=== PATIENT | female | born 1940 | race Caucasian/White ===

== ENCOUNTER → 2016-03-09 | Outpatient (CLI) | payer MEDICARE, OTHER ==
[~2016-03-09] MED LIST: /GLIM4TA OR; ACTOS OR; ASPI81TA45 OR; CIPR25SS OR; CIPRO; GLUC1000 OR; GLYBPOW OR; JANUVIA OR; LIPITOR PO; TYL RE; TYLENOL; VITAMIN B 12 PO; ZOLO100T OR
--- NOTE | 2016-03-09 17:17 | REP ---
AP AND LATERAL THORACIC SPINE: 03/09/2016. Clinical history: Mid-back pain. Comparison: Lateral chest 07/03/2010. Findings: AP, lateral and a coned lateral view of cervicothoracic junction were provided. Posterior rib articulations and medial clavicles are intact. The spinous processes, pedicles, transverse processes and paraspinal lines were all unremarkable. There are calcifications aortic arch and some tortuosity and ectasia of the aorta without aneurysm. No destructive lesion or compression deformity noted on the frontal view. Lateral view shows disc space narrowing particularly at T7-8, T8-9 and T9-10. However, there is no visible compression deformity or destructive lesion. Impression: 1. Degenerative disc disease, greatest at T8-9 with narrowing at other levels as described. No acute compression deformity or destructive bone lesion. ADDENDUM at the time of signature: This study has just been placed in my signature queue on the date of this signature. Why this has been unavailable for my signature to date is not known to me. I apologize for any inconvenience from this delay. Signed by Henrik Bruno MD 03/24/2016 05:01 P
== END ==
LOC: M ADAMS 16:24
PROVIDERS: ATTEND Family Medicine
DX: M51.34 Other intervertebral disc degeneration, thoracic region (principal); Z23 Encounter for immunization
CPT/HCPCS: 72070; 90471; 90715; G0463

== ENCOUNTER → 2016-05-23 | Outpatient (REF) | payer MEDICARE, OTHER ==
[2016-05-23 14:03] LABS: ALBUMIN 3.7 GM/DL (3.2-5.2); ALKALINE PHOSPHATASE 43 U/L (45-117); ALT/SGPT 28 U/L (12-78); ANION GAP 5 MEQ/L (8-16); AST/SGOT 27 U/L (15-37); BILIRUBIN,TOTAL 0.4 MG/DL (0.2-1.0); BLOOD UREA NITROGEN 18 MG/DL (7-18); CALCIUM LEVEL 9.6 MG/DL (8.8-10.2); CARBON DIOXIDE LEVEL 35 MEQ/L (21-32); CHLORIDE LEVEL 98 MEQ/L (98-107); CHOLESTEROL LEVEL 167 MG/DL (<200); CREATININE FOR GFR 0.79 MG/DL (0.55-1.02); GLOMERULAR FILTRATION RATE > 60.0 (>39); GLUCOSE, FASTING 169 MG/DL (83-110); POTASSIUM SERUM 3.6 MEQ/L (3.5-5.1); SODIUM LEVEL 138 MEQ/L (136-145); TOTAL PROTEIN 7.4 GM/DL (6.4-8.2); TRIGLYCERIDES LEVEL 271 MG/DL (<150)
== END ==
LOC: M SFHCADAM 08:18
PROVIDERS: ATTEND Family Medicine
DX: E11.9 Type 2 diabetes mellitus without complications (principal); E78.2 Mixed hyperlipidemia

== ENCOUNTER → 2016-10-25 | Outpatient (REF) | payer MEDICARE, OTHER ==
[2016-10-25 17:30] LABS: ALBUMIN 3.9 GM/DL (3.2-5.2); ALBUMIN/GLOBULIN RATIO 1.11 (1.00-1.93); ALKALINE PHOSPHATASE 38 U/L (45-117); ALT/SGPT 27 U/L (12-78); ANION GAP 10 MEQ/L (8-16); AST/SGOT 21 U/L (15-37); BILIRUBIN,TOTAL 0.4 MG/DL (0.2-1.0); BLOOD UREA NITROGEN 16 MG/DL (7-18); CALCIUM LEVEL 9.8 MG/DL (8.8-10.2); CARBON DIOXIDE LEVEL 33 MEQ/L (21-32); CHLORIDE LEVEL 99 MEQ/L (98-107); CREATININE FOR GFR 0.78 MG/DL (0.55-1.02); GLOMERULAR FILTRATION RATE > 60.0 (>39); GLUCOSE, FASTING 164 MG/DL (83-110); POTASSIUM SERUM 3.6 MEQ/L (3.5-5.1); SODIUM LEVEL 142 MEQ/L (136-145); TOTAL PROTEIN 7.4 GM/DL (6.4-8.2)
== END ==
LOC: M SFHCADAM 09:07
PROVIDERS: ATTEND Family Medicine
DX: E11.9 Type 2 diabetes mellitus without complications (principal)

== ENCOUNTER → 2016-10-31 | Outpatient (CLI) | payer MEDICARE, BC ==
--- NOTE | 2016-10-31 14:11 | REPMRS ---
Patient History The patient states she has not had a clinical breast exam in over a year. Family history of breast cancer in maternal aunt and ovarian cancer in daughter under age 50. Benign radio exam breast specimen of the right breast, September 03, 2013. Benign stereotatic loc for ea lesion of the right breast, September 03, 2013. Benign stereotatic breast biopsy of the left breast, November 06, 2007. Digital Woman Screen Mammo: October 31, 2016 - Exam #: [id number] Bilateral CC and MLO view(s) were taken. Technologist: Sheron Padgett, Technologist Prior study comparison: October 27, 2015, bilateral digital mammo screening bilat, performed at [facility]. February 24, 2015, right breast digital mammo diagnostic unilateral, performed at [facility]. FINDINGS: There are scattered fibroglandular densities. There has been no change in the appearance of the mammogram from the prior studies. There is a mild amount of residual fibroglandular tissue which is fairly symmetric. There is no interval development of dominant mass, architectural distortion, or clustered microcalcification suggestive of malignancy. ASSESSMENT: BI-RADS/ACR category 1 mammogram. Negative. Recommendation Routine screening mammogram in 1 year (for women over age 40). This mammogram was interpreted with the aid of an FDA-approved computer-aided dectection system. Electronically Signed By: Jian Franks MD 10/31/16 [id number]
== END ==
LOC: M WHC 12:51
PROVIDERS: ATTEND Family Medicine
DX: Z12.31 Encounter for screening mammogram for malignant neoplasm of breast (principal); Z92.89 Personal history of other medical treatment; Z80.41 Family history of malignant neoplasm of ovary
CPT/HCPCS: G0202; G0463

== ENCOUNTER → 2017-04-11 | Outpatient (REF) | payer MEDICARE, OTHER ==
[2017-04-11 12:49] LABS: HEMOGLOBIN 12.6 g/dl (12.0-16.0); MEAN CORPUSCULAR HEMOGLOBIN 28.8 pg (27.0-33.0); MEAN CORPUSCULAR HGB CONC 32.3 g/dl (32.0-36.5); PLATELET COUNT, AUTOMATED 282 10^3/uL (150-450); RED BLOOD COUNT 4.38 10^6/uL (4.00-5.40); RED CELL DISTRIBUTION WIDTH 13.2 % (11.5-14.5); RETICULOCYTE # 69.2 10^9/L (17-77); RETICULOCYTE % 1.6 % (0.5-1.5); WHITE BLOOD COUNT 7.9 10^3/uL (4.0-10.0)
[2017-04-11 14:45] LABS: ALBUMIN/GLOBULIN RATIO 1.05 (1.00-1.93); ALKALINE PHOSPHATASE 45 U/L (45-117); ALT/SGPT 27 U/L (12-78); ANION GAP 7 MEQ/L (8-16); AST/SGOT 22 U/L (7-37); BILIRUBIN,TOTAL 0.3 MG/DL (0.2-1.0); BLOOD UREA NITROGEN 23 MG/DL (7-18); CALCIUM LEVEL 9.8 MG/DL (8.8-10.2); CARBON DIOXIDE LEVEL 32 MEQ/L (21-32); CHLORIDE LEVEL 102 MEQ/L (98-107); CHOLESTEROL LEVEL 151 MG/DL (<200); CHOLESTEROL RISK RATIO 3.682 (<5); CREATININE FOR GFR 1.07 MG/DL (0.55-1.30); FERRITIN 44 NG/ML (8-252); FREE T4 0.96 NG/DL (0.76-1.46); GLOMERULAR FILTRATION RATE 52.9 (>39); GLUCOSE, FASTING 145 MG/DL (70-100); HDL CHOLESTEROL 41 MG/DL (>40); IRON (FE) 51 UG/DL (50-170); LDL CHOLESTEROL 63.2 MG/DL (<100); NON-HDL-C 110 MG/DL; PERCENT SATURATION 13.3 % (13.2-45.0); POTASSIUM SERUM 4.4 MEQ/L (3.5-5.1); SODIUM LEVEL 141 MEQ/L (136-145); TOTAL IRON BINDING CAPACITY 384 UG/DL (250-450); TOTAL PROTEIN 7.8 GM/DL (6.4-8.2); TRIGLYCERIDES LEVEL 234 MG/DL (<150)
[2017-04-11 15:48] LABS: ESTIMATED AVERAGE GLUCOSE 180 MG/DL (60-110); HEMOGLOBIN A1c 7.9 %
== END ==
LOC: M SFHCADAM 08:40
DX: F32.9 Major depressive disorder, single episode, unspecified (principal); Z86.2 Personal history of diseases of the blood and blood-forming organs and certain disorders involving the immune mechanism; E11.9 Type 2 diabetes mellitus without complications; E78.2 Mixed hyperlipidemia
CPT/HCPCS: 83550

== ENCOUNTER → 2017-04-12 | Outpatient (REF) | payer MEDICARE, OTHER ==
[2017-04-12 21:30] LABS: CREATININE, URINE 74.9 MG/DL; MALB URINE SIEMENS 5.1 MG/L; MAU/CREAT RATIO 6.8 MCG/MG (0.0-30.0)
== END ==
LOC: M SFHCADAM 09:48
DX: E11.9 Type 2 diabetes mellitus without complications (principal)
CPT/HCPCS: 82043

== ENCOUNTER 2017-08-03 06:07 | Day surgery (SDC) | payer MEDICARE, BC, OTHER ==
[2017-08-03] MEDS: ACETAMINOPHEN 650 MG SUPP PR (06:00)
[2017-08-03] MEDS ORDERED: LIDOCAINE 1% MDV 20ML VIAL SQ (06:15)
[2017-08-03 06:32] LABS: HEMATOCRIT 37.9 % (36.0-47.0); HEMOGLOBIN 12.7 g/dl (12.0-15.5); MEAN CORPUSCULAR HEMOGLOBIN 28.6 pg (27.0-33.0); MEAN CORPUSCULAR HGB CONC 33.5 g/dl (32.0-36.5); MEAN CORPUSCULAR VOLUME 85.4 fl (80.0-96.0); PLATELET COUNT, AUTOMATED 292 10^3/uL (150-450); RED BLOOD COUNT 4.44 10^6/uL (4.00-5.40); RED CELL DISTRIBUTION WIDTH 13.4 % (11.5-14.5)
[2017-08-03 06:46] LABS: ANION GAP 9 MEQ/L (8-16); BLOOD UREA NITROGEN 12 MG/DL (7-18); CALCIUM LEVEL 9.4 MG/DL (8.8-10.2); CARBON DIOXIDE LEVEL 31 MEQ/L (21-32); CHLORIDE LEVEL 101 MEQ/L (98-107); CREATININE FOR GFR 0.89 MG/DL (0.55-1.30); GLOMERULAR FILTRATION RATE > 60.0 (>39); GLUCOSE, FASTING 168 MG/DL (70-100); POTASSIUM SERUM 3.1 MEQ/L (3.5-5.1); SODIUM LEVEL 141 MEQ/L (136-145)
[2017-08-03] MEDS: LR 1,000 ML IV ×4 (06:55→20:45)
[2017-08-03 07:03] LABS: BEDSIDE GLUCOSE 170 MG/DL (83-110)
[2017-08-03] MEDS ORDERED: LIDOCAINE 2% INJ 100 MG/5 ML SDV (FOR ANES.) As Ordered (07:12)
[2017-08-03] MEDS ORDERED: ROCURONIUM BROMIDE 50 MG/5 ML VIAL As Ordered (07:12)
[2017-08-03] MEDS ORDERED: fentaNYL 100 MCG/2 ML INJECTION (J3010) As Ordered ×2 (07:12→08:30)
[2017-08-03] MEDS ORDERED: dexameTHASONE 4 MG/ML 1ML VIAL (J1100) As Ordered (07:12)
[2017-08-03] MEDS ORDERED: GLYCOPYRROLATE INJ 0.2 MG/ML 2 ML VIAL As Ordered (07:12)
[2017-08-03] MEDS ORDERED: ONDANSETRON 4MG/2ML VIAL (J2405) As Ordered (07:12)
[2017-08-03] MEDS ORDERED: MIDAZOLAM INJ 2 MG/2 ML VIAL (J2250) As Ordered (07:12)
[2017-08-03] MEDS ORDERED: KETOROLAC 60 MG/2 ML VIAL (J1885) As Ordered (07:12)
[2017-08-03] MEDS ORDERED: PROPOFOL 200 MG/20 ML VIAL As Ordered (07:12)
[2017-08-03] MEDS ORDERED: NEOSTIGMINE 10 MG/10 ML VIAL (J2710) As Ordered (07:12)
[2017-08-03] MEDS: LIDOCAINE W/EPINEPHRINE 1% 20ML VIAL As Ordered (07:16)
[2017-08-03] MEDS: ceFAZolin SOD 1 GM in D5W MINI-BAG PLUS 50 ML IV (07:32)
[2017-08-03] MEDS: ACETAMINOPHEN 650 MG SUPP As Ordered (07:50)
[2017-08-03] MEDS ORDERED: PHENYLephrine HCL 500 MCG/5 ML (100MCG/ML) SYRINGE (J2370) As Ordered (09:05)
[2017-08-03] MEDS: FLUORESCEIN 10% (100MG/ML) 5 ML VIAL As Ordered (09:25)
[2017-08-03] MEDS: VASOPRESSIN INJ 20 UNITS/ML VIAL As Ordered (09:30)
[2017-08-03] MEDS ORDERED: PERCOCET 5MG/325MG TAB PO (10:45)
[2017-08-03] MEDS ORDERED: IBUPROFEN 800 MG TAB PO (12:00)
[2017-08-03] MEDS ORDERED: NORCO, ANEXSIA 5/325MG TABLET (HYDROcodone/ACETAMINOPHEN) PO (12:15)
[2017-08-03] MEDS ORDERED: fentaNYL 100 MCG/2 ML INJECTION (J3010) IV (12:15)
[2017-08-03] MEDS ORDERED: ONDANSETRON 4MG/2ML VIAL (J2405) IV (12:15)
[2017-08-03] MEDS: SIMETHICONE 80 MG CHEW TAB PO ×3 (14:00→23:24)
[2017-08-03] MEDS: IBUPROFEN 800 MG TAB PO ×2 (15:08→21:28)
[2017-08-04] MEDS: IBUPROFEN 800 MG TAB PO ×2 (04:12→10:19)
[2017-08-04] MEDS: SIMETHICONE 80 MG CHEW TAB PO (05:37)
== END 2017-08-04 12:15 | disposition home or self-care (01) ==
LOC: M SDC 06:07 → M MS5PR 11:40
DX: N99.3 Prolapse of vaginal vault after hysterectomy (principal); E11.9 Type 2 diabetes mellitus without complications; I10 Essential (primary) hypertension; M12.9 Arthropathy, unspecified; F32.9 Major depressive disorder, single episode, unspecified; Z88.0 Allergy status to penicillin; Z86.73 Personal history of transient ischemic attack (TIA), and cerebral infarction without residual deficits; Z79.899 Other long term (current) drug therapy; Z90.710 Acquired absence of both cervix and uterus; Z79.84 Long term (current) use of oral hypoglycemic drugs; Z78.0 Asymptomatic menopausal state; Z96.1 Presence of intraocular lens
CPT/HCPCS: 57282

== ENCOUNTER → 2017-10-11 | Outpatient (REF) | payer MEDICARE, OTHER ==
[2017-10-11 13:00] LABS: HEMATOCRIT 37.2 % (36.0-47.0); MEAN CORPUSCULAR HEMOGLOBIN 27.8 pg (27.0-33.0); MEAN CORPUSCULAR HGB CONC 32.3 g/dl (32.0-36.5); MEAN CORPUSCULAR VOLUME 86.1 fl (80.0-96.0); PLATELET COUNT, AUTOMATED 295 10^3/uL (150-450); RED BLOOD COUNT 4.32 10^6/uL (4.00-5.40); RED CELL DISTRIBUTION WIDTH 13.4 % (11.5-14.5); WHITE BLOOD COUNT 6.6 10^3/uL (4.0-10.0)
[2017-10-11 13:35] LABS: ALBUMIN 3.7 GM/DL (3.2-5.2); ALBUMIN/GLOBULIN RATIO 0.93 (1.00-1.93); ALKALINE PHOSPHATASE 45 U/L (45-117); ALT/SGPT 23 U/L (12-78); ANION GAP 10 MEQ/L (8-16); AST/SGOT 21 U/L (7-37); BILIRUBIN,TOTAL 0.5 MG/DL (0.2-1.0); BLOOD UREA NITROGEN 21 MG/DL (7-18); CALCIUM LEVEL 9.6 MG/DL (8.8-10.2); CARBON DIOXIDE LEVEL 33 MEQ/L (21-32); CHLORIDE LEVEL 99 MEQ/L (98-107); CREATININE FOR GFR 0.95 MG/DL (0.55-1.30); GLOMERULAR FILTRATION RATE > 60.0 (>39); GLUCOSE, FASTING 160 MG/DL (70-100); POTASSIUM SERUM 3.8 MEQ/L (3.5-5.1); SODIUM LEVEL 142 MEQ/L (136-145); TOTAL PROTEIN 7.7 GM/DL (6.4-8.2)
[2017-10-11 13:43] LABS: VITAMIN B12 LEVEL 408 PG/ML (247-911)
[2017-10-11 13:44] LABS: FOLATE 7.2 NG/ML (>5.4)
[2017-10-11 15:31] LABS: ESTIMATED AVERAGE GLUCOSE 163 MG/DL (60-110); HEMOGLOBIN A1c 7.3 %
== END ==
LOC: M SFHCADAM 11:10
DX: Z86.2 Personal history of diseases of the blood and blood-forming organs and certain disorders involving the immune mechanism (principal); R26.81 Unsteadiness on feet; E11.9 Type 2 diabetes mellitus without complications
CPT/HCPCS: 82746

== ENCOUNTER → 2017-11-22 | Outpatient (CLI) | payer MEDICARE, BC | LOC: M WHC 13:07 | DX: Z12.31 Encounter for screening mammogram for malignant neoplasm of breast (principal); Z80.3 Family history of malignant neoplasm of breast | CPT/HCPCS: 77067 ==

== ENCOUNTER 2017-12-30 23:27 | Emergency (ER) | payer MEDICARE, BC, OTHER ==
[2017-12-30] MEDS ORDERED: NS 500 ML IV (23:45)
[2017-12-31] MEDS: MORPHINE 2 MG/ML 1ML SYRINGE (J2270) IV (00:04)
[2017-12-31] MEDS: NS 1,000 ML IV (00:04)
[2017-12-31 00:07] LABS: BASO % 0.3 % (0.0-1.0); EOS # 0.1 10^3/uL (0.0-0.50); EOS % 0.9 % (0.0-3.0); HEMATOCRIT 38.1 % (36.0-47.0); HEMOGLOBIN 12.5 g/dl (12.0-15.5); IMMATURE GRANULOCYTE % 0.6 % (0-3.0); LYMPH # 2.4 10^3/uL (1.5-4.5); LYMPH % 20.6 % (24.0-44.0); MEAN CORPUSCULAR HGB CONC 32.8 g/dl (32.0-36.5); MEAN CORPUSCULAR VOLUME 85.4 fl (80.0-96.0); MONO # 0.8 10^3/uL (0.0-0.8); MONO % 6.7 % (0.0-5.0); NEUTROPHILS # 8.4 10^3/uL (1.8-7.7); NEUTROPHILS % 70.9 % (36.0-66.0); PLATELET COUNT, AUTOMATED 281 10^3/uL (150-450); RED BLOOD COUNT 4.46 10^6/uL (4.00-5.40); RED CELL DISTRIBUTION WIDTH 13.7 % (11.5-14.5); WHITE BLOOD COUNT 11.9 10^3/uL (4.0-10.0)
[2017-12-31 00:16] LABS: INR 0.96; PROTHROMBIN TIME 12.9 SECONDS (12.1-14.4)
[2017-12-31 00:21] LABS: PARTIAL THROMBOPLASTIN TIME 24.7 SECONDS (25.4-37.6)
[2017-12-31 00:32] LABS: ALBUMIN 3.8 GM/DL (3.2-5.2); ALKALINE PHOSPHATASE 48 U/L (45-117); ALT/SGPT 30 U/L (12-78); ANION GAP 12 MEQ/L (8-16); AST/SGOT 28 U/L (7-37); BILIRUBIN,DIRECT 0.2 MG/DL (0.0-0.2); BILIRUBIN,TOTAL 0.4 MG/DL (0.2-1.0); BLOOD UREA NITROGEN 27 MG/DL (7-18); CALCIUM LEVEL 9.1 MG/DL (8.8-10.2); CARBON DIOXIDE LEVEL 26 MEQ/L (21-32); CHLORIDE LEVEL 99 MEQ/L (98-107); CREATININE FOR GFR 1.18 MG/DL (0.55-1.30); GLOMERULAR FILTRATION RATE 47.2 (>39); GLUCOSE, FASTING 124 MG/DL (70-100); POTASSIUM SERUM 3.5 MEQ/L (3.5-5.1); SODIUM LEVEL 137 MEQ/L (136-145); TOTAL PROTEIN 7.6 GM/DL (6.4-8.2)
[2017-12-31] MEDS ORDERED: ISOVUE-370 76% 100ML VIAL (Q9967) As Ordered (00:43)
[2017-12-31] MEDS: traMADol 50 MG TAB (BULK 4 TAB ED) PO (03:40)
== END 2017-12-31 03:42 | disposition home or self-care (01) ==
LOC: M ED 23:27
DX: S20.20XA Contusion of thorax, unspecified, initial encounter (principal); Z53.29 Procedure and treatment not carried out because of patient's decision for other reasons; W22.8XXA Striking against or struck by other objects, initial encounter
CPT/HCPCS: Q9967

== ENCOUNTER → 2018-04-10 | Outpatient (REF) | payer MEDICARE, OTHER ==
[~2018-04-10] MED LIST changes: +CALC-136 PO; +CALC1TAB30 PO; +CHLO125TA PO; +GLIM4TAB PO; +MAGN200T PO; +METF10004 PO; +OMEP20CA3 PO; +PERC5TAB12 PO; +PRAV40TA2 PO; +SERT-138 PO; +TRAM-533 PO; +VITA100067 PO; +VITA250T50 PO; -ZOLO100T OR; +ZOLO100T PO
[2018-04-10 13:43] LABS: ALBUMIN 3.7 GM/DL (3.2-5.2); BILIRUBIN,TOTAL 0.4 MG/DL (0.2-1.0); CALCIUM LEVEL 9.3 MG/DL (8.8-10.2); CHOLESTEROL RISK RATIO 4.09 (<5); CREATININE FOR GFR 1.19 MG/DL (0.55-1.30); GLOMERULAR FILTRATION RATE 46.7 (>39); POTASSIUM SERUM 3.6 MEQ/L (3.5-5.1); TOTAL PROTEIN 7.1 GM/DL (6.4-8.2)
[2018-04-10 14:34] LABS: HEMOGLOBIN A1c 7.3 %
[2018-04-10 20:46] LABS: MALB URINE SIEMENS 19.7 MG/L; MAU/CREAT RATIO 16.4 MCG/MG (0.0-30.0)
== END ==
LOC: M SFHCADAM 08:45
PROVIDERS: ATTEND Family Medicine
DX: E11.9 Type 2 diabetes mellitus without complications (principal)

== ENCOUNTER 2018-05-22 10:30 | Emergency (ER) | payer MEDICARE, BC, OTHER ==
[~2018-05-22 10:30] MED LIST changes: -/GLIM4TA OR; +AMAR1TAB6 OR
--- NOTE | 2018-05-22 11:39 | REP ---
CT Head without contrast HISTORY: Trauma COMPARISON: 07/03/2010 Areas of decreased attenuation are present in of the the white matter. This represents small-vessel ischemic disease. There is no intraparenchymal hemorrhage, acute infarct, mass or midline shift. The ventricular system and cortical sulci are dilated consistent with mild volume loss. A 7 mm acute subdural hematoma is present overlying the right frontal and temporal lobes. There is minimal mass effect on the underlying cortical sulci without midline shift. A small 1.5 mm acute subdural hematoma is present medial to the left frontal lobe. There is no fracture. The visualized sinuses are clear. IMPRESSION: 1. Small vessel ischemic disease. 2. Mild volume loss. 3. 7 mm acute subdural hematoma over the right frontal and temporal lobes. There is no midline shift. 4. Small 1.5 mm acute subdural hematoma medial to the left frontal lobe. Results were discussed with Dr. Brian at 11:30 a.m. 05/22/2018 Electronically Signed by Dhaval Mc MD 05/22/2018 11:30 A
[2018-05-22] MEDS ORDERED: NS 1,000 ML IV SCH (11:40)
--- NOTE | 2018-05-22 11:43 | REP ---
CT cervical spine without contrast HISTORY: Trauma COMPARISON: None There is no acute fracture or subluxation. A disc bulge is present at the C3-4 level. Disc bulges with associated osteophyte formation are present at the C4-5 through C6-7 levels. There is minimal to mild narrowing of the spinal canal. Uncinate process and/or facet hypertrophy are present at the C2-3 through C7-T1 levels. These findings produce minimal to moderate narrowing of the neural foramina. The C4-5 through C7-T1 intervertebral discs are decreased in height consistent with disc degeneration. IMPRESSION: 1. There is no acute fracture or subluxation. 2. There is cervical spondylosis at the C2-3 through C7-T1 levels. Electronically Signed by Dhaval Mc MD 05/22/2018 11:34 A
[2018-05-22] MEDS ORDERED: ADACEL/BOOSTRIX VACCINE (DIPHTH/PERTUSS/ACELL/TETANUS)0.5ML SYR (90715) IM ONE (11:45)
--- NOTE | 2018-05-22 11:59 | REP ---
Chest one-view HISTORY: Trauma Comparison: 08/28/2015 The lungs are clear. The heart is normal in size. The pulmonary vasculature is normal in appearance. Impression: No acute disease. Electronically Signed by Dhaval Mc MD 05/22/2018 11:51 A
[2018-05-22 12:59] LABS: BASO % 0.3 % (0.0-1.0); EOS # 0.1 10^3/uL (0.0-0.50); EOS % 0.8 % (0.0-3.0); HEMATOCRIT 36.5 % (36.0-47.0); HEMOGLOBIN 11.6 g/dl (12.0-15.5); LYMPH # 1.9 10^3/uL (1.5-4.5); LYMPH % 18.9 % (24.0-44.0); MEAN CORPUSCULAR HEMOGLOBIN 27.6 pg (27.0-33.0); MEAN CORPUSCULAR HGB CONC 31.8 g/dl (32.0-36.5); MEAN CORPUSCULAR VOLUME 86.9 fl (80.0-96.0); MONO # 0.6 10^3/uL (0.0-0.8); MONO % 5.9 % (0.0-5.0); NEUTROPHILS # 7.4 10^3/uL (1.8-7.7); NEUTROPHILS % 73.4 % (36.0-66.0); PLATELET COUNT, AUTOMATED 281 10^3/uL (150-450); WHITE BLOOD COUNT 10.1 10^3/uL (4.0-10.0)
[2018-05-22 13:11] LABS: INR 1.03; PROTHROMBIN TIME 13.6 SECONDS (12.1-14.4)
[2018-05-22 13:12] LABS: PARTIAL THROMBOPLASTIN TIME 26.9 SECONDS (25.4-37.6)
[2018-05-22 13:35] LABS: ALBUMIN 3.6 GM/DL (3.2-5.2); ALT/SGPT 34 U/L (12-78); BILIRUBIN,DIRECT < 0.1 MG/DL (0.0-0.2); BILIRUBIN,TOTAL 0.4 MG/DL (0.2-1.0); BLOOD UREA NITROGEN 19 MG/DL (7-18); CALCIUM LEVEL 8.8 MG/DL (8.8-10.2); CARBON DIOXIDE LEVEL 30 MEQ/L (21-32); CHLORIDE LEVEL 100 MEQ/L (98-107); CPK CREATINE PHOSPHOKINASE 58 U/L (26-192); CREATININE FOR GFR 1.05 MG/DL (0.55-1.30); FREE T4 0.98 NG/DL (0.76-1.46); GLUCOSE, FASTING 177 MG/DL (70-100); MB/CK RELATIVE INDEX 2.59 (< OR =4); POTASSIUM SERUM 3.5 MEQ/L (3.5-5.1); SODIUM LEVEL 138 MEQ/L (136-145); TOTAL PROTEIN 7.2 GM/DL (6.4-8.2); TROPONIN I < 0.02 NG/ML (< 0.10)
[2018-05-22 13:48] VITALS: BP 167/79
--- NOTE | 2018-05-23 21:30 | ECGEPIP ---
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
== END 2018-05-22 13:51 | disposition short-term general hospital (02) ==
LOC: EDBD 10:30 → M ED 10:30 → EDSEX 10:30 → M ED 13:51
DX: S01.01XA Laceration without foreign body of scalp, initial encounter (principal); S06.5X0A Traumatic subdural hemorrhage without loss of consciousness, initial encounter; W01.10XA Fall on same level from slipping, tripping and stumbling with subsequent striking against unspecified object, initial encounter; Y92.099 Unspecified place in other non-institutional residence as the place of occurrence of the external cause; Y93.9 Activity, unspecified; Y99.9 Unspecified external cause status; E11.9 Type 2 diabetes mellitus without complications; I10 Essential (primary) hypertension; M85.80 Other specified disorders of bone density and structure, unspecified site; M51.9 Unspecified thoracic, thoracolumbar and lumbosacral intervertebral disc disorder; F32.9 Major depressive disorder, single episode, unspecified; J84.10 Pulmonary fibrosis, unspecified; L40.9 Psoriasis, unspecified; M47.812 Spondylosis without myelopathy or radiculopathy, cervical region; M47.813 Spondylosis without myelopathy or radiculopathy, cervicothoracic region; Z79.4 Long term (current) use of insulin; Z79.899 Other long term (current) drug therapy; Z88.8 Allergy status to other drugs, medicaments and biological substances

== ENCOUNTER 2018-05-28 13:05 | Inpatient (IN) | payer MEDICARE, BC, OTHER ==
[~2018-05-28] VITALS: Ht 160 cm; Wt 66.7 kg
[2018-05-28] MEDS: CHLORTHALIDONE 12.5MG PER 1/2 TABLET PO SCH (09:00)
[2018-05-28] MEDS: SERTRALINE 100 MG TAB PO SCH (09:00)
[2018-05-28 13:15] VITALS: BP 156/75
[2018-05-28] MEDS ORDERED: MAGN400T PO (14:08)
[2018-05-28] MEDS ORDERED: D-10TAB2 PO (14:08)
[2018-05-28] MEDS ORDERED: CHLO25TA PO (14:08)
[2018-05-28] MEDS ORDERED: COLA100C5 PO (14:08)
[2018-05-28] MEDS ORDERED: ZOFR4TAB16 PO (14:08)
[2018-05-28] MEDS ORDERED: BACI500O21 TOP (14:08)
[2018-05-28] MEDS ORDERED: ACET1TAB55 PO (14:08)
[2018-05-28] MEDS ORDERED: MAALOX 30 ML SUSP *UDC PO PRN (14:15)
[2018-05-28] MEDS ORDERED: GLUCAGON FOR INJ 1 MG VIAL (J1610) SC PRN (14:15)
[2018-05-28] MEDS ORDERED: DOCUSATE SODIUM 100 MG CAP PO PRN (14:15)
[2018-05-28] MEDS ORDERED: ONDANSETRON 4 MG TAB (S0181) PO PRN (14:15)
[2018-05-28] MEDS ORDERED: DEXTROSE 50% 50 ML SYRINGE IV PRN (14:15)
[2018-05-28] MEDS ORDERED: BISACODYL 10 MG SUPP PR PRN (14:15)
[2018-05-28] MEDS ORDERED: GLUCOSE 4 GM CHEW TABLET PO PRN (14:15)
--- NOTE | 2018-05-28 14:59 | HPEPDOC ---
Patient Access Director Note DATE OF ADMISSION: May 28, 2018 at 13:05 SOURCE OF ADMISSION INFORMATION:[facility] records and patient CHIEF COMPLAINT: subdural hematoma HISTORY OF PRESENT ILLNESS: 77F pmh TIA, HTN, HLD, GERD, depression initially presented to [facility] ED on 05/22/18 after falling in her driveway and hitting her head. CTH at the time showed, "7 mm acute subdural hematoma over the right frontal and temporal lobes...There is no midline shift....Small 1.5 mm acute subdural hematoma medial to the left frontal lobe" and she was found to have a laceration to the back of her head. She was transported to [facility] where initially she complained of headache and nausea which resolved. Repeat CTH at [facility] on 05/22 and 05/24/18 did not show significant changes in her subdural hematomas. Neurosurgery was consulted and did not recommend surgical intervention. She had hyponatremia and hypokalemia with leukocytosis. She was found to have some cognitive deficits and found to have impairments in her gait and ADLs compared to her baseline level of function. She was treated for constipation and provided with a referral for outpatient Sleep study for suspected DEONTE. She was deemed medically appropriate for discharge to ARU on 05/28/18. REVIEW OF SYSTEMS: The following is a completed review of systems and has been reviewed. Review of systems otherwise unremarkable. PAIN: Patient self reports no pain. EYES: Negative for recent vision changes EARS, NOSE, & THROAT: negative for dysphagia, +frontal sinus pain CARDIOVASCULAR: denies chest pain or palpitations PULMONARY: Negative. Denies shortness of breath GASTROINTESTINAL: Negative for constipation/diarrhea GENITOURINARY: Negative for dysuria NEUROLOGICAL: +bilateral subdural hematomas SKIN: intact PSYCHIATRIC: Unremarkable All other review of systems found to be negative. PAST MEDICAL HISTORY: as per HPI PAST SURGICAL HISTORY: abdominal surgery ALLERGIES: Please see below. MEDICATIONS: Please see below. SOCIAL HISTORY: , denies ETOH, smoking, or illicit drugs, lives with son in [place] DIET: consistent carb PHYSICAL EXAMINATION: VITAL SIGNS: Please see below. GENERAL: Pleasant and cooperative. No acute distress. HEENT: PERRL. Extraocular movements intact. Clear conjunctiva CARDIOVASCULAR: Regular rate and rhythm. No murmurs, rubs, or gallops LUNGS: Clear to auscultation bilaterally. No wheezes. No rhonchi ABDOMEN: Soft, nontender, nondistended. Positive bowel sounds. Normal active bowel sounds NEUROLOGICAL: Alert and oriented times three. Able to spell "world" backwards, unable to perform Luria Cranial nerves II through XII grossly intact. Sensation grossly intact in all 4 limbs, however +extinction to touch in the RUE EXTREMITIES: 5-\\5 strength bilateral upper extremities with mild pronator drift on right. 5\\5 strength right lower extremity.5/5 strength in left lower extremity. SKIN: posterior scalp laceration healed IMAGING: Imaging documentation personally reviewed by record FUNCTIONAL STATUS: Premorbid: Independent with all activities of daily life as well as mobility On Admission: requiring assistance with ambulation, functional transfers, dressing with significant loss of balance GOALS: Modified Independent with gait, stairs, bathing, dressing, dynamic balance, toileting, medical optimization, fall recovery, assess for DME needs, family training ASSESSMENT:77-year-old F with past medical history of TIA, HTN, HLD who presents status post fall with bilateral SDH PLAN: 1. 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 Neuro: pmh TIA, s/p traumatic SDH, c/u statin, maintain sBP <130, hold antiplatelets -has f/u with neurosurgery and repeat CTH in 4 weeks -f/u with outpatient sleep study 3. Cardiac: pmh HTN c/u Chlorthalidone, medicine consulted 4. Endo: DM, c/u Glimeperide and ISS, will monitor off metformin for now 5. : f/u admission UA and Ucx, monitor PVRs 6. GI ppx: Omeprazole 7. DVT ppx: TEDs 8. Hyponatremia: likely SIADH in setting of head trauma, will monitor while here and consider salt tabs vs fluid restriction 8. Dispo: TBD POST ADMISSION PHYSICIAN EVALUATION: Medical and functional status: Description of medical status, medical ass essment: As above. Rehabilitation diagnosis and current and prior cold morbid medical conditions as above. Risk of complications and plans to mitigate them as above. Description of functional status current status is as above. Prior status as above. Status compared to preadmission: There are no clinically significant differences between the patient's current status and the information described on the preadmission screening document. Treatment plan anticipated: Treatment plan is as described above. Required disciplines including physical therapy, occupational therapy, others as noted above. Intensity of services: 3 hours a day, 6 days a week. Special considerations: There are no specific special or safety considerations that would likely preclude immediate implementation of an intensive rehabilitation program or subsequently influence the plan of care. ATTESTATION: Considering all the information above, it is my best judgment that this patient requires intensive rehabilitation therapy as described above and an inpatient hospital environment due to the complexity of nursing, medical, and rehabilitation needs required by the patient. Furthermore, this patient can reasonably be expected to participate in an benefit from an inpatient rehabilitation stay with an interdisciplinary team approach to the delivery of rehabilitation care under the direction and supervision of rehabilitation physician. PROGNOSIS: Excellent ESTIMATED LENGTH OF STAY:8-10 days. PROJECTED DISCHARGE DESTINATION: Home with family support and any durable medical equipment required to increase functional safety and mobility TIME SPENT COUNSELING AND COORDINATING INITIAL CARE: Greater than 70 minutes. Vital Signs Vital Sign - Last 24 Hours 05/28/18 13:15 Temp 97.9 Pulse 72 Resp 18 B/P (MAP) 156/75 (102) Pulse Ox 96 Home Medications Scheduled Chlorthalidone (Chlorthalidone) 25 Mg Tablet, 12.5 MG PO DAILY, (Reported) Cholecalciferol (Vitamin D3) (Vitamin D3) 1,000 Unit Tablet, 1,000 UNIT PO DAILY, (Reported) Cyanocobalamin (Vitamin B-12) (Vitamin B-12) 250 Mcg Tab, 500 MCG PO DAILY, (Reported) Docusate Sodium (Colace) 100 Mg Capsule, 100 MG PO BID, (Reported) Glimepiride (Glimepiride) 4 Mg Tab, 4 MG PO DAILY, (Reported) Magnesium Oxide (Magnesium Oxide) 400 Mg Tablet, 400 MG PO DAILY, (Reported) Metformin HCl (Metformin HCl) 1,000 Mg Tab, 1,000 MG PO QPM, (Reported) Metformin HCl (Metformin HCl) 1,000 Mg Tab, 1,500 MG PO QAM, (Reported) Omeprazole (Omeprazole) 20 Mg Cap, 20 MG PO DAILY, (Reported) Pravastatin Sodium (Pravastatin Sodium) 40 Mg Tab, 40 MG PO DAILY, (Reported) Sertraline HCl (Sertraline HCl) 100 Mg Tab, 100 MG PO DAILY, (Reported) Scheduled PRN Acetaminophen (Acetaminophen) 325 Mg Tablet, 650 MG PO Q6H PRN for PAIN, (Re ported) Bacitracin (Bacitracin) 28 Gm Oint...g., 1 DOSE TOP TID PRN for SKIN IRRITATION, (Reported) APPLY TO HEAD LACERATION Ondansetron HCl (Zofran) 4 Mg Tablet, 4 MG PO Q8H PRN for NAUSEA OR VOMITING, (Reported) Allergies Coded Allergies: ramipril (Verified Adverse Reaction, Intermediate, cough, 05/10/18) CLOVER MUÑIZ MD May 28, 2018 14:58
[2018-05-28] MEDS: ACETAMINOPHEN TAB 650MG DOSE (2X325MG) PO PRN (16:33)
[2018-05-28] MEDS: HumaLOG INSULIN (NovoLOG) PER UNIT SC SCH ×2 (17:22→20:53)
[2018-05-28 19:28] LABS: APPEARANCE, URINE HAZY (CLEAR); BACTERIA, URINE AUTO 1+ (NEGATIVE); BILIRUBIN, URINE AUTO NEGATIVE (NEGATIVE); BLOOD, URINE BLOOD NEGATIVE (NEGATIVE); COLOR, URINE YELLOW (YELLOW); GLUCOSE, URINE (UA) AUTO 3+ mg/dL (NEGATIVE); KETONE, URINE AUTO NEGATIVE (NEGATIVE); LEUKOCYTE ESTERASE, URINE AUTO NEGATIVE (NEGATIVE); NITRITE, URINE AUTO NEGATIVE (NEGATIVE); PROTEIN, URINE AUTO NEGATIVE (NEGATIVE); RBC, URINE AUTO 0 /HPF (0-3); SPECIFIC GRAVITY URINE AUTO 1.014 (1.002-1.035); SQUAMOUS EPITHELIAL CELL UR AU 0 /HPF (0-6); UROBILINOGEN, URINE AUTO 0.2 mg/dL (0.0-2.0); WBC, URINE AUTO 1 /HPF (0-3)
[2018-05-28 20:00] VITALS: BP 150/80
--- NOTE | 2018-05-28 20:49 | CR ---
DATE OF CONSULTATION: 05/28/2018 PRIMARY CARE PROVIDER: Marvel Coronel MD REFERRING PHYSICIAN: Brook Winters MD REASON FOR CONSULTATION: Medical management. HISTORY OF PRESENT ILLNESS: This patient is a 77-year-old female with past medical history significant for transient ischemic attack (TIA), type 2 diabetes, depression, psoriasis, hypertension, dyslipidemia, subdural hematoma, was transferred from [facility] to [facility] Acute Rehabilitation Unit (ARU) for rehabilitation. Previously, patient had a mechanical fall. Patient landed in her driveway. Patient remembers the event but could not remember the cause of the fall. Patient was brought to [facility] Emergency Room. At the time, patient was found to have a hematoma and was transferred to [facility] for further evaluation and management. During her hospitalization at [facility], patient was evaluated by neurosurgery. Recommended observation and medical management. No intervention was performed at the time. Later, patient was discharged to [facility] for rehabilitation. Since the fall patient is complaining about lower extremity weakness but she could not specify which lower extremity, but she is complaining about poor lower extremity coordination and muscle strength. Patient denies any numbness or tingling or any other neurological deficit. Denies any acute complaints. PAST MEDICAL HISTORY: 1. Osteopenia. 2. Dyslipidemia. 3. Hypertension. 4. Psoriasis. 5. Chronic depression. 6. Type 2 diabetes. 7. TIA. 8. Subdural hematoma. PAST SURGICAL HISTORY: 1. Hysterectomy. 2. Left breast biopsy. 3. Bilateral cataract surgery in 2012. SOCIAL HISTORY: Denies smoking, denies alcohol use, denies recreational drug use. ALLERGIES: RAMIPRIL, patient complained of gastrointestinal (GI) upset. DISCHARGE MEDICATIONS FROM [facility]: - Tylenol 650 mg by mouth every 6 hours as needed - bacitracin ointment applied to the head laceration as needed - chlorthalidone 12.5 mg by mouth daily - docusate sodium 100 mg by mouth twice a day - glimepiride 4 mg by mouth daily - magnesium oxide 400 mg by mouth daily - metformin 1500 mg by mouth every morning, 1000 mg by mouth every evening - omeprazole 20 mg by mouth daily - ondansetron 4 mg by mouth every 8 hours as needed - pravastatin 40 mg by mouth daily - sertraline 100 mg by mouth REVIEW OF SYSTEMS: GENERAL: Denies any fever or chills. HEENT: Denies any vision change or auditory change. CARDIOVASCULAR: Denies any chest pains or palpitations. RESPIRATORY: Denies any cough, sputum production, or shortness of breath. GI: Denies any nausea, vomiting, diarrhea. MUSCULOSKELETAL: Denies any muscle pain or joint pain. NEUROLOGICAL: Patient feels that patient has subjective bilateral lower extremity weakness and incoordination. Denies any numbness or tingling. OBJECTIVE: VITAL SIGNS: Temperature 97.9, pulse 72, respiratory rate 18, blood pressure 156/75, pulse oximetry 96% in room air. GENERAL: No sign of acute distress, patient alert and awake, comfortable, laying in bed. HEENT: Normocephalic, atraumatic. Extraocular motors grossly intact. CARDIOVASCULAR: Positive S1, S2, regular rate. LUNGS: Clear to auscultation bilaterally. ABDOMEN: Soft, nontender, nondistended. Bowel sounds present. EXTREMITIES: No edema. NEUROLOGICAL: Sensation to fine touch grossly intact. Muscle strength 5/5. Cranial nerves II-XII grossly intact. ASSESSMENT AND PLAN: 1. Bifrontal subdural hematoma. Patient is currently admitted to the acute rehabilitation unit (ARU). Defer physical therapy (PT), occupational therapy (OT), diet, and anticoagulation per ARU recommendations. 2. Type 2 diabetes. Patient is on consistent carbohydrate diet. Patient is on glimepiride. Insulin sliding scale. 3. History of transient ischemic attack (TIA). Patient has a history of bilateral subdural hematoma. Patient is on pravastatin. Patient is not on aspirin. 4. Gastroesophageal reflux disease. On omeprazole. 5. Depression. On Zoloft. 6. Hypertension. Patient is taking chlorthalidone. 7. Dyslipidemia. On pravastatin. 8. Deep venous thrombosis (DVT) prophylaxis. Encourage ambulation. 9. Transitional care. The patient will be under [facility] tomorrow.
[2018-05-28] MEDS: SENNA 8.6 MG TAB (SENOKOT) PO SCH (20:53)
[2018-05-29] MEDS: ACETAMINOPHEN TAB 650MG DOSE (2X325MG) PO PRN ×3 (02:22→21:49)
[2018-05-29 06:00] VITALS: BP 138/73
[2018-05-29 07:00] LABS: BASO # 0.1 10^3/uL (0.0-0.2); BASO % 0.5 % (0.0-1.0); EOS # 0.2 10^3/uL (0.0-0.50); EOS % 1.7 % (0.0-3.0); HEMATOCRIT 37.5 % (36.0-47.0); HEMOGLOBIN 12.1 g/dl (12.0-15.5); LYMPH # 3.1 10^3/uL (1.5-4.5); LYMPH % 33.1 % (24.0-44.0); MEAN CORPUSCULAR HEMOGLOBIN 27.6 pg (27.0-33.0); MEAN CORPUSCULAR HGB CONC 32.3 g/dl (32.0-36.5); MEAN CORPUSCULAR VOLUME 85.4 fl (80.0-96.0); MONO # 0.6 10^3/uL (0.0-0.8); MONO % 6.6 % (0.0-5.0); NEUTROPHILS # 5.5 10^3/uL (1.8-7.7); NEUTROPHILS % 57.7 % (36.0-66.0); PLATELET COUNT, AUTOMATED 361 10^3/uL (150-450); RED BLOOD COUNT 4.39 10^6/uL (4.00-5.40); WHITE BLOOD COUNT 9.5 10^3/uL (4.0-10.0)
[2018-05-29 07:29] LABS: ALBUMIN 3.3 GM/DL (3.2-5.2); ALT/SGPT 28 U/L (12-78); BILIRUBIN,TOTAL 0.8 MG/DL (0.2-1.0); BLOOD UREA NITROGEN 21 MG/DL (7-18); CARBON DIOXIDE LEVEL 29 MEQ/L (21-32); CHLORIDE LEVEL 95 MEQ/L (98-107); CREATININE FOR GFR 0.95 MG/DL (0.55-1.30); GLOMERULAR FILTRATION RATE > 60.0 (>39); GLUCOSE, FASTING 279 MG/DL (70-100); SODIUM LEVEL 133 MEQ/L (136-145); TOTAL PROTEIN 7.9 GM/DL (6.4-8.2)
[2018-05-29] MEDS: CYANOCOBALAMIN 250 MCG TABLET PO SCH (08:41)
[2018-05-29] MEDS: VITAMIN D 1,000 INTERNATIONAL UNITS TABLET PO SCH (08:41)
[2018-05-29] MEDS: PRAVASTATIN 20 MG TAB PO SCH (08:41)
[2018-05-29] MEDS: SERTRALINE 100 MG TAB PO SCH (08:42)
[2018-05-29] MEDS: GLIMEPIRIDE 2 MG TAB PO SCH (08:42)
[2018-05-29] MEDS: MAGNESIUM OXIDE 400 MG TAB (MAG-OX) PO SCH (08:42)
[2018-05-29] MEDS: CHLORTHALIDONE 12.5MG PER 1/2 TABLET PO SCH (08:42)
[2018-05-29] MEDS: HumaLOG INSULIN (NovoLOG) PER UNIT SC SCH ×4 (08:43→21:00)
[2018-05-29] MEDS: BACITRACIN OINT 30GM TOP SCH (08:43)
[2018-05-29] MEDS: OMEPRAZOLE 20 MG CAP PO SCH (08:43)
--- NOTE | 2018-05-29 10:43 | IPNPDOC ---
PM&R Progress Note DATE OF SERVICE: May 29, 2018 [employer] Progress Note Subjective: Patient seen walking in therapy and alter in room with her friend, stating she felt well overall and had no complaints. REVIEW OF SYSTEMS: The following is a completed review of systems and has been reviewed. Review of systems otherwise unremarkable. PAIN: Patient self reports no pain. EYES: Negative for recent vision changes EARS, NOSE, & THROAT: negative for dysphagia, +frontal sinus pain CARDIOVASCULAR: denies chest pain or palpitations PULMONARY: Negative. Denies shortness of breath GASTROINTESTINAL: Negative for constipation/diarrhea GENITOURINARY: Negative for dysuria NEUROLOGICAL: +bilateral subdural hematomas SKIN: intact PSYCHIATRIC: Unremarkable All other review of systems found to be negative. PHYSICAL EXAMINATION: VITAL SIGNS: Please see below. GENERAL: Pleasant and cooperative. No acute distress. HEENT: PERRL. Extraocular movements intact. Clear conjunctiva CARDIOVASCULAR: Regular rate and rhythm. No murmurs, rubs, or gallops LUNGS: Clear to auscultation bilaterally. No wheezes. No rhonchi ABDOMEN: Soft, nontender, nondistended. Positive bowel sounds. Normal active bowel sounds NEUROLOGICAL: Alert and oriented times three. Able to spell "world" backwards, unable to perform Luria Cranial nerves II through XII grossly intact. Sensation grossly intact in all 4 limbs, however +extinction to touch in the RUE EXTREMITIES: 5-\\5 strength bilateral upper extremities with mild pronator drift on right. 5\\5 strength right lower extremity.5/5 strength in left lower extremity. SKIN: posterior scalp laceration healed ASSESSMENT:77-year-old F with past medical history of TIA, HTN, HLD who presents status post fall with bilateral SDH PLAN: 1. rehab: PT/OT, DRIVE THRU ORDER TAKER, assess for DMEs, ambulating well with RW 2. Neuro: pmh TIA, s/p traumatic SDH, c/u statin, maintain sBP <130, hold antiplatelets -has f/u with neurosurgery and repeat CTH in 4 weeks -f/u with outpatient sleep study 3. Cardiac: pmh HTN c/u Chlorthalidone, medicine consulted 4. Endo: DM, c/u Glimeperide and ISS, will add back metformin and monitor 5. : f/u admission UA and Ucx, monitor PVRs 6. GI ppx: Omeprazole 7. DVT ppx: TEDs 8. 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 Dispo: TBD Allergies Coded Allergies: ramipril (Verified Adverse Reaction, Intermediate, cough, 05/10/18) Vital Signs Vital Signs Date Time Temp Pulse Resp B/P (MAP) Pulse Ox O2 Delivery O2 Flow Rate FiO2 05/29/18 06:00 97.2 85 17 138/73 (94) 99 2.0 Laboratory Data CBC/BMP Laboratory Tests 05/29/18 06:32 Red Blood Count 4.39, Mean Corpuscular Volume 85.4, Mean Corpuscular Hemoglobin 27.6, Mean Corpuscular Hemoglobin Concent 32.3, Red Cell Distribution Width 13.3, Neutrophils (%) (Auto) 57.7, Lymphocytes (%) (Auto) 33.1, Monocytes (%) (Auto) 6.6 H, Eosinophils (%) (Auto) 1.7, Basophils (%) (Auto) 0.5, Neutrophils # (Auto) 5.5, Lymphocytes # (Auto) 3.1, Monocytes # (Auto) 0.6, Eosinophils # (Auto) 0.2, Basophils # (Auto) 0.1, Calcium Level 9.0, Aspartate Amino Transf (AST/SGOT) 20, Alanine Aminotransferase (ALT/SGPT) 28, Alkaline Phosphatase 72, Total Bilirubin 0.8, Total Protein 7.9, Albumin 3.3 Labs 24H Laboratory Tests 2 05/28/18 16:38: Bedside Glucose (Misc Panel) 289H 05/28/18 18:55: Urine Appearance HAZY, Urine Color YELLOW, Urine pH 6.0, Urine Specific [place] 1.014, Urine Protein NEGATIVE, Urine Glucose (UA) 3+H, Urine Ketones NEGATIVE, Urine Urobilinogen 0.2, Urine Bilirubin NEGATIVE, Urine Leukocyte Esterase NEGATIVE, Urine Blood NEGATIVE, Urine Nitrite NEGATIVE, Urine WBC (Auto) 1, Urine RBC (Auto) 0, Urine Hyaline Casts (Auto) 0, Urine Bacteria (Auto) 1+H, Urine Squamous Epithelial Cells 0, Urine Sperm (Auto) 05/28/18 20:01: Bedside Glucose (Misc Panel) 300H 05/29/18 06:11: Bedside Glucose (Misc Panel) 253H 05/29/18 06:32: Immature Granulocyte % (Auto) 0.4, White Blood Count 9.5, Red Blood Count 4.39, Hemoglobin 12.1, Hematocrit 37.5, Mean Corpuscular Volume 85.4, Mean Corpuscular Hemoglobin 27.6, Mean Corpuscular Hemoglobin Concent 32.3, Red Cell Distribution Width 13.3, Platelet Count 361, Neutrophils (%) (Auto) 57.7, Lymphocytes (%) (Auto) 33.1, Monocytes (%) (Auto) 6.6H, Eosinophils (%) (Auto) 1.7, Basophils (%) (Auto) 0.5, Neutrophils # (Auto) 5.5, Lymphocytes # (Auto) 3.1, Monocytes # (Auto) 0.6, Eosinophils # (Auto) 0.2, Basophils # (Auto) 0.1, Nucleated Red Blood Cells % (auto) 0.0, Anion Gap 9, Glomerular Filtration Rate > 60.0, Blood Urea Nitrogen 21H, Creatinine 0.95, Sodium Level 133L, Potassium Level 4.0, Chloride Level 95L, Carbon Dioxide Level 29, Calcium Level 9.0, Aspartate Amino Transf (AST/SGOT) 20, Alanine Aminotransferase (ALT/SGPT) 28, Alkaline P hosphatase 72, Total Bilirubin 0.8, Total Protein 7.9, Albumin 3.3, Albumin/Globulin Ratio 0.72L Microbiology Microbiology 05/28/18 Urine Culture, Received Pending Current Medications Current Medications Current Medications Acetaminophen (Tylenol Tab) 650 mg Q6HP PRN PO PAIN / FEVER Last administered on 05/29/18at 02:22; Start 05/28/18 at 14:15 Al Hydrox/Mg Hydrox/Simethicone (Mylanta) 30 ml Q4HP PRN PO DYSPEPSIA; Start 05/28/18 at 14:15 Bacitracin (Bacitracin Oint) 1 dose DAILY TOP Last administered on 05/29/18at 08:43; Start 05/29/18 at 09:00 Bisacodyl (Dulcolax Suppository) 10 mg DAILYPRN PRN MA CONSTIPATION; Start 05/28/18 at 14:15 Chlorthalidone (Hygroton, Chlorthalidone) 12.5 mg DAILY PO Last administered on 05/29/18at 08:42; Start 05/28/18 at 09:00 Cyanocobalamin (Vitamin B12) 250 mcg DAILY PO Last administered on 05/29/18 08:41; Start 05/29/18 at 09:00 Dextrose (Dextrose 50%) 25 ml ASDIRECTED PRN IV SEE LABEL COMMENTS; Start 05/28/18 at 14:15 Docusate Sodium (Colace) 100 mg TIDP PRN PO CONSTIPATION; Start 05/28/18 at 14:15 Glimepiride (Amaryl) 4 mg DAILY@0730 PO Last administered on 05/29/18at 08:42; Start 05/29/18 at 07:30 Glucagon (Glucagon) 1 mg ASDIRECTED PRN SC SEE LABEL COMMENTS; Start 05/28/18 at 14:15 Glucose (Glucose) 16 GM ASDIRECTED PRN PO SEE LABEL COMMENTS; Start 05/28/18 at 14:15 Home Med (Med Rec Complete!) ASDIRECTED XX ; Start 05/28/18 at 14:15; Stop 05/28/18 at 14:15; Status DC Insulin Human Lispro (HumaLOG INSULIN) SEE PROTOCOL TABLE AC SC Last administered on 05/29/18 08:43; Start 05/28/18 at 17:30 Insulin Human Lispro (HumaLOG INSULIN) SEE PROTOCOL TABLE QHS SC Last administered on 05/28/18 20:53; Start 05/28/18 at 21:00 Magnesium Oxide (Mag-Ox) 400 mg DAILY PO Last administered on 05/29/18 08:42; Start 05/29/18 at 09:00 Omeprazole (PriLOSEC) 20 mg DAILY PO Last administered on 05/29/18 08:43; Start 05/29/18 at 09:00 Ondansetron HCl (Zofran) 4 mg Q6HP PRN PO NAUSEA; Start 05/28/18 at 14:15 Pravastatin Sodium (Pravachol) 40 mg DAILY PO Last administered on 05/29/18 08:41; Start 05/29/18 at 09:00 Senna (Senokot) 1 tab QHS PO Last administered on 05/28/18 20:53; Start 05/28/18 at 21:00 Sertraline HCl (Zoloft) 100 mg DAILY PO Last administered on 05/29/18 08:42; Start 05/28/18 at 09:00 Vitamin D (Vitamin D) 1,000 units DAILY PO Last administered on 05/29/18at 08:41; Start 05/29/18 at 09:00 A-FIB/CHADSVASC A-FIB History Current/History of A-Fib/PAF?: No Current Oral Anticoagulant The: No CLOVER MUÑIZ MD May 29, 2018 10:43
[2018-05-29] MEDS: metFORMIN (GLUCOPHAGE) 1000 MG TABLET PO SCH ×2 (10:51→17:09)
--- NOTE | 2018-05-29 11:16 | IPNPDOC ---
Subjective Date Seen The patient was seen on 05/29/18. Subjective Chief Complaint/HPI I'm seeing the patient today for assistance with her medical therapy. Overall the patient seems to be doing very well. She has no acute complaints and is happy to be back in [place]. Nurses believe that she'll not be here very long. General: Reports: Normal Appetite Pulmonary: Denies: Dyspnea, Cough Cardiovascular: Denies: Chest Pain, Palpitations Genitourinary: Denies: Dysuria Endocrine: Denies: Polydipsia, Polyphagia, Polyuria Psych: Reports: Mood Normal Objective Physical Examination General Exam: Positive: Alert, Cooperative (working with occupational therapy at the side of the bed when I entered the room), No Acute Distress Eye Exam: Positive: Conjunctiva & lids normal; Negative: Sclera icteric ENT Exam: Positive: Mucous membr. moist/pink Neck Exam: Negative: Lymphadenopathy Chest Exam: Positive: Clear to auscultation, Normal air movement Heart Exam: Positive: Rate Normal, Normal S1, Normal S2; Negative: Murmurs Abdomen Exam: Positive: Normal bowel sounds, Soft; Negative: Tenderness Extremity Exam: Negative: Edema Psych Exam: Positive: Mood NL, Oriented x 3 A-FIB/CHADSVASC A-FIB History Current/History of A-Fib/PAF?: No Current Oral Anticoagulant The: No Age/Risk Factor Scoring CHADSVASC: CHADSVASC Response (Comments) Value Age Risk Factor Age >/= 75 years old 2 Gender Risk Factor Female 1 Hx of CHF No 0 Hx of HTN Yes 1 Hx of Stroke/TIA/or VTE Yes 2 Hx of Diabetes Yes 1 Hx of Vascular Disease No 0 Total 7 Treatment Treatment ordered: NONE Reason Anticoagulant not given: Other (subacute subdural hematoma) Assessment /Plan Problems (1) Subdural hematoma Status: Acute Response to Treatment: Improving Problem Specific Plan: Monitor Clinically Problem Text: She continues to recover well and is improving from her debility related to treatment and monitoring for this condition. This of course will be deferred to PM&R. (2) Diabetes mellitus Status: Chronic Response to Treatment: Stable Discussed With: Patient Problem Specific Plan: Monitor Clinically Problem Text: Her diabetes is relatively well controlled. Continue current regimen, monitor. (3) HTN (hypertension) Status: Chronic Response to Treatment: Stable Problem Specific Plan: Monitor Clinically Problem Text: Her blood pressures well controlled. Continue current regimen, monitor. (4) History of transient ischemic attack Status: Resolved Problem Specific Plan: Monitor Clinically Problem Text: She has a known history of TIA, but is having no symptoms at this time. I'll show 7 elevated Dc Vasc Score, risk of intracranial hemorrhage outweighs the risk of not being anticoagulated. Continue to monitor for now. (5) Hyperlipidemia Status: Chronic Problem Text: Continue current home regimen of pravastatin. (6) GERD (gastroesophageal reflux disease) Status: Chronic Problem Text: Continue home regimen. (7) Depression Status: Chronic Response to Treatment: Stable Discussed With: Nurse Problem Text: Continue home regimen. Plan/VTE VTE Prophylaxis Ordered?: No (she will be moving/exercising quite regularly) VTE Exclusion Pharmacological: Bleeding Risk Plan We will continue to follow her chart on a daily basis and will return in person as needed. (wood veneer taper) VS, I&O, 24H, Fishbone Vital Signs/I&O Vital Signs Date Time Temp Pulse Resp B/P (MAP) Pulse Ox O2 Delivery O2 Flow Rate FiO2 05/29/18 06:00 97.2 85 17 138/73 (94) 99 2.0 I&O- Last 24 Hours up to 6 AM 05/29/18 06:00 Intake Total 600 ml Output Total 700 ml Balance -100 ml Laboratory Data 24H LABS Laboratory Tests 2 05/28/18 16:38: Bedside Glucose (Misc Panel) 289H 05/28/18 18:55: Urine Appearance HAZY, Urine Color YELLOW, Urine pH 6.0, Urine Specific [place] 1.014, Urine Protein NEGATIVE, Urine Glucose (UA) 3+H, Urine Ketones NEGATIVE, U rine Urobilinogen 0.2, Urine Bilirubin NEGATIVE, Urine Leukocyte Esterase NEGATIVE, Urine Blood NEGATIVE, Urine Nitrite NEGATIVE, Urine WBC (Auto) 1, Urine RBC (Auto) 0, Urine Hyaline Casts (Auto) 0, Urine Bacteria (Auto) 1+H, Urine Squamous Epithelial Cells 0, Urine Sperm (Auto) 05/28/18 20:01: Bedside Glucose (Misc Panel) 300H 05/29/18 06:11: Bedside Glucose (Misc Panel) 253H 05/29/18 06:32: Immature Granulocyte % (Auto) 0.4, White Blood Count 9.5, Red Blood Count 4.39, Hemoglobin 12.1, Hematocrit 37.5, Mean Corpuscular Volume 85.4, Mean Corpuscular Hemoglobin 27.6, Mean Corpuscular Hemoglobin Concent 32.3, Red Cell Distribution Width 13.3, Platelet Count 361, Neutrophils (%) (Auto) 57.7, Lymphocytes (%) (Auto) 33.1, Monocytes (%) (Auto) 6.6H, Eosinophils (%) (Auto) 1.7, Basophils (%) (Auto) 0.5, Neutrophils # (Auto) 5.5, Lymphocytes # (Auto) 3.1, Monocytes # (Auto) 0.6, Eosinophils # (Auto) 0.2, Basophils # (Auto) 0.1, Nucleated Red Blood Cells % (auto) 0.0, Anion Gap 9, Glomerular Filtration Rate > 60.0, Blood Urea Nitrogen 21H, Creatinine 0.95, Sodium Level 133L, Potassium Level 4.0, Chloride Level 95L, Carbon Dioxide Level 29, Calcium Level 9.0, Aspartate Amino Transf (AST/SGOT) 20, Alanine Aminotransferase (ALT/SGPT) 28, Alkaline Phosphatase 72, Total Bilirubin 0.8, Total Protein 7.9, Albumin 3.3, Albumin/Globulin Ratio 0.72L CBC/BMP Laboratory Tests 05/29/18 06:32 Red Blood Count 4.39, Mean Corpuscular Volume 85.4, Mean Corpuscular Hemoglobin 27.6, Mean Corpuscular Hemoglobin Concent 32.3, Red Cell Distribution Width 13.3, Neutrophils (%) (Auto) 57.7, Lymphocytes (%) (Auto) 33.1, Monocytes (%) (Auto) 6.6 H, Eosinophils (%) (Auto) 1.7, Basophils (%) (Auto) 0.5, Neutrophils # (Auto) 5.5, Lymphocytes # (Auto) 3.1, Monocytes # (Auto) 0.6, Eosinophils # (Auto) 0.2, Basophils # (Auto) 0.1, Calcium Level 9.0, Aspartate Amino Transf (AST/SGOT) 20, Alanine Aminotransferase (ALT/SGPT) 28, Alkaline Phosphatase 72, Total Bilirubin 0.8, Total Protein 7.9, Albumin 3.3 Microbiology Microbiology 05/28/18 Urine Culture, Received Pending Vinicio Funes MD May 29, 2018 11:16
--- NOTE | 2018-05-29 12:18 | NUR ---
Although pt scored wnl on MMSE, informal assessments reveal mild cognitive deficit; pt demonstrates difficulties w/ visual-spatial awareness and planning, divergent reasoning, and sustained attention. Recommend cognitive tx for functional problem-solving for maximum safe participation in activities of daily living. Addendum: 05/29/[address] [facility] Amended: Links added.
--- NOTE | 2018-05-29 12:47 | NUR ---
Recommend continue regular diet, thin liquids. No dysphagia tx. Addendum: 05/29/18 at 1248 by SYLVIA [facility] Amended: Links added.
[2018-05-29 14:00] VITALS: BP 152/80
[2018-05-29 20:49] VITALS: BP 122/61
[2018-05-29] MEDS: SENNA 8.6 MG TAB (SENOKOT) PO SCH (21:00)
[2018-05-30 06:00] VITALS: BP 143/79
[2018-05-30] MEDS: GLIMEPIRIDE 2 MG TAB PO SCH (08:18)
[2018-05-30] MEDS: metFORMIN (GLUCOPHAGE) 1000 MG TABLET PO SCH ×2 (08:19→17:31)
[2018-05-30] MEDS: CYANOCOBALAMIN 250 MCG TABLET PO SCH (08:19)
[2018-05-30] MEDS: HumaLOG INSULIN (NovoLOG) PER UNIT SC SCH ×4 (08:19→20:55)
[2018-05-30] MEDS: VITAMIN D 1,000 INTERNATIONAL UNITS TABLET PO SCH (08:20)
[2018-05-30] MEDS: BACITRACIN OINT 30GM TOP SCH (08:20)
[2018-05-30] MEDS: OMEPRAZOLE 20 MG CAP PO SCH (08:20)
[2018-05-30] MEDS: SERTRALINE 100 MG TAB PO SCH (08:20)
[2018-05-30] MEDS: CHLORTHALIDONE 12.5MG PER 1/2 TABLET PO SCH (08:20)
[2018-05-30] MEDS: MAGNESIUM OXIDE 400 MG TAB (MAG-OX) PO SCH (08:20)
[2018-05-30] MEDS: PRAVASTATIN 20 MG TAB PO SCH (08:20)
--- NOTE | 2018-05-30 10:30 | IPNPDOC ---
PM&R Progress Note DATE OF SERVICE: May 30, 2018 Director Of [employer] Progress Note Subjective: Patient seen in her room states she does not having burning with urination or increased frequency. REVIEW OF SYSTEMS: The following is a completed review of systems and has been reviewed. Review of systems otherwise unremarkable. PAIN: Patient self reports no pain. EYES: Negative for recent vision changes EARS, NOSE, & THROAT: negative for dysphagia, +frontal sinus pain CARDIOVASCULAR: denies chest pain or palpitations PULMONARY: Negative. Denies shortness of breath GASTROINTESTINAL: Negative for constipation/diarrhea GENITOURINARY: Negative for dysuria NEUROLOGICAL: +bilateral subdural hematomas SKIN: intact PSYCHIATRIC: Unremarkable All other review of systems found to be negative. PHYSICAL EXAMINATION: VITAL SIGNS: Please see below. GENERAL: Pleasant and cooperative. No acute distress. HEENT: PERRL. Extraocular movements intact. Clear conjunctiva CARDIOVASCULAR: Regular rate and rhythm. No murmurs, rubs, or gallops LUNGS: Clear to auscultation bilaterally. No wheezes. No rhonchi ABDOMEN: Soft, nontender, nondistended. Positive bowel sounds. Normal active bowel sounds, no suprapubic tenderness NEUROLOGICAL: Alert and oriented times three. Able to spell "world" backwards, unable to perform Luria Cranial nerves II through XII grossly intact. Sensation grossly intact in all 4 limbs, however +extinction to touch in the RUE EXTREMITIES: 5-\\5 strength bilateral upper extremities with mild pronator drift on right. 5\\5 strength right lower extremity.5/5 strength in left lower extremity. SKIN: posterior scalp laceration healed ASSESSMENT:77-year-old F with past medical history of TIA, HTN, HLD who presents status post fall with bilateral SDH PLAN: 1. rehab: PT/OT, CR[employer], assess for DMEs, ambulating further with RW 2. Neuro: pmh TIA, s/p traumatic SDH, c/u statin, maintain sBP <130, hold antiplatelets -has f/u with neurosurgery and repeat CTH in 4 weeks -f/u with outpatient sleep study 3. Cardiac: pmh HTN c/u Chlorthalidone, medicine consulted 4. Endo: DM, c/u Glimeperide and ISS, added back metformin c/u to monitor 5. :admission UA and Ucx positive for E faecalis, however patient denies dysuria will hold off on treatment 6. GI ppx: Omeprazole 7. DVT ppx: TEDs 8. 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 Dispo: TBD Allergies Coded Allergies: ramipril (Verified Adverse Reaction, Intermediate, cough, 05/10/18) Vital Signs Vital Signs Date Time Temp Pulse Resp B/P (MAP) Pulse Ox O2 Delivery O2 Flow Rate FiO2 05/30/18 06:00 97.4 80 20 143/79 (100) 92 05/29/18 06:00 2.0 Laboratory Data Labs 24H Laboratory Tests 2 05/29/18 11:19: Bedside Glucose (Misc Panel) 225H 05/29/18 16:19: Bedside Glucose (Misc Panel) 246H 05/29/18 20:26: Bedside Glucose (Misc Panel) 224H 05/30/18 05:30: Bedside Glucose (Misc Panel) 223H Microbiology Microbiology 05/28/18 Urine Culture - Final, Complete Enterococcus Faecalis Current Medications Current Medications Current Medications Acetaminophen (Tylenol Tab) 650 mg Q6HP PRN PO PAIN / FEVER Last administered on 05/29/18at 21:49; Start 05/28/18 at 14:15 Al Hydrox/Mg Hydrox/Simethicone (Mylanta) 30 ml Q4HP PRN PO DYSPEPSIA; Start 05/28/18 at 14:15 Bacitracin (Bacitracin Oint) 1 dose DAILY TOP Last administered on 05/30/18at 08:20; Start 05/29/18 at 09:00 Bisacodyl (Dulcolax Suppository) [address] CONSTIPATION; Start 05/28/18 at 14:15 Chlorthalidone (Hygroton, Chlorthalidone) 12.5 mg DAILY PO Last administered on 05/30/18at 08:20; Start 05/28/18 at 09:00 Cyanocobalamin (Vitamin B12) 250 mcg DAILY PO Last administered on 05/30/18at 08:19; Start 05/29/18 at 09:00 Dextrose (Dextrose 50%) 25 ml ASDIRECTED PRN IV SEE LABEL COMMENTS; Start 05/28/18 at 14:15 Docusate Sodium (Colace) 100 mg TIDP PRN PO CONSTIPATION; Start 05/28/18 at 14:15 Glimepiride (Amaryl) 4 mg DAILY@0730 PO Last administered on 05/30/18at 08:18; Start 05/29/18 at 07:30 Glucagon (Glucagon) 1 mg ASDIRECTED PRN SC SEE LABEL COMMENTS; Start 05/28/18 at 14:15 Glucose (Glucose) 16 GM ASDIRECTED PRN PO SEE LABEL COMMENTS; Start 05/28/18 at 14:15 Home Med (Med Rec Complete!) ASDIRECTED XX ; Start 05/28/18 at 14:15; Stop 05/28/18 at 14:15; Status DC Insulin Human Lispro (HumaLOG INSULIN) SEE PROTOCOL TABLE AC SC Last administered on 05/30/18at 08:19; Start 05/28/18 at 17:30 Insulin Human Lispro (HumaLOG INSULIN) SEE PROTOCOL TABLE QHS SC Last administered on 05/28/18at 20:53; Start 05/28/18 at 21:00 Magnesium Oxide (Mag-Ox) 400 mg DAILY PO Last administered on 05/30/18at 08:20; Start 05/29/18 at 09:00 Metformin HCl (Glucophage) 1,000 mg DAILY@1800 PO Last administered on 05/29/18 17:09; Start 05/29/18 at 18:00 Metformin HCl (Glucophage) 1,500 mg DAILY@0800 PO Last administered on 05/30/18 08:19; Start 05/29/18 at 08:00 Omeprazole (PriLOSEC) 20 mg DAILY PO Last administered on 05/30/18at 08:20; S tart 05/29/18 at 09:00 Ondansetron HCl (Zofran) 4 mg Q6HP PRN PO NAUSEA; Start 05/28/18 at 14:15 Pravastatin Sodium (Pravachol) 40 mg DAILY PO Last administered on 05/30/18at 08:20; Start 05/29/18 at 09:00 Senna (Senokot) 1 tab QHS PO Last administered on 05/28/18at 20:53; Start 05/28/18 at 21:00 Sertraline HCl (Zoloft) 100 mg DAILY PO Last administered on 05/30/18at 08:20; Start 4/23/19 at 09:00 Vitamin D (Vitamin D) 1,000 units DAILY PO Last administered on 05/30/18at 08:20; Start 05/29/18 at 09:00 A-FIB/CHADSVASC A-FIB History Current/History of A-Fib/PAF?: No CLOVER MUÑIZ MD May 30, 2018 10:30
[2018-05-30 10:44] LABS: BASO # 0.1 10^3/uL (0.0-0.2); BASO % 0.5 % (0.0-1.0); EOS # 0.2 10^3/uL (0.0-0.50); EOS % 1.3 % (0.0-3.0); HEMATOCRIT 40.1 % (36.0-47.0); HEMOGLOBIN 12.9 g/dl (12.0-15.5); LYMPH # 4.1 10^3/uL (1.5-4.5); LYMPH % 30.4 % (24.0-44.0); MEAN CORPUSCULAR HEMOGLOBIN 27.9 pg (27.0-33.0); MEAN CORPUSCULAR HGB CONC 32.2 g/dl (32.0-36.5); MEAN CORPUSCULAR VOLUME 86.8 fl (80.0-96.0); MONO # 0.7 10^3/uL (0.0-0.8); MONO % 5.5 % (0.0-5.0); NEUTROPHILS # 8.3 10^3/uL (1.8-7.7); NEUTROPHILS % 61.6 % (36.0-66.0); PLATELET COUNT, AUTOMATED 462 10^3/uL (150-450); RED BLOOD COUNT 4.62 10^6/uL (4.00-5.40); WHITE BLOOD COUNT 13.4 10^3/uL (4.0-10.0)
[2018-05-30 11:11] LABS: CALCIUM LEVEL 9.9 MG/DL (8.8-10.2); CREATININE FOR GFR 1.14 MG/DL (0.55-1.30); GLOMERULAR FILTRATION RATE 49.1 (>39); POTASSIUM SERUM 3.4 MEQ/L (3.5-5.1)
[2018-05-30 14:00] VITALS: BP 136/75
[2018-05-30 20:00] VITALS: BP 138/69
[2018-05-30] MEDS: SENNA 8.6 MG TAB (SENOKOT) PO SCH (20:55)
[2018-05-30] MEDS: ACETAMINOPHEN TAB 650MG DOSE (2X325MG) PO PRN (21:51)
[2018-05-31 05:43] VITALS: BP 143/75
[2018-05-31 07:09] LABS: BASO % 0.4 % (0.0-1.0); EOS # 0.1 10^3/uL (0.0-0.50); EOS % 1.1 % (0.0-3.0); HEMATOCRIT 36.1 % (36.0-47.0); HEMOGLOBIN 11.7 g/dl (12.0-15.5); LYMPH # 2.6 10^3/uL (1.5-4.5); LYMPH % 23.1 % (24.0-44.0); MEAN CORPUSCULAR HEMOGLOBIN 27.8 pg (27.0-33.0); MEAN CORPUSCULAR HGB CONC 32.4 g/dl (32.0-36.5); MEAN CORPUSCULAR VOLUME 85.7 fl (80.0-96.0); MONO # 0.8 10^3/uL (0.0-0.8); NEUTROPHILS # 7.5 10^3/uL (1.8-7.7); NEUTROPHILS % 67.9 % (36.0-66.0); PLATELET COUNT, AUTOMATED 412 10^3/uL (150-450); RED BLOOD COUNT 4.21 10^6/uL (4.00-5.40); WHITE BLOOD COUNT 11.1 10^3/uL (4.0-10.0)
[2018-05-31 07:39] LABS: BLOOD UREA NITROGEN 24 MG/DL (7-18); CALCIUM LEVEL 9.1 MG/DL (8.8-10.2); CARBON DIOXIDE LEVEL 31 MEQ/L (21-32); CHLORIDE LEVEL 95 MEQ/L (98-107); CREATININE FOR GFR 0.95 MG/DL (0.55-1.30); GLOMERULAR FILTRATION RATE > 60.0 (>39); GLUCOSE, FASTING 152 MG/DL (70-100); POTASSIUM SERUM 3.5 MEQ/L (3.5-5.1); SODIUM LEVEL 134 MEQ/L (136-145)
[2018-05-31] MEDS: PRAVASTATIN 20 MG TAB PO SCH (08:40)
[2018-05-31] MEDS: metFORMIN (GLUCOPHAGE) 1000 MG TABLET PO SCH ×2 (08:40→17:33)
[2018-05-31] MEDS: CYANOCOBALAMIN 250 MCG TABLET PO SCH (08:40)
[2018-05-31] MEDS: SERTRALINE 100 MG TAB PO SCH (08:40)
[2018-05-31] MEDS: OMEPRAZOLE 20 MG CAP PO SCH (08:40)
[2018-05-31] MEDS: GLIMEPIRIDE 2 MG TAB PO SCH (08:40)
[2018-05-31] MEDS: VITAMIN D 1,000 INTERNATIONAL UNITS TABLET PO SCH (08:40)
[2018-05-31] MEDS: MAGNESIUM OXIDE 400 MG TAB (MAG-OX) PO SCH (08:40)
[2018-05-31] MEDS: CHLORTHALIDONE 12.5MG PER 1/2 TABLET PO SCH (08:40)
[2018-05-31] MEDS: HumaLOG INSULIN (NovoLOG) PER UNIT SC SCH ×4 (08:41→21:00)
[2018-05-31] MEDS: BACITRACIN OINT 30GM TOP SCH (08:41)
[2018-05-31] MEDS: ACETAMINOPHEN TAB 650MG DOSE (2X325MG) PO PRN ×3 (08:45→22:32)
--- NOTE | 2018-05-31 12:12 | IPNPDOC ---
PM&R Progress Note DATE OF SERVICE: Jun 04, 2018 Language Tutor Progress Note Subjective: Patient seen in her room states she feels well overall, but has some left lower rib cage pain. REVIEW OF SYSTEMS: The following is a completed review of systems and has been reviewed. Review of systems otherwise unremarkable. PAIN: Patient self reports no pain. EYES: Negative for recent vision changes EARS, NOSE, & THROAT: negative for dysphagia, +frontal sinus pain CARDIOVASCULAR: denies chest pain or palpitations PULMONARY: Negative. Denies shortness of breath GASTROINTESTINAL: Negative for constipation/diarrhea GENITOURINARY: Negative for dysuria NEUROLOGICAL: +bilateral subdural hematomas SKIN: intact PSYCHIATRIC: Unremarkable All other review of systems found to be negative. PHYSICAL EXAMINATION: VITAL SIGNS: Please see below. GENERAL: Pleasant and cooperative. No acute distress. HEENT: PERRL. Extraocular movements intact. Clear conjunctiva CARDIOVASCULAR: Regular rate and rhythm. No murmurs, rubs, or gallops LUNGS: Clear to auscultation bilaterally. No wheezes. No rhonchi ABDOMEN: Soft, nontender, nondistended. Positive bowel sounds. Normal active bowel sounds, no suprapubic tenderness +TTP left lower rib cage NEUROLOGICAL: Alert and oriented times three. Able to spell "world" backwards, unable to perform Luria Cranial nerves II through XII grossly intact. Sensation grossly intact in all 4 limbs, however +extinction to touch in the RUE EXTREMITIES: 5-\\5 strength bilateral upper extremities with mild pronator drift on right. 5\\5 strength right lower extremity.5/5 strength in left lower extremity. SKIN: posterior scalp laceration healed ASSESSMENT:77-year-old F with past medical history of TIA, HTN, HLD who presents status post fall with bilateral SDH PLAN: 1. rehab: PT/OT, [employer], assess for DMEs, ambulating further with RW 2. Neuro: pmh TIA, s/p traumatic SDH, c/u statin, maintain sBP <130, hold antiplatelets -has f/u with neurosurgery and repeat CTH in 4 weeks -f/u with outpatient sleep study 3. Cardiac: pmh HTN c/u Chlorthalidone, medicine consulted 4. Endo: DM, c/u Glimeperide and ISS, added back metformin c/u to monitor 5. :admission UA and Ucx positive for E faecalis, patient denies dysuria, but has white count, c/u Macrobid 6. GI ppx: Omeprazole 7. DVT ppx: TEDs 8. 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 Dispo: 06/11/18 to home, progressing towards goals Allergies Coded Allergies: ramipril (Verified Adverse Reaction, Intermediate, cough, 05/10/18) Vital Signs Vital Signs Date Time Temp Pulse Resp B/P (MAP) Pulse Ox O2 Delivery O2 Flow Rate FiO2 05/31/18 05:43 97.8 92 18 143/75 (97) 95 05/29/18 06:00 2.0 Laboratory Data CBC/BMP Laboratory Tests 05/31/18 06:49 Red Blood Count 4.21, Mean Corpuscular Volume 85.7, Mean Corpuscular Hemoglobin 27.8, Mean Corpuscular Hemoglobin Concent 32.4, Red Cell Distribution Width 13.4, Neutrophils (%) (Auto) 67.9 H, Lymphocytes (%) (Auto) 23.1 L, Monocytes (%) (Auto) 7.0 H, Eosinophils (%) (Auto) 1.1, Basophils (%) (Auto) 0.4, Neutrophils # (Auto) 7.5, Lymphocytes # (Auto) 2.6, Monocytes # (Auto) 0.8, Eosinophils # (Auto) 0.1, Basophils # (Auto) 0.0, Calcium Level 9.1 Labs 24H Laboratory Tests 2 05/30/18 16:21: Bedside Glucose (Misc Panel) 155H 05/30/18 20:19: Bedside Glucose (Misc Panel) 149H 05/31/18 06:49: Immature Granulocyte % (Auto) 0.5, White Blood Count 11.1H, Red Blood Count 4.21, Hemoglobin 11.7L, Hematocrit 36.1, Mean Corpuscular Volume 85.7, Mean Corpuscular Hemoglobin 27.8, Mean Corpuscular Hemoglobin Concent 32.4, Red Cell Distribution Width 13.4, Platelet Count 412, Neutrophils (%) (Auto) 67.9H, Lymphocytes (%) (Auto) 23.1L, Monocytes (%) (Auto) 7.0H, Eosinophils (%) (Auto) 1.1, Basophils (%) (Auto) 0.4, Neutrophils # (Auto) 7.5, Lymphocytes # (Auto) 2.6, Monocytes # (Auto) 0.8, Eosinophils # (Auto) 0.1, Basophils # (Auto) 0.0, Nucleated Red Blood Cells % (auto) 0.0, Anion Gap 8, Glomerular Filtration Rate > 60.0, Blood Urea Nitrogen 24H, Creatinine 0.95, Sodium Level 134L, Potassium Level 3.5, Chloride Level 95L, Carbon Dioxide Level 31, Calcium Level 9.1 05/31/18 11:34: Bedside Glucose (Misc Panel) 187H Microbiology Microbiology 05/28/18 Urine Culture - Final, Complete Enterococcus Faecalis Current Medications Current Medications Current Medications Acetaminophen (Tylenol Tab) 650 mg Q6HP PRN PO PAIN / FEVER Last administered on 05/31/18at 08:45; Start 05/28/18 at 14:15 Al Hydrox/Mg Hydrox/Simethicone (Mylanta) 30 ml Q4HP PRN PO DYSPEPSIA; Start 05/28/18 at 14:15 Bacitracin (Bacitracin Oint) 1 dose DAILY TOP Last administered on 05/31/18at 08:41; Start 05/29/18 at 09:00 Bisacodyl (Dulcolax Suppository) 10 mg DAILYPRN PRN [place] CONSTIPATION; Start 05/28/18 at 14:15 Chlorthalidone (Hygroton, Chlorthalidone) 12.5 mg DAILY PO Last administered on 05/31/18at 08:40; Start 05/28/18 at 09:00 Cyanocobalamin (Vitamin B12) 250 mcg DAILY PO Last administered on 05/31/18at 08:40; Start 05/29/18 at 09:00 Dextrose (Dextrose 50%) 25 ml ASDIRECTED PRN IV SEE LABEL COMMENTS; Start 05/28/18 at 14:15 Docusate Sodium (Colace) 100 mg TIDP PRN PO CONSTIPATION; Start 05/28/18 at 14:15 Glimepiride (Amaryl) 4 mg DAILY@0730 PO Last administered on 05/31/18at 08:40; Start 05/29/18 at 07:30 Glucagon (Glucagon) 1 mg ASDIRECTED PRN SC SEE LABEL COMMENTS; Start 05/28/18 at 14:15 Glucose (Glucose) 16 GM ASDIRECTED PRN PO SEE LABEL COMMENTS; Start 05/28/18 at 14:15 Home Med (Med Rec Complete!) ASDIRECTED XX ; Start 05/28/18 at 14:15; Stop at 14:15; Status DC Insulin Human Lispro (HumaLOG INSULIN) SEE PROTOCOL TABLE AC SC Last ad ministered on 05/31/18at 11:52; Start 05/28/18 at 17:30 Insulin Human Lispro (HumaLOG INSULIN) SEE PROTOCOL TABLE QHS SC Last administered on 05/28/18at 20:53; Start 05/28/18 at 21:00 Magnesium Oxide (Mag-Ox) 400 mg DAILY PO Last administered on 05/31/18at 08:40; Start 05/29/18 at 09:00 Metformin HCl (Glucophage) 1,000 mg DAILY@1800 PO Last administered on 05/30/18at 17:31; Start 05/29/18 at 18:00 Metformin HCl (Glucophage) 1,500 mg DAILY@0800 PO Last administered on 05/31/18at 08:40; Start 05/29/18 at 08:00 Omeprazole (PriLOSEC) 20 mg DAILY PO Last administered on 05/31/18at 08:40; Start 05/29/18 at 09:00 Ondansetron HCl (Zofran) 4 mg Q6HP PRN PO NAUSEA; Start 05/28/18 at 14:15 Pravastatin Sodium (Pravachol) 40 mg DAILY PO Last administered on 05/31/18at 08:40; Start 05/29/18 at 09:00 Senna (Senokot) 1 tab QHS PO Last administered on 05/28/18at 20:53; Start 05/28/18 at 21:00 Sertraline HCl (Zoloft) 100 mg DAILY PO Last administered on 05/31/18at 08:40; Start 05/28/18 at 09:00 Vitamin D (Vitamin D) 1,000 units DAILY PO Last administered on 05/31/18at 08:40; Start 05/29/18 at 09:00 A-FIB/CHADSVASC A-FIB History Current/History of A-Fib/PAF?: No Age/Risk Factor Scoring CHADSVASC: CHADSVASC Response (Comments) Value Age Risk Factor Age >/= 75 years old 2 Gender Risk Factor Female 1 Hx of CHF No 0 Hx of HTN Yes 1 Hx of Stroke/TIA/or VTE Yes 2 Hx of Diabetes Yes 1 Hx of Vascular Disease No 0 Total 7 CLOVER MUÑIZ MD May 31, 2018 12:12
[2018-05-31] MEDS: NITROFURANTOIN (MACROBID) 100 MG CAP PO SCH ×2 (13:41→21:52)
[2018-05-31 14:00] VITALS: BP 142/79
[2018-05-31 20:00] VITALS: BP 158/78
[2018-05-31] MEDS: SENNA 8.6 MG TAB (SENOKOT) PO SCH (21:00)
[2018-06-01 06:00] VITALS: BP 146/76
[2018-06-01] MEDS: metFORMIN (GLUCOPHAGE) 1000 MG TABLET PO SCH ×2 (07:52→17:35)
[2018-06-01] MEDS: HumaLOG INSULIN (NovoLOG) PER UNIT SC SCH ×4 (07:52→21:00)
[2018-06-01] MEDS: GLIMEPIRIDE 2 MG TAB PO SCH (07:53)
[2018-06-01] MEDS: CHLORTHALIDONE 12.5MG PER 1/2 TABLET PO SCH (10:12)
[2018-06-01] MEDS: NITROFURANTOIN (MACROBID) 100 MG CAP PO SCH ×2 (10:13→20:33)
[2018-06-01] MEDS: OMEPRAZOLE 20 MG CAP PO SCH (10:13)
[2018-06-01] MEDS: MAGNESIUM OXIDE 400 MG TAB (MAG-OX) PO SCH (10:13)
[2018-06-01] MEDS: PRAVASTATIN 20 MG TAB PO SCH (10:13)
[2018-06-01] MEDS: CYANOCOBALAMIN 250 MCG TABLET PO SCH (10:13)
[2018-06-01] MEDS: VITAMIN D 1,000 INTERNATIONAL UNITS TABLET PO SCH (10:13)
[2018-06-01] MEDS: BACITRACIN OINT 30GM TOP SCH (10:14)
[2018-06-01] MEDS: SERTRALINE 100 MG TAB PO SCH (10:14)
[2018-06-01 14:00] VITALS: BP 143/72
[2018-06-01] MEDS: ACETAMINOPHEN TAB 650MG DOSE (2X325MG) PO PRN ×2 (14:10→20:33)
[2018-06-01 20:00] VITALS: BP 145/74
[2018-06-01] MEDS: SENNA 8.6 MG TAB (SENOKOT) PO SCH (20:33)
[2018-06-02 06:00] VITALS: BP 119/64
[2018-06-02] MEDS: ACETAMINOPHEN TAB 650MG DOSE (2X325MG) PO PRN ×3 (06:20→20:56)
[2018-06-02 07:18] LABS: BASO # 0.1 10^3/uL (0.0-0.2); BASO % 0.6 % (0.0-1.0); EOS # 0.2 10^3/uL (0.0-0.50); EOS % 1.4 % (0.0-3.0); HEMATOCRIT 36.6 % (36.0-47.0); HEMOGLOBIN 11.9 g/dl (12.0-15.5); LYMPH # 2.9 10^3/uL (1.5-4.5); LYMPH % 25.6 % (24.0-44.0); MEAN CORPUSCULAR HEMOGLOBIN 27.6 pg (27.0-33.0); MEAN CORPUSCULAR HGB CONC 32.5 g/dl (32.0-36.5); MEAN CORPUSCULAR VOLUME 84.9 fl (80.0-96.0); MONO # 0.8 10^3/uL (0.0-0.8); MONO % 7.2 % (0.0-5.0); NEUTROPHILS # 7.3 10^3/uL (1.8-7.7); NEUTROPHILS % 64.7 % (36.0-66.0); PLATELET COUNT, AUTOMATED 432 10^3/uL (150-450); RED BLOOD COUNT 4.31 10^6/uL (4.00-5.40); WHITE BLOOD COUNT 11.2 10^3/uL (4.0-10.0)
[2018-06-02 07:55] LABS: BLOOD UREA NITROGEN 22 MG/DL (7-18); CALCIUM LEVEL 8.8 MG/DL (8.8-10.2); CARBON DIOXIDE LEVEL 28 MEQ/L (21-32); CHLORIDE LEVEL 97 MEQ/L (98-107); GLOMERULAR FILTRATION RATE > 60.0 (>39); GLUCOSE, FASTING 199 MG/DL (70-100); POTASSIUM SERUM 2.8 MEQ/L (3.5-5.1); SODIUM LEVEL 134 MEQ/L (136-145)
[2018-06-02] MEDS: VITAMIN D 1,000 INTERNATIONAL UNITS TABLET PO SCH (08:31)
[2018-06-02] MEDS: PRAVASTATIN 20 MG TAB PO SCH (08:31)
[2018-06-02] MEDS: HumaLOG INSULIN (NovoLOG) PER UNIT SC SCH ×4 (08:31→20:52)
[2018-06-02] MEDS: NITROFURANTOIN (MACROBID) 100 MG CAP PO SCH ×2 (08:31→20:55)
[2018-06-02] MEDS: metFORMIN (GLUCOPHAGE) 1000 MG TABLET PO SCH ×2 (08:31→17:46)
[2018-06-02] MEDS: OMEPRAZOLE 20 MG CAP PO SCH (08:31)
[2018-06-02] MEDS: CHLORTHALIDONE 12.5MG PER 1/2 TABLET PO SCH (08:32)
[2018-06-02] MEDS: SERTRALINE 100 MG TAB PO SCH (08:32)
[2018-06-02] MEDS: GLIMEPIRIDE 2 MG TAB PO SCH (08:32)
[2018-06-02] MEDS: CYANOCOBALAMIN 250 MCG TABLET PO SCH (08:32)
[2018-06-02] MEDS: MAGNESIUM OXIDE 400 MG TAB (MAG-OX) PO SCH (08:32)
[2018-06-02] MEDS: BACITRACIN OINT 30GM TOP SCH (08:33)
[2018-06-02] MEDS ORDERED: POTASSIUM CHLORIDE 10 MEQ SR TABLET PO ONE ×2 (09:00→19:00)
[2018-06-02 15:34] VITALS: BP 150/74
[2018-06-02 20:00] VITALS: BP 155/77
[2018-06-02] MEDS: SENNA 8.6 MG TAB (SENOKOT) PO SCH (20:51)
[2018-06-02] MEDS ORDERED: POTASSIUM CHLORIDE 10 MEQ SR TABLET PO SCH (21:00)
[2018-06-03 05:38] VITALS: BP 143/78
[2018-06-03 07:06] LABS: BLOOD UREA NITROGEN 19 MG/DL (7-18); CARBON DIOXIDE LEVEL 28 MEQ/L (21-32); CHLORIDE LEVEL 101 MEQ/L (98-107); CREATININE FOR GFR 0.77 MG/DL (0.55-1.30); GLOMERULAR FILTRATION RATE > 60.0 (>39); GLUCOSE, FASTING 116 MG/DL (70-100); MAGNESIUM LEVEL 1.5 MG/DL (1.8-2.4); POTASSIUM SERUM 3.3 MEQ/L (3.5-5.1); SODIUM LEVEL 135 MEQ/L (136-145)
[2018-06-03] MEDS: MAGNESIUM OXIDE 400 MG TAB (MAG-OX) PO SCH (09:05)
[2018-06-03] MEDS: OMEPRAZOLE 20 MG CAP PO SCH (09:05)
[2018-06-03] MEDS: PRAVASTATIN 20 MG TAB PO SCH (09:06)
[2018-06-03] MEDS: GLIMEPIRIDE 2 MG TAB PO SCH (09:06)
[2018-06-03] MEDS: SERTRALINE 100 MG TAB PO SCH (09:06)
[2018-06-03] MEDS: VITAMIN D 1,000 INTERNATIONAL UNITS TABLET PO SCH (09:06)
[2018-06-03] MEDS: metFORMIN (GLUCOPHAGE) 1000 MG TABLET PO SCH ×2 (09:06→17:07)
[2018-06-03] MEDS: ACETAMINOPHEN TAB 650MG DOSE (2X325MG) PO PRN ×2 (09:07→17:08)
[2018-06-03] MEDS: HumaLOG INSULIN (NovoLOG) PER UNIT SC SCH ×4 (09:08→21:00)
[2018-06-03] MEDS: CHLORTHALIDONE 12.5MG PER 1/2 TABLET PO SCH (09:10)
[2018-06-03] MEDS: BACITRACIN OINT 30GM TOP SCH (09:10)
[2018-06-03] MEDS: CYANOCOBALAMIN 250 MCG TABLET PO SCH (09:20)
[2018-06-03] MEDS: NITROFURANTOIN (MACROBID) 100 MG CAP PO SCH ×2 (09:20→21:11)
[2018-06-03 20:30] VITALS: BP 154/74
[2018-06-03] MEDS: SENNA 8.6 MG TAB (SENOKOT) PO SCH (21:00)
[2018-06-03] MEDS: POTASSIUM CHLORIDE 10 MEQ SR TABLET PO SCH (21:12)
[2018-06-04 06:00] VITALS: BP 143/73
[2018-06-04] MEDS: HumaLOG INSULIN (NovoLOG) PER UNIT SC SCH ×4 (07:37→21:00)
[2018-06-04] MEDS: metFORMIN (GLUCOPHAGE) 1000 MG TABLET PO SCH ×2 (07:37→18:34)
[2018-06-04] MEDS: GLIMEPIRIDE 2 MG TAB PO SCH (07:44)
[2018-06-04] MEDS: VITAMIN D 1,000 INTERNATIONAL UNITS TABLET PO SCH (08:45)
[2018-06-04] MEDS: MAGNESIUM OXIDE 400 MG TAB (MAG-OX) PO SCH (08:45)
[2018-06-04] MEDS: OMEPRAZOLE 20 MG CAP PO SCH (08:46)
[2018-06-04] MEDS: CHLORTHALIDONE 12.5MG PER 1/2 TABLET PO SCH (08:46)
[2018-06-04] MEDS: SERTRALINE 100 MG TAB PO SCH (08:46)
[2018-06-04] MEDS: PRAVASTATIN 20 MG TAB PO SCH (08:46)
[2018-06-04] MEDS: POTASSIUM CHLORIDE 10 MEQ SR TABLET PO SCH ×2 (08:46→20:58)
[2018-06-04] MEDS: BACITRACIN OINT 30GM TOP SCH (08:46)
[2018-06-04] MEDS: CYANOCOBALAMIN 250 MCG TABLET PO SCH (08:46)
[2018-06-04] MEDS: NITROFURANTOIN (MACROBID) 100 MG CAP PO SCH ×2 (08:46→20:57)
[2018-06-04 14:00] VITALS: BP 158/82
--- NOTE | 2018-06-04 17:41 | IPNPDOC ---
PM&R Progress Note DATE OF SERVICE: Jun 04, 2018 Cloth Napping Supervisor Progress Note Subjective: Patient seen in therapy walking, her son was in to visit, CXR ordered for possible rib fracture. REVIEW OF SYSTEMS: The following is a completed review of systems and has been reviewed. Review of systems otherwise unremarkable. PAIN: Patient self reports no pain. EYES: Negative for recent vision changes EARS, NOSE, & THROAT: negative for dysphagia, +frontal sinus pain CARDIOVASCULAR: denies chest pain or palpitations PULMONARY: Negative. Denies shortness of breath GASTROINTESTINAL: Negative for constipation/diarrhea GENITOURINARY: Negative for dysuria NEUROLOGICAL: +bilateral subdural hematomas SKIN: intact PSYCHIATRIC: Unremarkable All other review of systems found to be negative. PHYSICAL EXAMINATION: VITAL SIGNS: Please see below. GENERAL: Pleasant and cooperative. No acute distress. HEENT: PERRL. Extraocular movements intact. Clear conjunctiva CARDIOVASCULAR: Regular rate and rhythm. No murmurs, rubs, or gallops LUNGS: Clear to auscultation bilaterally. No wheezes. No rhonchi ABDOMEN: Soft, nontender, nondistended. Positive bowel sounds. Normal active bowel sounds, no suprapubic tenderness +TTP left lower rib cage NEUROLOGICAL: Alert and oriented times three. Able to spell "world" backwards, unable to perform Luria Cranial nerves II through XII grossly intact. Sensation grossly intact in all 4 limbs, however +extinction to touch in the RUE EXTREMITIES: 5-\\5 strength bilateral upper extremities with mild pronator drift on right. 5\\5 strength right lower extremity.5/5 strength in left lower extremity. SKIN: posterior scalp laceration healed ASSESSMENT:77-year-old F with past medical history of TIA, HTN, HLD who presents status post fall with bilateral SDH PLAN: 1. rehab: PT/OT, [employer], assess for DMEs, ambulating further with RW 2. Neuro: pmh TIA, s/p traumatic SDH, c/u statin, maintain sBP <130, hold antiplatelets -has f/u with neurosurgery and repeat CTH in 4 weeks -f/u with outpatient sleep study 3. Cardiac: pmh HTN c/u Chlorthalidone, medicine consulted 4. Endo: DM, c/u Glimeperide and ISS, added back metformin c/u to monitor 5. :admission UA and Ucx positive for E faecalis, patient denies dysuria, but has white count, c/u Macrobid 6. GI ppx: Omeprazole 7. DVT ppx: TEDs 8. 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 Pain: will order CXR for rib cage pain and trial lidoderm patch 8. Dispo: 06/11/18 to home, progressing towards goals Allergies Coded Allergies: ramipril (Verified Adverse Reaction, Intermediate, cough, 05/10/18) Vital Signs Vital Signs Date Time Temp Pulse Resp B/P (MAP) Pulse Ox O2 Delivery O2 Flow Rate FiO2 06/04/18 14:00 97.6 96 18 158/82 (107) 93 05/29/18 06:00 2.0 Laboratory Data Labs 24H Laboratory Tests 2 06/03/18 20:22: Bedside Glucose (Misc Panel) 185H 06/04/18 05:50: Bedside Glucose (Misc Panel) 125H 06/04/18 11:30: Bedside Glucose (Misc Panel) 196H 06/04/18 16:36: Bedside Glucose (Misc Panel) 116H Microbiology Microbiology 05/28/18 Urine Culture - Final, Complete Enterococcus Faecalis Current Medications Current Medications Current Medications Acetaminophen (Tylenol Tab) 650 mg Q6HP PRN PO PAIN / FEVER Last administered on 06/03/18at 17:08; Start 05/28/18 at 14:15 Al Hydrox/Mg Hydrox/Simethicone (Mylanta) 30 ml Q4HP PRN PO DYSPEPSIA; Start 05/28/18 at 14:15 Bacitracin (Bacitracin Oint) 1 dose DAILY TOP Last administered on 06/04/18at 08:46; Start 05/29/18 at 09:00 Bisacodyl (Dulcolax Suppository) 10 mg DAILYPRN PRN [place] CONSTIPATION; Start 05/28/18 at 14:15 Chlorthalidone (Hygroton, Chlorthalidone) 12.5 mg DAILY PO Last administered on 06/04/18at 08:46; Start 05/28/18 at 09:00 Cyanocobalamin (Vitamin B12) 250 mcg DAILY PO Last administered on 06/04/18at 08:46; Start 05/29/18 at 09:00 Dextrose (Dextrose 50%) 25 ml ASDIRECTED PRN IV SEE LABEL COMMENTS; Start 05/28/18 at 14:15 Docusate Sodium (Colace) 100 mg TIDP PRN PO CONSTIPATION; Start 05/28/18 at 14:15 Glimepiride (Amaryl) 4 mg DAILY@0730 PO Last administered on 06/04/18at 07:44; Start 05/29/18 at 07:30 Glucagon (Glucagon) 1 mg ASDIRECTED PRN SC SEE LABEL COMMENTS; Start 05/28/18 at 14:15 Glucose (Glucose) 16 GM ASDIRECTED PRN PO SEE LABEL COMMENTS; Start 05/28/18 at 14:15 Home Med (Med Rec Complete!) ASDIRECTED XX ; Start 05/28/18 at 14:15; Stop 05/28/18 at 14:15; Status DC Insulin Human Lispro (HumaLOG INSULIN) SEE PROTOCOL TABLE AC SC Last administered on 06/04/18at 11:56; Start 05/28/18 at 17:30 Insulin Human Lispro (HumaLOG INSULIN) SEE PROTOCOL TABLE QHS SC Last administered on 05/28/18at 20:53; Start 05/28/18 at 21:00 Magnesium Oxide (Mag-Ox) 400 mg DAILY PO Last administered on 06/04/18at 08:45; Start 05/29/18 at 09:00 Metformin HCl (Glucophage) 1,000 mg DAILY@1800 PO Last administered on 06/03/18at 17:07; Start 05/29/18 at 18:00 Metformin HCl (Glucophage) 1,500 mg DAILY@0800 PO Last administered on 06/04/18at 07:37; Start 05/29/18 at 08:00 Nitrofurantoin Monoh/Nitrofur Macro (Macrobid) 100 mg BID PO Last administered on 06/04/18at 08:46; Start 05/31/18 at 09:00; Stop 06/04/18 at 21:01 Omeprazole (PriLOSEC) 20 mg DAILY PO Last administered on 06/04/18at 08:46; Start 05/29/18 at 09:00 Ondansetron HCl (Zofran) 4 mg Q6HP PRN PO NAUSEA; Start 05/28/18 at 14:15 Potassium Chloride (Micro-K Extencaps) 20 meq BID PO Last administered on 06/03/18 09:05; Start 06/02/18 at 21:00; Stop 06/03/18 at 11:07; Status DC Potassium Chloride (Micro-K Extencaps) 40 meq BID PO Last administered on 06/04/18 08:46; Start 06/03/18 at 21:00 Pravastatin Sodium (Pravachol) 40 mg DAILY PO Last administered on 06/04/18 08:46; Start 05/29/18 at 09:00 Senna (Senokot) 1 tab QHS PO Last administered on 06/01/18 20:33; Start 05/28/18 at 21:00 Sertraline HCl (Zoloft) 100 mg DAILY PO Last administered on 06/04/18 08:46; Start 05/28/18 at 09:00 Vitamin D (Vitamin D) 1,000 units DAILY PO Last administered on 06/04/18 08 :45; Start 05/29/18 at 09:00 A-FIB/CHADSVASC A-FIB History Current/History of A-Fib/PAF?: No Age/Risk Factor Scoring CHADSVASC: CHADSVASC Response (Comments) Value Age Risk Factor Age >/= 75 years old 2 Gender Risk Factor Female 1 Hx of CHF No 0 Hx of HTN Yes 1 Hx of Stroke/TIA/or VTE Yes 2 Hx of Diabetes Yes 1 Hx of Vascular Disease No 0 Total 7 CLOVER MUÑIZ MD Jun 04, 2018 17:41
--- NOTE | 2018-06-04 19:10 | REP ---
CHEST, TWO VIEWS: COMPARISON: 05/22/2018 There is no evidence of acute infiltrate. No pleural effusion is seen. The heart is normal in size. The mediastinal silhouette is unremarkable. The visualized osseous structures are intact. There is mild calcification and tortuosity of the thoracic aorta. IMPRESSION: No acute pulmonary disease. Electronically Signed by Jian Franks MD 06/05/2018 04:52 P
[2018-06-04 20:00] VITALS: BP 142/68
[2018-06-04] MEDS: ACETAMINOPHEN TAB 650MG DOSE (2X325MG) PO PRN (20:57)
[2018-06-04] MEDS: SENNA 8.6 MG TAB (SENOKOT) PO SCH (20:58)
[2018-06-05 06:00] VITALS: BP 134/68
[2018-06-05] MEDS: HumaLOG INSULIN (NovoLOG) PER UNIT SC SCH ×4 (07:30→21:00)
[2018-06-05] MEDS: SERTRALINE 100 MG TAB PO SCH (09:00)
[2018-06-05] MEDS: LIDOCAINE 5% (LIDODERM) PATCH TD SCH (09:23)
[2018-06-05] MEDS: ACETAMINOPHEN TAB 650MG DOSE (2X325MG) PO PRN ×2 (09:23→15:51)
[2018-06-05] MEDS: MAGNESIUM OXIDE 400 MG TAB (MAG-OX) PO SCH (09:24)
[2018-06-05] MEDS: PRAVASTATIN 20 MG TAB PO SCH (09:24)
[2018-06-05] MEDS: metFORMIN (GLUCOPHAGE) 1000 MG TABLET PO SCH ×2 (09:24→17:43)
[2018-06-05] MEDS: OMEPRAZOLE 20 MG CAP PO SCH (09:24)
[2018-06-05] MEDS: CHLORTHALIDONE 12.5MG PER 1/2 TABLET PO SCH (09:24)
[2018-06-05] MEDS: VITAMIN D 1,000 INTERNATIONAL UNITS TABLET PO SCH (09:24)
[2018-06-05] MEDS: GLIMEPIRIDE 2 MG TAB PO SCH (09:24)
[2018-06-05] MEDS: POTASSIUM CHLORIDE 10 MEQ SR TABLET PO SCH ×2 (09:24→21:17)
[2018-06-05] MEDS: BACITRACIN OINT 30GM TOP SCH (09:25)
[2018-06-05] MEDS: CYANOCOBALAMIN 250 MCG TABLET PO SCH (09:25)
[2018-06-05 10:29] LABS: CALCIUM LEVEL 9.6 MG/DL (8.8-10.2); CREATININE FOR GFR 1.07 MG/DL (0.55-1.30); GLOMERULAR FILTRATION RATE 52.8 (>39); POTASSIUM SERUM 3.9 MEQ/L (3.5-5.1)
--- NOTE | 2018-06-05 11:10 | IPNPDOC ---
PM&R Progress Note DATE OF SERVICE: June 05, 2018 Registered Massage Therapist Progress Note Subjective: Patient reports the lidoderm patch is helping her ribs cage pain. REVIEW OF SYSTEMS: The following is a completed review of systems and has been reviewed. Review of systems otherwise unremarkable. PAIN: Patient self reports no pain. EYES: Negative for recent vision changes EARS, NOSE, & THROAT: negative for dysphagia, +frontal sinus pain CARDIOVASCULAR: denies chest pain or palpitations PULMONARY: Negative. Denies shortness of breath GASTROINTESTINAL: Negative for constipation/diarrhea GENITOURINARY: Negative for dysuria NEUROLOGICAL: +bilateral subdural hematomas SKIN: intact PSYCHIATRIC: Unremarkable All other review of systems found to be negative. PHYSICAL EXAMINATION: VITAL SIGNS: Please see below. GENERAL: Pleasant and cooperative. No acute distress. HEENT: PERRL. Extraocular movements intact. Clear conjunctiva CARDIOVASCULAR: Regular rate and rhythm. No murmurs, rubs, or gallops LUNGS: Clear to auscultation bilaterally. No wheezes. No rhonchi ABDOMEN: Soft, nontender, nondistended. Positive bowel sounds. Normal active bowel sounds, no suprapubic tenderness +TTP left lower rib cage NEUROLOGICAL: Alert and oriented times three. Able to spell "world" backwards, unable to perform Luria Cranial nerves II through XII grossly intact. Sensation grossly intact in all 4 limbs, however +extinction to touch in the RUE EXTREMITIES: 5-\\5 strength bilateral upper extremities with mild pronator drift on right. 5\\5 strength right lower extremity.5/5 strength in left lower extremity. SKIN: posterior scalp laceration healed ASSESSMENT:77-year-old F with past medical history of TIA, HTN, HLD who presents status post fall with bilateral SDH PLAN: 1. rehab: PT/OT, [employer], assess for DMEs, ambulating further with RW 2. Neuro: pmh TIA, s/p traumatic SDH, c/u statin, maintain sBP <130, hold antiplatelets -has f/u with neurosurgery and repeat CTH in 4 weeks -f/u with outpatient sleep study 3. Cardiac: pmh HTN c/u Chlorthalidone, medicine consulted 4. Endo: DM, c/u Glimeperide and ISS, added back metformin c/u to monitor 5. :admission UA and Ucx positive for E faecalis, patient denies dysuria, but has white count, c/u Macrobid 6. GI ppx: Omeprazole 7. DVT ppx: TEDs 8. 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 Pain:CXR negative for ribs fractures, lidoderm patch helping with ribcage pain 8. Dispo: 06/11/18 to home, progressing towards goals Allergies Coded Allergies: ramipril (Verified Adverse Reaction, Intermediate, cough, 05/10/18) Vital Signs Vital Signs Date Time Temp Pulse Resp B/P (MAP) Pulse Ox O2 Delivery O2 Flow Rate FiO2 06/05/18 06:00 97.6 88 17 134/68 (90) 93 Laboratory Data CBC/BMP Laboratory Tests 06/05/18 09:40 Calcium Level 9.6 Labs 24H Laboratory Tests 2 06/04/18 11:30: Bedside Glucose (Misc Panel) 196H 06/04/18 16:36: Bedside Glucose (Misc Panel) 116H 06/04/18 19:41: Bedside Glucose (Misc Panel) 139H 06/05/18 06:31: Bedside Glucose (Misc Panel) 98 06/05/18 09:40: Anion Gap 8, Glomerular Filtration Rate 52.8, Blood Urea Nitrogen 20H, Creatinine 1.07, Sodium Level 133L, Potassium Level 3.9, Chloride Level 99, Carbon Dioxide Level 26, Calcium Level 9.6 Microbiology Microbiology 05/28/18 Urine Culture - Final, Complete Enterococcus Faecalis Current Medications Current Medications Current Medications Acetaminophen (Tylenol Tab) 650 mg Q6HP PRN PO PAIN / FEVER Last administered on 06/05/18at 09:23; Start 05/28/18 at 14:15 Al Hydrox/Mg Hydrox/Simethicone (Mylanta) 30 ml Q4HP PRN PO DYSPEPSIA; Start 05/28/18 at 14:15 Bacitracin (Bacitracin Oint) 1 dose DAILY TOP Last administered on 06/05/18at 09:25; Start 05/29/18 at 09:00 Bisacodyl (Dulcolax Suppository) 10 mg DAILYPRN PRN [place] CONSTIPATION; Start 05/28/18 at 14:15 Chlorthalidone (Hygroton, Chlorthalidone) 12.5 mg DAILY PO Last administered on 06/05/18 09:24; Start 05/28/18 at 09:00 Cyanocobalamin (Vitamin B12) 250 mcg DAILY PO Last administered on 06/05/18at 09:25; Start 05/29/18 at 09:00 Dextrose (Dextrose 50%) 25 ml ASDIRECTED PRN IV SEE LABEL COMMENTS; Start 05/28/18 at 14:15 Docusate Sodium (Colace) 100 mg TIDP PRN PO CONSTIPATION; Start 05/28/18 at 14:15 Glimepiride (Amaryl) 4 mg DAILY@0730 PO Last administered on 06/05/18 09:24; Start 05/29/18 at 07:30 Glucagon (Glucagon) 1 mg ASDIRECTED PRN SC SEE LABEL COMMENTS; Start 05/28/18 at 14:15 Glucose (Glucose) 16 GM ASDIRECTED PRN PO SEE LABEL COMMENTS; Start 05/28/18 at 14:15 Home Med (Med Rec Complete!) ASDIRECTED XX ; Start 05/28/18 at 14:15; Stop 05/28/18 at 14:15; Status DC Insulin Detemir (Levemir Insulin) 5 units QHS SC ; Start 06/05/18 at 21:00 Insulin Human Lispro (HumaLOG INSULIN) SEE PROTOCOL TABLE AC SC Last administered on 06/04/18at 18:35; Start 05/28/18 at 17:30 Insulin Human Lispro (HumaLOG INSULIN) SEE PROTOCOL TABLE QHS SC Last administered on 05/28/18at 20:53; Start 05/28/18 at 21:00 Lidocaine (Lidoderm Patch) 1 patch DAILY TD Last administered on 06/05/18at 09: 23; Start 06/05/18 at 09:00 Magnesium Oxide (Mag-Ox) 400 mg DAILY PO Last administered on 06/05/18at 09:24; Start 05/29/18 at 09:00 Metformin HCl (Glucophage) 1,000 mg DAILY@1800 PO Last administered on 06/04/18 18:34; Start 05/29/18 at 18:00 Metformin HCl (Glucophage) 1,500 mg DAILY@0800 PO Last administered on 06/05/18at 09:24; Start 05/29/18 at 08:00 Nitrofurantoin Monoh/Nitrofur Macro (Macrobid) 100 mg BID PO Last administered on 06/04/18 20:57; Start 05/31/18 at 09:00; Stop 06/04/18 at 21:01; Status DC Non-Formulary Medication ( See Comment Field Below ) REMOVE LIDODERM PATCH DAILY@21 XX ; Start 06/05/18 at 21:00 Omeprazole (PriLOSEC) 20 mg DAILY PO Last administered on 06/05/18 09:24; Start 05/29/18 at 09:00 Ondansetron HCl (Zofran) 4 mg Q6HP PRN PO NAUSEA; Start 05/28/18 at 14:15 Potassium Chloride (Micro-K Extencaps) 20 meq BID PO Last administered on 06/03/18 09:05; Start 06/02/18 at 21:00; Stop 06/03/18 at 11:07; Status DC Potassium Chloride (Micro-K Extencaps) 40 meq BID PO Last administered on 06/05/18 09:24; Start 06/03/18 at 21:00 Pravastatin Sodium (Pravachol) 40 mg DAILY PO Last administered on 06/05/18 09:24; Start 05/29/18 at 09:00 Senna (Senokot) 1 tab QHS PO Last administered on 06/04/18 20:58; Start 05/28/18 at 21:00 Sertraline HCl (Zoloft) 100 mg DAILY PO Last administered on 06/05/18 09:00; Start 05/28/18 at 09:00 Vitamin D (Vitamin D) 1,000 units DAILY PO Last administered on 06/05/18 09:24; Start 05/29/18 at 09:00 A-FIB/CHADSVASC A-FIB History Current/History of A-Fib/PAF?: No Age/Risk Factor Scoring CHADSVASC: CHADSVASC Response (Comments) Value Age Risk Factor Age >/= 75 years old 2 Gender Risk Factor Female 1 Hx of CHF No 0 Hx of HTN Yes 1 Hx of Stroke/TIA/or VTE Yes 2 Hx of Diabetes Yes 1 Hx of Vascular Disease No 0 Total 7 CLOVER MUÑIZ MD June 05, 2018 11:10
[2018-06-05 14:00] VITALS: BP 143/71
[2018-06-05 16:23] LABS: BASO # 0.1 10^3/uL (0.0-0.2); BASO % 0.5 % (0.0-1.0); EOS # 0.2 10^3/uL (0.0-0.50); EOS % 1.6 % (0.0-3.0); HEMATOCRIT 34.9 % (36.0-47.0); HEMOGLOBIN 11.3 g/dl (12.0-15.5); LYMPH # 3.3 10^3/uL (1.5-4.5); LYMPH % 33.7 % (24.0-44.0); MEAN CORPUSCULAR HEMOGLOBIN 28.3 pg (27.0-33.0); MEAN CORPUSCULAR HGB CONC 32.4 g/dl (32.0-36.5); MEAN CORPUSCULAR VOLUME 87.5 fl (80.0-96.0); MONO # 0.6 10^3/uL (0.0-0.8); MONO % 6.5 % (0.0-5.0); NEUTROPHILS # 5.7 10^3/uL (1.8-7.7); NEUTROPHILS % 57.2 % (36.0-66.0); PLATELET COUNT, AUTOMATED 449 10^3/uL (150-450); RED BLOOD COUNT 3.99 10^6/uL (4.00-5.40); WHITE BLOOD COUNT 9.9 10^3/uL (4.0-10.0)
[2018-06-05 16:26] LABS: BLOOD UREA NITROGEN 20 MG/DL (7-18); CARBON DIOXIDE LEVEL 27 MEQ/L (21-32); CHLORIDE LEVEL 102 MEQ/L (98-107); CREATININE FOR GFR 0.86 MG/DL (0.55-1.30); GLOMERULAR FILTRATION RATE > 60.0 (>39); GLUCOSE, FASTING 103 MG/DL (70-100); SODIUM LEVEL 136 MEQ/L (136-145)
[2018-06-05 20:00] VITALS: BP 142/71
[2018-06-05] MEDS ORDERED: LEVEMIR (INSULIN DETEMIR) 1 UNITS/0.01ML SC SCH (21:00)
[2018-06-05] MEDS ORDERED: **NOTE PATIENT COMMENT** MISC XX SCH (21:00)
[2018-06-05] MEDS: SENNA 8.6 MG TAB (SENOKOT) PO SCH (21:00)
[2018-06-06] MEDS: ACETAMINOPHEN TAB 650MG DOSE (2X325MG) PO PRN ×2 (02:59→11:17)
[2018-06-06 06:00] VITALS: BP 140/65
[2018-06-06] MEDS: PRAVASTATIN 20 MG TAB PO SCH (08:15)
[2018-06-06] MEDS: CYANOCOBALAMIN 250 MCG TABLET PO SCH (08:15)
[2018-06-06] MEDS: GLIMEPIRIDE 2 MG TAB PO SCH (08:15)
[2018-06-06] MEDS: MAGNESIUM OXIDE 400 MG TAB (MAG-OX) PO SCH (08:15)
[2018-06-06] MEDS: VITAMIN D 1,000 INTERNATIONAL UNITS TABLET PO SCH (08:15)
[2018-06-06] MEDS: OMEPRAZOLE 20 MG CAP PO SCH (08:15)
[2018-06-06] MEDS: CHLORTHALIDONE 12.5MG PER 1/2 TABLET PO SCH (08:16)
[2018-06-06] MEDS: metFORMIN (GLUCOPHAGE) 1000 MG TABLET PO SCH (08:16)
[2018-06-06] MEDS: HumaLOG INSULIN (NovoLOG) PER UNIT SC SCH ×2 (08:18→12:29)
[2018-06-06] MEDS: LIDOCAINE 5% (LIDODERM) PATCH TD SCH (08:19)
[2018-06-06] MEDS: SERTRALINE 100 MG TAB PO SCH (08:19)
[2018-06-06] MEDS: POTASSIUM CHLORIDE 10 MEQ SR TABLET PO SCH (08:19)
[2018-06-06] MEDS: BACITRACIN OINT 30GM TOP SCH (08:20)
[2018-06-06] MEDS ORDERED: PRAV1TAB39 PO (09:49)
[2018-06-06] MEDS ORDERED: OMEP-218 PO (09:49)
[2018-06-06] MEDS ORDERED: KLOR10TA76 PO (09:49)
[2018-06-06] MEDS ORDERED: SERT-138 PO (09:49)
[2018-06-06] MEDS ORDERED: CHLO125TA PO (09:49)
[2018-06-06] MEDS ORDERED: METF10004 PO ×2 (09:49)
[2018-06-06] MEDS ORDERED: AMAR1TAB5 PO (09:49)
--- NOTE | 2018-06-12 16:36 | PMRDS ---
DATE OF ADMISSION: 05/28/2018 DATE OF DISCHARGE: 06/06/2018 CHIEF COMPLAINT/DISCHARGE DIAGNOSIS: Subdural hematomas. HISTORY OF PRESENT ILLNESS: This is a 77-year-old female with a past medical history of transient ischemic attack (TIA), hypertension, hyperlipidemia, gastroesophageal reflux disease (GERD), depression who initially presented to [facility] ([facility]) Emergency Department (ED) on 05/22/2018 after falling in her driveway and hitting her head. CT head at the time showed "a 7 mm acute subdural hematoma over the right frontal and temporal lobes, there is no midline shift, small 1.5 mm acute subdural hematoma medial to the left frontal lobe." She was found to have a laceration to the back of her head. She was transported to [facility] where initially she complained of headache and nausea which resolved. Repeat CT head at [facility] on 05/22/2018 and 05/24/2018 did not show significant changes in her subdural hematomas. Neurosurgery was consulted and did not recommend surgical intervention. She had hyponatremia and hypokalemia with leukocytosis. She was found to have some cognitive deficits and found to have impairment in her gait and activities of daily living (ADLs). She was treated for constipation and provided with a referral for outpatient sleep study for suspected obstructive sleep apnea (DEONTE). She was deemed medically appropriate for discharge to acute rehabilitation unit (ARU) on 05/28/2018. PAST MEDICAL HISTORY: As per history of present illness (HPI). HOSPITAL COURSE: The patient was admitted and enrolled in a comprehensive physical therapy (PT), occupational therapy (OT), speech and language pathology program. During her hospital course, her blood pressure was well-maintained and her antiplatelet therapy was continued to be held. Her blood sugar was controlled with metformin and glimepiride and the patient was also found to have a positive Enterococcus (E) faecalis urinary tract infection which she initially reported not having any symptoms, however, did develop some leukocytosis so was started on a course of Macrobid. 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 She complained of left-sided rib cage pain for which a chest x-ray was ordered which was negative for rib fractures and pain responded well to Lidoderm patch. She made significant functional gains in therapy and was deemed functionally and medically stable to return to home with help from her son. DISCHARGE MEDICATIONS: - chlorthalidone 12.5 by mouth daily - glimepiride 4 mg by mouth daily - omeprazole 20 mg by mouth daily - potassium 40 mEq by mouth twice a day - pravastatin 40 by mouth daily - sertraline 100 mg by mouth daily - metformin 1000 every evening and 1500 every morning FUNCTIONAL HISTORY: Upon discharge, the patient was modified independent for all functional transfers, able to ambulate with a rolling walker 200 feet, demonstrating good safety awareness and balance control. She was able to navigate stairs and in occupational therapy, she was modified independent for dressing, toileting and grooming.
== END 2018-06-06 13:20 | disposition home or self-care (01) | DRG 949 ==
LOC: M PM&R 13:05
PROVIDERS: ADMIT Physical Medicine & Rehabilitation; ATTEND Physical Medicine & Rehabilitation
DX: S06.5X0D Traumatic subdural hemorrhage without loss of consciousness, subsequent encounter (principal); N39.0 Urinary tract infection, site not specified; E87.1 Hypo-osmolality and hyponatremia; I10 Essential (primary) hypertension; K21.9 Gastro-esophageal reflux disease without esophagitis; F32.9 Major depressive disorder, single episode, unspecified; Z79.899 Other long term (current) drug therapy; Z88.8 Allergy status to other drugs, medicaments and biological substances; E78.5 Hyperlipidemia, unspecified; E11.9 Type 2 diabetes mellitus without complications; L40.8 Other psoriasis; W18.30XD Fall on same level, unspecified, subsequent encounter; Y92.009 Unspecified place in unspecified non-institutional (private) residence as the place of occurrence of the external cause; D72.829 Elevated white blood cell count, unspecified; Z86.73 Personal history of transient ischemic attack (TIA), and cerebral infarction without residual deficits

== ENCOUNTER → 2018-06-18 | Outpatient (REF) | payer MEDICARE, OTHER ==
[~2018-06-18] MED LIST changes: +ACET1TAB55 PO; +AMAR1TAB5 PO; +BACI500O21 TOP; +CHLO25TA PO; +COLA100C5 PO; +D-10TAB2 PO; +KLOR10TA76 PO; +MAGN400T PO; +OMEP-218 PO; +PRAV1TAB39 PO; +ZOFR4TAB16 PO
[2018-06-18 13:05] LABS: CALCIUM LEVEL 9.8 MG/DL (8.8-10.2); CREATININE FOR GFR 1.1 MG/DL (0.55-1.30); GLOMERULAR FILTRATION RATE 51.1 (>39); POTASSIUM SERUM 3.3 MEQ/L (3.5-5.1)
== END ==
LOC: M SFHCADAM 11:13
PROVIDERS: ATTEND Physician Assistant Medical
DX: E11.9 Type 2 diabetes mellitus without complications (principal)
CPT/HCPCS: 80048; G0463

== ENCOUNTER 2018-07-29 17:04 | Emergency (ER) | payer MEDICARE, OTHER ==
[~2018-07-29] VITALS: Ht 160 cm; Wt 63.6 kg
[~2018-07-29 17:04] MED LIST changes: -OMEP20CA3 PO; +OMEP20CA4 PO
--- NOTE | 2018-07-29 18:15 | REP ---
Clinical: Trauma/fall. Technique: Good view of the chest with four views of the bilateral hemithoraces. Findings: Posterolateral right eighth and ninth rib fractures are suggested along with subtle bibasilar atelectasis. No obvious pneumothorax. Mediastinum and cardiac silhouette are normal. Impression: Posterolateral right eighth and ninth rib fractures with mild bibasilar opacities/atelectasis. No effusion. No pneumothorax. Electronically Signed by New Nunez MD 07/29/2018 06:06 P
[2018-07-29 19:56] VITALS: BP 136/83
[2018-07-29] MEDS ORDERED: ACETAMINOPHEN 325 MG TAB PO ONE (20:00)
== END 2018-07-29 20:03 | disposition home or self-care (01) ==
LOC: M ED 17:04
DX: S22.41XA Multiple fractures of ribs, right side, initial encounter for closed fracture (principal); W01.0XXA Fall on same level from slipping, tripping and stumbling without subsequent striking against object, initial encounter; Y92.098 Other place in other non-institutional residence as the place of occurrence of the external cause; J98.11 Atelectasis; I10 Essential (primary) hypertension; E78.5 Hyperlipidemia, unspecified; E11.9 Type 2 diabetes mellitus without complications; Z87.440 Personal history of urinary (tract) infections; Z87.09 Personal history of other diseases of the respiratory system; Z88.8 Allergy status to other drugs, medicaments and biological substances; Z79.899 Other long term (current) drug therapy; Z79.84 Long term (current) use of oral hypoglycemic drugs

== ENCOUNTER 2018-07-31 02:57 | Emergency (ER) | payer MEDICARE, BC, OTHER ==
[~2018-07-31] VITALS: Ht 160 cm; Wt 67.2 kg
[2018-07-31 03:43] LABS: BASO % 0.3 % (0.0-1.0); EOS # 0.1 10^3/uL (0.0-0.50); EOS % 1.1 % (0.0-3.0); HEMATOCRIT 35.1 % (36.0-47.0); HEMOGLOBIN 11.4 g/dl (12.0-15.5); LYMPH # 3.2 10^3/uL (1.5-4.5); LYMPH % 36.7 % (24.0-44.0); MEAN CORPUSCULAR HEMOGLOBIN 28.4 pg (27.0-33.0); MEAN CORPUSCULAR HGB CONC 32.5 g/dl (32.0-36.5); MEAN CORPUSCULAR VOLUME 87.3 fl (80.0-96.0); MONO # 0.6 10^3/uL (0.0-0.8); MONO % 6.4 % (0.0-5.0); NEUTROPHILS # 4.8 10^3/uL (1.8-7.7); NEUTROPHILS % 55.2 % (36.0-66.0); PLATELET COUNT, AUTOMATED 293 10^3/uL (150-450); RED BLOOD COUNT 4.02 10^6/uL (4.00-5.40); WHITE BLOOD COUNT 8.7 10^3/uL (4.0-10.0)
[2018-07-31] MEDS ORDERED: MECLIZINE 25 MG TABLET PO ONE (04:15)
[2018-07-31 04:23] LABS: ALBUMIN 3.6 GM/DL (3.2-5.2); ALT/SGPT 23 U/L (12-78); BILIRUBIN,TOTAL 0.4 MG/DL (0.2-1.0); BLOOD UREA NITROGEN 15 MG/DL (7-18); CALCIUM LEVEL 8.9 MG/DL (8.8-10.2); CARBON DIOXIDE LEVEL 28 MEQ/L (21-32); CHLORIDE LEVEL 103 MEQ/L (98-107); CK-MB VALUE MASS 1.1 NG/ML (<3.6); CPK CREATINE PHOSPHOKINASE 75 U/L (26-192); CREATININE FOR GFR 1.12 MG/DL (0.55-1.30); GLOMERULAR FILTRATION RATE 50.1 (>39); GLUCOSE, FASTING 139 MG/DL (70-100); MB/CK RELATIVE INDEX 1.47 (< OR =4); POTASSIUM SERUM 3.7 MEQ/L (3.5-5.1); SODIUM LEVEL 140 MEQ/L (136-145); TOTAL PROTEIN 7.9 GM/DL (6.4-8.2); TROPONIN I < 0.02 NG/ML (< 0.10)
--- NOTE | 2018-07-31 05:24 | REPVR ---
EXAM: CT Head Without Contrast EXAM DATE/TIME: 07/31/2018 4:02 AM CLINICAL HISTORY: 77 years old, female; Injury or trauma; Fall; Patient HX: Dizzy; Additional info: Dizziness, head injury TECHNIQUE: Imaging protocol: Axial computed tomography images of the head without contrast. Radiation optimization: All CT scans at this facility use at least one of these dose optimization techniques: automated exposure control; mA and/or kV adjustment per patient size (includes targeted exams where dose is matched to clinical indication); or iterative reconstruction. COMPARISON: CT Head without contrast 05/22/2018 11:05 AM FINDINGS: Brain: There is mild patchy low attenuation of deep white matter. There is slight prominence of the peripheral sulci. Persistent thickening of the anterior left tentorium since prior study. Ventricles: There is slight prominence of the central ventricular system. Bones/joints: Unremarkable. No acute fracture. Sinuses: Visualized sinuses are unremarkable. No fluid levels. Mastoid air cells: Visualized mastoid air cells are well aerated. No mastoid effusion. Soft tissues: Unremarkable. IMPRESSION: 1. Resolution of right frontotemporal subdural hematoma since 05/22/2018. No acute interval intracranial process is identified. 2. Mild chronic ischemic white matter change and minimal atrophy. Electronically signed by: Tono Peoples On 07/31/2018 05:23:46 AM
[2018-07-31] MEDS ORDERED: MECL-68 PO (06:17)
[2018-07-31 06:37] VITALS: BP 151/75
== END 2018-07-31 06:54 | disposition home or self-care (01) ==
LOC: M ED 02:57 → EDBD 02:57 → M ED 06:54
DX: R42 Dizziness and giddiness (principal); E11.9 Type 2 diabetes mellitus without complications; I10 Essential (primary) hypertension; Z79.84 Long term (current) use of oral hypoglycemic drugs; Z79.899 Other long term (current) drug therapy

== ENCOUNTER 2018-08-21 19:20 | Emergency (ER) | payer MEDICARE, BC, OTHER ==
[~2018-08-21] VITALS: Ht 160 cm; Wt 65.0 kg
[~2018-08-21 19:20] MED LIST changes: +MECL-68 PO
[2018-08-21] MEDS ORDERED: MECLIZINE 25 MG TABLET PO ONE (19:45)
[2018-08-21 20:37] LABS: BASO # 0.1 10^3/uL (0.0-0.2); BASO % 0.6 % (0.0-1.0); EOS # 0.1 10^3/uL (0.0-0.50); EOS % 1.6 % (0.0-3.0); HEMATOCRIT 39.5 % (36.0-47.0); HEMOGLOBIN 12.7 g/dl (12.0-15.5); LYMPH # 3.4 10^3/uL (1.5-4.5); MEAN CORPUSCULAR HEMOGLOBIN 28.3 pg (27.0-33.0); MEAN CORPUSCULAR HGB CONC 32.2 g/dl (32.0-36.5); MONO # 0.5 10^3/uL (0.0-0.8); MONO % 5.3 % (0.0-5.0); NEUTROPHILS # 4.9 10^3/uL (1.8-7.7); NEUTROPHILS % 54.3 % (36.0-66.0); PLATELET COUNT, AUTOMATED 320 10^3/uL (150-450); RED BLOOD COUNT 4.49 10^6/uL (4.00-5.40); WHITE BLOOD COUNT 8.9 10^3/uL (4.0-10.0)
[2018-08-21 20:45] LABS: INR 1.02; PROTHROMBIN TIME 13.1 SECONDS (11.8-14.0)
--- NOTE | 2018-08-21 20:57 | REPVR ---
EXAM: CT Head Without Contrast EXAM DATE/TIME: 08/21/2018 7:55 PM CLINICAL HISTORY: 77 years old, female; Pain; Headache; Additional info: Dizzy/weak TECHNIQUE: Imaging protocol: Axial computed tomography images of the head without contrast. Radiation optimization: All CT scans at this facility use at least one of these dose optimization techniques: automated exposure control; mA and/or kV adjustment per patient size (includes targeted exams where dose is matched to clinical indication); or iterative reconstruction. COMPARISON: CT Head without contrast 07/31/2018 4:00 AM FINDINGS: Brain: There is mild age-related parenchymal volume loss. White matter changes are demonstrated in the subcortical, centrum semiovale and periventricular white matter consistent with small vessel white matter angiopathic gliosis. Ventricles: The degree of ventricular dilatation is normal for age. No pathologic enlargement demonstrated. Bones/joints: Unremarkable. No acute fracture. Sinuses: Visualized sinuses are unremarkable. No fluid levels. Mastoid air cells: Visualized mastoid air cells are well aerated. No mastoid effusion. Soft tissues: Unremarkable. IMPRESSION: There is mild age-related parenchymal volume loss. White matter changes are demonstrated in the subcortical, centrum semiovale and periventricular white matter consistent with small vessel white matter angiopathic gliosis. Electronically signed by: Urban Duran On 08/21/2018 20:57:01 PM
[2018-08-21 21:08] LABS: ALBUMIN 3.6 GM/DL (3.2-5.2); ALT/SGPT 21 U/L (12-78); BILIRUBIN,DIRECT 0.1 MG/DL (0.0-0.2); BILIRUBIN,TOTAL 0.3 MG/DL (0.2-1.0); BLOOD UREA NITROGEN 23 MG/DL (7-18); CALCIUM LEVEL 9.8 MG/DL (8.8-10.2); CARBON DIOXIDE LEVEL 35 MEQ/L (21-32); CHLORIDE LEVEL 99 MEQ/L (98-107); CK-MB VALUE MASS 1.1 NG/ML (<3.6); CPK CREATINE PHOSPHOKINASE 34 U/L (26-192); CREATININE FOR GFR 1.12 MG/DL (0.55-1.30); FREE T4 0.89 NG/DL (0.76-1.46); GLOMERULAR FILTRATION RATE 50.1 (>39); GLUCOSE, FASTING 114 MG/DL (70-100); MB/CK RELATIVE INDEX 3.24 (< OR =4); POTASSIUM SERUM 3.6 MEQ/L (3.5-5.1); SODIUM LEVEL 141 MEQ/L (136-145); TOTAL PROTEIN 7.4 GM/DL (6.4-8.2); TROPONIN I < 0.02 NG/ML (< 0.10)
[2018-08-21 22:15] VITALS: BP 145/75
--- NOTE | 2018-08-22 05:39 | ECGEPIP ---
[facility] - ED Test Date: 2018-08-21 Pat Name: PAULINO ROBERTSON Department: Room: - Gender: Female It Analyst: kaitlyn : 1940 Requested By: MARCO Yarbrough Order Number: [id number] Reading MD: David Odell Measurements Intervals [place] Rate: 95 P: 13 MO: 164 QRS: 6 QRSD: 86 T: 53 QT: 308 QTc: 387 Interpretive Statements SINUS RHYTHM NONSPECIFIC ST & T-WAVE ABNORMALITY SIMILAR TO 05/22/18 Electronically Signed on 08-22-2018 5:39:16 EDT by David Odell
--- NOTE | 2018-08-22 07:03 | REP ---
A PA and lateral chest: Comparison is 06/04/2017. The lung alcocer are clear. The cardiac size is normal. The antonia, mediastinum, and skeletal structures are unremarkable. Impression: Negative AP and lateral chest. There is no interval change. The PA and lateral chest: Electronically Signed by Jian Pantoja MD 08/22/2018 06:54 A
== END 2018-08-21 22:58 | disposition home or self-care (01) ==
LOC: M ED 19:20
DX: R42 Dizziness and giddiness (principal); E11.9 Type 2 diabetes mellitus without complications; I10 Essential (primary) hypertension; M85.80 Other specified disorders of bone density and structure, unspecified site; J84.112 Idiopathic pulmonary fibrosis; M51.35 Other intervertebral disc degeneration, thoracolumbar region; K76.0 Fatty (change of) liver, not elsewhere classified; Z79.84 Long term (current) use of oral hypoglycemic drugs; Z79.899 Other long term (current) drug therapy; Z88.8 Allergy status to other drugs, medicaments and biological substances

== ENCOUNTER → 2019-01-16 | Outpatient (REF) | payer MEDICARE, OTHER ==
[~2019-01-16] MED LIST changes: -GLIM4TAB PO; +GLIM4TAB3 PO; -MAGN400T PO; +MAGN400T3 PO; +OMEP-172 PO; -OMEP20CA4 PO
[2019-01-16 19:27] LABS: HEMATOCRIT 38.2 % (36.0-47.0); HEMOGLOBIN 11.5 g/dl (12.0-15.5); MEAN CORPUSCULAR HEMOGLOBIN 27.2 pg (27.0-33.0); MEAN CORPUSCULAR HGB CONC 30.1 g/dl (32.0-36.5); MEAN CORPUSCULAR VOLUME 90.3 fl (80.0-96.0); PLATELET COUNT, AUTOMATED 270 10^3/uL (150-450); RED BLOOD COUNT 4.23 10^6/uL (4.00-5.40); WHITE BLOOD COUNT 7.3 10^3/uL (4.0-10.0)
[2019-01-16 19:28] LABS: ALBUMIN 3.7 GM/DL (3.2-5.2); BILIRUBIN,TOTAL 0.3 MG/DL (0.2-1.0); CALCIUM LEVEL 9.8 MG/DL (8.8-10.2); CHOLESTEROL RISK RATIO 4.095 (<5); CREATININE FOR GFR 1.15 MG/DL (0.55-1.30); GLOMERULAR FILTRATION RATE 48.5 (>39); MAGNESIUM LEVEL 1.5 MG/DL (1.8-2.4); POTASSIUM SERUM 4.4 MEQ/L (3.5-5.1); TOTAL PROTEIN 7.6 GM/DL (6.4-8.2)
[2019-01-16 19:54] LABS: HEMOGLOBIN A1c 8.1 %
== END ==
LOC: M SFHCADAM 17:00
PROVIDERS: ATTEND Family Medicine
DX: E11.9 Type 2 diabetes mellitus without complications (principal); I11.9 Hypertensive heart disease without heart failure; E78.2 Mixed hyperlipidemia; Z86.2 Personal history of diseases of the blood and blood-forming organs and certain disorders involving the immune mechanism; Z23 Encounter for immunization
CPT/HCPCS: 80053; 80061; 83036; 83735; 85027; 90682; G0008; G0463

== ENCOUNTER → 2019-07-04 | Outpatient (CLI) | payer MEDICARE, BC ==
[~2019-07-04] MED LIST changes: -GLIM4TAB3 PO; +GLIM4TAB5 PO; -MECL-68 PO; +MECL1TAB31 PO; -OMEP-172 PO; +OMEP1CAP73 PO
--- NOTE | 2019-07-04 14:17 | REPMRS ---
Patient History The patient states she has not had a clinical breast exam in over a year. Family history of ovarian cancer under age 50 in daughter, breast cancer in maternal aunt. Benign radio exam breast specimen of the right breast, September 03, 2013. Benign stereotatic loc for ea lesion of the right breast, September 03, 2013. Benign stereotatic breast biopsy of the left breast, November 06, 2007. Digital Woman Screen Mammo: July 04, 2019 - Exam #: [id number] Bilateral CC and MLO view(s) were taken. Technologist: Aisha Gan, Technologist Prior study comparison: November 22, 2017, bilateral digital woman screen mammo performed at [facility]. October 31, 2016, digital woman screen mammo performed at [facility]. October 27, 2015, bilateral digital mammo screening bilat, performed at [facility]. FINDINGS: There are scattered fibroglandular densities. The Volpara volumetric breast density category is:B. There has been no change in the appearance of the mammogram from the prior studies. There is a mild amount of scattered fibroglandular density which is fairly symmetric. There is no interval development of dominant mass, architectural distortion, or grouped microcalcification suggestive of malignancy. 3-D tomosynthesis shows no additional findings. Assessment: BI-RADS/ACR category 1 mammogram. Negative Mammogram. Recommendation Routine screening mammogram of both breasts in 1 year (for women over age 40). This patient's Lifetime Breast Cancer Risk is estimated at 2.1 %. This mammogram was interpreted with the aid of an FDA-approved computer-aided dectection system. Electronically Signed By: Foreign Martínez MD 07/04/19 [id number]
== END ==
LOC: M WHC 12:58
PROVIDERS: ATTEND Family Medicine
DX: Z12.31 Encounter for screening mammogram for malignant neoplasm of breast (principal)

== ENCOUNTER → 2019-09-23 | Outpatient (REF) | payer MEDICARE, BC, OTHER ==
[2019-11-11 12:38] LABS: HEMATOCRIT 37.1 % (36.0-47.0); HEMOGLOBIN 11.5 g/dl (12.0-15.5); MEAN CORPUSCULAR HEMOGLOBIN 28.1 pg (27.0-33.0); MEAN CORPUSCULAR VOLUME 90.7 fl (80.0-96.0); PLATELET COUNT, AUTOMATED 270 10^3/uL (150-450); RED BLOOD COUNT 4.09 10^6/uL (4.00-5.40); WHITE BLOOD COUNT 6.8 10^3/uL (4.0-10.0)
[2019-12-14 08:37] LABS: ALBUMIN 3.9 GM/DL (3.2-5.2); BILIRUBIN,TOTAL 0.4 MG/DL (0.2-1.0); CALCIUM LEVEL 9.5 MG/DL (8.8-10.2); CHOLESTEROL RISK RATIO 4.875 (<5); CREATININE FOR GFR 1.53 MG/DL (0.55-1.30); GLOMERULAR FILTRATION RATE 34.8 (>32); POTASSIUM SERUM 3.8 MEQ/L (3.5-5.1); TOTAL PROTEIN 7.6 GM/DL (6.4-8.2)
[2019-12-14 08:38] LABS: FREE T4 0.87 NG/DL (0.76-1.46); THYROID STIMULATING HORMONE 2.81 uIU/ML (0.358-3.740)
== END ==
LOC: M SFHCADAM 10:11
PROVIDERS: ATTEND Family Medicine
DX: E11.9 Type 2 diabetes mellitus without complications (principal); E78.5 Hyperlipidemia, unspecified; I11.9 Hypertensive heart disease without heart failure
CPT/HCPCS: 36415; 80053; 80061; 83036; 84439; 84443; 85027; G0463

== ENCOUNTER → 2019-11-18 | Outpatient (REF) | payer MEDICARE, OTHER ==
[2019-11-18 17:13] LABS: HEMATOCRIT 35.5 % (36.0-47.0); HEMOGLOBIN 11.1 g/dl (12.0-15.5); MEAN CORPUSCULAR HEMOGLOBIN 27.9 pg (27.0-33.0); MEAN CORPUSCULAR HGB CONC 31.3 g/dl (32.0-36.5); MEAN CORPUSCULAR VOLUME 89.2 fl (80.0-96.0); PLATELET COUNT, AUTOMATED 294 10^3/uL (150-450); RED BLOOD COUNT 3.98 10^6/uL (4.00-5.40)
[2019-11-18 17:28] LABS: HEMOGLOBIN A1c 6.8 %
[2019-11-18 17:33] LABS: ALBUMIN 3.6 GM/DL (3.2-5.2); BILIRUBIN,TOTAL 0.4 MG/DL (0.2-1.0); CALCIUM LEVEL 9.4 MG/DL (8.8-10.2); CHOLESTEROL RISK RATIO 3.568 (<5); CREATININE FOR GFR 1.47 MG/DL (0.55-1.30); FOLATE 5.4 NG/ML; FREE T4 0.94 NG/DL (0.76-1.46); GLOMERULAR FILTRATION RATE 36.4 (>32); MAGNESIUM LEVEL 1.7 MG/DL (1.8-2.4); POTASSIUM SERUM 3.7 MEQ/L (3.5-5.1); THYROID STIMULATING HORMONE 3.4 uIU/ML (0.358-3.740); TOTAL PROTEIN 7.2 GM/DL (6.4-8.2)
== END ==
LOC: M SFHCADAM 11:36
PROVIDERS: ATTEND Physician Assistant
DX: R26.81 Unsteadiness on feet (principal); I11.9 Hypertensive heart disease without heart failure; E11.9 Type 2 diabetes mellitus without complications; E78.2 Mixed hyperlipidemia; E83.42 Hypomagnesemia; Z86.2 Personal history of diseases of the blood and blood-forming organs and certain disorders involving the immune mechanism; Z23 Encounter for immunization
CPT/HCPCS: 80053; 80061; 82607; 82746; 83036; 83735; 84439; 84443; 85027; 90682; G0008; G0463

== ENCOUNTER → 2019-12-12 | Outpatient (REF) | payer MEDICARE, OTHER ==
[2019-12-12 14:09] LABS: CREATININE FOR GFR 1.27 MG/DL (0.55-1.30); GLOMERULAR FILTRATION RATE 43.1 (>32); MAGNESIUM LEVEL 1.7 MG/DL (1.8-2.4); POTASSIUM SERUM 4.5 MEQ/L (3.5-5.1)
== END ==
LOC: M SFHCADAM 11:04
PROVIDERS: ATTEND Physician Assistant
DX: I10 Essential (primary) hypertension (principal)

== ENCOUNTER 2020-01-01 19:08 | Inpatient (IN) | payer MEDICARE, OTHER ==
[~2020-01-01] VITALS: Ht 160 cm; Wt 60.4 kg
--- NOTE | 2020-01-01 20:32 | REPVR ---
PROCEDURE INFORMATION: Exam: CT Head Without Contrast Exam date and time: 01/01/2020 7:28 PM Age: 79 years old Clinical indication: Injury or trauma; Fall; Blunt trauma (contusions or hematomas) TECHNIQUE: Imaging protocol: Computed tomography of the head without contrast. Radiation optimization: All CT scans at this facility use at least one of these dose optimization techniques: automated exposure control; mA and/or kV adjustment per patient size (includes targeted exams where dose is matched to clinical indication); or iterative reconstruction. COMPARISON: CT Head without contrast 08/21/2018 7:54 PM FINDINGS: Brain: There is no evidence of intracranial bleed. There is prominent area of low density within the white matter of the right frontal lobe abutting the frontal horn of the right lateral ventricle and consistent with chronic ischemic change also seen on the examination 2019. Bones/joints: There is no evidence of fracture. Paranasal sinuses: Clear paranasal sinuses. Mastoid air cells: Clear mastoid air cells. Soft tissues: Unremarkable. IMPRESSION: 1. No evidence of fracture and no evidence of acute intracranial bleed. 2. Chronic ischemic changes. Electronically signed by: Todd Bird On 01/01/2020 20:32:38 PM
[2020-01-01 20:37] LABS: BASO % 0.5 % (0.0-1.0); EOS % 0.5 % (0.0-3.0); HEMATOCRIT 33.4 % (36.0-47.0); HEMOGLOBIN 10.1 g/dl (12.0-15.5); LYMPH # 1.9 10^3/uL (1.5-5.0); MEAN CORPUSCULAR HEMOGLOBIN 27.1 pg (27.0-33.0); MEAN CORPUSCULAR HGB CONC 30.2 g/dl (32.0-36.5); MEAN CORPUSCULAR VOLUME 89.5 fl (80.0-96.0); MONO # 0.5 10^3/uL (0.0-0.8); NEUTROPHILS # 5.8 10^3/uL (1.5-8.5); NEUTROPHILS % 69.8 % (36.0-66.0); PLATELET COUNT, AUTOMATED 294 10^3/uL (150-450); RED BLOOD COUNT 3.73 10^6/uL (4.00-5.40); WHITE BLOOD COUNT 8.4 10^3/uL (4.0-10.0)
--- NOTE | 2020-01-01 20:40 | REPVR ---
PROCEDURE INFORMATION: Exam: CT Cervical Spine Without Contrast Exam date and time: 01/01/2020 7:28 PM Age: 79 years old Clinical indication: Injury or trauma; Fall; Blunt trauma TECHNIQUE: Imaging protocol: Computed tomography images of the cervical spine without contrast. Radiation optimization: All CT scans at this facility use at least one of these dose optimization techniques: automated exposure control; mA and/or kV adjustment per patient size (includes targeted exams where dose is matched to clinical indication); or iterative reconstruction. COMPARISON: CT Spine,cervical w/o contrast 05/22/2018 11:05 AM FINDINGS: Vertebrae: The cervical vertebra and facet joints appear in alignment. There is no evidence of fracture. The dens appears intact and the lateral masses of C1 appear symmetric There is a large posterior osteophyte formation C5-C6 causing severe impression on the anterior right side of the cervical cord. C4-C5: There is a large posterior osteophyte C4-C5 causing impression on the cervical cord. C6-C7: There is moderate posterior osteophyte formation C6-C7. Soft tissues: There is no evidence of soft tissue swelling. Thyroid: Normal thyroid. Lymph nodes: There are small lymph nodes right left side of the neck. Lungs: The apical portions of the lung appear clear. IMPRESSION: 1. There is no evidence of fracture. 2. Large posterior osteophyte C4-C5 and C5-C6 causing significant impression on the anterior aspect of the cervical cord. If there are cervical symptoms suggest correlation with an MRI scan. Electronically signed by: Todd Bird On 01/01/2020 20:40:15 PM
--- NOTE | 2020-01-01 20:47 | REPVR ---
PROCEDURE INFORMATION: Exam: XR Chest, 1 View Exam date and time: 01/01/2020 8:08 PM Age: 79 years old Clinical indication: Fall, weakness TECHNIQUE: Imaging protocol: XR of the chest Views: 1 view. COMPARISON: CR Ribs Bilat w-PA CHEST 07/29/2018 5:49 PM FINDINGS: Lungs: No focal areas of consolidation. Pleural space: No pleural effusion or pneumothorax. Heart/Mediastinum: Cardiac and mediastinal silhouettes are unremarkable. Bones/joints: No acute osseus lesion or fracture. IMPRESSION: No acute cardiopulmonary findings. Electronically signed by: Marvel Ferrer On 01/01/2020 20:47:40 PM
[2020-01-01 21:03] LABS: BLOOD UREA NITROGEN 22 MG/DL (7-18); CALCIUM LEVEL 9.3 MG/DL (8.8-10.2); CARBON DIOXIDE LEVEL 25 MEQ/L (21-32); CHLORIDE LEVEL 107 MEQ/L (98-107); CK-MB VALUE MASS 2.5 NG/ML (<3.6); CPK CREATINE PHOSPHOKINASE 85 U/L (26-192); CREATININE FOR GFR 1.53 MG/DL (0.55-1.30); GLOMERULAR FILTRATION RATE 34.8 (>32); GLUCOSE, FASTING 170 MG/DL (70-100); MAGNESIUM LEVEL 1.6 MG/DL (1.8-2.4); MB/CK RELATIVE INDEX 2.94 (< OR =4); POTASSIUM SERUM 4.3 MEQ/L (3.5-5.1); SODIUM LEVEL 141 MEQ/L (136-145); TROPONIN I < 0.02 NG/ML (< 0.10)
[2020-01-01 23:32] LABS: CK-MB VALUE MASS 2.3 NG/ML (<3.6); CPK CREATINE PHOSPHOKINASE 114 U/L (26-192); MB/CK RELATIVE INDEX 2.02 (< OR =4); TROPONIN I < 0.02 NG/ML (< 0.10)
[2020-01-02] MEDS ORDERED: ZINC1TAB2 PO (00:15)
[2020-01-02] MEDS ORDERED: OMEP-218 PO (00:15)
[2020-01-02] MEDS ORDERED: D31000TA2 PO (00:15)
[2020-01-02] MEDS ORDERED: CYAN100049 PO (00:15)
[2020-01-02] MEDS ORDERED: METF-877 PO ×2 (00:15)
[2020-01-02] MEDS ORDERED: HM P99TA PO (00:15)
[2020-01-02] MEDS ORDERED: MOM 30ML SUSPENSION UDC PO PRN (01:00)
[2020-01-02] MEDS ORDERED: MAALOX 30 ML SUSP *UDC PO PRN (01:00)
[2020-01-02] MEDS ORDERED: NS 500 ML IV SCH (01:00)
[2020-01-02 02:00] VITALS: BP 157/79
[2020-01-02 02:40] VITALS: BP_SYST 173; BP_SYST 180; BP_SYST 182; BP_DIAS 77; BP_DIAS 81; BP_DIAS 83
--- NOTE | 2020-01-02 03:30 | HPEPDOC ---
[facility] Medical History & Physical Date of Admission Jan 01, 2020 Date of Service: Jan 01, 2020 Primary Care Physician: Marvel Coronel MD Attending Physician: JUSTINO PORTILLO MD History and Physical TIME OF SERVICE: 1159pm CHIEF COMPLAINT: Came to the hospital because her son insisted HISTORY OF PRESENT ILLNESS: This 79-year-old female did not want to come to the hospital, but came because her son insisted that she come in for evaluation, according to the patient because he felt that she was unsteady on her feet and her legs were were "wobbly". The patient did agree that her legs have been wobbly and that she has fallen recently. She is not sure if she lost consciousness and was unsure if she has had any lapses in her memory. She is not sure if she's been feeling dizzy but denied having palpitations, chest pain, shortness of breath, vomiting, diarrhea, poor oral intake, sensation that the room was spinning around her prior to the falls, or ringing in her ears. Per ER triage notes, the patient's son reported that the patient was standing at the kitchen counter placed the gravy on the counter and fell on her back and hit her head on the floor; the patient couldn't' recall the fall but admitted to feeling weak recently and leaning to the left. REVIEW OF SYSTEMS: 12 point review of systems negative except as listed in HPI PAST MEDICAL/ SURGICAL HISTORY: NIDDM Chronic hypertension Dyslipidemia Headaches Depression Chronic right frontal lobe CVA (per patient she has had a TIA) Partial hysterectomy Bladder suspension surgery She denies prior history of MS SOCIAL HISTORY: She doesn't smoke, drink or use recreational drugs FAMILY HISTORY: Cancer unspecified heart problems ALLERGIES: Please see below. HOME MEDICATIONS: Please see below. PHYSICAL EXAMINATION: Vital Signs Date Time Temp Pulse Resp B/P (MAP) Pulse Ox O2 Delivery O2 Flow Rate FiO2 01/01/20 19:08 97.8 107 18 162/76 (104) 97 Room Air GEN: well-nourished / well developed/ NAD INTEGUMENT: not flushed/ not jaundice HEENT: lips acyanotic /mucus membranes slightly dry and pink CVS: RRR/NMRG/ radial pulses intact / no lower extremity edema LUNGS: able to speak full sentences without stopping to take a breath / no coughing / lungs are clear to auscultation bilaterally on room air ABDOMEN: Contour (flat) / soft & not tender with palpation MSK/EXTREMITIES: range of motion intact in all 4 extremities NEURO: CN 2-12 are grossly intact /no horizontal nystagmus / has left sided nasal labial fold flattening / speech is not dysarthric / strength is 5/5 at upper extremities & 4/5 at lower extremities PSYCH: alert and oriented to person place and time/ able to understand and follow all commands LABORATORY DATA: 01/01/20 20:19 01/01/20 20:19: Immature Granulocyte % (Auto) 0.2, Neutrophils (%) (Auto) 69.8H, Lymphocytes (%) (Auto) 23.0L, Monocytes (%) (Auto) 6.0H, Eosinophils (%) (Auto) 0.5, Basophils (%) (Auto) 0.5, Neutrophils # (Auto) 5.8, Lymphocytes # (Auto) 1.9, Monocytes # (Auto) 0.5, Eosinophils # (Auto) 0.0, Basophils # (Auto) 0.0, Nucleated Red Blo od Cells % (auto) 0.0, Anion Gap 9, Glomerular Filtration Rate 34.8, Calcium Level 9.3, Magnesium Level 1.6L, Total Creatine Kinase 85, Creatine Kinase MB 2.5, Creatine Kinase MB Relative Index 2.94, Troponin I < 0.02 01/01/20 22:28: Total Creatine Kinase 114, Creatine Kinase MB 2.3, Creatine Kinase MB Relative Index 2.02, Troponin I < 0.02 IMAGING: Chest x-ray "IMPRESSION: No acute cardiopulmonary findings." CT head "IMPRESSION: 1. No evidence of fracture and no evidence of acute intracranial bleed. 2. Chronic ischemic changes." CT cervical spine "IMPRESSION: 1. There is no evidence of fracture. 2. Large posterior osteophyte C4-C5 and C5-C6 causing significant impression on the anterior aspect of the cervical cord. If there are cervical symptoms suggest correlation with an MRI scan." MICROBIOLOGY: 01/01/20 Respiratory Virus Panel (PCR) (NISHA) - Final, Complete ASSESSMENT: Ms Gong is an 79-year-old with a history of NIDDM, HTN, dyslipidemia, CVA, headaches, depression & dyslipidemia brought to the hospital for evaluation of syncope and management of hypertensive urgency. PLAN: 1.Syncope Cause TBD Her EKG showed NSR w a rate of 93, and trop was wnl CT of the head was negativie [place] Syncope Risk Score to determine 30 day risk of serious adverse events in patients w syncope= -3 points very low risk Plan: admit to medical floor / telemetry / f/u orthostats / fall precautions / she has BLE weakness which is likely chronic, if she develops new or worsening focal symptoms the day time team may consider MRI of the brain 2. Hypertensive Urgency Her BP is 182/81 and she is c/o CAMPOVERDE Plan: start amlodipine 2.5mg PO daily (despite hx of DM will not start ACEI bc of hx of cough while using ramipril) 3. Tachycardia Possibly 2/2 dehydration or anxiety (the patient didn't want to stay in the hospital) BUN was slightly elevated Plan: telemetry / IVF / f/u /u serial trops & TSH 4. Hypomagnesemia Plan: Mag oxide 5. Normocytic Normochromic Anemia Hg dropped from 11.1 on Nov 17 to to 10.1 today Plan: f/u retic #, iron studies, B12, folate and stool occult 6. NIDDM A1C was 6.8% in Nov The target for her age with limited life expectancy and comorbidities is about 7.5% Plan: diabetic diet / d/c glimepiride bc it is one of the meds listed on on the [facility] Criteria / hold metformin while admitted 7. Dyslipidemia Plan: Rosuvastatin 8. CKD 3 Cr, which is 1.53, is close to baseline of 1.27 a few days ago Plan: f/u BMP 9. Depression Plan: Sertraline DVT PROPHYLAXIS: lovenox DISPOSITION: home after more than 2 midnight's stay Home Medications Scheduled Amlodipine Besylate (Norvasc) 10 Mg Tablet, 1 TAB PO DAILY Amlodipine Besylate (Amlodipine Besylate) 10 Mg Tablet, 10 MG PO ONCE Cholecalciferol (Vitamin D3) (Vitamin D3) 1,000 Unit Tablet, 1,000 UNITS PO DAILY Cyanocobalamin (Vitamin B-12) (Vitamin B-12) 1,000 Mcg Tablet, 1,000 MCG PO BRIANNA Y Glimepiride (Glimepiride) 4 Mg Tab, 4 MG PO DAILY Magnesium Oxide (Magnesium Oxide) 400 Mg Tablet, 400 MG PO DAILY Metformin HCl (Metformin HCl) 1,000 Mg Tablet, 1,500 MG PO DAILY Metformin HCl (Metformin HCl) 1,000 Mg Tablet, 1,000 MG PO QHS Omeprazole (Omeprazole) 20 Mg Capsule.dr, 20 MG PO DAILY Potassium Gluconate (Potassium) 99 Mg Tablet, 595 MG PO DAILY Pravastatin Sodium (Pravastatin Sodium) 40 Mg Tab, 40 MG PO QHS Sertraline HCl (Sertraline HCl) 100 Mg Tab, 100 MG PO QHS Zinc (Zinc) 50 Mg Tablet, 50 MG PO DAILY Allergies Coded Allergies: ramipril (Verified Adverse Reaction, Intermediate, cough, 08/21/18) A-FIB/CHADSVASC A-FIB History Current/History of A-Fib/PAF?: No Current PO Anticoag Therapy: No JUSTINO PORTILLO MD Jan 02, 2020 03:30
[2020-01-02] MEDS ORDERED: MAGNESIUM OXIDE 400 MG TAB (MAG-OX) PO ONE (03:45)
[2020-01-02 04:00] VITALS: BP 172/88
[2020-01-02 05:21] LABS: HEMOGLOBIN 10.2 g/dl (12.0-15.5); MEAN CORPUSCULAR HGB CONC 31.9 g/dl (32.0-36.5); MEAN CORPUSCULAR VOLUME 87.9 fl (80.0-96.0); PLATELET COUNT, AUTOMATED 292 10^3/uL (150-450); RED BLOOD COUNT 3.64 10^6/uL (4.00-5.40); WHITE BLOOD COUNT 8.5 10^3/uL (4.0-10.0)
[2020-01-02 05:54] LABS: CALCIUM LEVEL 9.1 MG/DL (8.8-10.2); CREATININE FOR GFR 1.35 MG/DL (0.55-1.30); GLOMERULAR FILTRATION RATE 40.2 (>32); POTASSIUM SERUM 3.4 MEQ/L (3.5-5.1)
[2020-01-02 06:30] LABS: FERRITIN 15 NG/ML (8-252); IRON (FE) 43 UG/DL (50-170); PERCENT SATURATION 10.2 % (13.2-45.0); TOTAL IRON BINDING CAPACITY 421 UG/DL (250-450)
--- NOTE | 2020-01-02 06:35 | ECGEPIP ---
[facility] - ED Test Date: 2020-01-01 Pat Name: PAULINO ROBERTSON Department: Room: [place] [address] Gender: Female Project Manager Senior: QUINTIN : 1940 Requested By: David Kimble Order Number: [id number] Reading MD: Joselito Cronin Measurements Intervals [place] Rate: 103 P: 16 [place]: 140 QRS: 15 QRSD: 86 T: 32 QT: 346 QTc: 454 Interpretive Statements SINUS TACHYCARDIA POSSIBLE LEFT ATRIAL ENLARGEMENT NONSPECIFIC ST & T-WAVE ABNORMALITY ABNORMAL RHYTHM ECG BORDERLINE PROLONGED QTC CW 08/21/[address] T WAVE CHANGES Electronically Signed on 01-02-2020 6:35:14 EST by Joselito Cronin
--- NOTE | 2020-01-02 06:41 | ECGEPIP ---
[facility] - ED Test Date: 2020-01-01 Pat Name: PAULINO ROBERTSON Department: Room: A2978-71 Gender: Female Loan Review Officer: esthela : 1940 Requested By: David Kimble Order Number: [id number] Reading MD: Joselito Cronin Measurements Intervals [place] Rate: 93 P: 10 [place]: 159 QRS: 1 QRSD: 82 T: 29 QT: 363 QTc: 452 Interpretive Statements SINUS RHYTHM NONSPECIFIC ST & T-WAVE ABNORMALITY POSSIBLE LEFT ATRIAL ENLARGEMENT 01/01/[address] T WAVE CHANGES Electronically Signed on 01-02-2020 6:41:20 EST by Joselito Cronin
[2020-01-02] MEDS ORDERED: AMLO10TA PO (07:25)
[2020-01-02] MEDS ORDERED: AMLO1TAB25 PO (07:26)
[2020-01-02] MEDS ORDERED: amLODIPine 10 MG TAB PO ONE (07:30)
[2020-01-02] MEDS ORDERED: POTASSIUM CHLORIDE 10 MEQ SR TABLET PO ONE (07:30)
[2020-01-02] MEDS ORDERED: NS 1,000 ML IV ONE (07:30)
[2020-01-02] MEDS ORDERED: SELF1KIT MC (07:47)
[2020-01-02 08:00] VITALS: BP 178/86
[2020-01-02] MEDS ORDERED: ENOXAPARIN 40MG/0.4ML SYRINGE (J1650 PER 10MG) SC SCH (09:00)
[2020-01-02] MEDS: OMEPRAZOLE 20 MG CAP PO SCH (09:32)
[2020-01-02] MEDS: ENOXAPARIN 30MG/0.3ML SYRINGE (J1650 PER 10MG) SC SCH (09:32)
[2020-01-02] MEDS: VITAMIN D 1,000 INTERNATIONAL UNITS TABLET PO SCH (09:33)
[2020-01-02] MEDS: CYANOCOBALAMIN 500 MCG TAB PO SCH (09:33)
[2020-01-02 10:00] LABS: FOLATE 12.2 NG/ML (>5.4); VITAMIN B12 LEVEL 644 PG/ML (247-911)
[2020-01-02] MEDS ORDERED: atenoloL 50 MG TAB PO ONE (10:30)
--- NOTE | 2020-01-02 11:20 | IPNPDOC ---
Date Seen The patient was seen on 01/02/20. Progress Note SUBJECTIVE: Patient was seen and examined the bedside chart is been reviewed. Patient denies any headache, changes in vision, chest pain, pressure, tightness, lightheadedness or dizziness despite systolic pressure 170 this morning. Telemetry was sinus. Patient denies bilateral extremity motor weakness or paresthesias. OBJECTIVE PHYSICAL EXAMINATION: VITAL SIGNS: Please see below. GENERAL: No distress answering questions appropriately HEENT: No JVD thyromegaly. Dry mucous membranes. Patient has facial hair in the chin CARDIOVASCULAR: S1, S2 regular rate rhythm RESPIRATORY: Clear to auscultation. No wheezing rales or rhonchi ABDOMINAL: No abdominal bruit. Positive bowel sounds 4 quadrants. No rebound or guarding EXTREMITIES: No cyanosis or clubbing LABORATORY DATA, IMAGING STUDIES, MICROBIOLOGY: Please see below. Exam: CT Head Without Contrast Exam date and time: 01/01/2020 7:28 PM Age: 79 years old Clinical indication: Injury or trauma; Fall; Blunt trauma (contusions or hematomas) TECHNIQUE: Imaging protocol: Computed tomography of the head without contrast. Radiation optimization: All CT scans at this facility use at least one of these dose optimization techniques: automated exposure control; mA and/or kV adjustment per patient size (includes targeted exams where dose is matched to clinical indication); or iterative reconstruction. COMPARISON: CT Head without contrast 08/21/2018 7:54 PM FINDINGS: Brain: There is no evidence of intracranial bleed. There is prominent area of low density within the white matter of the right frontal lobe abutting the frontal horn of the right lateral ventricle and consistent with chronic ischemic change also seen on the examination 2018. Bones/joints: There is no evidence of fracture. Paranasal sinuses: Clear paranasal sinuses. Mastoid air cells: Clear mastoid air cells. Soft tissues: Unremarkable. IMPRESSION: 1. No evidence of fracture and no evidence of acute intracranial bleed. 2. Chronic ischemic changes. Electronically signed by: Todd Bird On 01/01/2020 20:32:38 PM Exam: CT Cervical Spine Without Contrast Exam date and time: 01/01/2020 7:28 PM Age: 79 years old Clinical indication: Injury or trauma; Fall; Blunt trauma TECHNIQUE: Imaging protocol: Computed tomography images of the cervical spine without contrast. Radiation optimization: All CT scans at this facility use at least one of these dose optimization techniques: automated exposure control; mA and/or kV adjustment per patient size (includes targeted exams where dose is matched to clinical indication); or iterative reconstruction. COMPARISON: CT Spine,cervical w/o contrast 05/22/2018 11:05 AM FINDINGS: Vertebrae: The cervical vertebra and facet joints appear in alignment. There is no evidence of fracture. The dens appears intact and the lateral masses of C1 appear symmetric There is a large posterior osteophyte formation C5-C6 causing severe impression on the anterior right side of the cervical cord. C4-C5: There is a large posterior osteophyte C4-C5 causing impression on the cervical cord. C6-C7: There is moderate posterior osteophyte formation C6-C7. Soft tissues: There is no evidence of soft tissue swelling. Thyroid: Normal thyroid. Lymph nodes: There are small lymph nodes right left side of the neck. Lungs: The apical portions of the lung appear clear. IMPRESSION: 1. There is no evidence of fracture. 2. Large posterior osteophyte C4-C5 and C5-C6 causing significant impression on the anterior aspect of the cervical cord. If there are cervical symptoms suggest correlation with an MRI scan. Electronically signed by: Todd Bird On ASSESSMENT AND PLAN: 79-year-old female admitted on 01/01/2020 due to gait abnormality with an falls at home, uncertain if she lost consciousness during the falls with lapses in memory. Possible syncope at home Recurrent falls Hypertensive urgency Hypomagnesemia, resolved Acute kidney injury on Chronic kidney disease stage III NIDDM Gait instability Dyslipidemia Depression Chronic right frontal lobe CVA (per patient she has had a TIA) PLAN: Patient's Norvasc will be increased to 10 mg daily atenolol will be started at 50 mg patient is to have holding parameters for these blood pressure medications for systolic blood pressure less than 120 mmHg and atenolol to be held for any heart rate less than 60. PT home safety evaluation has been ordered. She is resumed on her home rosuvastatin. She has received IV fluids due to acute kidney injury but currently still is stage III renal failure. Hold metformin for now but continue on sliding scale and fingersticks with sliding scale coverage. CT cervical spine reviewed. Patient denies any paresthesias or motor weakness of bilateral upper extremity thereby not requiring MRI evaluation of the cervical spine. Fall risk precautions assisted ambulation. Resume all other home m edications VS, I&O, 24H, Fishbone Vital Signs/I&O Vital Signs Date Time Temp Pulse Resp B/P (MAP) Pulse Ox O2 Delivery O2 Flow Rate FiO2 01/02/20 09:33 78 178/86 01/02/20 08:00 97.5 18 94 Room Air I&O- Last 24 Hours up to 6 AM 01/02/20 06:00 Output Total 600 ml Balance -600 ml Laboratory Data 24H LABS Laboratory Tests 2 01/01/20 20:19: Immature Granulocyte % (Auto) 0.2, Neutrophils (%) (Auto) 69.8H, Lymphocytes (%) (Auto) 23.0L, Monocytes (%) (Auto) 6.0H, Eosinophils (%) (Auto) 0.5, Basophils (%) (Auto) 0.5, Neutrophils # (Auto) 5.8, Lymphocytes # (Auto) 1.9, Monocytes # (Auto) 0.5, Eosinophils # (Auto) 0.0, Basophils # (Auto) 0.0, Nucleated Red Blood Cells % (auto) 0.0, Anion Gap 9, Glomerular Filtration Rate 34.8, Calcium Level 9.3, Magnesium Level 1.6L, Total Creatine Kinase 85, Creatine Kinase MB 2.5, Creatine Kinase MB Relative Index 2.94, Troponin I < 0.02 01/01/20 22:28: Total Creatine Kinase 114, Creatine Kinase MB 2.3, Creatine Kinase MB Relative Index 2.02, Troponin I < 0.02, Iron Level 43L, Total Iron Binding Capacity 421, Transferrin % Saturation 10.2L, Ferritin 15, Vitamin B12 Level 644, Folate 12.2, Thyroid Stimulating Hormone (TSH) 2.130 01/02/20 04:59: Nucleated Red Blood Cells % (auto) 0.0, Anion Gap 7L, Glomerular Filtration Rate 40.2, Calcium Level 9.1 CBC/BMP Laboratory Tests 01/01/20 20:19 01/02/20 04:59 Microbiology Microbiology 01/01/20 Respiratory Virus Panel (PCR) ([facility]) - Final, Complete ESTELLA GUERRERO MD Jan 02, 2020 11:20
[2020-01-02 12:40] VITALS: BP 149/79
[2020-01-02 12:41] LABS: CREATININE FOR GFR 1.26 MG/DL (0.55-1.30); GLOMERULAR FILTRATION RATE 43.5 (>32); POTASSIUM SERUM 3.7 MEQ/L (3.5-5.1)
[2020-01-02] MEDS: PRAVASTATIN 20 MG TAB PO SCH (21:31)
[2020-01-02] MEDS: SERTRALINE 100 MG TAB PO SCH (21:31)
[2020-01-02 22:00] VITALS: BP 131/83
[2020-01-02] MEDS ORDERED: DEXTROSE 50% 50 ML SYRINGE IV PRN (23:30)
[2020-01-02] MEDS ORDERED: GLUCAGON INJ 1MG VIAL SC PRN (23:30)
[2020-01-02] MEDS ORDERED: GLUCOSE 4GM CHEW TABLET PO PRN (23:30)
[2020-01-02] MEDS: HumaLOG INSULIN (NovoLOG) PER UNIT SC SCH (23:45)
[2020-01-03 02:00] VITALS: BP 121/80
[2020-01-03 06:00] VITALS: BP 126/77
[2020-01-03] MEDS: ENOXAPARIN 30MG/0.3ML SYRINGE (J1650 PER 10MG) SC SCH (08:00)
[2020-01-03] MEDS: OMEPRAZOLE 20 MG CAP PO SCH (08:01)
[2020-01-03] MEDS: CYANOCOBALAMIN 500 MCG TAB PO SCH (08:01)
[2020-01-03] MEDS: HumaLOG INSULIN (NovoLOG) PER UNIT SC SCH ×4 (08:01→20:44)
[2020-01-03] MEDS: VITAMIN D 1,000 INTERNATIONAL UNITS TABLET PO SCH (08:02)
[2020-01-03] MEDS ORDERED: atenoloL 50 MG TAB PO SCH (09:00)
[2020-01-03] MEDS: amLODIPine 10 MG TAB PO SCH (10:41)
[2020-01-03] MEDS ORDERED: GLUCAGON INJ 1MG VIAL IV STA (13:22)
[2020-01-03] MEDS ORDERED: ATROPINE SULF 1MG/10ML SYRINGE (J0461) IV PRN (14:00)
[2020-01-03 14:33] VITALS: BP 130/61
[2020-01-03] MEDS ORDERED: SLF 3 ML SYR IV PRN (15:15)
[2020-01-03 16:00] VITALS: BP 127/61
[2020-01-03] MEDS: ISOSORBIDE DIN. (ISORDIL) 20 MG TAB PO SCH ×2 (17:48→23:50)
--- NOTE | 2020-01-03 18:50 | IPNPDOC ---
Date Seen The patient was seen on 01/03/20. Progress Note SUBJECTIVE: Hospital discharge was postponed yesterday due to patient's weakness. Her blood pressure is been well controlled, but she was noted to have sinus pauses of 2.5 seconds on telemetry today and subsequently transferred to the PCU with atropine at the bedside and transcutaneous pacers available if needed. Her atenolol has been discontinued and she has been placed on isosorbide for blood pressure control, to be titrated to goal of 120-130 mmHg systolic. Echo has been completed but report is not available to evaluate patient's syncopal episode. If patient continues to have bradycardia and sinus pauses despite discontinuation of atenolol. She may need a pacemaker in the future.. She denies any chest pain, pressure, tightness, lightheadedness, dizziness, nausea, vomiting, diaphoresis, or feeling of impending doom, no dyspnea on exertion. OBJECTIVE PHYSICAL EXAMINATION: VITAL SIGNS: Please see below. GENERAL: Sitting on a chair by the bed side. No distress HEENT: No JVD thyromegaly. Moist mucous membranes. Patient has facial hair in the chin CARDIOVASCULAR: S1, S2 regular rate rhythm RESPIRATORY: Clear to auscultation. No wheezing rales or rhonchi ABDOMINAL: No abdominal bruit. Positive bowel sounds 4 quadrants. No rebound or guarding EXTREMITIES: No cyanosis or clubbing LABORATORY DATA, IMAGING STUDIES, MICROBIOLOGY: Please see below. Exam: CT Head Without Contrast Exam date and time: 01/01/2020 7:28 PM Age: 79 years old Clinical indication: Injury or trauma; Fall; Blunt trauma (contusions or hematomas) TECHNIQUE: Imaging protocol: Computed tomography of the head without contrast. Radiation optimization: All CT scans at this facility use at least one of these dose optimization techniques: automated exposure control; mA and/or kV adjustment per patient size (includes targeted exams where dose is matched to clinical indication); or iterative reconstruction. COMPARISON: CT Head without contrast 08/21/2018 7:54 PM FINDINGS: Brain: There is no evidence of intracranial bleed. There is prominent area of low density within the white matter of the right frontal lobe abutting the frontal horn of the right lateral ventricle and consistent with chronic ischemic change also seen on the examination 2018. Bones/joints: There is no evidence of fracture. Paranasal sinuses: Clear paranasal sinuses. Mastoid air cells: Clear mastoid air cells. Soft tissues: Unremarkable. IMPRESSION: 1. No evidence of fracture and no evidence of acute intracranial bleed. 2. Chronic ischemic changes. Electronically signed by: Todd Bird On 01/01/2020 20:32:38 PM Exam: CT Cervical Spine Without Contrast Exam date and time: 01/01/2020 7:28 PM Age: 79 years old Clinical indication: Injury or trauma; Fall; Blunt trauma TECHNIQUE: Imaging protocol: Computed tomography images of the cervical spine without contrast. Radiation optimization: All CT scans at this facility use at least one of these dose optimization techniques: automated exposure control; mA and/or kV adjustment per patient size (includes targeted exams where dose is matched to clinical indication); or iterative reconstruction. COMPARISON: CT Spine,cervical w/o contrast 05/22/2018 11:05 AM FINDINGS: Vertebrae: The cervical vertebra and facet joints appear in alignment. There is no evidence of fracture. The dens appears intact and the lateral masses of C1 appear symmetric There is a large posterior osteophyte formation C5-C6 causing severe impression on the anterior right side of the cervical cord. C4-C5: There is a large posterior osteophyte C4-C5 causing impression on the cervical cord. C6-C7: There is moderate posterior osteophyte formation C6-C7. Soft tissues: There is no evidence of soft tissue swelling. Thyroid: Normal thyroid. Lymph nodes: There are small lymph nodes right left side of the neck. Lungs: The apical portions of the lung appear clear. IMPRESSION: 1. There is no evidence of fracture. 2. Large posterior osteophyte C4-C5 and C5-C6 causing significant impression on the anterior aspect of the cervical cord. If there are cervical symptoms suggest correlation with an MRI scan. Electronically signed by: Todd Bird On ASSESSMENT AND PLAN: 79-year-old female admitted on 01/01/2020 due to gait abnormality with an falls at home, uncertain if she lost consciousness during the falls with lapses in memory. Possible syncope at home Sinus 2.5 seconds while on atenolol 50 mg daily Adverse effects of atenolol used at the correct dosage causing sinus pause Recurrent falls Hypertension, controlled Hypertensive urgency, resolved Hypomagnesemia, resolved Acute kidney injury on Chronic kidney disease stage III, resolved NIDDM Gait instability Dyslipidemia Depression Chronic right frontal lobe CVA (per patient she has had a TIA) PLAN: Patient has been transferred to PCU due to sinus +2.5 seconds .atropine to be placed at the bedside. Transcutaneous pacers to be placed if patient shows persistent bradycardia and sinus pauses. I have not use trip inhibitors or ARB's for blood pressure control due to recent acute kidney injury that has just resolved. Patient has been placed on isosorbide, possible hydralazine in case she continues to have uncontrolled blood pressure. If patient continues to have sinus pauses and persistent bradycardia, she may need a pacemaker placed before discharge. PT, OT, fall precautions and assisted ambulation only. Out of bed to chair 3 times a day with meals. Patient is a full code. VS, I&O, 24H, Fishbone Vital Signs/I&O Vital Signs Date Time Temp Pulse Resp B/P (MAP) Pulse Ox O2 Delivery O2 Flow Rate FiO2 01/03/20 17:48 132/16 01/03/20 16:00 97.8 60 18 92 Room Air I&O- Last 24 Hours up to 6 AM 01/03/20 06:00 Intake Total 760 ml Output Total 825 ml Balance -65 ml Laboratory Data 24H LABS Laboratory Tests 2 01/02/20 23:21: Bedside Glucose (Misc Panel) 155H 01/03/20 00:49: Urine Color STRAW, Urine Appearance CLEAR, Urine pH 7.0, Urine Specific [place] 1.009, Urine Protein NEGATIVE, Urine Glucose (UA) NEGATIVE, Urine Ketones NEGATIVE, Urine Blood NEGATIVE, Urine Nitrite NEGATIVE, Urine Bilirubin NEGATIVE, Urine Urobilinogen 0.2, Urine Leukocyte Esterase NEGATIVE, Urine WBC (Auto) 1, Urine RBC (Auto) 1, Urine Hyaline Casts (Auto) 0, Urine Bacteria (Auto) NEGATIVE, Urine Squamous Epithelial Cells 1, Urine Sperm (Auto) 01/03/20 05:58: Bedside Glucose (Misc Panel) 137H 01/03/20 12:09: Bedside Glucose (Misc Panel) 179H 01/03/20 16:47: Bedside Glucose (Misc Panel) 221H Microbiology Microbiology 01/01/20 Respiratory Virus Panel (PCR) ([facility]) - Final, Complete ESTELLA GUERRERO MD Jan 03, 2020 18:50
[2020-01-03 20:00] VITALS: BP 127/61
[2020-01-03] MEDS: SLF 3 ML SYR IV SCH (20:44)
[2020-01-03] MEDS: SERTRALINE 100 MG TAB PO SCH (20:44)
[2020-01-03] MEDS: PRAVASTATIN 20 MG TAB PO SCH (20:44)
[2020-01-04] VITALS: BP 157/71
[2020-01-04] MEDS: ACETAMINOPHEN TAB 650MG DOSE (2X325MG) PO PRN ×2 (01:54→21:03)
[2020-01-04 04:00] VITALS: BP 141/65
[2020-01-04] MEDS: SLF 3 ML SYR IV SCH ×3 (05:50→21:03)
[2020-01-04] MEDS: ISOSORBIDE DIN. (ISORDIL) 20 MG TAB PO SCH ×3 (05:50→20:40)
[2020-01-04 08:11] VITALS: BP 113/63
[2020-01-04] MEDS: ENOXAPARIN 30MG/0.3ML SYRINGE (J1650 PER 10MG) SC SCH (08:15)
[2020-01-04] MEDS: CYANOCOBALAMIN 500 MCG TAB PO SCH (08:15)
[2020-01-04] MEDS: OMEPRAZOLE 20 MG CAP PO SCH (08:15)
[2020-01-04] MEDS: HumaLOG INSULIN (NovoLOG) PER UNIT SC SCH ×4 (08:15→20:40)
[2020-01-04] MEDS: VITAMIN D 1,000 INTERNATIONAL UNITS TABLET PO SCH (08:15)
[2020-01-04] MEDS: amLODIPine 10 MG TAB PO SCH (08:16)
--- NOTE | 2020-01-04 09:00 | IPNPDOC ---
Date Seen The patient was seen on 01/04/20. Progress Note SUBJECTIVE: received 3 doses of isosorbide w [id number] to 130 systolic. no c/o dizziness. sinus pause yesterday 2.5, but none since. atenolol discontinued. no cp/sob/dizziness. feels better today. no other issues aside from tele: 57 sinus lamar OBJECTIVE PHYSICAL EXAMINATION: VITAL SIGNS: Please see below. GENERAL: cooperative no distress no pallor or icterus speaks in full sentences HEENT: No JVD thyromegaly. Moist mucous membranes. Patient has facial hair in the chin CARDIOVASCULAR: S1, S2 regular rate rhythm RESPIRATORY: Clear to auscultation. No wheezing rales or rhonchi ABDOMINAL: No abdominal bruit. Positive bowel sounds 4 quadrants. No rebound or guarding EXTREMITIES: No cyanosis or clubbing LABORATORY DATA, IMAGING STUDIES, MICROBIOLOGY: Please see below. Exam: CT Head Without Contrast Exam date and time: 01/01/2020 7:28 PM Age: 79 years old Clinical indication: Injury or trauma; Fall; Blunt trauma (contusions or hematomas) TECHNIQUE: Imaging protocol: Computed tomography of the head without contrast. Radiation optimization: All CT scans at this facility use at least one of these dose optimization techniques: automated exposure control; mA and/or kV adjustment per patient size (includes targeted exams where dose is matched to clinical indication); or iterative reconstruction. COMPARISON: CT Head without contrast 08/21/2018 7:54 PM FINDINGS: Brain: There is no evidence of intracranial bleed. There is prominent area of low density within the white matter of the right frontal lobe abutting the frontal horn of the right lateral ventricle and consistent with chronic ischemic change also seen on the examination 2018. Bones/joints: There is no evidence of fracture. Paranasal sinuses: Clear paranasal sinuses. Mastoid air cells: Clear mastoid air cells. Soft tissues: Unremarkable. IMPRESSION: 1. No evidence of fracture and no evidence of acute intracranial bleed. 2. Chronic ischemic changes. Electronically signed by: Todd Bird On 01/01/2020 20:32:38 PM Exam: CT Cervical Spine Without Contrast Exam date and time: 01/01/2020 7:28 PM Age: 79 years old Clinical indication: Injury or trauma; Fall; Blunt trauma TECHNIQUE: Imaging protocol: Computed tomography images of the cervical spine without contrast. Radiation optimization: All CT scans at this facility use at least one of these dose optimization techniques: automated exposure control; mA and/or kV adjustment per patient size (includes targeted exams where dose is matched to clinical indication); or iterative reconstruction. COMPARISON: CT Spine,cervical w/o contrast 05/22/2018 11:05 AM FINDINGS: Vertebrae: The cervical vertebra and facet joints appear in alignment. There is no evidence of fracture. The dens appears intact and the lateral masses of C1 appear symmetric There is a large posterior osteophyte formation C5-C6 causing severe impression on the anterior right side of the cervical cord. C4-C5: There is a large posterior osteophyte C4-C5 causing impression on the cervical cord. C6-C7: There is moderate posterior osteophyte formation C6-C7. Soft tissues: There is no evidence of soft tissue swelling. Thyroid: Normal thyroid. Lymph nodes: There are small lymph nodes right left side of the neck. Lungs: The apical portions of the lung appear clear. IMPRESSION: 1. There is no evidence of fracture. 2. Large posterior osteophyte C4-C5 and C5-C6 causing significant impression on the anterior aspect of the cervical cord. If there are cervical symptoms suggest correlation with an MRI scan. Electronically signed by: Todd Bird On ASSESSMENT AND PLAN: 79-year-old female admitted on 01/01/2020 due to gait abnormality with an falls at home, uncertain if she lost consciousness during the falls with lapses in memory. Possible syncope at home Sinus 2.5 seconds while on atenolol 50 mg daily Adverse effects of atenolol used at the correct dosage causing sinus pause Recurrent falls Hypertension, controlled Hypertensive urgency, resolved Hypomagnesemia, resolved Acute kidney injury on Chronic kidney disease stage III, resolved NIDDM Gait instability Dyslipidemia Depression Chronic right frontal lobe CVA (per patient she has had a TIA) PLAN: good bp control w isosorbide and norvasc w holding parameters for sbp<130mmHg. PT-not cleared yet, and requires PT as outpt at discharge. PT HSE today. change to tid isosorbide. if stable, dc home in am. no need for pacer as pt's hr improved w stopping atenolol. no other acute issues. VS, I&O, 24H, Fishbone Vital Signs/I&O Vital Signs Date Time Temp Pulse Resp B/P (MAP) Pulse Ox O2 Delivery O2 Flow Rate FiO2 01/04/20 08:16 60 113/63 01/04/20 08:11 96.9 18 95 Room Air I&O- Last 24 Hours up to 6 AM 01/04/20 06:00 Intake Total 900 ml Output Total 0 ml Balance 900 ml Laboratory Data 24H LABS Laboratory Tests 2 01/03/20 12:09: Bedside Glucose (Misc Panel) 179H 01/03/20 16:47: Bedside Glucose (Misc Panel) 221H 01/03/20 20:43: Bedside Glucose (Misc Panel) 119H 01/04/20 08:03: Bedside Glucose (Misc Panel) 271H Microbiology Microbiology 01/01/20 Respiratory Virus Panel (PCR) ([facility]) - Final, Complete ESTELLA GUERRERO MD Jan 04, 2020 09:00
[2020-01-04 10:01] LABS: CALCIUM LEVEL 8.7 MG/DL (8.8-10.2); CREATININE FOR GFR 1.33 MG/DL (0.55-1.30); GLOMERULAR FILTRATION RATE 40.9 (>32); POTASSIUM SERUM 3.5 MEQ/L (3.5-5.1)
[2020-01-04 12:08] VITALS: BP 143/68
[2020-01-04 16:22] VITALS: BP 159/74
[2020-01-04 20:00] VITALS: BP 122/60
[2020-01-04] MEDS: PRAVASTATIN 20 MG TAB PO SCH (21:02)
[2020-01-04] MEDS: SERTRALINE 100 MG TAB PO SCH (21:03)
[2020-01-05] VITALS: BP 140/90
[2020-01-05 04:00] VITALS: BP 155/69
[2020-01-05] MEDS: SLF 3 ML SYR IV SCH (05:13)
--- NOTE | 2020-01-05 07:24 | ECGEPIP ---
[facility] Test Date: 2020-01-03 Pat Name: PAULINO ROBERTSON Department: Room: [place] [address] Gender: Female Pcts: RICH : 1940 Requested By: ESTELLA Bowman Order Number: [id number] Reading MD: Morenita Smith Measurements Intervals [place] Rate: 56 P: 17 [place]: 173 QRS: 22 QRSD: 84 T: 6 QT: 481 QTc: 465 Interpretive Statements SINUS BRADYCARDIA LOW QRS VOLTAGE IN PRECORDIAL LEADS PROLONGED QT INTERVAL SIMILAR TO 01/01/20, QT IS SLIGHTLY LONGER TODAY Electronically Signed on 01-05-2020 7:23:49 EST by Morenita Smith
[2020-01-05 08:00] VITALS: BP 140/60
[2020-01-05] MEDS ORDERED: NS 500 ML IV ONE (08:15)
[2020-01-05] MEDS: ENOXAPARIN 30MG/0.3ML SYRINGE (J1650 PER 10MG) SC SCH (08:50)
[2020-01-05] MEDS: HumaLOG INSULIN (NovoLOG) PER UNIT SC SCH ×2 (08:50→12:25)
[2020-01-05] MEDS: CYANOCOBALAMIN 500 MCG TAB PO SCH (08:51)
[2020-01-05] MEDS: amLODIPine 10 MG TAB PO SCH (08:51)
[2020-01-05] MEDS: ISOSORBIDE DIN. (ISORDIL) 20 MG TAB PO SCH ×2 (08:51→15:38)
[2020-01-05] MEDS: OMEPRAZOLE 20 MG CAP PO SCH (08:51)
[2020-01-05] MEDS: VITAMIN D 1,000 INTERNATIONAL UNITS TABLET PO SCH (08:51)
[2020-01-05 12:44] LABS: CALCIUM LEVEL 9.4 MG/DL (8.8-10.2); CREATININE FOR GFR 1.17 MG/DL (0.55-1.30); GLOMERULAR FILTRATION RATE 47.4 (>32); POTASSIUM SERUM 3.3 MEQ/L (3.5-5.1)
[2020-01-05] MEDS ORDERED: POTASSIUM CHLORIDE 10 MEQ SR TABLET PO ONE (13:15)
[2020-01-05] MEDS ORDERED: ISOS20TAB PO (13:17)
--- NOTE | 2020-01-05 15:00 | DS.PDOC ---
Discharge Summary General Date of Admission Jan 01, 2020 at 23:52 Date of Discharge 01/05/20 Discharge Summary DISCHARGE DIAGNOSES: Hypertensive urgency Near syncope Abnormal EKG with prolonged QT Acute kidney injury on CKD stage 3 Hypokalemia Hypomagnesemia Iron-deficiency anemia Atenolol-induced sinus pause 2.5 seconds on Tele, asymptomatic Hypomagnesemia NIDDM Gait instability Dyslipidemia Depression Chronic right frontal lobe CVA History of TIA DISCHARGE MEDICATIONS: see below DISCHARGE INSTRUCTIONS: fu w pcp within 5 days of discharge. HOSPITAL COURSE: 79-year-old female admitted on 01/01/2020 due to gait abnormality with recurrent falls at home, uncertain if she lost consciousness during the falls with lapses in memory. Evaluation in the ER included: glucose 127, EKG sinus with prolonged QT, CT head no acute intracranial abnormality, cxr: no pneumonia or effusion, ct cervical spine no fracture. due to prolonged qt and syncope, pt was admitted to telemetry unit and given atenolol for HTN urgency with improvement in bp to 130- 140mmhg, but tele noted a 2.5 second sinus pause without hemodynamic compromise and pt was asymptomatic sleeping at night. Atenolol was discontinued, and pt had increased HR to 70-90bpm. She had acute kidney injury with creatinine 1.5 on admission which improved with ivfluids to normal of 1.1. on discharge without sob or cough. Pt was deconditioned and needed two extra days to work with physical therapy. Echo was completed, but report was not available at hospital discharge. pt did not have any hemodynamically significant murmur on exam to suspect obstruction as outlet obstruction as a possible cause of pt's syncopal episode at home. She was not orthostatic on arrival in the ER. DISCHARGE PHYSICAL EXAMINATION: VITAL SIGNS: Please see below. GENERAL: cooperative no distress no pallor or icterus speaks in full sentences HEENT: No JVD thyromegaly. Moist mucous membranes. Patient has facial hair on the chin CARDIOVASCULAR: S1, S2 regular rate rhythm RESPIRATORY: Clear to auscultation. No wheezing rales or rhonchi ABDOMINAL: No abdominal bruit. Positive bowel sounds 4 quadrants. No rebound or guarding EXTREMITIES: No cyanosis or clubbing DISCHARGE LABORATORY DATA, IMAGING STUDIES, MICROBIOLOGY: Please see below. 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 : 1940 Requested By: David Kimble Order Number: [id number] Reading MD: Joselito Cronin Measurements Intervals [place] Rate: 103 P: 16 PA: 140 QRS: 15 QRSD: 86 T: 32 QT: 346 QTc: 454 Interpretive Statements SINUS TACHYCARDIA POSSIBLE LEFT ATRIAL ENLARGEMENT NONSPECIFIC ST & T-WAVE ABNORMALITY ABNORMAL RHYTHM ECG BORDERLINE PROLONGED QTC CW 08/21/[address] T WAVE CHANGES Electronically Signed on 01-02-2020 6:35:14 EST by Joselito Cronin Exam: CT Head Without Contrast Exam date and time: 01/01/2020 7:28 PM Age: 79 years old Clinical indication: Injury or trauma; Fall; Blunt trauma (contusions or hematomas) TECHNIQUE: Imaging protocol: Computed tomography of the head without contrast. Radiation optimization: All CT scans at this facility use at least one of these dose optimization techniques: automated exposure control; mA and/or kV adjustment per patient size (includes targeted exams where dose is matched to clinical indication); or iterative reconstruction. COMPARISON: CT Head without contrast 08/21/2018 7:54 PM FINDINGS: Brain: There is no evidence of intracranial bleed. There is prominent area of low density within the white matter of the right frontal lobe abutting the frontal horn of the right lateral ventricle and consistent with chronic ischemic change also seen on the examination 2018. Bones/joints: There is no evidence of fracture. Paranasal sinuses: Clear paranasal sinuses. Mastoid air cells: Clear mastoid air cells. Soft tissues: Unremarkable. IMPRESSION: 1. No evidence of fracture and no evidence of acute intracranial bleed. 2. Chronic ischemic changes. Electronically signed by: Todd Bird On 01/01/2020 20:32:38 PM Exam: CT Cervical Spine Without Contrast Exam date and time: 01/01/2020 7:28 PM Age: 79 years old Clinical indication: Injury or trauma; Fall; Blunt trauma TECHNIQUE: Imaging protocol: Computed tomography images of the cervical spine without contrast. Radiation optimization: All CT scans at this facility use at least one of these dose optimization techniques: automated exposure control; mA and/or kV adjustment per patient size (includes targeted exams where dose is matched to clinical indication); or iterative reconstruction. COMPARISON: CT Spine,cervical w/o contrast 05/22/2018 11:05 AM FINDINGS: Vertebrae: The cervical vertebra and facet joints appear in alignment. There is no evidence of fracture. The dens appears intact and the lateral masses of C1 appear symmetric There is a large posterior osteophyte formation C5-C6 causing severe impression on the anterior right side of the cervical cord. C4-C5: There is a large posterior osteophyte C4-C5 causing impression on the cervical cord. C6-C7: There is moderate posterior osteophyte formation C6-C7. Soft tissues: There is no evidence of soft tissue swelling. Thyroid: Normal thyroid. Lymph nodes: There are small lymph nodes right left side of the neck. Lungs: The apical portions of the lung appear clear. IMPRESSION: 1. There is no evidence of fracture. 2. Large posterior osteophyte C4-C5 and C5-C6 causing significant impression on the anterior aspect of the cervical cord. If there are cervical symptoms suggest correlation with an MRI scan. Electronically signed by: Todd Bird On TIME SPENT ON DISCHARGE: 30 MINUTES Vital Signs/I&Os Vital Signs Date Time Temp Pulse Resp B/P (MAP) Pulse Ox O2 Delivery O2 Flow Rate FiO2 01/05/20 08:00 97.5 65 16 140/60 (86) 97 Room Air I&O- Last 24 Hours up to 6 AM 01/05/20 06:00 Intake Total 820 ml Output Total 401 ml Balance 419 ml Laboratory Data Labs 24H Laboratory Tests 2 01/04/20 17:01: Bedside Glucose (Misc Panel) 147H 01/04/20 20:34: Bedside Glucose (Misc Panel) 197H 01/05/20 07:31: Bedside Glucose (Misc Panel) 259H 01/05/20 11:37: Bedside Glucose (Misc Panel) 181H 01/05/20 12:01: Anion Gap 6L, Glomerular Filtration Rate 47.4, Calcium Level 9.4 CBC/BMP Laboratory Tests 01/05/20 12:01 FSBS Laboratory Tests Test 01/04/20 17:01 01/04/20 20:34 01/05/20 07:31 01/05/20 11:37 Range/Units Bedside Glucose (Misc Panel) 147 197 259 181 83-110 MG/DL Microbiology Microbiology 01/01/20 Respiratory Virus Panel (PCR) (NISHA) - Final, Complete Discharge Medications Scheduled Cholecalciferol (Vitamin D3) (Vitamin D3) 1,000 Unit Tablet, 1,000 UNITS PO DAILY, (Reported) Cyanocobalamin (Vitamin B-12) (Vitamin B-12) 1,000 Mcg Tablet, 1,000 MCG PO DAILY, (Reported) Glimepiride (Glimepiride) 4 Mg Tab, 4 MG PO DAILY, (Reported) Isosorbide Dinitrate (Isosorbide Dinitrate) 20 Mg Tablet, 20 MG PO TID Magnesium Oxide (Magnesium Oxide) 400 Mg Tablet, 400 MG PO DAILY, (Reported) Metformin HCl (Metformin HCl) 1,000 Mg Tablet, 1,500 MG PO DAILY, (Reported) Metformin HCl (Metformin HCl) 1,000 Mg Tablet, 1,000 MG PO QHS, (Reported) Omeprazole (Omeprazole) 20 Mg Capsule.dr, 20 MG PO DAILY, (Reported) Potassium Gluconate (Potassium) 99 Mg Tablet, 595 MG PO DAILY, (Reported) Pravastatin Sodium (Pravastatin Sodium) 40 Mg Tab, 40 MG PO QHS, (Reported) Sertraline HCl (Sertraline HCl) 100 Mg Tab, 100 MG PO QHS, (Reported) Zinc (Zinc) 50 Mg Tablet, 50 MG PO DAILY, (Reported) Allergies Coded Allergies: ramipril (Verified Adverse Reaction, Intermediate, cough, 08/21/18) ESTELLA GUERRERO MD Jan 05, 2020 13:20
[2020-01-05 15:38] VITALS: BP 158/68
--- NOTE | 2020-01-07 13:47 | ECHO ---
DATE OF PROCEDURE: 01/05/2020 Age: 79 Gender: Female Height: 160 cm Weight: 64 kg REFERRING PHYSICIAN: Claudia Pool MD INDICATION: Syncope. MEASUREMENTS: IVS 1.1 cm LV 5.3 cm LVPW 0.8 cm LA 3.4 cm Aorta 2.5 cm RV 2.1 cm IVC 1.6 cm Mitral E wave velocity 59 cm/s Mitral A wave 89 cm/s E prime septal 6.1 cm/s E prime lateral 7.7 cm/s FINDINGS: This study is of acceptable technical quality. The patient is in sinus rhythm. Left ventricle is normal size and has normal systolic function with estimated LVEF approximately 65% to 70%. Right ventricle also has normal size and systolic function. Both atria appear normal. Aortic valve is mildly sclerotic, but has three cusps and preserved mobility. Mitral, tricuspid, and pulmonic valves all appear normal. No pericardial effusion is noted. Inferior vena cava is normal size. Aortic root, aortic arch, and visualized segment of abdominal aorta all appear normal. Doppler interrogation of the aortic valve reveals no significant stenosis or insufficiency. Same applies for mitral, tricuspid, and pulmonic valves. Mitral inflow pattern and tissue Doppler imaging of the mitral annulus revealed grade 1 diastolic dysfunction. CONCLUSIONS: 1. Study is of acceptable technical quality, underlying sinus rhythm. 2. Normal left ventricular (LV) size with preserved left ventricular (LV) systolic function and grade 1 diastolic dysfunction. 3. No hemodynamically significant valvular disease. 4. Brigitte central venous pressure. 5. Unable to estimate pulmonary artery pressure, but no signs to suggest pulmonary hypertension. 6. Essentially normal echocardiogram for patients age. MTDD
== END 2020-01-05 16:27 | disposition home or self-care (01) | DRG 305 ==
LOC: M ED 19:08 → M ED INP 23:52 → M PCU 01-02 01:44 → M MS5PR 01-02 12:29 → M MSPAV 01-02 18:39 → M PCU 01-03 14:33
PROVIDERS: ADMIT Internal Medicine; ATTEND General Practice
DX: I16.0 Hypertensive urgency (principal); N17.9 Acute kidney failure, unspecified; I49.5 Sick sinus syndrome; R55 Syncope and collapse; E83.42 Hypomagnesemia; N18.30 Chronic kidney disease, stage 3 unspecified; E78.5 Hyperlipidemia, unspecified; F32.9 Major depressive disorder, single episode, unspecified; D50.9 Iron deficiency anemia, unspecified; E87.6 Hypokalemia; E11.9 Type 2 diabetes mellitus without complications; R26.89 Other abnormalities of gait and mobility; R29.6 Repeated falls; Z79.899 Other long term (current) drug therapy; Z88.8 Allergy status to other drugs, medicaments and biological substances

== ENCOUNTER 2020-01-10 18:44 | Inpatient (IN) | payer MEDICARE, BC, OTHER ==
[~2020-01-10] VITALS: Ht 160 cm; Wt 64.0 kg
[~2020-01-10 18:44] MED LIST changes: +AMLO10TA PO; +AMLO1TAB25 PO; +CYAN100049 PO; +D31000TA2 PO; +HM P99TA PO; +ISOS20TAB PO; +METF-877 PO; +SELF1KIT MC; +ZINC1TAB2 PO
[2020-01-10] MEDS ORDERED: BOOSTRIX/ADACEL VACCINE (DIPHTH/PERTUSS/ACELL/TETANUS) 0.5ML SYR IM ONE (19:30)
[2020-01-10] MEDS ORDERED: CEPHALEXIN 500 MG CAP PO ONE (19:30)
[2020-01-10 19:33] LABS: BASO % 0.3 % (0.0-1.0); EOS # 0.1 10^3/uL (0.0-0.5); EOS % 1.1 % (0.0-3.0); HEMATOCRIT 35.2 % (36.0-47.0); HEMOGLOBIN 10.9 g/dl (12.0-15.5); LYMPH # 1.7 10^3/uL (1.5-5.0); LYMPH % 27.5 % (24.0-44.0); MEAN CORPUSCULAR HEMOGLOBIN 26.8 pg (27.0-33.0); MEAN CORPUSCULAR VOLUME 86.7 fl (80.0-96.0); MONO # 0.3 10^3/uL (0.0-0.8); MONO % 5.5 % (0.0-5.0); NEUTROPHILS % 65.3 % (36.0-66.0); PLATELET COUNT, AUTOMATED 306 10^3/uL (150-450); RED BLOOD COUNT 4.06 10^6/uL (4.00-5.40); WHITE BLOOD COUNT 6.2 10^3/uL (4.0-10.0)
[2020-01-10 19:52] LABS: INR 1.03; PROTHROMBIN TIME 13.7 SECONDS (12.5-14.3)
[2020-01-10 19:58] LABS: ALBUMIN 3.6 GM/DL (3.2-5.2); ALT/SGPT 21 U/L (12-78); BILIRUBIN,DIRECT < 0.1 MG/DL (0.0-0.2); BILIRUBIN,TOTAL 0.4 MG/DL (0.2-1.0); BLOOD UREA NITROGEN 16 MG/DL (7-18); CALCIUM LEVEL 9.1 MG/DL (8.8-10.2); CARBON DIOXIDE LEVEL 27 MEQ/L (21-32); CHLORIDE LEVEL 105 MEQ/L (98-107); CPK CREATINE PHOSPHOKINASE 65 U/L (26-192); CREATININE FOR GFR 1.08 MG/DL (0.55-1.30); GLUCOSE, FASTING 205 MG/DL (70-100); MB/CK RELATIVE INDEX 3.08 (< OR =4); POTASSIUM SERUM 3.6 MEQ/L (3.5-5.1); SODIUM LEVEL 140 MEQ/L (136-145); TOTAL PROTEIN 7.7 GM/DL (6.4-8.2); TROPONIN I < 0.02 NG/ML (< 0.10)
--- NOTE | 2020-01-10 20:48 | REPVR ---
PROCEDURE INFORMATION: Exam: CT Head Without Contrast Exam date and time: 01/10/2020 7:38 PM Age: 79 years old Clinical indication: Injury or trauma; Fall; Blunt trauma (contusions or hematomas) TECHNIQUE: Imaging protocol: Computed tomography of the head without contrast. Radiation optimization: All CT scans at this facility use at least one of these dose optimization techniques: automated exposure control; mA and/or kV adjustment per patient size (includes targeted exams where dose is matched to clinical indication); or iterative reconstruction. COMPARISON: CT Head without contrast 01/01/2020 7:24 PM FINDINGS: Brain: Moderate generalized cerebral atrophy. Patchy low-density within the periventricular white matter extending into pino radiata and centrum semiovale bilaterally. Calcification within the basal ganglia. 2.5 mm lacunar infarct left external capsule. 5 mm lacunar infarct right centrum semiovale. 6 mm lacunar infarct anterior limb right internal capsule. No hemorrhage. No mass effect. Midline structures intact. Cerebral ventricles: No ventriculomegaly. Bones/joints: Unremarkable. No acute fracture. Paranasal sinuses: Visualized sinuses are unremarkable. No fluid levels. Mastoid air cells: Visualized mastoid air cells are well aerated. Soft tissues: Small soft tissue contusion within the scalp over the right frontal bone. IMPRESSION: 1. No acute intracranial findings. 2. Scalp contusion over the right frontal bone. 3. Moderate generalized cerebral atrophy with moderate chronic microvascular ischemic change in the deep white matter Electronically signed by: Carine Denny On 01/10/2020 20:48:15 PM
--- NOTE | 2020-01-10 20:51 | REPVR ---
PROCEDURE INFORMATION: Exam: CT Maxillofacial Without Contrast Exam date and time: 01/10/2020 7:38 PM Age: 79 years old Clinical indication: Injury or trauma; Fall; Blunt trauma (contusions or hematomas); Forehead TECHNIQUE: Imaging protocol: Computed tomography images of the face without contrast. Radiation optimization: All CT scans at this facility use at least one of these dose optimization techniques: automated exposure control; mA and/or kV adjustment per patient size (includes targeted exams where dose is matched to clinical indication); or iterative reconstruction. COMPARISON: No relevant prior studies available. FINDINGS: Orbital cavity: Bilateral lens replacement. The globes are intact. The orbits appear normal.The intraconal and extraconal soft tissue structures are normal. Bones/joints: No acute fracture. Paranasal sinuses: Normal. No air-fluid levels. Soft tissues: Soft tissue swelling within the scalp over the right frontal bone. Dental: The patient is edentulous. IMPRESSION: 1. No fracture. 2. Soft tissue contusion over the right frontal bone. Electronically signed by: Carine Denny On 01/10/2020 20:51:22 PM
--- NOTE | 2020-01-10 20:57 | REPVR ---
PROCEDURE INFORMATION: Exam: CT Cervical Spine Without Contrast Exam date and time: 01/10/2020 7:38 PM Age: 79 years old Clinical indication: Injury or trauma; Fall; Blunt trauma TECHNIQUE: Imaging protocol: Computed tomography images of the cervical spine without contrast. Radiation optimization: All CT scans at this facility use at least one of these dose optimization techniques: automated exposure control; mA and/or kV adjustment per patient size (includes targeted exams where dose is matched to clinical indication); or iterative reconstruction. COMPARISON: CT Spine,cervical w/o contrast 01/01/2020 7:24 PM FINDINGS: Vertebrae: No acute fracture. Straightening of normal cervical lordosis.. C2-C3: Broad-based posterior disc bulge.. No severe spinal canal stenosis. No significant neural foraminal narrowing. C3-C4: Broad-based posterior disc bulge. Uncovertebral hypertrophy particularly on the right.. No severe spinal canal stenosis. No significant neural foraminal narrowing. C4-C5: Posterior disc osteophyte ridge. Narrowed intervertebral disc space. Impression upon the ventral margin thecal sac and the spinal cord. Uncovertebral hypertrophy. Mild central stenosis. Moderate right foraminal stenosis. Mild left foraminal stenosis.. C5-C6: Calcification of the posterior longitudinal ligament with a posterior disc osteophyte ridge at impresses upon the ventral margin thecal sac and the spinal cord. Narrowed intervertebral disc space. Severe central stenosis. Uncovertebral hypertrophy. Mild right foraminal stenosis.. C6-C7: Posterior disc osteophyte ridge with impression upon the ventral margin thecal sac and the spinal cord. Narrowed intervertebral disc space. Mild central stenosis. Uncovertebral hypertrophy bilaterally. Mild foraminal stenosis.. C7-T1: No significant disc protrusion. No severe spinal canal stenosis. No significant neural foraminal narrowing. Soft tissues: Unremarkable. Lungs: Lung apices are normal. IMPRESSION: 1. No acute findings. 2. Moderate degenerative disc disease. Central stenosis at C4-C5, C5-C6 and C6-C7. See above. Electronically signed by: Carine Denny On 01/10/2020 20:58:14 PM
[2020-01-10] MEDS ORDERED: LIDOCAINE W/EPINEPHRINE 1% 20ML VIAL SC ONE (21:45)
[2020-01-10] MEDS ORDERED: DEXTROSE 50% 50 ML SYRINGE IV PRN (23:00)
[2020-01-10] MEDS ORDERED: GLUCAGON INJ 1MG VIAL SC PRN (23:00)
[2020-01-10] MEDS ORDERED: ACETAMINOPHEN TAB 650MG DOSE (2X325MG) PO PRN (23:00)
[2020-01-10] MEDS ORDERED: GLUCOSE 4GM CHEW TABLET PO PRN (23:00)
[2020-01-10] MEDS: HumaLOG INSULIN (NovoLOG) PER UNIT SC SCH (23:14)
[2020-01-10] MEDS ORDERED: AMLO1TAB25 PO (23:19)
[2020-01-10] MEDS ORDERED: ISOS20TAB PO (23:20)
--- NOTE | 2020-01-10 23:27 | HPEPDOC ---
[facility] Medical History & Physical Date of Admission Jan 10, 2020 Date of Service: Jan 10, 2020 History and Physical Chief complaint: Who presented to the ER after she had fell today History of present illness: Patient is an 79-year-old female with multiple medical problems who presented to the ER after she had fallen. Patient reports that she was at home today, aching up stuff around the home and slipped, fell and hit her head against the wall. Patient denies any loss of consciousness, but does report hitting the front of her head. Patient was brought to the emergency room where she was found to have a laceration that was repaired by the ER. Patient has reported lightheadedness that occurs intermittently. Patient denied any chest pain, shortness of breath, palpitations, cough, nausea, vomiting, abdominal pain, constipation, diarrhea, or urinary discomfort. Patient has not experience any recent fevers or chills. Of note, patient has had a recent admission to the hospital for syncope workup on 12/31 and was discharged on 01/04. Patient reports her appetite is fairly normal and reports her weight fluctuates. 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 Review of Systems: 10 point review of systems complete, all negative otherwise stated in HPI Physical exam: - Vitals: BP [175/84], HR [79], RR [20], Sat [97%RA], Temp [97.7F] - General: Lying in bed, Speaking in full sentences, AAOx3 - HEENT: NC, AT, PERRLA, EOMI - CVS: RRR, +S1S2 - Lungs: Fair air entry bilaterally, No appreciable wheezing / rhonchi, mild crackles appreciated at left lung base - Abdomen: Soft, Non-distended, Non-tender - Extremities: No lower extremity edema, No calf tenderness - Neuro: No focal motor or sensory deficit - Skin: No visible rashes Labs: See below Imaging: CT head 01/09: 1. No acute intracranial findings. 2. Scalp contusion over the right frontal bone. 3. Moderate generalized cerebral atrophy with moderate chronic microvascular ischemic change in the deep white matter CT maxillofacial 01/09: 1. No fracture. 2. Soft tissue contusion over the right frontal bone. CT cervical spine 01/09: 1. No acute findings. 2. Moderate degenerative disc disease. Central stenosis at C4-C5, C5-C6 and C6- C7. See above. 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 12/31-01/04 - Orthostatic vital signs are negative in ER - Imaging reviewed above - Will start PT and OT; patient may require rehabilitation Frontal scalp contusion - likely 2/2 above - s/p Repair in ER HTN Urgency - Patient denies chest pain, shortness breath, palpitations - EKG reviewed - Troponin x 1 negative; will trend - Will continue with telemetry - Will start Hydralazine IV - Will resume home Isosorbide dinitrate within 24 hours Chronic Diastolic CHF - Saturating well on room air - Lower extremities do not reveal any edema. However, there are mild crackles at left lung base - ECHO 12/2019: Preserved LV systolic function, grade 1 diastolic dysfunction, no hemodynamically significant valvular disease, normal CVP, no signs to suggest pulmonary hypertension, essentially normal echo - Will check CXR NIDDM - Will start ISS DLP - c/w Pravastatin Headaches - c/w Tylenol PRN Depression - c/w Sertraline Chronic right frontal lobe CVA (Per patient she has had a TIA) - Not on antiplatelet therapy - c/w Pravastatin Vitamin D deficiency - c/w Supplementation GERD - c/w Omeprazole DVT prophylaxis - Will start Heparin Vital Signs Vital Signs Date Time Temp Pulse Resp B/P (MAP) Pulse Ox O2 Delivery O2 Flow Rate FiO2 01/10/20 23:15 70 20 168/86 (113) 96 Room Air 01/10/20 18:54 97.7 Laboratory Data Labs 24H Laboratory Tests 2 01/10/20 19:19: Urine Color STRAW, Urine Appearance CLEAR, Urine pH 5.0, Urine Specific [place] 1.003, Urine Protein NEGATIVE, Urine Glucose (UA) 1+H, Urine Ketones NEGATIVE, Urine Blood NEGATIVE, Urine Nitrite NEGATIVE, Urine Bilirubin NEGATIVE, Urine Urobilinogen 0.2, Urine Leukocyte Esterase NEGATIVE, Urine WBC (Auto) 0, Urine RBC (Auto) 0, Urine Hyaline Casts (Auto) 0, Urine Bacteria (Auto) NEGATIVE, Urine Squamous Epithelial Cells 0, Urine Sperm (Auto) 01/10/20 19:21: Immature Granulocyte % (Auto) 0.3, Neutrophils (%) (Auto) 65.3, Lymphocytes (%) (Auto) 27.5, Monocytes (%) (Auto) 5.5H, Eosinophils (%) (Auto) 1.1, Basophils (%) (Auto) 0.3, Neutrophils # (Auto) 4.0, Lymphocytes # (Auto) 1.7, Monocytes # (Auto) 0.3, Eosinophils # (Auto) 0.1, Basophils # (Auto) 0.0, Nucleated Red Blo od Cells % (auto) 0.0, Prothrombin Time 13.7, Prothromb Time International Ratio 1.03, Anion Gap 8, Glomerular Filtration Rate 52.0, Calcium Level 9.1, Total Bilirubin 0.4, Direct Bilirubin < 0.1, Aspartate Amino Transf (AST/SGOT) 18, Alanine Aminotransferase (ALT/SGPT) 21, Alkaline Phosphatase 72, Total Creatine Kinase 65, Creatine Kinase MB 2.0, Creatine Kinase MB Relative Index 3.08, Troponin I < 0.02, Total Protein 7.7, Albumin 3.6, Albumin/Globulin Ratio 0.9L 01/10/20 23:12: Bedside Glucose (Misc Panel) 142H 01/10/20 23:14: CBC/BMP Laboratory Tests 01/10/20 19:21 Home Medications Scheduled Cholecalciferol (Vitamin D3) (Vitamin D3) 1,000 Unit Tablet, 1,000 UNITS PO DAILY Cyanocobalamin (Vitamin B-12) (Vitamin B-12) 1,000 Mcg Tablet, 1,000 MCG PO DAILY Glimepiride (Glimepiride) 4 Mg Tab, 4 MG PO DAILY Isosorbide Dinitrate (Isosorbide Dinitrate) 20 Mg Tablet, 20 MG PO TID Magnesium Oxide (Magnesium Oxide) 400 Mg Tablet, 400 MG PO DAILY Metformin HCl (Metformin HCl) 1,000 Mg Tablet, 1,500 MG PO DAILY Metformin HCl (Metformin HCl) 1,000 Mg Tablet, 1,000 MG PO QHS Omeprazole (Omeprazole) 20 Mg Capsule.dr, 20 MG PO DAILY Potassium Gluconate (Potassium) 99 Mg Tablet, 595 MG PO DAILY Pravastatin Sodium (Pravastatin Sodium) 40 Mg Tab, 40 MG PO QHS Sertraline HCl (Sertraline HCl) 100 Mg Tab, 100 MG PO QHS Zinc (Zinc) 50 Mg Tablet, 50 MG PO DAILY Allergies Coded Allergies: ramipril (Verified Adverse Reaction, Intermediate, cough, 01/10/20) JOELLEN MA MD Jan 10, 2020 23:27
[2020-01-10] MEDS: SERTRALINE 100 MG TAB PO SCH (23:54)
[2020-01-10] MEDS: PRAVASTATIN 20 MG TAB PO SCH (23:54)
[2020-01-11] VITALS (10 sets, daily range): BP systolic 119–172; BP diastolic 64–90
--- NOTE | 2020-01-11 | REPVR ---
PROCEDURE INFORMATION: Exam: XR Chest, 1 View Exam date and time: 01/10/2020 11:50 PM Age: 79 years old Clinical indication: Other: Left sided crackles; Additional info: L sided crackles TECHNIQUE: Imaging protocol: XR of the chest Views: 1 view. COMPARISON: CR Chest, 1 view 01/01/2020 8:05 PM FINDINGS: Lungs: Unremarkable. No consolidation. Pleural space: Unremarkable. No pleural effusion. No pneumothorax. Heart/Mediastinum: Unremarkable. No cardiomegaly. Bones/joints: Unremarkable. IMPRESSION: No acute infiltrates. Electronically signed by: Gal Richter On 01/11/2020 00:00:35 AM
[2020-01-11 02:26] LABS: CK-MB VALUE MASS 1.4 NG/ML (<3.6); CPK CREATINE PHOSPHOKINASE 61 U/L (26-192); TROPONIN I < 0.02 NG/ML (< 0.10)
[2020-01-11] MEDS ORDERED: hydrALAZINE 20MG/ML 1ML VIAL (J0360 PER 20MG) IV ONE (03:00)
--- NOTE | 2020-01-11 06:43 | ECGEPIP ---
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
[2020-01-11] MEDS ORDERED: hydrALAZINE 20MG/ML 1ML VIAL (J0360 PER 20MG) IV SCH ×2 (08:00)
[2020-01-11 08:38] LABS: BASO % 0.4 % (0.0-1.0); EOS # 0.1 10^3/uL (0.0-0.5); EOS % 1.2 % (0.0-3.0); HEMATOCRIT 38.2 % (36.0-47.0); LYMPH # 2.5 10^3/uL (1.5-5.0); LYMPH % 29.8 % (24.0-44.0); MEAN CORPUSCULAR HGB CONC 31.4 g/dl (32.0-36.5); MONO # 0.6 10^3/uL (0.0-0.8); MONO % 6.9 % (0.0-5.0); NEUTROPHILS # 5.1 10^3/uL (1.5-8.5); NEUTROPHILS % 61.5 % (36.0-66.0); PLATELET COUNT, AUTOMATED 359 10^3/uL (150-450); RED BLOOD COUNT 4.44 10^6/uL (4.00-5.40); WHITE BLOOD COUNT 8.3 10^3/uL (4.0-10.0)
[2020-01-11] MEDS: OMEPRAZOLE 20 MG CAP PO SCH (08:42)
[2020-01-11] MEDS: HumaLOG INSULIN (NovoLOG) PER UNIT SC SCH ×4 (08:42→21:57)
[2020-01-11] MEDS: VITAMIN D 1,000 INTERNATIONAL UNITS TABLET PO SCH (08:42)
[2020-01-11] MEDS: MAGNESIUM OXIDE 400 MG TAB (MAG-OX) PO SCH (08:42)
[2020-01-11] MEDS: CYANOCOBALAMIN 500 MCG TAB PO SCH (08:42)
[2020-01-11 10:57] LABS: BLOOD UREA NITROGEN 17 MG/DL (7-18); CALCIUM LEVEL 9.6 MG/DL (8.8-10.2); CARBON DIOXIDE LEVEL 27 MEQ/L (21-32); CHLORIDE LEVEL 102 MEQ/L (98-107); CK-MB VALUE MASS 1.6 NG/ML (<3.6); CPK CREATINE PHOSPHOKINASE 59 U/L (26-192); CREATININE FOR GFR 1.15 MG/DL (0.55-1.30); GLOMERULAR FILTRATION RATE 48.3 (>32); GLUCOSE, FASTING 271 MG/DL (70-100); MAGNESIUM LEVEL 1.9 MG/DL (1.8-2.4); MB/CK RELATIVE INDEX 2.71 (< OR =4); POTASSIUM SERUM 3.4 MEQ/L (3.5-5.1); SODIUM LEVEL 139 MEQ/L (136-145); TROPONIN I < 0.02 NG/ML (< 0.10)
--- NOTE | 2020-01-11 11:34 | IPNPDOC ---
Text Note Date of Service The patient was seen on 01/11/20. NOTE Subjective: No any acute events overnight. Patient denied fever, chills, nausea, vomiting, diarrhea or dysuria Objective: GENERAL APPEARANCE: NAD HEENT: no scleral icterus, no JVD, EOMI, bruise on the right side forehead CARDIOVASCULAR: S1S2 LUNGS: Diminished lung sounds bilaterally ABDOMEN: soft & not tender w palpitation MUSCULOSKELETAL: no cyanosis, no swelling INTEGUMENT: no generalized pallor NEUROLOGICAL: cranial nerve function from 2-12 intact intact, follows commands, speech not dysarthric Assessment and plan Patient is an 79-year-old female with hypertension, diastolic CHF, diabetes, CVA presented to the ER after she had fallen. Fall Patient developed mechanical fall mostly secondary to deconditioning Patient had multiple falls recently PT/OT Imaging study negative for fracture or bleeding Frontal scalp contusion - likely 2/2 above - s/p Repair in ER HTN Urgency/hypertension Blood pressures under control Continue home cardioprotective medications Chronic Diastolic CHF Not in acute exacerbation - ECHO 12/2019: Preserved LV systolic function, grade 1 diastolic dysfunction, no hemodynamically significant valvular disease, normal CVP, no signs to suggest pulmonary hypertension, essentially normal echo - Will check CXR NIDDM Diabetes diet Insulin sliding scale DLP - c/w Pravastatin Headaches - c/w Tylenol PRN Depression - c/w Sertraline Chronic right frontal lobe CVA (Per patient she has had a TIA) Started aspirin - c/w Pravastatin Vitamin D deficiency - c/w Supplementation GERD - c/w Omeprazole DVT prophylaxis Heparin VS,Fishbone, I+O VS, Fishbone, I+O Laboratory Tests 01/10/20 19:21 01/11/20 08:11 Vital Signs Date Time Temp Pulse Resp B/P (MAP) Pulse Ox O2 Delivery O2 Flow Rate FiO2 01/11/20 08:42 140/82 01/11/20 08:00 97.9 95 18 99 Room Air I&O- Last 24 Hours up to 6 AM 01/11/20 05:59 Intake Total 0 ml Output Total 550 ml Balance -550 ml DIMITRI RAMOS DO Jan 11, 2020 11:34
[2020-01-11] MEDS ORDERED: SLF 3 ML SYR IV PRN (11:45)
[2020-01-11] MEDS: ISOSORBIDE DIN. (ISORDIL) 20 MG TAB PO SCH ×3 (16:00→21:56)
[2020-01-11] MEDS: SLF 3 ML SYR IV SCH ×2 (16:01→21:58)
[2020-01-11] MEDS: ASPIRIN 81 MG ENTERIC TAB PO SCH (16:22)
[2020-01-11] MEDS ORDERED: METOPROLOL TART 25 MG TABLET PO ONE (19:00)
[2020-01-11] MEDS ORDERED: amLODIPine 5 MG TAB PO ONE (19:00)
[2020-01-11] MEDS: SERTRALINE 100 MG TAB PO SCH (21:55)
[2020-01-11] MEDS: PRAVASTATIN 20 MG TAB PO SCH (21:56)
[2020-01-12 06:00] VITALS: BP 110/53
[2020-01-12 06:24] LABS: BASO % 0.4 % (0.0-1.0); EOS # 0.2 10^3/uL (0.0-0.5); EOS % 2.1 % (0.0-3.0); HEMATOCRIT 31.4 % (36.0-47.0); LYMPH # 3.2 10^3/uL (1.5-5.0); MEAN CORPUSCULAR HEMOGLOBIN 26.4 pg (27.0-33.0); MEAN CORPUSCULAR HGB CONC 30.9 g/dl (32.0-36.5); MEAN CORPUSCULAR VOLUME 85.6 fl (80.0-96.0); MONO # 0.6 10^3/uL (0.0-0.8); MONO % 7.8 % (0.0-5.0); NEUTROPHILS # 3.2 10^3/uL (1.5-8.5); NEUTROPHILS % 44.6 % (36.0-66.0); PLATELET COUNT, AUTOMATED 297 10^3/uL (150-450); RED BLOOD COUNT 3.67 10^6/uL (4.00-5.40); WHITE BLOOD COUNT 7.2 10^3/uL (4.0-10.0)
[2020-01-12 06:29] LABS: HEMOGLOBIN 9.7 g/dl (12.0-15.5)
[2020-01-12 06:39] LABS: CALCIUM LEVEL 8.5 MG/DL (8.8-10.2); CREATININE FOR GFR 1.29 MG/DL (0.55-1.30); GLOMERULAR FILTRATION RATE 42.3 (>32); POTASSIUM SERUM 3.3 MEQ/L (3.5-5.1)
[2020-01-12] MEDS: SLF 3 ML SYR IV SCH ×3 (06:45→20:49)
[2020-01-12] MEDS: HumaLOG INSULIN (NovoLOG) PER UNIT SC SCH ×4 (09:17→20:44)
[2020-01-12] MEDS: MAGNESIUM OXIDE 400 MG TAB (MAG-OX) PO SCH (09:18)
[2020-01-12] MEDS: ISOSORBIDE DIN. (ISORDIL) 20 MG TAB PO SCH ×3 (09:18→20:48)
[2020-01-12] MEDS: ASPIRIN 81 MG ENTERIC TAB PO SCH (09:18)
[2020-01-12] MEDS: OMEPRAZOLE 20 MG CAP PO SCH (09:18)
[2020-01-12] MEDS: amLODIPine 10 MG TAB PO SCH (09:19)
[2020-01-12] MEDS: VITAMIN D 1,000 INTERNATIONAL UNITS TABLET PO SCH (09:19)
[2020-01-12] MEDS: CYANOCOBALAMIN 500 MCG TAB PO SCH (09:19)
[2020-01-12] MEDS: METOPROLOL TART 25 MG TABLET PO SCH (09:19)
[2020-01-12] MEDS: POTASSIUM CHLORIDE 10 MEQ SR TABLET PO SCH (09:20)
[2020-01-12 14:00] VITALS: BP 115/58
[2020-01-12] MEDS: SERTRALINE 100 MG TAB PO SCH (20:48)
[2020-01-12] MEDS: PRAVASTATIN 20 MG TAB PO SCH (20:48)
[2020-01-13] MEDS: SLF 3 ML SYR IV SCH ×3 (05:51→20:43)
[2020-01-13 06:00] VITALS: BP 121/65
[2020-01-13 06:47] LABS: BASO % 0.5 % (0.0-1.0); EOS # 0.2 10^3/uL (0.0-0.5); EOS % 3.1 % (0.0-3.0); HEMATOCRIT 32.4 % (36.0-47.0); HEMOGLOBIN 10.2 g/dl (12.0-15.5); LYMPH # 3.4 10^3/uL (1.5-5.0); MEAN CORPUSCULAR HEMOGLOBIN 27.3 pg (27.0-33.0); MEAN CORPUSCULAR HGB CONC 31.5 g/dl (32.0-36.5); MEAN CORPUSCULAR VOLUME 86.9 fl (80.0-96.0); MONO # 0.6 10^3/uL (0.0-0.8); MONO % 7.5 % (0.0-5.0); NEUTROPHILS # 3.3 10^3/uL (1.5-8.5); NEUTROPHILS % 43.6 % (36.0-66.0); PLATELET COUNT, AUTOMATED 288 10^3/uL (150-450); RED BLOOD COUNT 3.73 10^6/uL (4.00-5.40); WHITE BLOOD COUNT 7.5 10^3/uL (4.0-10.0)
[2020-01-13 07:06] LABS: CALCIUM LEVEL 9.1 MG/DL (8.8-10.2); CREATININE FOR GFR 1.29 MG/DL (0.55-1.30); GLOMERULAR FILTRATION RATE 42.3 (>32); MAGNESIUM LEVEL 1.9 MG/DL (1.8-2.4); POTASSIUM SERUM 3.9 MEQ/L (3.5-5.1)
[2020-01-13] MEDS: LEVEMIR (INSULIN DETEMIR) 1 UNITS/0.01ML SC SCH (08:41)
[2020-01-13] MEDS: HumaLOG INSULIN (NovoLOG) PER UNIT SC SCH ×4 (08:41→21:39)
[2020-01-13] MEDS: CYANOCOBALAMIN 500 MCG TAB PO SCH (08:42)
[2020-01-13] MEDS: MAGNESIUM OXIDE 400 MG TAB (MAG-OX) PO SCH (08:42)
[2020-01-13] MEDS: OMEPRAZOLE 20 MG CAP PO SCH (08:42)
[2020-01-13] MEDS: POTASSIUM CHLORIDE 10 MEQ SR TABLET PO SCH (08:42)
[2020-01-13] MEDS: VITAMIN D 1,000 INTERNATIONAL UNITS TABLET PO SCH (08:42)
[2020-01-13] MEDS: ASPIRIN 81 MG ENTERIC TAB PO SCH (08:42)
[2020-01-13] MEDS: ISOSORBIDE DIN. (ISORDIL) 20 MG TAB PO SCH ×3 (08:43→21:00)
[2020-01-13] MEDS: METOPROLOL TART 25 MG TABLET PO SCH (08:43)
[2020-01-13] MEDS: amLODIPine 10 MG TAB PO SCH (08:43)
[2020-01-13] MEDS: SERTRALINE 100 MG TAB PO SCH (21:38)
[2020-01-13] MEDS: PRAVASTATIN 20 MG TAB PO SCH (21:38)
[2020-01-14] MEDS: SLF 3 ML SYR IV SCH ×2 (05:04→14:00)
[2020-01-14 06:00] VITALS: BP 152/76
[2020-01-14 06:50] LABS: BASO % 0.6 % (0.0-1.0); EOS # 0.2 10^3/uL (0.0-0.5); EOS % 2.8 % (0.0-3.0); HEMATOCRIT 33.4 % (36.0-47.0); HEMOGLOBIN 10.3 g/dl (12.0-15.5); LYMPH % 42.1 % (24.0-44.0); MEAN CORPUSCULAR HEMOGLOBIN 26.7 pg (27.0-33.0); MEAN CORPUSCULAR HGB CONC 30.8 g/dl (32.0-36.5); MEAN CORPUSCULAR VOLUME 86.5 fl (80.0-96.0); MONO # 0.5 10^3/uL (0.0-0.8); NEUTROPHILS # 3.4 10^3/uL (1.5-8.5); NEUTROPHILS % 47.4 % (36.0-66.0); PLATELET COUNT, AUTOMATED 287 10^3/uL (150-450); RED BLOOD COUNT 3.86 10^6/uL (4.00-5.40); WHITE BLOOD COUNT 7.2 10^3/uL (4.0-10.0)
[2020-01-14 07:28] LABS: CALCIUM LEVEL 8.8 MG/DL (8.8-10.2); CREATININE FOR GFR 1.19 MG/DL (0.55-1.30); GLOMERULAR FILTRATION RATE 46.5 (>32); MAGNESIUM LEVEL 1.9 MG/DL (1.8-2.4); POTASSIUM SERUM 3.5 MEQ/L (3.5-5.1)
[2020-01-14 09:11] VITALS: BP 152/76
[2020-01-14] MEDS: amLODIPine 10 MG TAB PO SCH (09:11)
[2020-01-14] MEDS: METOPROLOL TART 25 MG TABLET PO SCH (09:11)
[2020-01-14] MEDS: OMEPRAZOLE 20 MG CAP PO SCH (09:11)
[2020-01-14] MEDS: ISOSORBIDE DIN. (ISORDIL) 20 MG TAB PO SCH (09:12)
[2020-01-14] MEDS: CYANOCOBALAMIN 500 MCG TAB PO SCH (09:12)
[2020-01-14] MEDS: VITAMIN D 1,000 INTERNATIONAL UNITS TABLET PO SCH (09:12)
[2020-01-14] MEDS: POTASSIUM CHLORIDE 10 MEQ SR TABLET PO SCH (09:12)
[2020-01-14] MEDS: MAGNESIUM OXIDE 400 MG TAB (MAG-OX) PO SCH (09:12)
[2020-01-14] MEDS: ASPIRIN 81 MG ENTERIC TAB PO SCH (09:12)
[2020-01-14] MEDS: LEVEMIR (INSULIN DETEMIR) 1 UNITS/0.01ML SC SCH (09:13)
[2020-01-14] MEDS: HumaLOG INSULIN (NovoLOG) PER UNIT SC SCH ×2 (09:13→13:00)
[2020-01-14] MEDS ORDERED: METO1TAB87 PO (14:40)
[2020-01-14] MEDS ORDERED: AMLO1TAB25 PO (14:40)
--- NOTE | 2020-01-14 17:17 | DS.PDOC ---
Discharge Summary General Date of Admission Jan 10, 2020 at 22:55 Date of Discharge 01/14/20 Discharge Summary PROCEDURES PERFORMED DURING STAY: [None]. ADMITTING DIAGNOSES: Fall HTN Urgency/hypertension Frontal scalp contusion Chronic Diastolic CHF NIDDM DLP Headaches Depression Chronic right frontal lobe CVA (Per patient she has had a TIA) Vitamin D deficiency DISCHARGE DIAGNOSES: Fall HTN Urgency/hypertension Frontal scalp contusion Chronic Diastolic CHF NIDDM DLP Headaches Depression Chronic right frontal lobe CVA (Per patient she has had a TIA) Vitamin D deficiency COMPLICATIONS/CHIEF COMPLAINT: FALL. HISTORY OF PRESENT ILLNESS:Patient is an 79-year-old female with hypertension, diastolic CHF, diabetes, CVA presented to the ER after she had fallen. HOSPITAL COURSE: During hospital stay following issues addressed Fall Patient developed mechanical fall mostly secondary to deconditioning Patient had multiple falls recently PT/OT Imaging study negative for fracture or bleeding Frontal scalp contusion - likely 2/2 above - s/p Repair in ER HTN Urgency/hypertension Blood pressures under control Continue home cardioprotective medications Chronic Diastolic CHF Not in acute exacerbation - ECHO 12/2019: Preserved LV systolic function, grade 1 diastolic dysfunction, no hemodynamically significant valvular disease, normal CVP, no signs to suggest pulmonary hypertension, essentially normal echo NIDDM Diabetes diet Insulin sliding scale DLP - c/w Pravastatin Headaches - c/w Tylenol PRN Depression - c/w Sertraline Chronic right frontal lobe CVA (Per patient she has had a TIA) Started aspirin - c/w Pravastatin Vitamin D deficiency - c/w Supplementation GERD - c/w Omeprazole DISCHARGE MEDICATIONS: Please see below. ALLERGIES: Please see below. PHYSICAL EXAMINATION ON DISCHARGE: VITAL SIGNS: Please see below. GENERAL APPEARANCE: NAD HEENT: no scleral icterus, no JVD, EOMI, bruise on the right side forehead CARDIOVASCULAR: S1S2 LUNGS: Diminished lung sounds bilaterally ABDOMEN: soft & not tender w palpitation MUSCULOSKELETAL: no cyanosis, no swelling INTEGUMENT: no generalized pallor NEUROLOGICAL: cranial nerve function from 2-12 intact intact, follows commands, speech not dysarthric LABORATORY DATA: Please see below. IMAGING: [facility] NAME: PAULINO ROBERTSON DATE OF : 1940 BUSINESS NUMBER: [id number] AGE: 79 SEX: F REPORT #: [id number] ROOM: M ED TECHNOLOGIST: KEITH DOCTOR: RAY COTA MD Ordered for Date&Time: 01/10/201917 cc: [~ rep ct ivnm] Service Date&Time: 01/10/201937 This report is in Signed status. Interpretation performed by [facility]. Thank you for having your radiology procedures performed at [facility] RADIOLOGY REPORT Date&Time printed: [~ rep prt dt last] [~ rep prt tm last] Page 2 of 2 [place] [id number] RADIOLOGY REPORT This report is in Signed status. Interpretation performed by [facility]. Thank you for having your radiology procedures performed at [facility] RADIOLOGY REPORT Date&Time printed: [~ rep prt dt last] [~ rep prt tm last] Page 1 of 1 PROCEDURE INFORMATION: Exam: CT Head Without Contrast Exam date and time: 01/10/2020 7:38 PM Age: 79 years old Clinical indication: Injury or trauma; Fall; Blunt trauma (contusions or hematomas) TECHNIQUE: Imaging protocol: Computed tomography of the head without contrast. Radiation optimization: All CT scans at this facility use at least one of these dose optimization techniques: automated exposure control; mA and/or kV adjustment per patient size (includes targeted exams where dose is matched to clinical indication); or iterative reconstruction. COMPARISON: CT Head without contrast 01/01/2020 7:24 PM FINDINGS: Brain: Moderate generalized cerebral atrophy. Patchy low-density within the periventricular white matter extending into pino radiata and centrum semiovale bilaterally. Calcification within the basal ganglia. 2.5 mm lacunar infarct left external capsule. 5 mm lacunar infarct right centrum semiovale. 6 mm lacunar infarct anterior limb right internal capsule. No hemorrhage. No mass effect. Midline structures intact. Cerebral ventricles: No ventriculomegaly. Bones/joints: Unremarkable. No acute fracture. Paranasal sinuses: Visualized sinuses are unremarkable. No fluid levels. Mastoid air cells: Visualized mastoid air cells are well aerated. Soft tissues: Small soft tissue contusion within the scalp over the right frontal bone. IMPRESSION: 1. No acute intracranial findings. 2. Scalp contusion over the right frontal bone. 3. Moderate generalized cerebral atrophy with moderate chronic microvascular ischemic change in the deep white matter Electronically signed by: Carine Denny On 01/10/2020 20:48:15 PM DD: CARINE DENNY MD 01/10/201937 DT: MERRILL 01/10/202047 DS: BEBE 01/10/202047 [~ rep ct labl] PROGNOSIS: Fair ACTIVITY: [As tolerated]. DIET: Cardiac DISCHARGE PLAN: DISPOSITION: 01 Home, Self-Care. ITEMS TO FOLLOWUP ON ON OUTPATIENT: Follow-up with PCP in 3-5 days DISCHARGE CONDITION: [Stable]. TIME SPENT ON DISCHARGE: Greater than 20 minutes. Vital Signs/I&Os Vital Signs Date Time Temp Pulse Resp B/P (MAP) Pulse Ox O2 Delivery O2 Flow Rate FiO2 01/14/20 09:11 64 152/76 01/14/20 06:00 96.1 20 95 01/13/20 06:00 Room Air I&O- Last 24 Hours up to 6 AM 01/14/20 06:00 Intake Total 1440 ml Output Total 1650 ml Balance -210 ml Laboratory Data Labs 24H Laboratory Tests 2 01/13/20 17:23: Bedside Glucose (Misc Panel) 196H 01/13/20 20:47: Bedside Glucose (Misc Panel) 267H 01/14/20 06:15: Immature Granulocyte % (Auto) 0.1, Neutrophils (%) (Auto) 47.4, Lymphocytes (%) (Auto) 42.1, Monocytes (%) (Auto) 7.0H, Eosinophils (%) (Auto) 2.8, Basophils (%) (Auto) 0.6, Neutrophils # (Auto) 3.4, Lymphocytes # (Auto) 3.0, Monocytes # (Auto) 0.5, Eosinophils # (Auto) 0.2, Basophils # (Auto) 0.0, Nucleated Red Blood Cells % (auto) 0.0, Anion Gap 6L, Glomerular Filtration Rate 46.5, Calcium Level 8.8, Magnesium Level 1.9 01/14/20 11:26: Bedside Glucose (Misc Panel) 234H CBC/BMP Laboratory Tests 01/14/20 06:15 FSBS Laboratory Tests Test 01/13/20 17:23 01/13/20 20:47 01/14/20 11:26 Range/Units Bedside Glucose (Misc Panel) 196 267 234 83-110 MG/DL Discharge Medications Scheduled Amlodipine Besylate (Amlodipine Besylate) 10 Mg Tablet, 10 MG PO DAILY Cholecalciferol (Vitamin D3) (Vitamin D3) 1,000 Unit Tablet, 1,000 UNITS PO DAILY, (Reported) Cyanocobalamin (Vitamin B-12) (Vitamin B-12) 1,000 Mcg Tablet, 1,000 MCG PO DAILY, (Reported) Glimepiride (Glimepiride) 4 Mg Tab, 4 MG PO DAILY, (Reported) Isosorbide Dinitrate (Isosorbide Dinitrate) 20 Mg Tablet, 20 MG PO TID, (Reported) Magnesium Oxide (Magnesium Oxide) 400 Mg Tablet, 400 MG PO DAILY, (Reported) Metformin HCl (Metformin HCl) 1,000 Mg Tablet, 1,500 MG PO DAILY, (Reported) Metformin HCl (Metformin HCl) 1,000 Mg Tablet, 1,000 MG PO QHS, (Reported) Metoprolol Tartrate (Metoprolol Tartrate) 25 Mg Tablet, 25 MG PO DAILY Omeprazole (Omeprazole) 20 Mg Capsule.dr, 20 MG PO DAILY, (Reported) Potassium Gluconate (Potassium) 99 Mg Tablet, 595 MG PO DAILY, (Reported) Pravastatin Sodium (Pravastatin Sodium) 40 Mg Tab, 40 MG PO QHS, (Reported) Sertraline HCl (Sertraline HCl) 100 Mg Tab, 100 MG PO QHS, (Reported) Zinc (Zinc) 50 Mg Tablet, 50 MG PO DAILY, (Reported) Allergies Coded Allergies: ramipril (Verified Adverse Reaction, Intermediate, cough, 01/10/20) DIMITRI RAMOS DO Jan 14, 2020 17:17
== END 2020-01-14 16:15 | disposition home health service (06) | DRG 92 ==
LOC: M ED 18:44 → M ED INP 22:55 → M PCU 01-11 00:40 → M MSPAV 01-11 18:37
PROVIDERS: ADMIT Internal Medicine; ATTEND Internal Medicine
DX: R29.6 Repeated falls (principal); I50.32 Chronic diastolic (congestive) heart failure; S00.03XA Contusion of scalp, initial encounter; I16.0 Hypertensive urgency; E11.9 Type 2 diabetes mellitus without complications; I11.0 Hypertensive heart disease with heart failure; F32.9 Major depressive disorder, single episode, unspecified; Z86.73 Personal history of transient ischemic attack (TIA), and cerebral infarction without residual deficits; E55.9 Vitamin D deficiency, unspecified; W18.30XA Fall on same level, unspecified, initial encounter; Y92.009 Unspecified place in unspecified non-institutional (private) residence as the place of occurrence of the external cause; Z79.899 Other long term (current) drug therapy; Z88.8 Allergy status to other drugs, medicaments and biological substances; K21.9 Gastro-esophageal reflux disease without esophagitis

== ENCOUNTER → 2020-04-13 | Outpatient (REF) | payer MEDICARE, OTHER ==
[~2020-04-13] MED LIST changes: +METO1TAB87 PO; -VITA250T50 PO; +VITA250T7 PO
[2020-04-13 13:32] LABS: HEMATOCRIT 38.8 % (36.0-47.0); HEMOGLOBIN 11.9 g/dl (12.0-15.5); MEAN CORPUSCULAR HEMOGLOBIN 26.8 pg (27.0-33.0); MEAN CORPUSCULAR HGB CONC 30.7 g/dl (32.0-36.5); MEAN CORPUSCULAR VOLUME 87.4 fl (80.0-96.0); PLATELET COUNT, AUTOMATED 262 10^3/uL (150-450); RED BLOOD COUNT 4.44 10^6/uL (4.00-5.40); WHITE BLOOD COUNT 6.9 10^3/uL (4.0-10.0)
[2020-04-13 14:01] LABS: ALBUMIN 3.7 GM/DL (3.2-5.2); BILIRUBIN,TOTAL 0.2 MG/DL (0.2-1.0); CALCIUM LEVEL 9.9 MG/DL (8.8-10.2); CHOLESTEROL RISK RATIO 3.181 (<5); CREATININE FOR GFR 1.16 MG/DL (0.55-1.30); GLOMERULAR FILTRATION RATE 47.9 (>32); MAGNESIUM LEVEL 1.7 MG/DL (1.8-2.4); POTASSIUM SERUM 4.1 MEQ/L (3.5-5.1); TOTAL PROTEIN 7.5 GM/DL (6.4-8.2)
[2020-04-13 15:10] LABS: HEMOGLOBIN A1c 7.3 %
== END ==
LOC: M SFHCADAM 10:20
PROVIDERS: ATTEND Family Medicine
DX: E78.2 Mixed hyperlipidemia (principal); E11.9 Type 2 diabetes mellitus without complications; I11.9 Hypertensive heart disease without heart failure; Z86.2 Personal history of diseases of the blood and blood-forming organs and certain disorders involving the immune mechanism
CPT/HCPCS: 80053; 80061; 83036; 83735; 85027; G0463

== ENCOUNTER 2020-06-30 18:31 | Emergency (ER) | payer MEDICARE, OTHER ==
[~2020-06-30] VITALS: Ht 162.6 cm; Wt 66.8 kg
[~2020-06-30 18:31] MED LIST changes: -HM P99TA PO; +POTA99TA14 PO
[2020-06-30] MEDS ORDERED: LIDOCAINE 4% CREAM 5GM (LMX4) TOP ONE (22:55)
[2020-06-30] MEDS ORDERED: ACETAMINOPHEN 500 MG TAB PO ONE (22:55)
--- NOTE | 2020-06-30 23:27 | REPVR ---
PROCEDURE INFORMATION: Exam: XR Lumbosacral Spine Exam date and time: 06/30/20 (10:15pm) Age: 79 years old Clinical indication: Fall TECHNIQUE: Imaging protocol: XR of the lumbosacral spine Views: 4 or 5 views COMPARISON: CT ABDOMEN PELVIS of 12/31/17 FINDINGS: No acute fracture nor significant malalignment. [id number] multilevel degenerative lumbar spine changes (similar appearance in 2017). Mild anterolisthesis of L4 on L5 again seen. Posterior disc space narrowing at a few levels. Multilevel facet degenerative changes again seen. Atherosclerotic abdominal aortic calcifications. 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 IMPRESSION: No acute traumatic findings. In general, similar changes were seen on CT scan of 12/31/17. Electronically signed by: Valery Zabala On 06/30/2020 23:26:42 PM
[2020-06-30 23:35] VITALS: BP 150/69
[2020-06-30] MEDS ORDERED: ANEC4CRE3 TOP (23:51)
== END 2020-07-01 00:18 | disposition home or self-care (01) ==
LOC: M ED 18:31
DX: S30.0XXA Contusion of lower back and pelvis, initial encounter (principal); W01.0XXA Fall on same level from slipping, tripping and stumbling without subsequent striking against object, initial encounter; Y92.009 Unspecified place in unspecified non-institutional (private) residence as the place of occurrence of the external cause; Y93.G3 Activity, cooking and baking; Y99.8 Other external cause status; I10 Essential (primary) hypertension; E11.9 Type 2 diabetes mellitus without complications; E78.00 Pure hypercholesterolemia, unspecified; K21.9 Gastro-esophageal reflux disease without esophagitis; K76.0 Fatty (change of) liver, not elsewhere classified; F33.9 Major depressive disorder, recurrent, unspecified; M81.0 Age-related osteoporosis without current pathological fracture; M85.88 Other specified disorders of bone density and structure, other site; Z79.84 Long term (current) use of oral hypoglycemic drugs; Z79.899 Other long term (current) drug therapy

== ENCOUNTER 2020-08-21 15:22 | Emergency (ER) | payer MEDICARE, BC, OTHER ==
[~2020-08-21] VITALS: Ht 160 cm; Wt 68.0 kg
[~2020-08-21 15:22] MED LIST changes: +ANEC4CRE3 TOP
[2020-08-21 16:17] LABS: BASO % 0.4 % (0.0-1.0); EOS # 0.1 10^3/uL (0.0-0.5); EOS % 0.8 % (0.0-3.0); HEMOGLOBIN 11.5 g/dl (12.0-15.5); LYMPH # 2.2 10^3/uL (1.5-5.0); LYMPH % 31.1 % (24.0-44.0); MEAN CORPUSCULAR HEMOGLOBIN 27.4 pg (27.0-33.0); MEAN CORPUSCULAR HGB CONC 31.1 g/dl (32.0-36.5); MEAN CORPUSCULAR VOLUME 88.1 fl (80.0-96.0); MONO # 0.5 10^3/uL (0.0-0.8); MONO % 6.3 % (2.0-8.0); NEUTROPHILS # 4.4 10^3/uL (1.5-8.5); PLATELET COUNT, AUTOMATED 293 10^3/uL (150-450); WHITE BLOOD COUNT 7.2 10^3/uL (4.0-10.0)
[2020-08-21 16:46] LABS: BLOOD UREA NITROGEN 21 MG/DL (7-18); CALCIUM LEVEL 9.1 MG/DL (8.8-10.2); CARBON DIOXIDE LEVEL 23 MEQ/L (21-32); CHLORIDE LEVEL 108 MEQ/L (98-107); CREATININE FOR GFR 1.11 MG/DL (0.55-1.30); GLOMERULAR FILTRATION RATE 50.3 (>32); GLUCOSE, FASTING 98 MG/DL (70-100); POTASSIUM SERUM 4.2 MEQ/L (3.5-5.1); SODIUM LEVEL 144 MEQ/L (136-145)
[2020-08-21 17:24] LABS: ALBUMIN 3.5 GM/DL (3.2-5.2); ALT/SGPT 14 U/L (12-78); BILIRUBIN,DIRECT < 0.1 MG/DL (0.0-0.2); BILIRUBIN,TOTAL 0.2 MG/DL (0.2-1.0); LIPASE 345 U/L (73-393); TOTAL PROTEIN 7.4 GM/DL (6.4-8.2)
[2020-08-21] MEDS ORDERED: CHLO125TA PO (18:02)
[2020-08-21] MEDS ORDERED: CALC1TAB30 PO (18:02)
[2020-08-21] MEDS ORDERED: BLAC1CAP2 PO (18:03)
--- NOTE | 2020-08-21 18:11 | REP ---
INDICATION: RUQ pain. COMPARISON: CT 12/31/2017 TECHNIQUE: Standard right upper quadrant sonographic a technique utilized. FINDINGS: The liver shows mild diffused increased echogenicity that may reflect some fatty infiltration I do not see lobulated contour, hepatic mass or intrahepatic biliary dilatation. The gallbladder shows a numerous echogenic foci with the shadowing consistent with extensive cholelithiasis. There is some bile visible so this is not quite the [id number] sign. No sonographic Leonard sign was described. The common duct is 4.4 mm without a definite stone. Pancreas is seen only in limited fashion, that portion grossly unremarkable. The right kidney is 9.6 x 4.4 x 4.8 cm with some sinus lipomatosis but no hydronephrosis. There is no evidence of ascites in the upper abdomen. IMPRESSION: 1. Extensive cholelithiasis without intra or extrahepatic biliary dilatation. 2. Diffuse fatty infiltration of the liver without hepatomegaly, cyst, solid mass, ascites or other acute liver finding. 3. Limited visualization of the pancreas. The portion seen is unremarkable and common duct is 4 mm without visible stone. 4. Right kidney with sinus lipomatosis but no hydronephrosis. <Electronically signed by Henrik Bruno > 08/21/20 [id number]
[2020-08-21 19:07] VITALS: BP 143/99
--- NOTE | 2020-08-22 22:02 | ECGEPIP ---
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
== END 2020-08-21 19:11 | disposition home or self-care (01) ==
LOC: M ED 15:22
DX: K80.20 Calculus of gallbladder without cholecystitis without obstruction (principal); K76.0 Fatty (change of) liver, not elsewhere classified; N28.89 Other specified disorders of kidney and ureter; K21.9 Gastro-esophageal reflux disease without esophagitis; I10 Essential (primary) hypertension; E11.9 Type 2 diabetes mellitus without complications; E78.00 Pure hypercholesterolemia, unspecified; M85.88 Other specified disorders of bone density and structure, other site; Z79.84 Long term (current) use of oral hypoglycemic drugs; Z79.899 Other long term (current) drug therapy; Z88.8 Allergy status to other drugs, medicaments and biological substances

== ENCOUNTER → 2020-09-01 | Outpatient (REF) | payer MEDICARE, OTHER ==
[~2020-09-01] MED LIST changes: +BLAC1CAP2 PO
== END ==
LOC: M SFHCADAM 10:26
PROVIDERS: ATTEND Family Medicine
DX: Z53.9 Procedure and treatment not carried out, unspecified reason (principal)

== ENCOUNTER 2020-09-25 18:15 | Emergency (ER) | payer MEDICARE, OTHER ==
[~2020-09-25] VITALS: Ht 162.6 cm; Wt 70.5 kg
--- NOTE | 2020-09-25 19:54 | REPVR ---
PROCEDURE INFORMATION: Exam: CT Head Without Contrast Exam date and time: 09/25/2020 7:35 PM Age: 80 years old Clinical indication: Altered mental status/memory loss and other: Altered mental status, h/o subdural TECHNIQUE: Imaging protocol: Computed tomography of the head without contrast. Radiation optimization: All CT scans at this facility use at least one of these dose optimization techniques: automated exposure control; mA and/or kV adjustment per patient size (includes targeted exams where dose is matched to clinical indication); or iterative reconstruction. COMPARISON: CT Head without contrast 01/10/2020 7:36 PM FINDINGS: Brain: No intracranial mass, focal mass effect or midline shift. No acute intracranial hemorrhage. Mild decreased attenuation in periventricular/centrum semiovale white matter. No focal effacement of cortical sulci to indicate acute cortical infarct. Prominent ventricles and CSF spaces suggest parenchymal volume loss. Paranasal sinuses: Visualized paranasal sinuses are unremarkable. Mastoid air cells: Mastoid air cells are normally aerated. Orbital cavity: Visualized globes and orbits are unremarkable. Bones/joints: No calvarial fracture or destructive process. Soft tissues: No focal extracranial soft tissue swelling. IMPRESSION: 1. No acute intracranial abnormality. 2. Atrophy and chronic microangiopathic change in supratentorial white matter. Electronically signed by: Wolfgang Martel On 09/25/2020 19:54:33 PM
--- NOTE | 2020-09-25 19:59 | REPVR ---
PROCEDURE INFORMATION: Exam: XR Chest Exam date and time: 09/25/2020 7:48 PM Age: 80 years old Clinical indication: Shortness of breath; Additional info: Altered mental status TECHNIQUE: Imaging protocol: XR of the chest. Views: 1 view. COMPARISON: CR PORTABLE CHEST X-RAY 01/10/2020 11:44 PM FINDINGS: Lungs: Degree of lung inflation is normal. No evidence of pulmonary edema. No focal consolidation or parenchymal lung mass. Pleural spaces: No pleural effusion or pneumothorax. Heart/Mediastinum: Cardiac silhouette appears normal. No adenopathy or hilar mass. Bones/joints: Osseous structures show no concerning abnormality. IMPRESSION: No acute or focal cardiopulmonary process. Electronically signed by: Wolfgang Martel On 09/25/2020 19:58:51 PM
[2020-09-25 20:31] LABS: BASO % 0.4 % (0.0-1.0); EOS # 0.1 10^3/uL (0.0-0.5); EOS % 0.7 % (0.0-3.0); HEMATOCRIT 35.6 % (36.0-47.0); HEMOGLOBIN 11.3 g/dl (12.0-15.5); LYMPH # 3.3 10^3/uL (1.5-5.0); LYMPH % 34.5 % (24.0-44.0); MEAN CORPUSCULAR HEMOGLOBIN 27.8 pg (27.0-33.0); MEAN CORPUSCULAR HGB CONC 31.7 g/dl (32.0-36.5); MEAN CORPUSCULAR VOLUME 87.7 fl (80.0-96.0); MONO # 0.6 10^3/uL (0.0-0.8); MONO % 6.3 % (2.0-8.0); NEUTROPHILS # 5.6 10^3/uL (1.5-8.5); NEUTROPHILS % 57.7 % (36.0-66.0); PLATELET COUNT, AUTOMATED 281 10^3/uL (150-450); RED BLOOD COUNT 4.06 10^6/uL (4.00-5.40); WHITE BLOOD COUNT 9.7 10^3/uL (4.0-10.0)
[2020-09-25 20:56] LABS: OSMOLALITY SERUM 295 MOSM/KG (280-301)
[2020-09-25 20:58] LABS: AMPHETAMINES LEVEL URINE NEGATIVE (NEGATIVE); BARBITURATES URINE NEGATIVE (NEGATIVE); BENZODIAZEPINES URINE NEGATIVE (NEGATIVE); CANNABINOIDS URINE NEGATIVE (NEGATIVE); COCAINE METABOLITE URINE NEGATIVE (NEGATIVE); METHADONE URINE NEGATIVE (NEGATIVE); OPIATES URINE NEGATIVE (NEGATIVE); PHENCYCLIDINE URINE NEGATIVE (NEGATIVE)
[2020-09-25 21:07] LABS: ALBUMIN 3.5 GM/DL (3.2-5.2); ALT/SGPT 18 U/L (12-78); BILIRUBIN,DIRECT 0.1 MG/DL (0.0-0.2); BILIRUBIN,TOTAL 0.4 MG/DL (0.2-1.0); BLOOD UREA NITROGEN 17 MG/DL (7-18); CALCIUM LEVEL 9.3 MG/DL (8.8-10.2); CARBON DIOXIDE LEVEL 27 MEQ/L (21-32); CHLORIDE LEVEL 107 MEQ/L (98-107); CK-MB VALUE MASS 1.3 NG/ML (<3.6); CPK CREATINE PHOSPHOKINASE 56 U/L (26-192); ETHYL ALCOHOL (ETHANOL) < 0.003 % (0.000-0.010); GLOMERULAR FILTRATION RATE 50.7 (>32); GLUCOSE, FASTING 135 MG/DL (70-100); MB/CK RELATIVE INDEX 2.32 (< OR =4); SODIUM LEVEL 142 MEQ/L (136-145); TOTAL PROTEIN 7.1 GM/DL (6.4-8.2); TROPONIN I < 0.02 NG/ML (< 0.10)
[2020-09-25] MEDS ORDERED: METOPROLOL TART 25 MG TABLET PO ONE (21:20)
[2020-09-25] MEDS ORDERED: PILL CUTTER 1 EACH XX ONE (21:27)
[2020-09-25 21:29] VITALS: BP 188/94
[2020-09-25] MEDS ORDERED: NS 1,000 ML IV ONE (21:45)
[2020-09-25] MEDS ORDERED: ISOVUE-370 76% 100ML VIAL As Ordered ONE ×2 (21:53→22:08)
[2020-09-25 22:06] LABS: VENOUS HCO3 22.4 MEQ/L (23.0-27.0); VENOUS O2 SATURATION 98.9 % (60.0-80.0); VENOUS PARTIAL PRESSURE CO2 33.5 mmHg (38.0-50.0); VENOUS PARTIAL PRESSURE O2 154.4 mmHg (30.0-50.0); VENOUS PH 7.444 UNITS (7.330-7.430); VENOUS STANDARD HCO3 23.6 MEQ/L; VENOUS TOTAL CO2 23.5 MEQ/L (24.0-28.0)
[2020-09-25 22:38] LABS: INR 0.93; PROTHROMBIN TIME 12.9 SECONDS (12.7-14.5)
[2020-09-25 22:39] LABS: PARTIAL THROMBOPLASTIN TIME 26.2 SECONDS (25.9-37.0)
--- NOTE | 2020-09-25 22:51 | REPVR ---
PROCEDURE INFORMATION: Exam: CT Abdomen And Pelvis With Contrast Exam date and time: 09/25/2020 10:01 PM Age: 80 years old Clinical indication: Other: Unexplained lactic acidosis TECHNIQUE: Imaging protocol: Computed tomography of the abdomen and pelvis with contrast. Radiation optimization: All CT scans at this facility use at least one of these dose optimization techniques: automated exposure control; mA and/or kV adjustment per patient size (includes targeted exams where dose is matched to clinical indication); or iterative reconstruction. Contrast material: ISOVUE 370; Contrast volume: 150 ml; Contrast route: INTRAVENOUS (IV); COMPARISON: CT ABD PELVIS WITH CONTRAST 12/31/2017 12:38 AM FINDINGS: Liver: Normal. No mass. Gallbladder and bile ducts: Normal. No calcified stones. No ductal dilation. 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 Spleen: Normal. No splenomegaly. Adrenal glands: Normal. No mass. Kidneys and ureters: Normal. No hydronephrosis. Stomach and bowel: There are a few colonic diverticula without diverticulitis. Appendix: A normal appendix is seen adjacent to the hepatic tip. Intraperitoneal space: Unremarkable. No free air. No significant fluid collection. Vasculature: There is mild calcification of the abdominal aorta with extension into the iliac arteries. No abdominal aortic aneurysm or dissection. 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 The branches appear normal. The SMA and branches appear normal. The ZARINA is patent. Patent bilateral renal arteries with mild origin stenosis on the left. Lymph nodes: Unremarkable. No enlarged lymph nodes. Urinary bladder: Unremarkable as visualized. Reproductive: Status post hysterectomy. Bones/joints: Unremarkable. No acute fracture. Soft tissues: Unremarkable. IMPRESSION: 1. Mild infiltration of the central mesentery and to a lesser degree periaortic retroperitoneum which is unchanged from 12/31/2017 and apparently reflects a chronic process. 2. 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 3. Status post hysterectomy. 4. Otherwise negative CT abdomen/pelvis. Electronically signed by: Tono Peoples On 09/25/2020 22:51:19 PM
[2020-09-26 01:35] VITALS: BP 165/80
--- NOTE | 2020-09-26 08:55 | ECGEPIP ---
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
== END 2020-09-26 01:55 | disposition home or self-care (01) ==
LOC: EDBD 18:15 → M ED 18:15
DX: I16.0 Hypertensive urgency (principal); E11.9 Type 2 diabetes mellitus without complications; E78.5 Hyperlipidemia, unspecified; Z79.82 Long term (current) use of aspirin; Z79.899 Other long term (current) drug therapy; Z88.8 Allergy status to other drugs, medicaments and biological substances
CPT/HCPCS: 70450; 71045; 74177; 80048; 80076; 80307; 81001; 82077; 82140; 82550; 82553; 82803; 83605; 83930; 84443; 84484; 85025; 85610; 85730; 87088; 87186; 93005; 93041; 96360; 96361; 99285; Q9967

== ENCOUNTER 2020-11-23 16:39 | Emergency (ER) | payer MEDICARE, BC, OTHER ==
[~2020-11-23] VITALS: Ht 134.6 cm; Wt 63.6 kg
[~2020-11-23 16:39] MED LIST changes: -KLOR10TA76 PO; -MAGN400T3 PO; +MAGN400T33 PO; +POTA-136 PO
--- NOTE | 2020-11-23 17:28 | REP ---
INDICATION: Altered Mental Status. COMPARISON: 09/25/2020 latest prior also portable TECHNIQUE: Portable FINDINGS: The technique utilized in obtaining the radiograph has magnified the cardiac silhouette and accentuated the interstitial markings. The superior mediastinal structures are midline. The cardiac silhouette is unremarkable in size, shape, and position. The diaphragmatic surfaces of the lungs are regular, and the costophrenic angles are clear. The pulmonary alcocer are clear. The imaged osseous structures are intact. IMPRESSION: There is no acute cardiopulmonary disease. No significant change from the prior exam. <Electronically signed by Sriram Lemon > 11/23/20 [id number]
--- OUTSIDE RECORDS SUMMARY | 2020-11-23 17:55 | CCD ---
Author Author [facility] Organization [facility] Address Unknown Phone Unavailable Care Team Providers Care Timber Inspector Name Role Phone Helga Dubose Unavailable PROBLEMS Type Condition ICD9-CM Code [id number] Code Onset Dates Condition S tatus W/U Status Risk SNOMED Code Notes Problem Depression F32.9 Active confirmed 40111190 Problem GERD (gastroesophageal reflux disease) K21.9 A ctive confirmed 492540536 Problem History of anemia Z86.2 Active confirmed 27 5175778 Problem Patient's other noncompliance with medication regimen Z91.14 Active confirmed 185649511 Problem Incontinence of urine R32 Active confirmed 761134726 Problem Unsteady gait R26.81 Active confirmed 648883 08 Problem Psoriasis and similar disorder L40.8 Active confir med 4883186 Problem Mixed hyperlipidemia E78.2 Active confirmed 484658602 Problem Other screening mammogram Z12.31 Active confirmed 902572222 Problem Vaginal lump N94.9 Active confirmed 3182566 05 Problem Bladder prolapse, female, acquired N81.10 Activ e confirmed 165260046 Problem Essential hypertension I10 Active confirmed 56502747 Problem Other chronic pain G89.29 Active confirmed 8 9506972 Problem Calculus of gallbladder without cholecystitis wi thout obstruction K80.20 Active confirmed 77404187 Problem Hypertensive heart disease without heart failure I 11.9 Active confirmed 16848268 Problem DM2 (diabetes mellitus, type 2) E11.9 Active confi rmed 99317617 Problem Medicare annual wellness visit, subsequent Z00.00 Active confirmed 910208917 Problem Gait instability R26.81 Active confirmed 394 293132 Problem Mixed stress and urge urinary incontinence N39.46 Active confirmed 393114286 Problem Hypomagnesemia E83.42 Active confirmed 99297 5004 ALLERGIES Allergen (clinical drug ingredient) Drug/Non Drug Allergy do cumented on EMR Reaction Allergy Type Onset Date Status chlorthalidone Chlorthalidone([facility][NOTE 3] Code:[address]-31) d ehydration - see 12/16/19 note Drug Allergy Active Ramipril ramipril cough Non Drug Allergy Active Atenolol atenolol bradycardia (2.4 sec pause [facility] 12/25) Non Drug Allergy Active ENCOUNTERS from 1940 to 2020-10-08 Encounter Location Date Provider Diagnosis [facility] [address] [place] [address] Oct, Helga Elpidio-Tartell DM2 (diabetes mellitus, type 2) E11.9 IMMUNIZATIONS Vaccine Route Administration Date Status Influenza (High Dose 65 & up) IM Intramuscular Dec 03, 2014 A dministered Influenza 18 yrs & older Flublok IM Intramuscular Nov 18, 2019 Administered Zoster 0.65mL Zostavax Unknown June 17, 2014 Administe red Influenza 18 yrs & older Flublok IM Intramuscular Jan 16, 2019 Administered Influenza (High Dose 65 & up) IM Intramuscular Mar 03, 2014 A dministered Influenza 6mo & up Fluzone IM Intramuscular Jan 18, 2010 Admi nistered Pneumococcal Adult 0.5mL Pneumovax 23 Unknown Mar 08 Administered Pneumococcal Adult 0.5mL Pneumovax 23 Unknown Oct 14 997 Administered TDAP 0.5mL (Boostrix) IM Intramuscular Mar 09, 2016 Administe red Pneumococcal 0.5mL Prevnar 13 IM Intramuscular Mar 03, 2014 A dministered Influenza 6mo & up Fluzone IM Intramuscular Dec 02, 2015 Admi nistered Influenza 6mo & up Fluzone IM Intramuscular Jan 30, 2013 Admi nistered Influenza 6mo & up Fluzone IM Intramuscular Jan 04, 2012 Admi nistered Influenza 6mo & up Fluzone IM Intramuscular Nov 01, 2010 Admi nistered SOCIAL HISTORY Tobacco Use: Social History Observation Description Date Details (start date - stop date) Never Smoker Sex Assigned At : Social History Observation Description Sex Assigned At Unknown Education: Question Answer Notes Level of Education: Grade School 9th grade Audit Question Answer Notes Total Score: 0 Interpretation: Alcohol Education Language: Question Answer Notes Languages spoken: [place]inean Latter Day: Question Answer Notes Latter Day 13 Anglican Sexual Hx: Question Answer Notes Had sex in the last 12 months (vaginal, oral, or anal)? No Have you ever had an STD? No Drug and Alcohol Question Answer Notes Total Score: 0 Interpretation: No problems reported Alcohol Screening: Question Answer Notes Did you have a drink containing alcohol in the past year? No Points 0 Interpretation Negative Tobacco Use: Question Answer Notes Are you a: never smoker never smoker REASON FOR REFERRAL No Information VITAL SIGNS No information MEDICATIONS Medication SIG (Take, Route, Frequency, Duration) Notes Start Da te End Date Status Potassium Gluconate 595 (99 K) MG 1 tablet Orally Once a day for 90 day(s) Active Metoprolol Succinate ER 50 MG 1 tablet Orally Once a day for 30 day(s) Aug, Active Omeprazole 20 MG 1 cap orally Daily for 90 days Active Pravastatin Sodium 40 MG 1 tablet Orally Daily for 90 days Active Vitamin B-12 500 MG 1 tablet Orally Once a day Active Lancets Delica as directed externally once a day Dec, 012 Active Sertraline HCl 100 MG 1 tablet Orally Once a day for 90 day(s) Active metFORMIN HCl 1000 MG 1 tab orally 1 and half in am, and 1 a t pm for 90 day(s) June, Active Magnesium Oxide 400 MG 1 tablet as needed Orally Once a day June, Active amLODIPine Besylate 10 MG 1 tablet Orally Once a day for 90 day( s) Jan, Active Zinc 50 MG 1 tablet Orally Once a day Active Vitamin D3 _ 1 capsule Orally Once a day Active Glimepiride 4 MG 1 tablet with breakfast or t he first main meal of the day Orally Once a day for 90 days June, Ac tive Isosorbide Dinitrate 20 MG TAKE ONE TABLET BY MOUTH TH REE TIMES A DAY Oral for 30 Active PROCEDURES No Information RESULTS No Results REASON FOR VISIT refill [facility] MEDICAL (GENERAL) HISTORY Type Description Date Medical History osteopenia Medical History Elevated Cholesterol Medical History hypertension Medical History psoriasis Medical History chronic depression Medical History Type 2 DM Medical History DDD/DJD thoracic spine xray 12/21 Medical History CKD3, GFR ~ [address] fatty liver CT 12/23; fatty liver and multiple GB stones US 08/25 Medical History pulm fibrosis CT 12/13 Medical History T4, T6 wedge compression fx CT 12/13 Medical History 05/24 fall with subdural hematoma Medical History 2 cracked ribs, right side 07/2018 Medical History DDD, large posterior osteophytes cervica l spine CT 12/25 Medical History HTN, admitted 12/25 HTN urgency Surgical History hysterectomy abdominal kept ovaries 1974 Surgical History colonoscopy 06/06 Surgical History left breast biopsy benign Surgical History right eye cataract 11/13/2012 Surgical History left eye cataract 11/27/12 Surgical History colonoscopy - tubular adenoma 10/2012 Hospitalization History childbirth x6 Hospitalization History hysterectomy Hospitalization History UTI with sepsis 07/04/2010 Hospitalization History subdural hematoma - [facility] 05/2018 Hospitalization History syncope [facility] 12/2019 Goals Section No Information Health Concerns No Information MEDICAL EQUIPMENT No Information MENTAL STATUS No Information FUNCTIONAL STATUS No Information ASSESSMENTS Encounter Date Diagnosis Assessment Notes Treatment Notes Treatm ent Clinical Notes Oct, DM2 (diabetes mellitus, type 2) (ICD-10 - E11.9) PLAN OF TREATMENT Medication Medication Name Sig Start Date Stop Date metFORMIN HCl 1000 MG 1 tab orally 1 and half in am, and 1 a t pm for 90 day(s) June, Metoprolol Succinate ER 50 MG 1 tablet Orally Once a day for 30 day(s) Aug, Next Appt Details Provider Name:Marvel Coronel, 2020-10 02:15:00 PM, [address] , [place], [address], Insurance Providers Payer Name Payer Address Payer Phone Insured Name Patient Relati onship to Insured Coverage Start Date Coverage End Date MEDICARE Part A and B [address] [facility] [id number] [phone] PAULINO ROBERTSON [facility] [address] [facility] [id number] PAULINO ROBERTSON self
--- OUTSIDE RECORDS SUMMARY | 2020-11-23 17:55 | CCD ---
Author Author [facility] Organization [facility] Address Unknown Phone Unavailable Care Team Providers Care Customer Success Associate Name Role Phone Marvel Coronel Unavailable PROBLEMS Type Condition ICD9-CM Code [id number] Code Onset Dates Condition S tatus W/U Status Risk SNOMED Code Notes Problem Depression F32.9 Active confirmed 87201154 Problem GERD (gastroesophageal reflux disease) K21.9 A ctive confirmed 279999567 Problem History of anemia Z86.2 Active confirmed 27 5783381 Problem Patient's other noncompliance with medication regimen Z91.14 Active confirmed 623747391 Problem Incontinence of urine R32 Active confirmed 281622554 Problem Unsteady gait R26.81 Active confirmed 676092 08 Problem Psoriasis and similar disorder L40.8 Active confir med 4285661 Problem Mixed hyperlipidemia E78.2 Active confirmed 257681926 Problem Other screening mammogram Z12.31 Active confirmed 175246305 Problem Vaginal lump N94.9 Active confirmed 6277806 05 Problem Bladder prolapse, female, acquired N81.10 Activ e confirmed 712903044 Problem Essential hypertension I10 Active confirmed 70292686 Problem Other chronic pain G89.29 Active confirmed 8 9100889 Problem Calculus of gallbladder without cholecystitis wi thout obstruction K80.20 Active confirmed 60453711 Problem Hypertensive heart disease without heart failure I 11.9 Active confirmed 01691249 Problem DM2 (diabetes mellitus, type 2) E11.9 Active confi rmed 50390665 Problem Medicare annual wellness visit, subsequent Z00.00 Active confirmed 345125059 Problem Gait instability R26.81 Active confirmed 394 876113 Problem Mixed stress and urge urinary incontinence N39.46 Active confirmed 584663726 Problem Hypomagnesemia E83.42 Active confirmed 94673 5004 ALLERGIES Allergen (clinical drug ingredient) Drug/Non Drug Allergy do cumented on EMR Reaction Allergy Type Onset Date Status chlorthalidone Chlorthalidone([facility] Code:[address]-19) d ehydration - see 12/16/19 note Drug Allergy Active ramipril cough Non Drug Allergy Active atenolol bradycardia (2.4 sec pause [facility] 12/25) Non Drug Allergy Active ENCOUNTERS from 1940 to 2020-09-01 Encounter Location Date Provider Diagnosis [facility] [address] [place] [address] Aug, Marvel Villasenorgeovany Hypertensive heart disease without heart failure I11.9 IMMUNIZATIONS Vaccine Route Administration Date Status Influenza [...] School 9th grade Audit Question Answer Notes Interpretation: Alcohol Education Total Score: 0 Language: Question Answer Notes Languages spoken: Greenlandic Holiness: Question Answer Notes Holiness 13 Anglican Sexual Hx: Question Answer Notes Had sex in the last 12 months (vaginal, oral, or anal)? No Have you ever had an STD? No Drug and Alcohol Question Answer Notes Interpretation: No problems reported Total Score: 0 Alcohol Screening: Question Answer Notes Did you [...] Once a day for 90 day(s) Active Pravastatin Sodium 40 MG 1 tablet Orally Daily for 90 days Active Omeprazole 20 MG 1 cap orally Daily for 90 days Active metFORMIN HCl 1000 MG 1 tab orally 1 and half in am, and 1 a t pm for 90 day(s) June, Active Vitamin B-12 500 MG 1 tablet Orally Once a day Active Lancets Delica as directed externally once a day Dec, Active Sertraline HCl 100 MG 1 tablet Orally Once a day for 90 day(s) Active Metoprolol Succinate ER 50 MG 1 tablet Orally Once a day for 30 day(s) Aug, Active Magnesium Oxide 400 MG 1 tablet [...] Information RESULTS No Results REASON FOR VISIT wrong metoprolol MEDICAL (GENERAL) HISTORY Type Description Date Medical [...] sepsis 07/04/2010 Hospitalization History subdural hematoma - [facility] 05/2018 Hospitalization History syncope [facility] 12/2019 Goals Section No Information Health Concerns No Information MEDICAL EQUIPMENT No Information MENTAL STATUS No Information FUNCTIONAL STATUS No Information ASSESSMENTS Encounter Date Diagnosis Assessment Notes Treatment Notes Treatm ent Clinical Notes Aug, Hypertensive heart disease without heart failure (ICD-10 - I11.9) PLAN OF TREATMENT Medication Medication Name Sig Start Date Stop Date Metoprolol Succinate ER 50 MG 1 tablet Orally Once a day for 30 day(s) Aug, Next Appt Details Provider Name:Marvel Berna, 2020-10 02:15:00 PM, [address] , , [place], [address], Insurance Providers Payer Name Payer Address Payer Phone Insured Name Patient Relati onship to Insured Coverage Start Date Coverage End Date MEDICARE Part A and B [address] [facility] [id number] [phone] PAULINO ROBERTSON [facility] [address] [facility] [id number] PAULINO ROBERTSON
--- OUTSIDE RECORDS SUMMARY | 2020-11-23 17:55 | CCD ---
Author Author [facility] Organization [facility] Address Unknown Phone Unavailable Care Team Providers Care Steam Clean Machine Operator Name Role Phone Marvel Coronel Unavailable PROBLEMS Type Condition ICD9-CM Code MFL87-US Code Onset Dates Condition S tatus W/U Status Risk SNOMED Code Notes Problem Depression F32.9 Active confirmed 22237331 Problem GERD (gastroesophageal reflux disease) K21.9 A ctive confirmed 122929801 Problem History of anemia Z86.2 Active confirmed 27 8607769 Problem Patient's other noncompliance with medication regimen Z91.14 Active confirmed 770464186 Problem Incontinence of urine R32 Active confirmed 789151297 Problem Unsteady gait R26.81 Active confirmed 534706 08 Problem Psoriasis and similar disorder L40.8 Active confir med 8191755 Problem Mixed hyperlipidemia E78.2 Active confirmed 149710015 Problem Other screening mammogram Z12.31 Active confirmed 615376324 Problem Vaginal lump N94.9 Active confirmed 8818709 05 Problem Bladder prolapse, female, acquired N81.10 Activ e confirmed 742710600 Problem Essential hypertension I10 Active confirmed 14141498 Problem Other chronic pain G89.29 Active confirmed 8 8828426 Problem Calculus of gallbladder without cholecystitis wi thout obstruction K80.20 Active confirmed 18483832 Problem Hypertensive heart disease without heart failure I 11.9 Active confirmed 13819748 Problem DM2 (diabetes mellitus, type 2) E11.9 Active confi rmed 11296498 Problem Medicare annual wellness visit, subsequent Z00.00 Active confirmed 607834146 Problem Gait instability R26.81 Active confirmed 394 485190 Problem Mixed stress and urge urinary incontinence N39.46 Active confirmed 365919671 Problem Hypomagnesemia E83.42 Active confirmed 33234 5004 ALLERGIES Allergen (clinical drug ingredient) Drug/Non Drug Allergy do cumented on EMR Reaction Allergy Type Onset Date Status chlorthalidone Chlorthalidone([facility][NOTE 3] Code:[address]-53) d ehydration - see 12/16/19 note Drug Allergy Active Ramipril ramipril cough Non Drug Allergy Active Atenolol atenolol bradycardia (2.4 sec pause [facility] 12/25) Non Drug Allergy Active ENCOUNTERS from 1940 to 2020-11-03 Encounter Location Date Provider Diagnosis [facility] [address] [place] [address] Oct, Marvel Coronel IMMUNIZATIONS Vaccine Route Administration Date Status Influenza [...] Education Language: Question Answer Notes Languages spoken: [place] Zealander Yazdanism: Question Answer Notes Yazdanism 13 Anglican Sexual Hx: Question Answer Notes [...] Notes Start Da te End Date Status amLODIPine Besylate 10 MG 1 tablet Orally Once a day for 90 day( s) Jan, Active metFORMIN HCl 1000 MG TAKE 1 1/2 TABLETS BY MOUTH IN THE MORNING AND 1 TABLET IN THE EVENING for 90 day(s) Active Sertraline HCl 100 MG 1 tablet Orally Once a day for 90 day(s) Active Pravastatin Sodium 40 MG 1 tablet Orally Daily for 90 days Active Vitamin B-12 500 MG 1 tablet Orally Once a day Active Lancets Delica as directed externally once a day Dec, 012 Active Potassium Gluconate 595 (99 K) MG 1 tablet Orally Once a day for 90 day(s) Active Omeprazole 20 MG 1 cap orally Daily for 90 days Active Magnesium Oxide 400 MG 1 tablet as needed Orally Once a day June, Active Glimepiride 4 MG 1 tablet with breakfast or t he first main meal of the day Orally Once a day for 90 days June, Ac tive Zinc 50 MG 1 tablet Orally Once a day Active Vitamin D3 _ 1 capsule Orally Once a day Active Metoprolol Succinate ER 50 MG 1 tablet Orally Once a day for 90 day(s) Aug, Active Isosorbide Dinitrate 20 MG TAKE ONE TABLET BY MOUTH TH REE TIMES A DAY Oral for 30 Active PROCEDURES No Information RESULTS No Results REASON FOR VISIT refill MEDICAL (GENERAL) HISTORY Type Description Date Medical [...] sepsis 07/04/2010 Hospitalization History subdural hematoma - [facility] 05/2018 Hospitalization History syncope [facility] 12/2019 Goals Section No Information Health Concerns No Information MEDICAL EQUIPMENT No Information MENTAL STATUS No Information FUNCTIONAL STATUS No Information ASSESSMENTS No Information PLAN OF TREATMENT Medication Medication Name Sig Start Date Stop Date metFORMIN HCl 1000 MG TAKE 1 1/2 TABLETS BY MOUTH IN THE MORNING AND 1 TABLET IN THE EVENING for 90 day(s) Sertraline HCl 100 MG 1 tablet Orally Once a day for 90 day(s) Metoprolol Succinate ER 50 MG 1 tablet Orally Once a day for 90 day(s) Aug, Omeprazole 20 MG 1 cap orally Daily for 90 days Insurance Providers Payer Name Payer Address Payer Phone Insured Name Patient Relati onship to Insured Coverage Start Date Coverage End Date [facility] [address] [facility] [id number] PAULINO ROBERTSON MEDICARE Part A and B [address] [facility] [address] [phone] PAULINO ROBERTSON self
--- OUTSIDE RECORDS SUMMARY | 2020-11-23 17:55 | CCD ---
Author Author [facility] Organization [facility] Address Unknown Phone Unavailable Care Team Providers Care Supervisor Edging Name Role Phone Marvel Coronel Unavailable PROBLEMS Type Condition ICD9-CM Code LCT30-SZ Code Onset Dates Condition S tatus W/U Status Risk SNOMED Code Notes Problem GERD (gastroesophageal reflux disease) K21.9 A ctive confirmed 146208682 Problem DM2 (diabetes mellitus, type 2) E11.9 Active confi rmed 49426883 Problem Patient's other noncompliance with medication regimen Z91.14 Active confirmed 270486144 Problem Depression F32.9 Active confirmed 54440852 Problem Unsteady gait R26.81 Active confirmed 532234 08 Problem History of anemia Z86.2 Active confirmed 27 8512674 Problem Mixed hyperlipidemia E78.2 Active confirmed 816717718 Problem Incontinence of urine R32 Active confirmed 510962300 Problem Other chronic pain G89.29 Active confirmed 8 8719750 Problem Other screening mammogram Z12.31 Active confirmed 551643261 Problem Vaginal lump N94.9 Active confirmed 2795831 05 Problem Hypomagnesemia E83.42 Active confirmed 72578 5004 Problem Hypertensive heart disease without heart failure I 11.9 Active confirmed 92202856 Problem Essential hypertension I10 Active confirmed 66514931 Problem Psoriasis and similar disorder L40.8 Active confir med 2189746 Problem Bladder prolapse, female, acquired N81.10 Activ e confirmed 285533935 Problem Medicare annual wellness visit, subsequent Z00.00 Active confirmed 078991316 Problem Gait instability R26.81 Active confirmed 394 602705 Problem Mixed stress and urge urinary incontinence N39.46 Active confirmed 524781584 ALLERGIES Allergen (clinical drug ingredient) Drug/Non Drug Allergy do cumented on EMR Reaction Allergy Type Onset Date Status chlorthalidone Chlorthalidone([facility] Code:[address]-23) d ehydration - see 12/16/19 note Drug Allergy Active ramipril cough Non Drug Allergy Active atenolol bradycardia (2.4 sec pause [facility] 12/25) Non Drug Allergy Active ENCOUNTERS from 1940 to 2020-08-25 Encounter Location Date Provider Diagnosis [facility] [address] [place] [address] Aug, Marvel Coronel IMMUNIZATIONS Vaccine Route Administration Date [...] Education Language: Question Answer Notes Languages spoken: Romansh Church: Question Answer Notes Church 13 Restorationist Sexual Hx: Question Answer Notes Had sex [...] Notes Start Da te End Date Status Metoprolol Tartrate 25 MG 1 tablet with food Orally daily for 30 Days Jan, Active Magnesium Oxide 400 MG 1 tablet as needed Orally Once a day June, Active Pravastatin Sodium 40 MG 1 tablet Orally Daily for 90 days Active amLODIPine Besylate 10 MG 1 tablet Orally Once a day for 90 day( s) Jan, Active Vitamin D3 _ 1 capsule Orally Once a day Active Lancets Haleigh as directed externally once a day Dec, 012 Active Vitamin B-12 500 MG 1 tablet Orally Once a day Active Sertraline HCl 100 MG 1 tablet Orally Once a day for 90 day(s) Active Isosorbide Dinitrate 20 MG 1 tablet Orally TID for 30 day(s) Feb, Active Potassium Chloride 10 MEQ 4 capsule with food Orally Twice a day June, Unknown Metoprolol Tartrate 25 MG TAKE ONE TABLET BY MOUTH EVERY DAY Oral for 90 day(s) Active Zoloft 100 MG TAKE ONE TABLET BY MOUTH EVERY DAY for 90 Unknown metFORMIN HCl 1000 MG 1 tab orally 1 and half in am, and 1 a t pm for 90 day(s) June, Active Zinc 50 MG 1 tablet Orally Once a day Active Depend Pant Sm/Med - as directed Dx: N81.10, N39.46 2 - 3/ day f or 30 days Nov, Unknown Blood Glucose Test one touch 1 each externally day diag code 250 for 30 day(s) Dec, Unknown Omeprazole 20 MG 1 cap orally Daily for 90 days Active Potassium Gluconate 595 (99 K) MG 1 tablet Orally Once a day for 90 day(s) Active Glimepiride 4 MG 1 tablet with breakfast or t he first main meal of the day Orally Once a day for 90 days June, Ac tive Isosorbide Dinitrate 20 MG TAKE ONE TABLET BY MOUTH TH REE TIMES A DAY Oral for 30 Active PROCEDURES No Information RESULTS No Results REASON FOR VISIT call back high BP and gallstones MEDICAL (GENERAL) HISTORY Type Description Date Medical History osteopenia Medical History Elevated Cholesterol Medical History hypertension Medical History psoriasis Medical History chronic depression Medical History Type 2 DM Medical History DDD/DJD thoracic spine xray 12/21 Medical History CKD3, GFR ~ [address] fatty liver CT 12/23 Medical History pulm fibrosis CT 12/13 Medical [...] with sepsis 07/04/2010 Hospitalization History subdural hematoma [facility] 05/2018 Hospitalization History syncope [facility] 12/2019 Goals Section No Information Health Concerns No Information MEDICAL EQUIPMENT No Information MENTAL STATUS No Information FUNCTIONAL STATUS No Information ASSESSMENTS No Information PLAN OF TREATMENT Next Appt Details Provider Name:Marvel Coronel, 2020-08 09:30:00 AM, [address], , [place], [address], Provider Name:Marvel Coronel 2020-10 10:45:00 AM, [address], , [place], [address], Insurance Providers Payer Name Payer Address Payer Phone Insured Name Patient Relati onship to Insured Coverage Start Date Coverage End Date MEDICARE Part A and B [address] [facility] [address] [phone] PAULINO ROBERTSON [facility] [address] [facility] [id number] [phone] PAULINO ROBERTSON self
--- OUTSIDE RECORDS SUMMARY | 2020-11-23 17:55 | CCD ---
Author Author [facility] Organization [facility] Address Unknown Phone Unavailable Support Name Relationship Address Phone NING BANKS Next Of Kin Unknown VEGA REESE Next Of Kin [address] [place] [address] RETIRED Next Of Kin [address] [place] [address] NING BARRIENTOS Next Of Kin [address] [place] [address] [phone] Purnima ROBERTSON Next Of Kin [address] [place] [address] [place] [address] Un[place] [address] [phone] Ning Barrientos ECON [address] [place] [phone] Unavailable Re-disclosure Warning The records that you are about to access may contain information from federally-assisted alcohol or drug abuse programs. If such information is present, then the following federally mandated warning applies: This information has been disclosed to you from records protected by federal confidentiality rules (42 CFR part 2). The federal rules prohibit you from making any further disclosure of this information unless further disclosure is expressly permitted by the written consent of the person to whom it pertains or as otherwise permitted by 42 CFR part 2. A general authorization for the release of medical or other information is NOT sufficient for this purpose. The Federal rules restrict any use of the information to criminally investigate or prosecute any alcohol or drug abuse patient.The records that you are about to access may contain highly sensitive health information, the redisclosure of which is protected by Article 27-F of the [facility] Public Health law. If you continue you may have access to information: Regarding HIV / AIDS; Provided by facilities licensed or operated by the [facility] Office of Mental Health; or Provided by the [facility] Office for People With Developmental Disabilities. If such information is present, then the following [place] mandated warning applies: This information has been disclosed to you from confidential records which are protected by state law. State law prohibits you from making any further disclosure of this information without the specific written consent of the person to whom it pertains, or as otherwise permitted by law. Any unauthorized further disclosure in violation of state law may result in a fine or senior living sentence or both. A general authorization for the release of medical or other information is NOT sufficient authorization for further disc losure. Family History Family Member Name Family Member Gender Family Member Status Date o f Status Description Data Source(s) Unknown Unknown Problem MEDENT ([facility]) Son-Age of Dx unknown Unknown Unknown Problem MEDENT ([facility], [facility]) Encounters Encounter Providers Location Date Indications Data Source(s ) Unknown [address] [facility] [place] [address] 11/03/2020 12:00:00 AM EDT eCW1 ([facility]) Unknown [address] [facility] [place] [address] 10/08/2020 12:00:00 AM EDT eCW1 ([facility] [place]) Outpatient [address] [facility] [place] [address] 09/01/2020 12:00:00 AM EDT eCW1 ([facility]) Unknown [address] [facility] [place] [address] 09/01/2020 12:00:00 AM EDT eCW1 ([facility]) Unknown [address] [facility] [place] [address] 08/24/2020 12:00:00 AM EDT eCW1 ([facility] [place]) Unknown [address] [facility] [place] [address] 08/18/2020 12:00:00 AM EDT eCW1 ([facility] [place]) Outpatient [address] [facility] [place] [address] 04/13/2020 12:00:00 AM EST eCW1 ([facility] [place]) Unknown [address] [facility] [place] [address] 03/03/2020 12:00:00 AM EST eCW1 ([facility]) Unknown [address] [facility] [place] [address] 02/25/2020 12:00:00 AM EST eCW1 ([facility]) Unknown [address] [facility] [place] [address] 02/19/2020 12:00:00 AM EST eCW1 ([facility]) Unknown [address] [facility] [place] [address] 02/16/2020 12:00:00 AM EST eCW1 ([facility]) TeleMedicine Est. Pt. Level 3 [address] [place] [address] 01/21/2020 12:00:00 AM EST eCW1 ([facility]) Unknown [address] [facility] [place] [address] 01/15/2020 12:00:00 AM EST eCW1 ([facility]) Unknown [address] [facility] [place] [address] 01/10/2020 12:00:00 AM EST eCW1 ([facility]) Office Visit, Est Pt., Level 2 FC [address] [place] [address] 01/09/2020 12:00:00 AM EST eCW1 ([facility]) Unknown [address] [facility] [place] [address] 01/08/2020 12:00:00 AM EST eCW1 ([facility]) Unknown [address] [facility] [place] [address] 01/06/2020 12:00:00 AM EST eCW1 ([facility]) Unknown [address] [facility] [place] [address] 01/06/2020 12:00:00 AM EST eCW1 ([facility]) Outpatient [address] [facility] [place] [address] 12/16/2019 12:00:00 AM EST eCW1 ([facility]) [place] [address] [facility] [place] [address] 11/19/2019 12:00:00 AM EDT eCW1 ([facility]) Outpatient [address] [facility] [place] [address] 11/18/2019 12:00:00 AM EDT eCW1 ([facility]) Immunizations Vaccine Date Status Description Data Source(s) influenza, recombinant, quadrIvalent,injectable, prese rvative free 11/18/2019 11:57:00 AM EDT completed eCW1 ([facility]) influenza, recombinant, quadrIvalent,injectable, prese rvative free 11/18/2019 11:57:00 AM EDT completed eCW1 ([facility]) influenza, recombinant, quadrIvalent,injectable, prese rvative free 11/18/2019 11:57:00 AM EDT completed eCW1 ([facility]) influenza, recombinant, quadrIvalent,injectable, prese rvative free 11/18/2019 11:57:00 AM EDT completed eCW1 ([facility]) influenza, recombinant, quadrIvalent,injectable, prese rvative free 11/18/2019 11:57:00 AM EDT completed eCW1 ([facility]) influenza, recombinant, quadrIvalent,injectable, prese rvative free 11/18/2019 11:57:00 AM EDT completed eCW1 ([facility]) influenza, recombinant, quadrIvalent,injectable, prese rvative free 11/18/2019 11:57:00 AM EDT completed eCW1 ([facility]) influenza, recombinant, quadrIvalent,injectable, prese rvative free 11/18/2019 11:57:00 AM EDT completed eCW1 ([facility]) influenza, recombinant, quadrIvalent,injectable, prese rvative free 11/18/2019 11:57:00 AM EDT completed eCW1 ([facility]) influenza, recombinant, quadrIvalent,injectable, prese rvative free 11/18/2019 11:57:00 AM EDT completed eCW1 ([facility]) influenza, recombinant, quadrIvalent,injectable, prese rvative free 11/18/2019 11:57:00 AM EDT completed eCW1 ([facility]) influenza, recombinant, quadrIvalent,injectable, prese rvative free 11/18/2019 11:57:00 AM EDT completed eCW1 ([facility]) influenza, recombinant, quadrIvalent,injectable, prese rvative free 11/18/2019 11:57:00 AM EDT completed eCW1 ([facility]) influenza, recombinant, quadrIvalent,injectable, prese rvative free 11/18/2019 11:57:00 AM EDT completed eCW1 ([facility]) influenza, recombinant, quadrIvalent,injectable, prese rvative free 11/18/2019 11:57:00 AM EDT completed eCW1 ([facility]) influenza, recombinant, quadrIvalent,injectable, prese rvative free 11/18/2019 11:57:00 AM EDT completed eCW1 ([facility]) influenza, recombinant, quadrIvalent,injectable, prese rvative free 11/18/2019 11:57:00 AM EDT completed eCW1 ([facility]) influenza, recombinant, quadrIvalent,injectable, prese rvative free 11/18/2019 11:57:00 AM EDT completed eCW1 ([facility]) influenza, recombinant, quadrIvalent,injectable, prese rvative free 11/18/2019 11:57:00 AM EDT completed eCW1 ([facility]) influenza, recombinant, quadrIvalent,injectable, prese rvative free 11/18/2019 11:57:00 AM EDT completed eCW1 ([facility]) influenza, recombinant, quadrIvalent,injectable, prese rvative free 11/18/2019 11:57:00 AM EDT completed eCW1 ([facility]) Medications Medication Brand Name Start Date Product Form Dose Route Admi nistrative Instructions Pharmacy Instructions Status Indications Reaction Description Data Source(s) 50 mg 11/04/2020 12:00:00 AM EDT tablet extended release 24 hr 90 TAKE ONE TABLET BY MOUTH EVERY DAY TAKE ONE TABLET BY MOUTH EVERY DAY SOLD: 11/17/2020 [facility] 100 mg 11/04/2020 12:00:00 AM EDT tablet 90 TAKE ONE TABLET BY MOUTH EVERY DAY TAKE ONE TABLET BY MOUTH EVERY DAY SOLD: 11/17/2020 [facility] 20 mg 11/04/2020 12:00:00 AM EDT capsule,delayed release (DR/EC) 90 TAKE ONE CAPSULE BY MOUTH EVERY DAY TAKE ONE CAPSULE BY MOUTH EVERY DAY SOLD: 11/17/2020 [facility] 1,000 mg 10/08/2020 12:00:00 AM EDT tablet 225 TAKE 1 AND 1/2 TABLET BY MOUTH IN THE MORNING AND 1 TABLET IN THE EVENING TAKE 1 AND 1/2 TABLET BY MOUTH IN THE MORNING AND 1 TABLET IN THE EVENING SOLD: 10/08/2020 [facility] 50 mg 09/03/2020 12:00:00 AM EDT tablet extended release 24 hr 30 TAKE ONE TABLET BY MOUTH EVERY DAY TAKE ONE TABLET BY MOUTH EVERY DAY SOLD: 09/03/2020 [facility] 24 HR metoprolol succinate 50 MG Extende d Release Oral Tablet Metoprolol Succinate ER 50 MG Metoprolol Succinate ER 50 MG 09/01/2020 12:00:00 AM EDT 1.0 {tablet} active Metoprolol Succinat e ER 50 MG eCW1 ([facility]) 24 HR metoprolol succinate 50 MG Extende d Release Oral Tablet Metoprolol Succinate ER 50 MG Metoprolol Succinate ER 50 MG 09/01/2020 12:00:00 AM EDT 1.0 {tablet} active Metoprolol Succinat e ER 50 MG eCW1 ([facility]) 24 HR metoprolol succinate 50 MG Extende d Release Oral Tablet Metoprolol Succinate ER 50 MG Metoprolol Succinate ER 50 MG 09/01/2020 12:00:00 AM EDT 1.0 {tablet} active Metoprolol Succinat e ER 50 MG eCW1 ([facility]) 24 HR metoprolol succinate 50 MG Extende d Release Oral Tablet Metoprolol Succinate ER 50 MG Metoprolol Succinate ER 50 MG 09/01/2020 12:00:00 AM EDT 1.0 {tablet} active Metoprolol Succinat e ER 50 MG eCW1 ([facility]) 20 mg 03/04/2020 12:00:00 AM EST tablet 90 TAKE ONE TABLET BY MOUTH THREE TIMES A DAY TAKE ONE TABLET BY MOUTH THREE TIMES A DAY SOLD: 10/12/2020 [facility] 20 mg 03/04/2020 12:00:00 AM EST tablet 90 TAKE ONE TABLET BY MOUTH THREE TIMES A DAY TAKE ONE TABLET BY MOUTH THREE TIMES A DAY SOLD: 04/23/2020 [facility] 20 mg 03/04/2020 12:00:00 AM EST tablet 90 TAKE ONE TABLET BY MOUTH THREE TIMES A DAY TAKE ONE TABLET BY MOUTH THREE TIMES A DAY SOLD: 03/04/2020 [facility] Isosorbide Dinitrate 20 MG Oral Tablet Isosorbide Dinitrate 20 MG 03/03/2020 12:00:00 AM EST 1.0 {tablet} active Is osorbide Dinitrate 20 MG eCW1 ([facility]) Isosorbide Dinitrate 20 MG Oral Tablet Isosorbide Dinitrate 20 MG 03/03/2020 12:00:00 AM EST 1.0 {tablet} active Is osorbide Dinitrate 20 MG eCW1 ([facility]) Isosorbide Dinitrate 20 MG Oral Tablet Isosorbide Dinitrate 20 MG 03/03/2020 12:00:00 AM EST 1.0 {tablet} active Is osorbide Dinitrate 20 MG eCW1 ([facility]) Isosorbide Dinitrate 20 MG Oral Tablet Isosorbide Dinitrate 20 MG 03/03/2020 12:00:00 AM EST 1.0 {tablet} active Is osorbide Dinitrate 20 MG eCW1 ([facility]) glimepiride 4 MG Oral Tablet GLIMEPIRIDE 02/19/2020 12:00:00 AM EST ta blet 90 TAKE 1 TABLET BY MOUTH WITH BREAKFAST OR THE FIRST MAIN MEAL OF THE DAY TAKE 1 TABLET BY MOUTH WITH BREAKFAST OR THE FIRST MAIN MEAL OF THE DAY SOLD: 02/21/2020 [facility] 20 mg 02/19/2020 12:00:00 AM EST capsule,delayed release (DR/EC) 90 TAKE ONE CAPSULE BY MOUTH EVERY DAY TAKE ONE CAPSULE BY MOUTH EVERY DAY SOLD: 05/22/2020 [facility] 40 mg 02/19/2020 12:00:00 AM EST tablet 90 TAKE ONE TABLET BY MOUTH EVERY DAY TAKE ONE TABLET BY MOUTH EVERY DAY SOLD: 10/28/2020 [facility] glimepiride 4 MG Oral Tablet GLIMEPIRIDE 02/19/2020 12:00:00 AM EST ta blet 90 TAKE 1 TABLET BY MOUTH WITH BREAKFAST OR THE FIRST MAIN MEAL OF THE DAY TAKE 1 TABLET BY MOUTH WITH BREAKFAST OR THE FIRST MAIN MEAL OF THE DAY SOLD: 07/29/2020 [facility] 100 mg 02/19/2020 12:00:00 AM EST tablet 90 TAKE ONE TABLET BY MOUTH EVERY DAY TAKE ONE TABLET BY MOUTH EVERY DAY SOLD: 02/21/2020 [facility] 40 mg 02/19/2020 12:00:00 AM EST tablet 90 TAKE ONE TABLET BY MOUTH EVERY DAY TAKE ONE TABLET BY MOUTH EVERY DAY SOLD: 02/21/2020 [facility] 20 mg 02/19/2020 12:00:00 AM EST capsule,delayed release (DR/EC) 90 TAKE ONE CAPSULE BY MOUTH EVERY DAY TAKE ONE CAPSULE BY MOUTH EVERY DAY SOLD: 07/29/2020 [facility] 25 mg 02/19/2020 12:00:00 AM EST tablet 90 TAKE ONE TABLET BY MOUTH EVERY DAY TAKE ONE TABLET BY MOUTH EVERY DAY SOLD: 02/21/2020 [facility] 100 mg 02/19/2020 12:00:00 AM EST tablet 90 TAKE ONE TABLET BY MOUTH EVERY DAY TAKE ONE TABLET BY MOUTH EVERY DAY SOLD: 08/23/2020 [facility] glimepiride 4 MG Oral Tablet GLIMEPIRIDE 02/19/2020 12:00:00 AM EST ta blet 90 TAKE 1 TABLET BY MOUTH WITH BREAKFAST OR THE FIRST MAIN MEAL OF THE DAY TAKE 1 TABLET BY MOUTH WITH BREAKFAST OR THE FIRST MAIN MEAL OF THE DAY SOLD: 05/22/2020 [facility] 20 mg 02/19/2020 12:00:00 AM EST capsule,delayed release (DR/EC) 90 TAKE ONE CAPSULE BY MOUTH EVERY DAY TAKE ONE CAPSULE BY MOUTH EVERY DAY SOLD: 02/21/2020 [facility] 40 mg 02/19/2020 12:00:00 AM EST tablet 90 TAKE ONE TABLET BY MOUTH EVERY DAY TAKE ONE TABLET BY MOUTH EVERY DAY SOLD: 07/29/2020 [facility] 10 mg 02/19/2020 12:00:00 AM EST tablet 90 TAKE ONE TABLET BY MOUTH EVERY DAY TAKE ONE TABLET BY MOUTH EVERY DAY SOLD: 05/05/2020 [facility] Metformin hydrochloride 1000 MG Oral Tablet 1,000 mg METFORM IN HCL 02/19/2020 12:00:00 AM EST tablet 225 TAKE 1 1/2 TABLE TS BY MOUTH IN THE MORNING AND 1 TABLET IN THE EVENING TAKE 1 1/2 TABLETS BY MOUTH IN THE MORNI NG AND 1 TABLET IN THE EVENING SOLD: 02/21/2020 [facility] 10 mg 02/19/2020 12:00:00 AM EST tablet 90 TAKE ONE TABLET BY MOUTH EVERY DAY TAKE ONE TABLET BY MOUTH EVERY DAY SOLD: 02/21/2020 [facility] 1,000 mg 02/19/2020 12:00:00 AM EST tablet 225 TAKE 1 1/2 TABLETS BY MOUTH IN THE MORNING AND 1 TABLET IN THE EVENING TAKE 1 1/2 TABLETS BY MOUTH IN THE MORNING AND 1 TABLET IN THE EVENING SOLD: 05/22/2020 [facility] 25 mg 02/19/2020 12:00:00 AM EST tablet 90 TAKE ONE TABLET BY MOUTH EVERY DAY TAKE ONE TABLET BY MOUTH EVERY DAY SOLD: 05/22/2020 [facility] Metoprolol Tartrate 25 MG Oral Tablet Metoprolol Tartrate 25 MG 01/14/2020 12:00:00 AM EST 1.0 {tablet_with_food} active Metoprolol Tartrate 25 MG eCW1 ([facility]) Metoprolol Tartrate 25 MG Oral Tablet Metoprolol Tartrate 25 MG 01/14/2020 12:00:00 AM EST 1.0 {tablet_with_food} active Metoprolol Tartrate 25 MG eCW1 ([facility]) Amlodipine 10 MG Oral Tablet amLODIPine Besylate 10 MG amLODIPine Besylate 10 MG 01/14/2020 12:00:00 AM EST 1.0 {tablet} activ e amLODIPine Besylate 10 MG eCW1 ([facility]) Amlodipine 10 MG Oral Tablet AmLODIPine Besylate 10 MG AmLODIPine Besylate 10 MG 01/14/2020 12:00:00 AM EST 1.0 {tablet} activ e AmLODIPine Besylate 10 MG eCW1 ([facility]) Amlodipine 10 MG Oral Tablet amLODIPine Besylate 10 MG amLODIPine Besylate 10 MG 01/14/2020 12:00:00 AM EST 1.0 {tablet} activ e amLODIPine Besylate 10 MG eCW1 ([facility]) Amlodipine 10 MG Oral Tablet AmLODIPine Besylate 10 MG AmLODIPine Besylate 10 MG 01/14/2020 12:00:00 AM EST 1.0 {tablet} activ e AmLODIPine Besylate 10 MG eCW1 ([facility]) Metoprolol Tartrate 25 MG Oral Tablet Metoprolol Tartrate 25 MG 01/14/2020 12:00:00 AM EST 1.0 {tablet_with_food} active Metoprolol Tartrate 25 MG eCW1 ([facility]) Metoprolol Tartrate 25 MG Oral Tablet Metoprolol Tartrate 25 MG 01/14/2020 12:00:00 AM EST 1.0 {tablet_with_food} active Metoprolol Tartrate 25 MG eCW1 ([facility]) Metoprolol Tartrate 25 MG Oral Tablet Metoprolol Tartrate 25 MG 01/14/2020 12:00:00 AM EST 1.0 {tablet_with_food} active Metoprolol Tartrate 25 MG eCW1 ([facility]) Metoprolol Tartrate 25 MG Oral Tablet Metoprolol Tartrate 25 MG 01/14/2020 12:00:00 AM EST 1.0 {tablet_with_food} active Metoprolol Tartrate 25 MG eCW1 ([facility]) Amlodipine 10 MG Oral Tablet AmLODIPine Besylate 10 MG AmLODIPine Besylate 10 MG 01/14/2020 12:00:00 AM EST 1.0 {tablet} activ e AmLODIPine Besylate 10 MG eCW1 ([facility]) Metoprolol Tartrate 25 MG Oral Tablet Metoprolol Tartrate 25 MG 01/14/2020 12:00:00 AM EST 1.0 {tablet_with_food} active Metoprolol Tartrate 25 MG eCW1 ([facility]) Amlodipine 10 MG Oral Tablet amLODIPine Besylate 10 MG amLODIPine Besylate 10 MG 01/14/2020 12:00:00 AM EST 1.0 {tablet} activ e amLODIPine Besylate 10 MG eCW1 ([facility]) Metoprolol Tartrate 25 MG Oral Tablet Metoprolol Tartrate 25 MG 01/14/2020 12:00:00 AM EST 1.0 {tablet_with_food} active Metoprolol Tartrate 25 MG eCW1 ([facility]) Amlodipine 10 MG Oral Tablet amLODIPine Besylate 10 MG amLODIPine Besylate 10 MG 01/14/2020 12:00:00 AM EST 1.0 {tablet} activ e amLODIPine Besylate 10 MG eCW1 ([facility]) 25 mg 01/14/2020 12:00:00 AM EST tablet 30 TAKE ONE TABLET BY MOUTH EVERY DAY TAKE ONE TABLET BY MOUTH EVERY DAY SOLD: 01/19/2020 [facility] Amlodipine 10 MG Oral Tablet amLODIPine Besylate 10 MG amLODIPine Besylate 10 MG 01/14/2020 12:00:00 AM EST 1.0 {tablet} activ e amLODIPine Besylate 10 MG eCW1 ([facility]) Metoprolol Tartrate 25 MG Oral Tablet Metoprolol Tartrate 25 MG 01/14/2020 12:00:00 AM EST 1.0 {tablet_with_food} active Metoprolol Tartrate 25 MG eCW1 ([facility]) Amlodipine 10 MG Oral Tablet AmLODIPine Besylate 10 MG AmLODIPine Besylate 10 MG 01/14/2020 12:00:00 AM EST 1.0 {tablet} activ e AmLODIPine Besylate 10 MG eCW1 ([facility]) Amlodipine 10 MG Oral Tablet amLODIPine Besylate 10 MG amLODIPine Besylate 10 MG 01/14/2020 12:00:00 AM EST 1.0 {tablet} activ e amLODIPine Besylate 10 MG eCW1 ([facility]) Amlodipine 10 MG Oral Tablet AmLODIPine Besylate 10 MG AmLODIPine Besylate 10 MG 01/14/2020 12:00:00 AM EST 1.0 {tablet} activ e AmLODIPine Besylate 10 MG eCW1 ([facility]) Amlodipine 10 MG Oral Tablet AmLODIPine Besylate 10 MG AmLODIPine Besylate 10 MG 01/14/2020 12:00:00 AM EST 1.0 {tablet} activ e AmLODIPine Besylate 10 MG eCW1 ([facility]) Amlodipine 10 MG Oral Tablet AmLODIPine Besylate 10 MG AmLODIPine Besylate 10 MG 01/14/2020 12:00:00 AM EST 1.0 {tablet} activ e AmLODIPine Besylate 10 MG eCW1 ([facility]) 20 mg 01/06/2020 12:00:00 AM EST tablet 90 TAKE ONE TABLET BY MOUTH THREE TIMES A DAY TAKE ONE TABLET BY MOUTH THREE TIMES A DAY SOLD: 01/06/2020 [facility] Isosorbide Dinitrate 20 MG Oral Tablet Isosorbide Dinitrate 20 MG 01/05/2020 12:00:00 AM EST 1.0 {tablet} active Is osorbide Dinitrate 20 MG eCW1 ([facility]) Isosorbide Dinitrate 20 MG Oral Tablet Isosorbide Dinitrate 20 MG 01/05/2020 12:00:00 AM EST 1.0 {tablet} active Is osorbide Dinitrate 20 MG eCW1 ([facility]) Isosorbide Dinitrate 20 MG Oral Tablet Isosorbide Dinitrate 20 MG 01/05/2020 12:00:00 AM EST 1.0 {tablet} active Is osorbide Dinitrate 20 MG eCW1 ([facility]) Isosorbide Dinitrate 20 MG Oral Tablet Isosorbide Dinitrate 20 MG 01/05/2020 12:00:00 AM EST 1.0 {tablet} active Is osorbide Dinitrate 20 MG eCW1 ([facility]) Isosorbide Dinitrate 20 MG Oral Tablet Isosorbide Dinitrate 20 MG 01/05/2020 12:00:00 AM EST 1.0 {tablet} active Is osorbide Dinitrate 20 MG eCW1 ([facility]) Isosorbide Dinitrate 20 MG Oral Tablet Isosorbide Dinitrate 20 MG 01/05/2020 12:00:00 AM EST 1.0 {tablet} active Is osorbide Dinitrate 20 MG eCW1 ([facility]) Isosorbide Dinitrate 20 MG Oral Tablet Isosorbide Dinitrate 20 MG 01/05/2020 12:00:00 AM EST 1.0 {tablet} active Is osorbide Dinitrate 20 MG eCW1 ([facility]) 10 mg 01/02/2020 12:00:00 AM EST tablet 30 TAKE ONE TABLET BY MOUTH EVERY DAY TAKE ONE TABLET BY MOUTH EVERY DAY SOLD: 01/05/2020 [facility] Depend Pant Sm/Med - Depend Pant Sm/Med - 11/18/2019 12:00:00 AM EDT active Depend Pant Sm/Med - eCW1 ([facility]) Depend Pant Sm/Med - Depend Pant Sm/Med - 11/18/2019 12:00:00 AM EDT active Depend Pant Sm/Med - eCW1 ([facility]) Depend Pant Sm/Med - Depend Pant Sm/Med - 11/18/2019 12:00:00 AM EDT active Depend Pant Sm/Med - eCW1 ([facility]) Depend Pant Sm/Med - Depend Pant Sm/Med - 11/18/2019 12:00:00 AM EDT active Depend Pant Sm/Med - eCW1 ([facility]) Depend Pant Sm/Med - Depend Pant Sm/Med - 11/18/2019 12:00:00 AM EDT active Depend Pant Sm/Med - eCW1 ([facility]) Depend Pant Sm/Med - Depend Pant Sm/Med - 11/18/2019 12:00:00 AM EDT active Depend Pant Sm/Med - eCW1 ([facility]) Depend Pant Sm/Med - Depend Pant Sm/Med - 11/18/2019 12:00:00 AM EDT active Depend Pant Sm/Med - eCW1 ([facility]) Depend Pant Sm/Med - Depend Pant Sm/Med - 11/18/2019 12:00:00 AM EDT active Depend Pant Sm/Med - eCW1 ([facility]) Depend Pant Sm/Med - Depend Pant Sm/Med - 11/18/2019 12:00:00 AM EDT active Depend Pant Sm/Med - eCW1 ([facility]) Depend Pant Sm/Med - Depend Pant Sm/Med - 11/18/2019 12:00:00 AM EDT active Depend Pant Sm/Med - eCW1 ([facility]) Depend Pant Sm/Med - Depend Pant Sm/Med - 11/18/2019 12:00:00 AM EDT active Depend Pant Sm/Med - eCW1 ([facility]) Depend Pant Sm/Med - Depend Pant Sm/Med - 11/18/2019 12:00:00 AM EDT active Depend Pant Sm/Med - eCW1 ([facility]) Depend Pant Sm/Med - Depend Pant Sm/Med - 11/18/2019 12:00:00 AM EDT active Depend Pant Sm/Med - eCW1 ([facility]) Depend Pant Sm/Med - Depend Pant Sm/Med - 11/18/2019 12:00:00 AM EDT active Depend Pant Sm/Med - eCW1 ([facility]) Depend Pant Sm/Med - Depend Pant Sm/Med - 11/18/2019 12:00:00 AM EDT active Depend Pant Sm/Med - eCW1 ([facility]) Depend Pant Sm/Med - Depend Pant Sm/Med - 11/18/2019 12:00:00 AM EDT active Depend Pant Sm/Med - eCW1 ([facility]) Depend Pant Sm/Med - Depend Pant Sm/Med - 11/18/2019 12:00:00 AM EDT active Depend Pant Sm/Med - eCW1 ([facility]) 25 mg 07/29/2019 12:00:00 AM EDT tablet 45 TAKE ONE-HALF TABLET BY MOUTH EVERY DAY TAKE ONE-HALF TABLET BY MOUTH EVERY DAY SOLD: 10/22/2019 [facility] glimepiride 4 MG Oral Tablet GLIMEPIRIDE 02/18/2019 12:00:00 AM EST ta blet 90 TAKE 1 TABLET BY MOUTH WITH BREAKFAST OR THE FIRST MAIN MEAL OF THE DAY TAKE 1 TABLET BY MOUTH WITH BREAKFAST OR THE FIRST MAIN MEAL OF THE DAY SOLD: 10/22/2019 [facility] 40 mg 01/17/2019 12:00:00 AM EST tablet 90 TAKE ONE TABLET BY MOUTH EVERY DAY TAKE ONE TABLET BY MOUTH EVERY DAY SOLD: 10/22/2019 [facility] 100 mg 01/17/2019 12:00:00 AM EST tablet 90 TAKE ONE TABLET BY MOUTH EVERY DAY TAKE ONE TABLET BY MOUTH EVERY DAY SOLD: 10/22/2019 [facility] Metformin hydrochloride 1000 MG Oral Tablet 1,000 mg METFORM IN HCL 01/17/2019 12:00:00 AM EST tablet 225 TAKE ONE AND ONE -HALF TABLET BY MOUTH IN THE MORNING, AND ONE TABLET IN THE EVENING TAKE ONE AND ONE-HALF TABLET BY MOUTH IN THE MORNING, AND ONE TABLET IN THE EVENING SOLD: 10/22/2019 [facility] 20 mg 01/17/2019 12:00:00 AM EST capsule,delayed release (DR/EC) 90 TAKE ONE CAPSULE BY MOUTH EVERY DAY TAKE ONE CAPSULE BY MOUTH EVERY DAY SOLD: 10/22/2019 [facility] Insurance Providers Payer name Policy type / Coverage type Policy ID Covered democrat ID Covered democrat's relationship to church Policy Church Plan Information [id number] [facility] [id number] SP [id number] MEDICARE [id number] SP [id number] A [id number] A MEDICARE A [id number] Self [id number] [id number] MEDICARE [id number] SP [id number] [id number] [facility] [id number] SP [id number] [facility] [id number] Self [id number] [facility] [id number] SP [id number] [facility] [id number] SP [id number] MEDICARE [id number] SP [id number] A ANSI-Commercial [id number] ANSI-Medicare Part B [id number] ANSI-Commercial [id number] ANSI-Medicare Part B [id number] ANSI-Commercial [id number] ANSI-Medicare Part B [id number] [facility] [id number] ANSI-Commercial [id number] ANSI-Medicare Part B [id number] ANSI-Commercial [id number] ANSI-Medicare Part B [id number] ANSI-Commercial [id number] ANSI-Medicare Part B [id number] ANSI-Commercial [id number] ANSI-Medicare Part B [id number] ANSI-Medicare Part B [id number] ANSI-Commercial [id number] ANS-Medicare Part B [id number] ANSI-Commercial [id number] [place] Medicare Primary [id number] Self [id number] [facility] Part B [id number] Self [id number] Medicare [facility] Medicare Primary [id number] Self [id number] [facility] [id number] ANSI-Commercial [id number] ANS-Medicare Part B [id number] ANSI-Commercial [id number] [facility] [id number] SP [id number] ANSI-Commercial [id number] ANSI-Medicare Part B [id number] ANSI-Medicare Part B [id number] ANSI-Commercial [id number] [place] Medicare Primary [id number] Self [id number] [facility] Part B [id number] Self [id number] Medicare [place] Medicare Primary [id number] Self [id number] MEDICARE [id number] SP [id number] [id number] ANSI-Commercial [id number] ANSI-Medicare Part B [id number] ANSI-Commercial [id number] [facility] [id number] [facility] [id number] ANSI-Commercial [id number] MEDICARE [id number] SP [id number] [id number] Medicare [place] Medicare Primary [id number] Self [facility] Medigap Part B [id number] Self Medicare Natl Gov't Servi Medicare Primary [id number] Self BCBS [facility] [id number] SP [id number] [employer] S [id number] S [id number] MEDICARE P [id number] S [id number] A [facility] Medigap Part B [id number] Self [employer] [id number] SP [id number] [employer] [place] [id number] SP [id number] MEDICARE [id number] SP [id number] [id number] [facility] [id number] SP [id number] [employer] [place] [id number] SP [id number] [employer] O [id number] S [id number] MEDICARE C [id number] S [id number] [id number] [employer] [place] UNAVAILABLE UNAVAILABLE Problems, Conditions, and Diagnoses Code Display Name Description Problem Type Effective Dates Data Source(s) K80.20 [id number] Calculus of gallblad michelle without cholecystitis without obstruction Problem 09/01/2020 12:00:00 AM EDT eCW1 ([facility]) I10 [id number] Essential hypertension Problem 11/19/2019 12 :00:00 AM EDT eCW1 ([facility]) E83.42 Hypomagnesemia Hypomagnesemia Problem 11/18/2019 12:00: 00 AM EDT eCW1 ([facility]) N39.46 [id number] Mixed stress and urge urinary incontinenc e Problem 11/18/2019 12:00:00 AM EDT eCW1 ([facility]) Surgeries/Procedures Procedure Description Date Indications Data Source(s) Immunization: Flublok Quadrivalent (18 years & older) 0.5mL IM (Influenza) 11/18/2019 12:00:00 AM EDT eCW1 ([facility]) Results ID Date Data Source LIPID PANEL (CARDIAC RISK) 04/13/2020 12:00:00 AM EST eCW1 ( [facility]) Name Value Range Interpretation Code Description Data Chantale rce(s) Supporting Document(s) Cholesterol in HDL [Moles/volume] in Serum or Plasma 55 >40 HDL CHOLESTEROL eCW1 ([facility]) Cholesterol in LDL [Mass/volume] in Serum or Plasma by calculation 84 <100 LDL CHOLESTEROL eC1 ([facility]) Cholesterol [Moles/volume] in Serum or Plasma 175 <200 CHOLESTEROL LEVEL eCW1 ([facility]) Triglyceride [Mass/volume] in Serum or Plasma by calculation 181 <150 TRIGLYCERIDES LEVEL [facility]1 ([facility]) 3.181 <5 CHOLESTEROL RISK RATIO eCW1 ([facility]) 120 NON-HDL-C eCW1 ([facility]) ID Date Data Source MAGNESIUM LEVEL 04/13/2020 12:00:00 AM EST eCW1 ([facility]) Name Value Range Interpretation Code Description Data Chantale rce(s) Supporting Document(s) 1.7 1.8-2.4 MAGNESIUM LEVEL eCW1 ([facility]) ID Date Data Source [id number] 04/13/2020 12:00:00 AM EST eCW1 ([facility]) Name Value Range Interpretation Code Description Data Chantale rce(s) Supporting Document(s) Hemoglobin A1c/Hemoglobin.total in Blood 7.3 HEMOGLOBIN A1c eCW1 ([facility]) ID Date Data Source Comprehensive Metabolic Profile (CMP) 04/13/2020 12:00:00 AM EST eCW1 ([facility]) Name Value Range Interpretation Code Description Data Chantale rce(s) Supporting Document(s) 21 7-18 BLOOD UREA NITROGEN eCW1 ([facility]) 1.16 0.55-1.30 CREATININE FOR GFR eCW1 ([facility]) 47.9 >32 GLOMERULAR FILTRATION RATE eCW 1 ([facility]) 209 70-100 GLUCOSE, FASTING eCW1 ([facility]) 4.1 3.5-5.1 POTASSIUM SERUM eCW1 ([facility]) 138 136-145 SODIUM LEVEL eCW1 ([facility]) 104 98-107 CHLORIDE LEVEL eCW1 ([facility]) 27 21-32 CARBON DIOXIDE LEVEL eCW1 ([facility]) 17 12-78 ALT/SGPT eCW1 ([facility]) 16 7-37 AST/SGOT eCW1 ([facility]) 66 45-117 ALKALINE PHOSPHATASE eCW1 ([facility]) 9.9 8.8-10.2 CALCIUM LEVEL eCW1 ([facility]) 0.2 0.2-1.0 BILIRUBIN,TOTAL eCW1 ([facility]) 7.5 6.4-8.2 TOTAL PROTEIN eCW1 ([facility]) 1.0 1.2-2.2 ALBUMIN/GLOBULIN RATIO eCW1 ([facility]) 3.7 3.2-5.2 ALBUMIN eCW1 ([facility]) ID Date Data Source CBC - Complete Blood Count 04/13/2020 12:00:00 AM EST eCW1 ( [facility]) Name Value Range Interpretation Code Description Data Chantale rce(s) Supporting Document(s) 6.9 4.0-10.0 WHITE BLOOD COUNT eCW1 ([facility]) 4.44 4.00-5.40 RED BLOOD COUNT eCW1 ([facility]) 11.9 12.0-15.5 HEMOGLOBIN eCW1 ([facility]) 38.8 36.0-47.0 HEMATOCRIT eCW1 ([facility]) 30.7 32.0-36.5 MEAN CORPUSCULAR HGB CONC eCW1 ([facility]) 14.0 11.5-14.5 RED CELL DISTRIBUTION WID TH eCW1 ([facility]) 87.4 80.0-96.0 MEAN CORPUSCULAR VOLUME e CW1 ([facility]) 26.8 27.0-33.0 MEAN CORPUSCULAR HEMOGLOB IN eCW1 ([facility]) 262 150-450 PLATELET COUNT, AUTOMATED eCW1 ([facility]) ID Date Data Source [id number] 01/10/2020 11:14:00 PM EST [facility] Name Value Range Interpretation Code Description Data Chantale rce(s) Supporting Document(s) SARS coronavirus 2 RNA [Presence] in Res piratory specimen by VALE with probe detection [facility] This lab was ordered by [facility] a nd reported by [facility]. ID Date Data Source [id number] 11/20/2019 08:34:14 AM EDT eCW1 ([facility]) Name Value Range Interpretation Code Description Data Chantale rce(s) Supporting Document(s) 880 eCW1 ([facility]) 5.4 eCW1 ([facility]) ID Date Data Source FREE T4 & TSH PANEL 11/20/2019 08:34:09 AM EDT eCW1 ([facility]) Name Value Range Interpretation Code Description Data Chantale rce(s) Supporting Document(s) 3.400 eCW1 ([facility]) 0.94 eCW1 ([facility]) Procedure Social History Code Duration Value Status Description Data Source(s ) Smoking 09/01/2020 12:00:00 AM EDT Never Smoker completed Never S moker eCW1 ([facility]) Smoking 09/01/2020 12:00:00 AM EDT Never Smoker completed Never S moker eCW1 ([facility]) Smoking 09/01/2020 12:00:00 AM EDT Never Smoker completed Never S moker eCW1 ([facility]) Smoking 09/01/2020 12:00:00 AM EDT Never Smoker completed Never S moker eCW1 ([facility]) Smoking 04/13/2020 12:00:00 AM EST Never Smoker completed Never S moker eCW1 ([facility]) Smoking 04/13/2020 12:00:00 AM EST Never Smoker completed Never S moker eCW1 ([facility]) Smoking 04/13/2020 12:00:00 AM EST Never Smoker completed Never S moker eCW1 ([facility]) Smoking 01/21/2020 12:00:00 AM EST Never Smoker completed Never S moker eCW1 ([facility]) Smoking 01/21/2020 12:00:00 AM EST Never Smoker completed Never S moker eCW1 ([facility]) Smoking 01/21/2020 12:00:00 AM EST Never Smoker completed Never S moker eCW1 ([facility]) Smoking 01/21/2020 12:00:00 AM EST Never Smoker completed Never S moker eCW1 ([facility]) Smoking 01/21/2020 12:00:00 AM EST Never Smoker completed Never S moker eCW1 ([facility]) Smoking 01/09/2020 12:00:00 AM EST Never Smoker completed Never S moker eCW1 ([facility]) Smoking 01/09/2020 12:00:00 AM EST Never Smoker completed Never S moker eCW1 ([facility]) Smoking 01/09/2020 12:00:00 AM EST Never Smoker completed Never S moker eCW1 ([facility]) Smoking 01/09/2020 12:00:00 AM EST Never Smoker completed Never S moker eCW1 ([facility]) Smoking 12/16/2019 12:00:00 AM EST Never Smoker completed Never S moker eCW1 ([facility]) Smoking 12/16/2019 12:00:00 AM EST Never Smoker completed Never S moker eCW1 ([facility]) Smoking 12/16/2019 12:00:00 AM EST Never Smoker completed Never S moker eCW1 ([facility]) Smoking 11/18/2019 12:00:00 AM EDT Never Smoker completed Never S moker eCW1 ([facility]) Smoking 11/18/2019 12:00:00 AM EDT Never Smoker completed Never S moker eCW1 ([facility]) Vital Signs ID Date Data Source UNK Name Value Range Interpretation Code Description Data Source(s) Body weight 135.4 [lb_av] 135.4 [lb_av] eCW1 ([facility]) Body height 62.75 [in_i] 62.75 [in_i] eCW1 ([facility]) Body mass index (BMI) [Ratio] 24.17 kg/m2 24.17 kg/m2 eCW1 ([facility]) Heart rate 104 /min 104 /min eCW1 ([facility]) Respiratory rate 18 /min 18 /min eCW1 ([facility]) Body temperature 97.7 [degF] 97.7 [degF] eCW1 ( [facility]) Systolic blood pressure 142 mm[Hg] 142 mm[Hg] e CW1 ([facility]) Diastolic blood pressure 86 mm[Hg] 86 mm[Hg] eCW1 ([facility]) Body weight 144 [lb_av] 144 [lb_av] eCW1 ([facility]) Body height 62.75 [in_i] 62.75 [in_i] eCW1 ([facility]) Body mass index (BMI) [Ratio] 25.71 kg/m2 25.71 kg/m2 eCW1 ([facility]) Heart rate 88 /min 88 /min eCW1 ([facility]) Respiratory rate 18 /min 18 /min eCW1 ([facility]) Body temperature 97.1 [degF] 97.1 [degF] eCW1 ( [facility]) Systolic blood pressure 144 mm[Hg] 144 mm[Hg] e CW1 ([facility]) Diastolic blood pressure 74 mm[Hg] 74 mm[Hg] eCW1 ([facility]) Body weight 143 [lb_av] 143 [lb_av] eCW1 ([facility]) Body height 62.75 [in_i] 62.75 [in_i] eCW1 ([facility]) Body mass index (BMI) [Ratio] 25.53 kg/m2 25.53 kg/m2 eCW1 ([facility]) Heart rate 74 /min 74 /min eCW1 ([facility]) Respiratory rate 18 /min 18 /min eCW1 ([facility]) Body temperature 97.3 [degF] 97.3 [degF] eCW1 ( [facility]) Systolic blood pressure 140 mm[Hg] 140 mm[Hg] e CW1 ([facility]) Diastolic blood pressure 70 mm[Hg] 70 mm[Hg] eCW1 ([facility]) Body weight 145.6 [lb_av] 145.6 [lb_av] eCW1 ([facility]) Body height 62.75 [in_i] 62.75 [in_i] eCW1 ([facility]) Body mass index (BMI) [Ratio] 25.99 kg/m2 25.99 kg/m2 eCW1 ([facility]) Heart rate 79 /min 79 /min eCW1 ([facility]) Respiratory rate 18 /min 18 /min eCW1 ([facility]) Body temperature 98.2 [degF] 98.2 [degF] eCW1 ( [facility]) Systolic blood pressure 120 mm[Hg] 120 mm[Hg] e CW1 ([facility]) Diastolic blood pressure 70 mm[Hg] 70 mm[Hg] eCW1 ([facility]) Body weight 144 [lb_av] 144 [lb_av] eCW1 ([facility]) Body height 62.75 [in_i] 62.75 [in_i] eCW1 ([facility]) Body mass index (BMI) [Ratio] 25.71 kg/m2 25.71 kg/m2 eCW1 ([facility]) Heart rate 95 /min 95 /min eCW1 ([facility]) Respiratory rate 18 /min 18 /min eCW1 ([facility]) Body temperature 97.2 [degF] 97.2 [degF] eCW1 ( [facility]) Systolic blood pressure 120 mm[Hg] 120 mm[Hg] e CW1 ([facility]) Diastolic blood pressure 74 mm[Hg] 74 mm[Hg] eCW1 ([facility]) Patient Treatment Plan of Care Planned Activity Planned Date Details Description Data Source (s) 24 HR metoprolol succinate 50 MG Extended Release Oral Tablet 09/01/2020 12:00:00 AM EDT eCW1 ([facility]) 24 HR metoprolol succinate 50 MG Extended Release Oral Tablet 09/01/2020 12:00:00 AM EDT eCW1 ([facility]) 24 HR metoprolol succinate 50 MG Extended Release Oral Tablet 09/01/2020 12:00:00 AM EDT eCW1 ([facility]) 24 HR metoprolol succinate 50 MG Extended Release Oral Tablet 09/01/2020 12:00:00 AM EDT eCW1 ([facility]) Isosorbide Dinitrate 20 MG Oral Tablet 03/03/2020 12:00:00 AM EST eCW1 ([facility]) Amlodipine 10 MG Oral Tablet 01/14/2020 12:00:00 AM EST eCW1 ([facility]) Metoprolol Tartrate 25 MG Oral Tablet 01/14/2020 12:00:00 AM EST eCW1 ([facility]) Amlodipine 10 MG Oral Tablet 01/14/2020 12:00:00 AM EST eCW1 ([facility]) Metoprolol Tartrate 25 MG Oral Tablet 01/14/2020 12:00:00 AM EST eCW1 ([facility]) Amlodipine 10 MG Oral Tablet 01/14/2020 12:00:00 AM EST eCW1 ([facility]) Metoprolol Tartrate 25 MG Oral Tablet 01/14/2020 12:00:00 AM EST eCW1 ([facility]) Depend Pant Sm/Med - 11/18/2019 12:00:00 AM EDT eCW1 ([facility]) Depend Pant Sm/Med - 11/18/2019 12:00:00 AM EDT eCW1 ([facility])
--- OUTSIDE RECORDS SUMMARY | 2020-11-23 17:55 | CCD ---
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 Class B Name Role Phone Marvel Coronel Unavailable PROBLEMS Type Condition ICD9-CM Code AOG26-DC Code Onset Dates Condition S tatus W/U Status Risk SNOMED Code Notes Problem Depression F32.9 Active confirmed 06912368 Problem GERD (gastroesophageal reflux disease) K21.9 A ctive confirmed 084412055 Problem History of anemia Z86.2 Active confirmed 27 9136233 Problem Patient's other noncompliance with medication regimen Z91.14 Active confirmed 853831888 Problem Incontinence of urine R32 Active confirmed 703649101 Problem Unsteady gait R26.81 Active confirmed 741123 08 Problem Psoriasis and similar disorder L40.8 Active confir med 9939928 Problem Mixed hyperlipidemia E78.2 Active confirmed 470275359 Problem Other screening mammogram Z12.31 Active confirmed 717536014 Problem Vaginal lump N94.9 Active confirmed 2748550 05 Problem Bladder prolapse, female, acquired N81.10 Activ e confirmed 067811309 Problem Essential hypertension I10 Active confirmed 36123484 Problem Other chronic pain G89.29 Active confirmed 8 0893415 Problem Calculus of gallbladder without cholecystitis wi thout obstruction K80.20 Active confirmed 95312673 Problem Hypertensive heart disease without heart failure I 11.9 Active confirmed 89917365 Problem DM2 (diabetes mellitus, type 2) E11.9 Active confi rmed 73520914 Problem Medicare annual wellness visit, subsequent Z00.00 Active confirmed 200236795 Problem Gait instability R26.81 Active confirmed 394 542818 Problem Mixed stress and urge urinary incontinence N39.46 Active confirmed 601607963 Problem Hypomagnesemia E83.42 Active confirmed 95732 5004 ALLERGIES Allergen (clinical drug ingredient) Drug/Non Drug Allergy do cumented on EMR Reaction Allergy Type Onset Date Status chlorthalidone Chlorthalidone([facility] Code:[address]-62) d ehydration - see 12/16/19 note Drug Allergy Active Ramipril ramipril cough Non Drug Allergy Active Atenolol atenolol bradycardia (2.4 sec pause [facility] 12/25) Non Drug Allergy Active ENCOUNTERS from 1940 to 2020-09-16 Encounter Location Date Provider Diagnosis [facility] [address] [place] [address] Aug, Marvel Coronel Calculus of gallbladder without cholecys titis without obstruction K80.20 ; Hypertensive heart disease without heart failure I11.9 and DM2 (diabetes mellitus, type 2) E11.9 IMMUNIZATIONS Vaccine Route Administration Date Status Influenza (High Dose 65 & up) IM Intramuscular Dec 03, 2014 A dministered Influenza 18 yrs & older Flublok IM Intramuscular Nov 18, 2019 Administered Zoster 0.65mL Zostavax Unknown June 17, 2014 Administe red Influenza (High Dose 65 & up) IM Intramuscular Mar 03, 2014 A dministered Influenza 18 yrs & older Flublok IM Intramuscular Jan 16, 2019 Administered Influenza 6mo & up Fluzone IM Intramuscular [...] Education Language: Question Answer Notes Languages spoken: Bengali Holiness: Question Answer Notes Holiness 13 Voodoo Sexual Hx: Question Answer Notes Had sex [...] never smoker never smoker REASON FOR REFERRAL from 1940 to 2020-09-16 Reason GB Diagnosis 1 Calculus of gallbladder with out cholecystitis without obstruction (K80.20) Referral Organization [facility] Michael Referring Provider First Name Marvel Referring Provider Last Name Berna Referring Provider Specialty Family Medicine Referred Provider General Edwar REA (BENJI gee) Referred Provider Specialty General Surgery Referral Priority Routine VITAL SIGNS Weight 135.4 lbs Aug, Height 62.75 in Aug, BMI 24.17 kg/m2 Aug, Heart Rate 104 /min Aug, Respiratory Rate 18 /min Aug, Temperature 97.7 degrees Fahrenheit Aug, Oximetry 99 Aug, Blood pressure systolic 142 mm Hg Aug, Blood pressure diastolic 86 mm Hg Aug, MEDICATIONS Medication SIG (Take, Route, Frequency, Duration) [...] Information RESULTS No Results REASON FOR VISIT overdue FU after multiple r/s-Pt was at [facility] ED for high B/P MEDICAL (GENERAL) HISTORY Type Description Date Medical [...] sepsis 07/04/2010 Hospitalization History subdural hematoma - [facility] 05/2018 Hospitalization History syncope [facility] 12/2019 Goals Section No Information Health Concerns No Information MEDICAL EQUIPMENT No Information MENTAL STATUS No Information FUNCTIONAL STATUS No Information ASSESSMENTS Encounter Date Diagnosis Assessment Notes Treatment Notes Treatm ent Clinical Notes Aug, Calculus of gallbladder with out cholecystitis without obstruction (ICD-10 - K80.20) will refer. Due to T2DM< may need cholecystectomy even in absence of acute cholecystitis Aug, Hypertensive heart disease without heart failure (ICD-10 - I11.9) Aug, DM2 (diabetes mellitus, type 2) (ICD-10 - E11.9) PLAN OF TREATMENT Medication Medication Name Sig Start Date Stop Date Metoprolol Succinate ER 50 MG 1 tablet Orally Once a day for 30 day(s) Aug, Treatment Notes Assessment Notes Clinical Notes Calculus of gallbladder without cholecystitis without obstru ction will refer. Due to T2DM< may need cholecystectomy even in absence of acute cholecystitis Treatment Notes Test Name Order Date Basic Metabolic Profile (BMP) 2020-09-01 HEMOGLOBIN A1c 2020-09-01 Referrals Referral Date Details GB, [facility] ([facility] [place]) [facility] Next Appt Details has 10/26 Reason: Provider Name:Marvel Coronel, 2020-10 02:15:00 PM, [address], , [place], [address], Insurance Providers Payer Name Payer Address Payer Phone Insured Name Patient Relati onship to Insured Coverage Start Date Coverage End Date MEDICARE Part A and B [address] [facility] [id number] [phone] PAULINO ROBERTSON [facility] [address] [facility] [id number] PAULINO ROBERTSON self
--- NOTE | 2020-11-23 18:35 | REPVR ---
PROCEDURE INFORMATION: Exam: CT Head Without Contrast Exam date and time: 11/23/2020 5:49 PM Age: 80 years old Clinical indication: Altered mental status/memory loss TECHNIQUE: Imaging protocol: Computed tomography of the head without contrast. Radiation optimization: All CT scans at this facility use at least one of these dose optimization techniques: automated exposure control; mA and/or kV adjustment per patient size (includes targeted exams where dose is matched to clinical indication); or iterative reconstruction. COMPARISON: CT Head without contrast 09/25/2020 7:30 PM FINDINGS: Brain: There is no acute cortical infarction, intracranial hemorrhage or mass.There is moderate diffuse heterogeneity of the white matter, most consistent with microangiopathy. Cerebral ventricles: The ventricles appear enlarged, but not out of proportion to the degree of parenchymal volume loss. Paranasal sinuses: Visualized sinuses are unremarkable. No fluid levels. Mastoid air cells: Visualized mastoid air cells are well aerated. Vasculature: Atherosclerosis. Bones/joints: No acute fracture. There is a high riding left jugular bulb. Series 203, image 26. Soft tissues: Unremarkable. IMPRESSION: No acute intracranial findings. Electronically signed by: Claudia Guerrero On 11/23/2020 18:35:17 PM
[2020-11-23 18:43] LABS: VENOUS BASE EXCESS -0.3 (-2.0-2.0); VENOUS HCO3 23.8 MEQ/L (23.0-27.0); VENOUS O2 SATURATION 95.2 % (60.0-80.0); VENOUS PARTIAL PRESSURE O2 78.9 mmHg (30.0-50.0); VENOUS PH 7.427 UNITS (7.330-7.430); VENOUS STANDARD HCO3 24.2 MEQ/L
[2020-11-23 18:51] LABS: BASO % 0.4 % (0.0-1.0); EOS # 0.1 10^3/uL (0.0-0.5); EOS % 0.9 % (0.0-3.0); HEMATOCRIT 32.5 % (36.0-47.0); HEMOGLOBIN 10.4 g/dl (12.0-15.5); LYMPH # 2.6 10^3/uL (1.5-5.0); LYMPH % 34.6 % (24.0-44.0); MEAN CORPUSCULAR HEMOGLOBIN 27.4 pg (27.0-33.0); MEAN CORPUSCULAR VOLUME 85.8 fl (80.0-96.0); MONO # 0.6 10^3/uL (0.0-0.8); MONO % 7.5 % (2.0-8.0); NEUTROPHILS # 4.3 10^3/uL (1.5-8.5); NEUTROPHILS % 56.2 % (36.0-66.0); PLATELET COUNT, AUTOMATED 268 10^3/uL (150-450); RED BLOOD COUNT 3.79 10^6/uL (4.00-5.40); WHITE BLOOD COUNT 7.6 10^3/uL (4.0-10.0)
[2020-11-23 19:25] LABS: ALBUMIN 3.2 GM/DL (3.2-5.2); ALT/SGPT 13 U/L (12-78); BILIRUBIN,DIRECT < 0.1 MG/DL (0.0-0.2); BILIRUBIN,TOTAL 0.3 MG/DL (0.2-1.0); BLOOD UREA NITROGEN 25 MG/DL (7-18); CALCIUM LEVEL 9.2 MG/DL (8.8-10.2); CARBON DIOXIDE LEVEL 25 MEQ/L (21-32); CHLORIDE LEVEL 106 MEQ/L (98-107); CK-MB VALUE MASS 2.5 NG/ML (<3.6); CPK CREATINE PHOSPHOKINASE 54 U/L (26-192); CREATININE FOR GFR 1.32 MG/DL (0.55-1.30); GLOMERULAR FILTRATION RATE 41.1 (>32); GLUCOSE, FASTING 143 MG/DL (70-100); MB/CK RELATIVE INDEX 4.63 (< OR =4); POTASSIUM SERUM 3.5 MEQ/L (3.5-5.1); SODIUM LEVEL 140 MEQ/L (136-145); TOTAL PROTEIN 6.9 GM/DL (6.4-8.2); TROPONIN I < 0.02 NG/ML (< 0.10)
[2020-11-23 19:30] LABS: OSMOLALITY SERUM 299 MOSM/KG (280-301)
[2020-11-23 22:16] VITALS: BP 158/88
--- NOTE | 2020-11-24 13:34 | ECGEPIP ---
[facility] - ED Test Date: 2020-11-23 Pat Name: PAULINO ROBERTSON Department: Room: - Gender: Female Codifier: [email or web address] : 1940 Requested By: Sandra Mckeon Order Number: [id number] Reading MD: Sandra Mckeon Measurements Intervals [place] Rate: 71 P: 45 AL: 164 QRS: 17 QRSD: 78 T: 27 QT: 386 QTc: 419 Interpretive Statements Normal sinus rhythm NSTTW abnormalities decreased rate 09/25/20 Electronically Signed on 11-24-2020 13:34:24 EDT by Sandra Mckeon
== END 2020-11-23 22:38 | disposition home or self-care (01) ==
LOC: EDBD 16:39 → M ED 16:39
DX: R42 Dizziness and giddiness (principal); E11.9 Type 2 diabetes mellitus without complications; F32.9 Major depressive disorder, single episode, unspecified; E78.5 Hyperlipidemia, unspecified; I10 Essential (primary) hypertension; Z79.84 Long term (current) use of oral hypoglycemic drugs; Z79.899 Other long term (current) drug therapy; Z88.8 Allergy status to other drugs, medicaments and biological substances

== ENCOUNTER 2021-05-31 23:52 | Emergency (ER) | payer MEDICARE, BC, OTHER ==
[~2021-05-31] VITALS: Ht 157.5 cm; Wt 59.0 kg
[~2021-05-31 23:52] MED LIST changes: -D31000TA2 PO; +ISOS20TA4 PO; -ISOS20TAB PO; +OMEP-173 PO; -OMEP-218 PO; +VITA100093 PO
[2021-06-01 03:45] VITALS: BP 134/68
[2021-06-02] MEDS ORDERED: METO1TAB7 PO (18:37)
[2021-06-02] MEDS ORDERED: MECL-86 PO (18:37)
[2021-06-02] MEDS ORDERED: AMLO1TAB25 PO (18:37)
[2021-06-02] MEDS ORDERED: ZOLO100T PO (18:37)
[2021-06-02] MEDS ORDERED: LIDO1ADH16 TP (18:37)
== END 2021-06-01 04:13 | disposition home or self-care (01) ==
LOC: M ED 23:52
DX: S62.617A Displaced fracture of proximal phalanx of left little finger, initial encounter for closed fracture (principal); S80.212A Abrasion, left knee, initial encounter; S60.222A Contusion of left hand, initial encounter; W01.0XXA Fall on same level from slipping, tripping and stumbling without subsequent striking against object, initial encounter; K21.9 Gastro-esophageal reflux disease without esophagitis; E11.9 Type 2 diabetes mellitus without complications; K76.0 Fatty (change of) liver, not elsewhere classified; Z79.84 Long term (current) use of oral hypoglycemic drugs; Z86.79 Personal history of other diseases of the circulatory system; Z88.8 Allergy status to other drugs, medicaments and biological substances; Y92.009 Unspecified place in unspecified non-institutional (private) residence as the place of occurrence of the external cause; Y93.9 Activity, unspecified; Y99.9 Unspecified external cause status; Z79.899 Other long term (current) drug therapy

== ENCOUNTER 2021-06-02 15:45 | Inpatient (IN) | payer MEDICARE, BC, OTHER ==
[~2021-06-02] VITALS: Ht 160 cm; Wt 60.3 kg
[2021-06-02 17:14] LABS: BASO % 0.4 % (0.0-1.0); EOS # 0.1 10^3/uL (0.0-0.5); EOS % 1.8 % (0.0-3.0); HEMATOCRIT 35.2 % (36.0-47.0); HEMOGLOBIN 11.1 g/dl (12.0-15.5); LYMPH # 2.4 10^3/uL (1.5-5.0); LYMPH % 30.4 % (24.0-44.0); MEAN CORPUSCULAR HEMOGLOBIN 26.6 pg (27.0-33.0); MEAN CORPUSCULAR HGB CONC 31.5 g/dl (32.0-36.5); MEAN CORPUSCULAR VOLUME 84.4 fl (80.0-96.0); MONO # 0.6 10^3/uL (0.0-0.8); MONO % 7.7 % (2.0-8.0); NEUTROPHILS # 4.7 10^3/uL (1.5-8.5); NEUTROPHILS % 59.3 % (36.0-66.0); PLATELET COUNT, AUTOMATED 295 10^3/uL (150-450); RED BLOOD COUNT 4.17 10^6/uL (4.00-5.40)
[2021-06-02 17:32] LABS: INR 0.96; PROTHROMBIN TIME 13.2 SECONDS (12.7-14.5)
[2021-06-02 17:37] LABS: CK-MB VALUE MASS 1.1 NG/ML (<3.6); MB/CK RELATIVE INDEX 2.68 (< OR =4)
[2021-06-02 17:44] LABS: CALCIUM LEVEL 8.6 MG/DL (8.8-10.2); CREATININE FOR GFR 1.08 MG/DL (0.55-1.30); FREE T4 0.86 NG/DL (0.76-1.46); GLOMERULAR FILTRATION RATE 51.8 (>32); MAGNESIUM LEVEL 1.5 MG/DL (1.8-2.4); POTASSIUM SERUM 3.3 MEQ/L (3.5-5.1); THYROID STIMULATING HORMONE 3.08 uIU/ML (0.358-3.740)
[2021-06-02] MEDS ORDERED: POTASSIUM CHLORIDE 10MEQ SR TABLET PO ONE (18:10)
[2021-06-02 18:11] LABS: RSV AMPLIFICATION NEGATIVE (NEGATIVE)
[2021-06-02] MEDS ORDERED: METO1TAB7 PO (18:37)
[2021-06-02] MEDS ORDERED: LIDO1ADH16 TP (18:37)
[2021-06-02] MEDS ORDERED: ZOLO100T PO (18:37)
[2021-06-02] MEDS ORDERED: MECL-86 PO (18:37)
[2021-06-02] MEDS ORDERED: AMLO1TAB25 PO (18:37)
[2021-06-02] MEDS ORDERED: HOME MED LIST COMPLETE! XX SCH (18:40)
[2021-06-02] MEDS ORDERED: ACETAMINOPHEN TAB 650MG DOSE (2X325MG) PO PRN (18:45)
[2021-06-02] MEDS ORDERED: MOM 30ML SUSPENSION UDC PO PRN (18:45)
[2021-06-02] MEDS ORDERED: DEXTROSE 50% 50 ML SYRINGE IV PRN (19:20)
[2021-06-02] MEDS ORDERED: GLUCOSE 4GM CHEW TABLET PO PRN (19:20)
[2021-06-02] MEDS ORDERED: GLUCAGON INJ 1MG VIAL SC PRN (19:20)
[2021-06-02] MEDS: HumaLOG INSULIN (NovoLOG) PER UNIT SC SCH (21:00)
[2021-06-02 21:02] VITALS: BP 138/69
[2021-06-02 22:00] VITALS: BP 138/69
[2021-06-03 02:00] VITALS: BP 138/72
[2021-06-03 06:00] VITALS: BP 131/69
[2021-06-03 06:44] LABS: BASO % 0.6 % (0.0-1.0); EOS # 0.1 10^3/uL (0.0-0.5); EOS % 1.5 % (0.0-3.0); HEMATOCRIT 32.3 % (36.0-47.0); HEMOGLOBIN 10.2 g/dl (12.0-15.5); LYMPH # 2.9 10^3/uL (1.5-5.0); LYMPH % 43.1 % (24.0-44.0); MEAN CORPUSCULAR HEMOGLOBIN 26.3 pg (27.0-33.0); MEAN CORPUSCULAR HGB CONC 31.6 g/dl (32.0-36.5); MEAN CORPUSCULAR VOLUME 83.2 fl (80.0-96.0); MONO # 0.6 10^3/uL (0.0-0.8); MONO % 8.6 % (2.0-8.0); NEUTROPHILS % 45.9 % (36.0-66.0); PLATELET COUNT, AUTOMATED 259 10^3/uL (150-450); RED BLOOD COUNT 3.88 10^6/uL (4.00-5.40); WHITE BLOOD COUNT 6.6 10^3/uL (4.0-10.0)
[2021-06-03 07:07] LABS: BILIRUBIN,TOTAL 0.3 MG/DL (0.2-1.0); CALCIUM LEVEL 8.7 MG/DL (8.8-10.2); CREATININE FOR GFR 1.08 MG/DL (0.55-1.30); GLOMERULAR FILTRATION RATE 51.8 (>32); MAGNESIUM LEVEL 1.6 MG/DL (1.8-2.4); POTASSIUM SERUM 3.8 MEQ/L (3.5-5.1); TOTAL PROTEIN 6.1 GM/DL (6.4-8.2)
[2021-06-03] MEDS: HumaLOG INSULIN (NovoLOG) PER UNIT SC SCH ×4 (07:30→19:21)
[2021-06-03 09:17] VITALS: BP 147/69
[2021-06-03] MEDS: CYANOCOBALAMIN 500 MCG TAB PO SCH (09:18)
[2021-06-03] MEDS: PRAVASTATIN 20 MG TAB PO SCH (09:18)
[2021-06-03] MEDS: MAG SULF 1GM/100ML (MAG RUN) 1 GM in IV 1 EA IV SCH ×2 (09:18→11:27)
[2021-06-03] MEDS: MAGNESIUM OXIDE 400MG TAB (MAG-OX) PO SCH (09:19)
[2021-06-03] MEDS: OMEPRAZOLE 20MG CAP PO SCH (09:19)
[2021-06-03] MEDS: VITAMIN D 1,000 INTERNATIONAL UNITS TABLET PO SCH (09:19)
[2021-06-03] MEDS: MECLIZINE 25 MG TABLET PO SCH (09:19)
[2021-06-03] MEDS: ENOXAPARIN 40MG/0.4ML SYRINGE (J1650 PER 10MG) SC SCH (09:19)
[2021-06-03] MEDS: ISOSORBIDE DIN. (ISORDIL) 20 MG TAB PO SCH (09:19)
[2021-06-03] MEDS: SERTRALINE 100 MG TAB PO SCH (09:19)
[2021-06-03] MEDS: METOPROLOL SUCC (TopROL XL) 50MG **XL** TAB PO SCH (09:19)
[2021-06-03 10:00] VITALS: BP 135/66
[2021-06-03 14:00] VITALS: BP 123/62
[2021-06-03] MEDS: ASPIRIN 81MG ENTERIC TABLET PO SCH (14:40)
[2021-06-03 22:00] VITALS: BP 124/61
[2021-06-04 05:24] LABS: BASO % 0.4 % (0.0-1.0); EOS # 0.2 10^3/uL (0.0-0.5); HEMATOCRIT 31.8 % (36.0-47.0); LYMPH # 3.2 10^3/uL (1.5-5.0); MEAN CORPUSCULAR HEMOGLOBIN 26.5 pg (27.0-33.0); MEAN CORPUSCULAR HGB CONC 31.4 g/dl (32.0-36.5); MEAN CORPUSCULAR VOLUME 84.1 fl (80.0-96.0); MONO # 0.6 10^3/uL (0.0-0.8); MONO % 7.6 % (2.0-8.0); NEUTROPHILS # 3.8 10^3/uL (1.5-8.5); NEUTROPHILS % 48.7 % (36.0-66.0); PLATELET COUNT, AUTOMATED 252 10^3/uL (150-450); RED BLOOD COUNT 3.78 10^6/uL (4.00-5.40); WHITE BLOOD COUNT 7.7 10^3/uL (4.0-10.0)
[2021-06-04 05:48] LABS: ALT/SGPT 15 U/L (12-78); BILIRUBIN,TOTAL 0.4 MG/DL (0.2-1.0); BLOOD UREA NITROGEN 23 MG/DL (7-18); CALCIUM LEVEL 8.9 MG/DL (8.8-10.2); CARBON DIOXIDE LEVEL 27 MEQ/L (21-32); CHLORIDE LEVEL 108 MEQ/L (98-107); CREATININE FOR GFR 0.95 MG/DL (0.55-1.30); GLOMERULAR FILTRATION RATE > 60.0 (>32); GLUCOSE, FASTING 122 MG/DL (70-100); MAGNESIUM LEVEL 1.8 MG/DL (1.8-2.4); POTASSIUM SERUM 3.8 MEQ/L (3.5-5.1); SODIUM LEVEL 142 MEQ/L (136-145); TOTAL PROTEIN 6.2 GM/DL (6.4-8.2)
[2021-06-04 06:00] VITALS: BP 127/80
[2021-06-04] MEDS: OMEPRAZOLE 20MG CAP PO SCH (08:42)
[2021-06-04] MEDS: VITAMIN D 1,000 INTERNATIONAL UNITS TABLET PO SCH (08:42)
[2021-06-04] MEDS: MAGNESIUM OXIDE 400MG TAB (MAG-OX) PO SCH (08:42)
[2021-06-04] MEDS: MECLIZINE 25 MG TABLET PO SCH (08:42)
[2021-06-04] MEDS: HumaLOG INSULIN (NovoLOG) PER UNIT SC SCH ×4 (08:42→20:15)
[2021-06-04] MEDS: CYANOCOBALAMIN 500 MCG TAB PO SCH (08:42)
[2021-06-04] MEDS: PRAVASTATIN 20 MG TAB PO SCH (08:43)
[2021-06-04] MEDS: ISOSORBIDE DIN. (ISORDIL) 20 MG TAB PO SCH (08:43)
[2021-06-04] MEDS: SERTRALINE 100 MG TAB PO SCH (08:43)
[2021-06-04] MEDS: METOPROLOL SUCC (TopROL XL) 50MG **XL** TAB PO SCH (08:43)
[2021-06-04] MEDS: ASPIRIN 81MG ENTERIC TABLET PO SCH (08:43)
[2021-06-04] MEDS: ENOXAPARIN 40MG/0.4ML SYRINGE (J1650 PER 10MG) SC SCH (08:44)
[2021-06-04 14:00] VITALS: BP 118/68
[2021-06-04 18:42] VITALS: BP 131/73
[2021-06-04 22:00] VITALS: BP 124/71
[2021-06-05 06:00] VITALS: BP 132/67
[2021-06-05 07:38] LABS: BASO % 0.7 % (0.0-1.0); EOS # 0.2 10^3/uL (0.0-0.5); EOS % 3.6 % (0.0-3.0); HEMATOCRIT 35.5 % (36.0-47.0); HEMOGLOBIN 11.1 g/dl (12.0-15.5); LYMPH # 2.5 10^3/uL (1.5-5.0); MEAN CORPUSCULAR HEMOGLOBIN 26.2 pg (27.0-33.0); MEAN CORPUSCULAR HGB CONC 31.3 g/dl (32.0-36.5); MEAN CORPUSCULAR VOLUME 83.9 fl (80.0-96.0); MONO # 0.4 10^3/uL (0.0-0.8); MONO % 7.8 % (2.0-8.0); NEUTROPHILS # 2.5 10^3/uL (1.5-8.5); NEUTROPHILS % 43.5 % (36.0-66.0); PLATELET COUNT, AUTOMATED 245 10^3/uL (150-450); RED BLOOD COUNT 4.23 10^6/uL (4.00-5.40); WHITE BLOOD COUNT 5.6 10^3/uL (4.0-10.0)
[2021-06-05 07:59] LABS: ALBUMIN 3.1 GM/DL (3.2-5.2); BILIRUBIN,TOTAL 0.5 MG/DL (0.2-1.0); CALCIUM LEVEL 9.4 MG/DL (8.8-10.2); CREATININE FOR GFR 1.05 MG/DL (0.55-1.30); GLOMERULAR FILTRATION RATE 53.5 (>32); MAGNESIUM LEVEL 1.9 MG/DL (1.8-2.4); TOTAL PROTEIN 6.7 GM/DL (6.4-8.2)
[2021-06-05] MEDS: SERTRALINE 100 MG TAB PO SCH (08:56)
[2021-06-05] MEDS: HumaLOG INSULIN (NovoLOG) PER UNIT SC SCH ×2 (08:56→13:21)
[2021-06-05 08:57] VITALS: BP 136/63
[2021-06-05] MEDS: OMEPRAZOLE 20MG CAP PO SCH (08:57)
[2021-06-05] MEDS: MECLIZINE 25 MG TABLET PO SCH (08:57)
[2021-06-05] MEDS: ISOSORBIDE DIN. (ISORDIL) 20 MG TAB PO SCH (08:57)
[2021-06-05] MEDS: CYANOCOBALAMIN 500 MCG TAB PO SCH (08:57)
[2021-06-05] MEDS: PRAVASTATIN 20 MG TAB PO SCH (08:57)
[2021-06-05] MEDS: ASPIRIN 81MG ENTERIC TABLET PO SCH (08:57)
[2021-06-05] MEDS: VITAMIN D 1,000 INTERNATIONAL UNITS TABLET PO SCH (08:57)
[2021-06-05] MEDS: METOPROLOL SUCC (TopROL XL) 50MG **XL** TAB PO SCH (08:58)
[2021-06-05] MEDS: ENOXAPARIN 40MG/0.4ML SYRINGE (J1650 PER 10MG) SC SCH (08:58)
[2021-06-05] MEDS ORDERED: cefTRIAXone SOD 1 GM in D5W MINI-BAG PLUS 50 ML IV SCH (09:00)
[2021-06-05] MEDS: MAGNESIUM OXIDE 400MG TAB (MAG-OX) PO SCH (09:07)
[2021-06-05] MEDS ORDERED: ASPI-551 PO (10:22)
[2021-06-05] MEDS ORDERED: CEFT1INJ4 IV (10:22)
== END 2021-06-05 13:29 | DRG 92 ==
LOC: M ED 15:45 → EDBD 15:45 → M ED INP 18:45 → ENRESERV 19:48 → M MSPAV 21:05
PROVIDERS: ADMIT Family Medicine; ATTEND Family Medicine
DX: R29.6 Repeated falls (principal); I50.32 Chronic diastolic (congestive) heart failure; N39.0 Urinary tract infection, site not specified; R55 Syncope and collapse; E11.9 Type 2 diabetes mellitus without complications; I11.0 Hypertensive heart disease with heart failure; K21.9 Gastro-esophageal reflux disease without esophagitis; F03.90 Unspecified dementia, unspecified severity, without behavioral disturbance, psychotic disturbance, mood disturbance, and anxiety; Z86.73 Personal history of transient ischemic attack (TIA), and cerebral infarction without residual deficits; E78.5 Hyperlipidemia, unspecified; S62.602D Fracture of unspecified phalanx of right middle finger, subsequent encounter for fracture with routine healing; W18.30XD Fall on same level, unspecified, subsequent encounter; Z79.899 Other long term (current) drug therapy; Z88.8 Allergy status to other drugs, medicaments and biological substances

== ENCOUNTER 2021-06-05 10:51 | Inpatient (IN) | payer MEDICARE, BC, OTHER ==
[~2021-06-05] VITALS: Ht 160 cm; Wt 60.2 kg
[~2021-06-05 10:51] MED LIST changes: +ASPI-551 PO; +CEFT1INJ4 IV; +LIDO1ADH16 TP; +MECL-86 PO; +METO1TAB7 PO
[2021-06-05] MEDS ORDERED: BISACODYL 10 MG SUPP PR PRN (11:00)
[2021-06-05] MEDS ORDERED: GLUCAGON INJ 1MG VIAL SC PRN (11:00)
[2021-06-05] MEDS ORDERED: MECLIZINE 12.5 MG TAB PO PRN (11:00)
[2021-06-05] MEDS ORDERED: DEXTROSE 50% 50 ML SYRINGE IV PRN (11:00)
[2021-06-05] MEDS ORDERED: GLUCOSE 4GM CHEW TABLET PO PRN (11:00)
[2021-06-05] MEDS: LACTOBACILLUS ACIDOPHILUS CAP (BACID) PO SCH ×3 (12:30→20:12)
[2021-06-05 13:45] VITALS: BP 131/68
[2021-06-05 15:44] LABS: HEMOGLOBIN A1c 6.9 %
[2021-06-05] MEDS: HumaLOG INSULIN (NovoLOG) PER UNIT SC SCH ×2 (18:42→20:02)
[2021-06-05] MEDS: REMEDY PHYTOPLEX Z-GUARD PASTE 113GM TUBE (FROM STOREROOM PRODUCT) TOP SCH ×2 (18:42→20:12)
[2021-06-05 20:00] VITALS: BP 146/72
[2021-06-05] MEDS: SENNA 8.6 MG TAB (SENOKOT) PO SCH (20:12)
[2021-06-05] MEDS: DOCUSATE SODIUM 100MG CAPSULE PO SCH (20:12)
[2021-06-06 06:00] VITALS: BP 141/66
[2021-06-06 06:55] LABS: BASO % 0.6 % (0.0-1.0); EOS # 0.2 10^3/uL (0.0-0.5); EOS % 2.7 % (0.0-3.0); HEMATOCRIT 35.8 % (36.0-47.0); HEMOGLOBIN 11.1 g/dl (12.0-15.5); LYMPH # 2.6 10^3/uL (1.5-5.0); MEAN CORPUSCULAR HEMOGLOBIN 26.2 pg (27.0-33.0); MEAN CORPUSCULAR VOLUME 84.6 fl (80.0-96.0); MONO # 0.5 10^3/uL (0.0-0.8); MONO % 8.1 % (2.0-8.0); NEUTROPHILS # 2.9 10^3/uL (1.5-8.5); NEUTROPHILS % 46.4 % (36.0-66.0); PLATELET COUNT, AUTOMATED 258 10^3/uL (150-450); RED BLOOD COUNT 4.23 10^6/uL (4.00-5.40); WHITE BLOOD COUNT 6.2 10^3/uL (4.0-10.0)
[2021-06-06 07:31] LABS: ALBUMIN 3.1 GM/DL (3.2-5.2); BILIRUBIN,TOTAL 0.4 MG/DL (0.2-1.0); CALCIUM LEVEL 9.3 MG/DL (8.8-10.2); CREATININE FOR GFR 1.12 MG/DL (0.55-1.30); GLOMERULAR FILTRATION RATE 49.7 (>32); POTASSIUM SERUM 4.3 MEQ/L (3.5-5.1); TOTAL PROTEIN 6.6 GM/DL (6.4-8.2)
[2021-06-06] MEDS: HumaLOG INSULIN (NovoLOG) PER UNIT SC SCH ×4 (08:35→21:14)
[2021-06-06] MEDS: DOCUSATE SODIUM 100MG CAPSULE PO SCH ×2 (08:36→21:14)
[2021-06-06] MEDS: ASPIRIN 81MG ENTERIC TABLET PO SCH (08:36)
[2021-06-06] MEDS: VITAMIN D 1,000 INTERNATIONAL UNITS TABLET PO SCH (08:36)
[2021-06-06] MEDS: OMEPRAZOLE 20MG CAP PO SCH (08:36)
[2021-06-06] MEDS: METOPROLOL SUCC (TopROL XL) 50MG **XL** TAB PO SCH (08:36)
[2021-06-06] MEDS: SERTRALINE 100 MG TAB PO SCH (08:36)
[2021-06-06] MEDS: CYANOCOBALAMIN 500 MCG TAB PO SCH (08:37)
[2021-06-06] MEDS: PRAVASTATIN 20 MG TAB PO SCH (08:37)
[2021-06-06] MEDS: ISOSORBIDE DIN. (ISORDIL) 20 MG TAB PO SCH (08:37)
[2021-06-06] MEDS: MECLIZINE 25 MG TABLET PO SCH (08:37)
[2021-06-06] MEDS: MAGNESIUM OXIDE 400MG TAB (MAG-OX) PO SCH (08:37)
[2021-06-06] MEDS: LACTOBACILLUS ACIDOPHILUS CAP (BACID) PO SCH ×4 (08:37→21:14)
[2021-06-06] MEDS: REMEDY PHYTOPLEX Z-GUARD PASTE 113GM TUBE (FROM STOREROOM PRODUCT) TOP SCH ×3 (08:38→21:14)
[2021-06-06] MEDS: ENOXAPARIN 40MG/0.4ML SYRINGE (J1650 PER 10MG) SC SCH (08:38)
[2021-06-06] MEDS ORDERED: cefTRIAXone SOD 1 GM in D5W MINI-BAG PLUS 50 ML IV SCH (09:00)
[2021-06-06 14:00] VITALS: BP 119/59
[2021-06-06 20:00] VITALS: BP 124/65
[2021-06-06] MEDS: ACETAMINOPHEN TAB 650MG DOSE (2X325MG) PO PRN (21:14)
[2021-06-06] MEDS: CEFDINIR 300 MG CAP (OMNICEF) PO SCH (21:14)
[2021-06-06] MEDS: SENNA 8.6 MG TAB (SENOKOT) PO SCH (21:14)
[2021-06-07 06:00] VITALS: BP 123/70
[2021-06-07] MEDS: ENOXAPARIN 40MG/0.4ML SYRINGE (J1650 PER 10MG) SC SCH (09:20)
[2021-06-07] MEDS: HumaLOG INSULIN (NovoLOG) PER UNIT SC SCH ×4 (09:20→20:38)
[2021-06-07] MEDS: CEFDINIR 300 MG CAP (OMNICEF) PO SCH ×2 (09:21→20:38)
[2021-06-07] MEDS: PRAVASTATIN 20 MG TAB PO SCH (09:21)
[2021-06-07] MEDS: SERTRALINE 100 MG TAB PO SCH (09:21)
[2021-06-07] MEDS: VITAMIN D 1,000 INTERNATIONAL UNITS TABLET PO SCH (09:21)
[2021-06-07] MEDS: CYANOCOBALAMIN 500 MCG TAB PO SCH (09:21)
[2021-06-07] MEDS: OMEPRAZOLE 20MG CAP PO SCH (09:21)
[2021-06-07] MEDS: DOCUSATE SODIUM 100MG CAPSULE PO SCH ×2 (09:21→20:37)
[2021-06-07] MEDS: LACTOBACILLUS ACIDOPHILUS CAP (BACID) PO SCH ×4 (09:21→20:38)
[2021-06-07] MEDS: MECLIZINE 25 MG TABLET PO SCH (09:21)
[2021-06-07] MEDS: ASPIRIN 81MG ENTERIC TABLET PO SCH (09:21)
[2021-06-07] MEDS: MAGNESIUM OXIDE 400MG TAB (MAG-OX) PO SCH (09:22)
[2021-06-07] MEDS: METOPROLOL SUCC (TopROL XL) 50MG **XL** TAB PO SCH (09:22)
[2021-06-07] MEDS: ISOSORBIDE DIN. (ISORDIL) 20 MG TAB PO SCH (09:22)
[2021-06-07] MEDS: REMEDY PHYTOPLEX Z-GUARD PASTE 113GM TUBE (FROM STOREROOM PRODUCT) TOP SCH ×3 (09:24→20:38)
[2021-06-07 14:00] VITALS: BP 115/59
[2021-06-07 20:00] VITALS: BP 128/65
[2021-06-07] MEDS: SENNA 8.6 MG TAB (SENOKOT) PO SCH (20:38)
[2021-06-08 06:00] VITALS: BP 138/66
[2021-06-08 08:46] LABS: CALCIUM LEVEL 9.6 MG/DL (8.8-10.2); CREATININE FOR GFR 1.05 MG/DL (0.55-1.30); GLOMERULAR FILTRATION RATE 53.5 (>32); POTASSIUM SERUM 4.4 MEQ/L (3.5-5.1)
[2021-06-08] MEDS: REMEDY PHYTOPLEX Z-GUARD PASTE 113GM TUBE (FROM STOREROOM PRODUCT) TOP SCH ×3 (09:00→21:26)
[2021-06-08] MEDS: HumaLOG INSULIN (NovoLOG) PER UNIT SC SCH ×4 (09:34→21:09)
[2021-06-08 09:57] LABS: BASO % 0.4 % (0.0-1.0); EOS # 0.2 10^3/uL (0.0-0.5); EOS % 3.1 % (0.0-3.0); HEMATOCRIT 36.7 % (36.0-47.0); HEMOGLOBIN 11.4 g/dl (12.0-15.5); LYMPH # 2.7 10^3/uL (1.5-5.0); LYMPH % 39.5 % (24.0-44.0); MEAN CORPUSCULAR HEMOGLOBIN 26.1 pg (27.0-33.0); MEAN CORPUSCULAR HGB CONC 31.1 g/dl (32.0-36.5); MONO # 0.6 10^3/uL (0.0-0.8); MONO % 8.3 % (2.0-8.0); NEUTROPHILS # 3.3 10^3/uL (1.5-8.5); NEUTROPHILS % 48.4 % (36.0-66.0); PLATELET COUNT, AUTOMATED 269 10^3/uL (150-450); RED BLOOD COUNT 4.37 10^6/uL (4.00-5.40); WHITE BLOOD COUNT 6.7 10^3/uL (4.0-10.0)
[2021-06-08] MEDS: MECLIZINE 25 MG TABLET PO SCH (09:57)
[2021-06-08] MEDS: ENOXAPARIN 40MG/0.4ML SYRINGE (J1650 PER 10MG) SC SCH (09:57)
[2021-06-08] MEDS: PRAVASTATIN 20 MG TAB PO SCH (09:57)
[2021-06-08] MEDS: CEFDINIR 300 MG CAP (OMNICEF) PO SCH ×2 (09:57→21:09)
[2021-06-08] MEDS: VITAMIN D 1,000 INTERNATIONAL UNITS TABLET PO SCH (09:57)
[2021-06-08] MEDS: DOCUSATE SODIUM 100MG CAPSULE PO SCH ×2 (09:57→21:09)
[2021-06-08] MEDS: OMEPRAZOLE 20MG CAP PO SCH (09:58)
[2021-06-08] MEDS: LACTOBACILLUS ACIDOPHILUS CAP (BACID) PO SCH ×4 (09:58→21:09)
[2021-06-08] MEDS: SERTRALINE 100 MG TAB PO SCH (09:58)
[2021-06-08] MEDS: ASPIRIN 81MG ENTERIC TABLET PO SCH (09:58)
[2021-06-08] MEDS: MAGNESIUM OXIDE 400MG TAB (MAG-OX) PO SCH (09:58)
[2021-06-08] MEDS: CYANOCOBALAMIN 500 MCG TAB PO SCH (09:58)
[2021-06-08] MEDS: ISOSORBIDE DIN. (ISORDIL) 20 MG TAB PO SCH (10:01)
[2021-06-08] MEDS: METOPROLOL SUCC (TopROL XL) 50MG **XL** TAB PO SCH (10:02)
[2021-06-08 14:00] VITALS: BP 126/60
[2021-06-08] MEDS: SENNA 8.6 MG TAB (SENOKOT) PO SCH (21:09)
[2021-06-08 21:47] VITALS: BP_SYST 112; BP_SYST 136; BP_DIAS 63; BP_DIAS 66
[2021-06-09 06:02] VITALS: BP 138/64
[2021-06-09] MEDS: VITAMIN D 1,000 INTERNATIONAL UNITS TABLET PO SCH (09:25)
[2021-06-09] MEDS: HumaLOG INSULIN (NovoLOG) PER UNIT SC SCH ×4 (09:25→20:46)
[2021-06-09] MEDS: CEFDINIR 300 MG CAP (OMNICEF) PO SCH ×2 (09:25→20:07)
[2021-06-09] MEDS: PRAVASTATIN 20 MG TAB PO SCH (09:25)
[2021-06-09] MEDS: ASPIRIN 81MG ENTERIC TABLET PO SCH (09:26)
[2021-06-09] MEDS: CYANOCOBALAMIN 500 MCG TAB PO SCH (09:26)
[2021-06-09] MEDS: MAGNESIUM OXIDE 400MG TAB (MAG-OX) PO SCH (09:26)
[2021-06-09] MEDS: LACTOBACILLUS ACIDOPHILUS CAP (BACID) PO SCH ×4 (09:26→20:07)
[2021-06-09] MEDS: SERTRALINE 100 MG TAB PO SCH (09:26)
[2021-06-09] MEDS: DOCUSATE SODIUM 100MG CAPSULE PO SCH ×2 (09:26→20:07)
[2021-06-09] MEDS: OMEPRAZOLE 20MG CAP PO SCH (09:26)
[2021-06-09] MEDS: METOPROLOL SUCC (TopROL XL) 50MG **XL** TAB PO SCH (09:26)
[2021-06-09] MEDS: ENOXAPARIN 40MG/0.4ML SYRINGE (J1650 PER 10MG) SC SCH (09:27)
[2021-06-09] MEDS: ISOSORBIDE DIN. (ISORDIL) 20 MG TAB PO SCH (09:27)
[2021-06-09] MEDS: REMEDY PHYTOPLEX Z-GUARD PASTE 113GM TUBE (FROM STOREROOM PRODUCT) TOP SCH ×3 (09:28→20:42)
[2021-06-09 14:00] VITALS: BP 138/70
[2021-06-09] MEDS: SENNA 8.6 MG TAB (SENOKOT) PO SCH (20:07)
[2021-06-09 21:10] VITALS: BP 131/106
[2021-06-10 06:07] VITALS: BP 128/64
[2021-06-10 08:26] LABS: BASO # 0.1 10^3/uL (0.0-0.2); BASO % 0.8 % (0.0-1.0); EOS # 0.2 10^3/uL (0.0-0.5); HEMATOCRIT 34.9 % (36.0-47.0); LYMPH # 2.5 10^3/uL (1.5-5.0); LYMPH % 41.4 % (24.0-44.0); MEAN CORPUSCULAR HEMOGLOBIN 26.8 pg (27.0-33.0); MEAN CORPUSCULAR HGB CONC 31.5 g/dl (32.0-36.5); MEAN CORPUSCULAR VOLUME 84.9 fl (80.0-96.0); MONO # 0.5 10^3/uL (0.0-0.8); MONO % 8.5 % (2.0-8.0); NEUTROPHILS # 2.8 10^3/uL (1.5-8.5); PLATELET COUNT, AUTOMATED 248 10^3/uL (150-450); RED BLOOD COUNT 4.11 10^6/uL (4.00-5.40)
[2021-06-10] MEDS: LACTOBACILLUS ACIDOPHILUS CAP (BACID) PO SCH ×4 (08:38→20:24)
[2021-06-10] MEDS: HumaLOG INSULIN (NovoLOG) PER UNIT SC SCH ×4 (08:38→20:25)
[2021-06-10] MEDS: ENOXAPARIN 40MG/0.4ML SYRINGE (J1650 PER 10MG) SC SCH (08:38)
[2021-06-10] MEDS: MAGNESIUM OXIDE 400MG TAB (MAG-OX) PO SCH (08:39)
[2021-06-10] MEDS: OMEPRAZOLE 20MG CAP PO SCH (08:39)
[2021-06-10] MEDS: PRAVASTATIN 20 MG TAB PO SCH (08:39)
[2021-06-10] MEDS: SERTRALINE 100 MG TAB PO SCH (08:39)
[2021-06-10] MEDS: DOCUSATE SODIUM 100MG CAPSULE PO SCH ×2 (08:39→20:24)
[2021-06-10] MEDS: ASPIRIN 81MG ENTERIC TABLET PO SCH (08:39)
[2021-06-10] MEDS: metFORMIN (GLUCOPHAGE) 500MG TAB PO SCH (08:40)
[2021-06-10] MEDS: CYANOCOBALAMIN 500 MCG TAB PO SCH (08:40)
[2021-06-10] MEDS: VITAMIN D 1,000 INTERNATIONAL UNITS TABLET PO SCH (08:40)
[2021-06-10] MEDS: ISOSORBIDE DIN. (ISORDIL) 20 MG TAB PO SCH (08:40)
[2021-06-10] MEDS: METOPROLOL SUCC (TopROL XL) 50MG **XL** TAB PO SCH (08:40)
[2021-06-10] MEDS: REMEDY PHYTOPLEX Z-GUARD PASTE 113GM TUBE (FROM STOREROOM PRODUCT) TOP SCH ×3 (08:41→20:25)
[2021-06-10 08:50] LABS: CREATININE FOR GFR 1.04 MG/DL (0.55-1.30); GLOMERULAR FILTRATION RATE 54.1 (>32); POTASSIUM SERUM 4.2 MEQ/L (3.5-5.1)
[2021-06-10] MEDS: CEFDINIR 300 MG CAP (OMNICEF) PO SCH (09:31)
[2021-06-10] MEDS: LIDOCAINE 5% (LIDODERM) PATCH TD SCH (12:35)
[2021-06-10 14:00] VITALS: BP 120/64
[2021-06-10] MEDS: SENNA 8.6 MG TAB (SENOKOT) PO SCH (20:25)
[2021-06-10] MEDS: **NOTE PATIENT COMMENT** MISC XX SCH (20:36)
[2021-06-10 20:38] VITALS: BP 116/56
[2021-06-11 06:00] VITALS: BP 127/60
[2021-06-11] MEDS: HumaLOG INSULIN (NovoLOG) PER UNIT SC SCH ×4 (07:45→20:26)
[2021-06-11] MEDS: LACTOBACILLUS ACIDOPHILUS CAP (BACID) PO SCH ×4 (07:45→20:26)
[2021-06-11] MEDS: metFORMIN (GLUCOPHAGE) 500MG TAB PO SCH (07:46)
[2021-06-11] MEDS: ISOSORBIDE DIN. (ISORDIL) 20 MG TAB PO SCH (09:21)
[2021-06-11] MEDS: ASPIRIN 81MG ENTERIC TABLET PO SCH (09:21)
[2021-06-11] MEDS: MAGNESIUM OXIDE 400MG TAB (MAG-OX) PO SCH (09:21)
[2021-06-11] MEDS: DOCUSATE SODIUM 100MG CAPSULE PO SCH ×2 (09:21→20:26)
[2021-06-11] MEDS: PRAVASTATIN 20 MG TAB PO SCH (09:22)
[2021-06-11] MEDS: OMEPRAZOLE 20MG CAP PO SCH (09:22)
[2021-06-11] MEDS: CYANOCOBALAMIN 500 MCG TAB PO SCH (09:23)
[2021-06-11] MEDS: METOPROLOL SUCC (TopROL XL) 50MG **XL** TAB PO SCH (09:23)
[2021-06-11] MEDS: SERTRALINE 100 MG TAB PO SCH (09:23)
[2021-06-11] MEDS: VITAMIN D 1,000 INTERNATIONAL UNITS TABLET PO SCH (09:23)
[2021-06-11] MEDS: ENOXAPARIN 40MG/0.4ML SYRINGE (J1650 PER 10MG) SC SCH (09:24)
[2021-06-11] MEDS: REMEDY PHYTOPLEX Z-GUARD PASTE 113GM TUBE (FROM STOREROOM PRODUCT) TOP SCH ×3 (09:24→20:27)
[2021-06-11] MEDS: LIDOCAINE 5% (LIDODERM) PATCH TD SCH (09:25)
[2021-06-11 14:00] VITALS: BP 148/76
[2021-06-11 20:00] VITALS: BP 120/58
[2021-06-11] MEDS: SENNA 8.6 MG TAB (SENOKOT) PO SCH (20:26)
[2021-06-11] MEDS: **NOTE PATIENT COMMENT** MISC XX SCH (20:27)
[2021-06-12 06:00] VITALS: BP 147/67
[2021-06-12] MEDS: LIDOCAINE 5% (LIDODERM) PATCH TD SCH (09:00)
[2021-06-12] MEDS: HumaLOG INSULIN (NovoLOG) PER UNIT SC SCH ×4 (09:35→20:38)
[2021-06-12] MEDS: LACTOBACILLUS ACIDOPHILUS CAP (BACID) PO SCH ×4 (09:36→20:37)
[2021-06-12] MEDS: ISOSORBIDE DIN. (ISORDIL) 20 MG TAB PO SCH (09:37)
[2021-06-12] MEDS: metFORMIN (GLUCOPHAGE) 500MG TAB PO SCH (09:37)
[2021-06-12] MEDS: DOCUSATE SODIUM 100MG CAPSULE PO SCH ×2 (09:37→20:37)
[2021-06-12] MEDS: ASPIRIN 81MG ENTERIC TABLET PO SCH (09:37)
[2021-06-12] MEDS: METOPROLOL SUCC (TopROL XL) 50MG **XL** TAB PO SCH (09:38)
[2021-06-12] MEDS: PRAVASTATIN 20 MG TAB PO SCH (09:38)
[2021-06-12] MEDS: MAGNESIUM OXIDE 400MG TAB (MAG-OX) PO SCH (09:38)
[2021-06-12] MEDS: OMEPRAZOLE 20MG CAP PO SCH (09:38)
[2021-06-12] MEDS: VITAMIN D 1,000 INTERNATIONAL UNITS TABLET PO SCH (09:39)
[2021-06-12] MEDS: CYANOCOBALAMIN 500 MCG TAB PO SCH (09:39)
[2021-06-12] MEDS: SERTRALINE 100 MG TAB PO SCH (09:39)
[2021-06-12] MEDS: ENOXAPARIN 40MG/0.4ML SYRINGE (J1650 PER 10MG) SC SCH (09:42)
[2021-06-12] MEDS: REMEDY PHYTOPLEX Z-GUARD PASTE 113GM TUBE (FROM STOREROOM PRODUCT) TOP SCH ×3 (09:42→20:39)
[2021-06-12 14:00] VITALS: BP 131/67
[2021-06-12 20:00] VITALS: BP 130/65
[2021-06-12] MEDS: SENNA 8.6 MG TAB (SENOKOT) PO SCH (20:37)
[2021-06-12] MEDS: **NOTE PATIENT COMMENT** MISC XX SCH (20:41)
[2021-06-13 06:00] VITALS: BP 142/67
[2021-06-13] MEDS: HumaLOG INSULIN (NovoLOG) PER UNIT SC SCH ×4 (08:21→20:46)
[2021-06-13] MEDS: ASPIRIN 81MG ENTERIC TABLET PO SCH (08:22)
[2021-06-13] MEDS: PRAVASTATIN 20 MG TAB PO SCH (08:22)
[2021-06-13] MEDS: SERTRALINE 100 MG TAB PO SCH (08:22)
[2021-06-13] MEDS: CYANOCOBALAMIN 500 MCG TAB PO SCH (08:23)
[2021-06-13] MEDS: LACTOBACILLUS ACIDOPHILUS CAP (BACID) PO SCH ×4 (08:23→20:46)
[2021-06-13] MEDS: metFORMIN (GLUCOPHAGE) 500MG TAB PO SCH (08:23)
[2021-06-13] MEDS: OMEPRAZOLE 20MG CAP PO SCH (08:23)
[2021-06-13] MEDS: VITAMIN D 1,000 INTERNATIONAL UNITS TABLET PO SCH (08:24)
[2021-06-13] MEDS: MAGNESIUM OXIDE 400MG TAB (MAG-OX) PO SCH (08:24)
[2021-06-13] MEDS: DOCUSATE SODIUM 100MG CAPSULE PO SCH (08:24)
[2021-06-13] MEDS: LIDOCAINE 5% (LIDODERM) PATCH TD SCH (08:25)
[2021-06-13] MEDS: ENOXAPARIN 40MG/0.4ML SYRINGE (J1650 PER 10MG) SC SCH (08:25)
[2021-06-13] MEDS: REMEDY PHYTOPLEX Z-GUARD PASTE 113GM TUBE (FROM STOREROOM PRODUCT) TOP SCH ×3 (08:26→20:47)
[2021-06-13] MEDS: METOPROLOL SUCC (TopROL XL) 50MG **XL** TAB PO SCH (08:43)
[2021-06-13] MEDS: ISOSORBIDE DIN. (ISORDIL) 20 MG TAB PO SCH (08:44)
[2021-06-13 09:25] LABS: BASO % 0.6 % (0.0-1.0); EOS # 0.2 10^3/uL (0.0-0.5); EOS % 2.6 % (0.0-3.0); HEMATOCRIT 35.5 % (36.0-47.0); HEMOGLOBIN 11.1 g/dl (12.0-15.5); LYMPH # 2.3 10^3/uL (1.5-5.0); LYMPH % 37.2 % (24.0-44.0); MEAN CORPUSCULAR HEMOGLOBIN 26.7 pg (27.0-33.0); MEAN CORPUSCULAR HGB CONC 31.3 g/dl (32.0-36.5); MEAN CORPUSCULAR VOLUME 85.3 fl (80.0-96.0); MONO # 0.5 10^3/uL (0.0-0.8); MONO % 7.5 % (2.0-8.0); NEUTROPHILS # 3.2 10^3/uL (1.5-8.5); NEUTROPHILS % 51.8 % (36.0-66.0); PLATELET COUNT, AUTOMATED 291 10^3/uL (150-450); RED BLOOD COUNT 4.16 10^6/uL (4.00-5.40); WHITE BLOOD COUNT 6.3 10^3/uL (4.0-10.0)
[2021-06-13 09:32] LABS: CALCIUM LEVEL 9.3 MG/DL (8.8-10.2); CREATININE FOR GFR 1.31 MG/DL (0.55-1.30); GLOMERULAR FILTRATION RATE 41.5 (>32); POTASSIUM SERUM 4.1 MEQ/L (3.5-5.1)
[2021-06-13 14:00] VITALS: BP 135/67
[2021-06-13] MEDS ORDERED: SENNA 8.6 MG TAB (SENOKOT) PO PRN (14:10)
[2021-06-13] MEDS ORDERED: DOCUSATE SODIUM 100MG CAPSULE PO PRN (14:15)
[2021-06-13 20:00] VITALS: BP 142/67
[2021-06-13] MEDS: ACETAMINOPHEN TAB 650MG DOSE (2X325MG) PO PRN (20:46)
[2021-06-13] MEDS: **NOTE PATIENT COMMENT** MISC XX SCH (20:48)
[2021-06-14 05:55] VITALS: BP 156/68
[2021-06-14] MEDS: LACTOBACILLUS ACIDOPHILUS CAP (BACID) PO SCH ×4 (07:40→20:42)
[2021-06-14] MEDS: HumaLOG INSULIN (NovoLOG) PER UNIT SC SCH ×4 (07:40→20:43)
[2021-06-14] MEDS: metFORMIN (GLUCOPHAGE) 500MG TAB PO SCH ×2 (07:41→17:04)
[2021-06-14] MEDS: ASPIRIN 81MG ENTERIC TABLET PO SCH (07:41)
[2021-06-14] MEDS: ISOSORBIDE DIN. (ISORDIL) 20 MG TAB PO SCH (07:41)
[2021-06-14] MEDS: MAGNESIUM OXIDE 400MG TAB (MAG-OX) PO SCH (07:42)
[2021-06-14] MEDS: OMEPRAZOLE 20MG CAP PO SCH (07:43)
[2021-06-14] MEDS: PRAVASTATIN 20 MG TAB PO SCH (07:43)
[2021-06-14] MEDS: METOPROLOL SUCC (TopROL XL) 50MG **XL** TAB PO SCH (07:45)
[2021-06-14] MEDS: SERTRALINE 100 MG TAB PO SCH (07:46)
[2021-06-14] MEDS: VITAMIN D 1,000 INTERNATIONAL UNITS TABLET PO SCH (07:46)
[2021-06-14] MEDS: CYANOCOBALAMIN 500 MCG TAB PO SCH (07:46)
[2021-06-14] MEDS: ENOXAPARIN 40MG/0.4ML SYRINGE (J1650 PER 10MG) SC SCH (07:47)
[2021-06-14] MEDS: LIDOCAINE 5% (LIDODERM) PATCH TD SCH (07:48)
[2021-06-14] MEDS: REMEDY PHYTOPLEX Z-GUARD PASTE 113GM TUBE (FROM STOREROOM PRODUCT) TOP SCH ×3 (07:48→20:43)
[2021-06-14 14:00] VITALS: BP 146/71
[2021-06-14] MEDS: **NOTE PATIENT COMMENT** MISC XX SCH (20:45)
[2021-06-14 21:00] VITALS: BP 133/66
[2021-06-15 05:34] VITALS: BP 152/67
[2021-06-15] MEDS: LIDOCAINE 5% (LIDODERM) PATCH TD SCH (08:02)
[2021-06-15] MEDS: OMEPRAZOLE 20MG CAP PO SCH (08:03)
[2021-06-15] MEDS: ENOXAPARIN 40MG/0.4ML SYRINGE (J1650 PER 10MG) SC SCH (08:03)
[2021-06-15] MEDS: VITAMIN D 1,000 INTERNATIONAL UNITS TABLET PO SCH (08:03)
[2021-06-15] MEDS: PRAVASTATIN 20 MG TAB PO SCH (08:03)
[2021-06-15] MEDS: LACTOBACILLUS ACIDOPHILUS CAP (BACID) PO SCH ×4 (08:03→20:11)
[2021-06-15] MEDS: SERTRALINE 100 MG TAB PO SCH (08:03)
[2021-06-15] MEDS: ASPIRIN 81MG ENTERIC TABLET PO SCH (08:03)
[2021-06-15] MEDS: HumaLOG INSULIN (NovoLOG) PER UNIT SC SCH ×4 (08:03→20:11)
[2021-06-15] MEDS: ISOSORBIDE DIN. (ISORDIL) 20 MG TAB PO SCH (08:04)
[2021-06-15] MEDS: metFORMIN (GLUCOPHAGE) 500MG TAB PO SCH ×2 (08:04→17:01)
[2021-06-15] MEDS: METOPROLOL SUCC (TopROL XL) 50MG **XL** TAB PO SCH (08:04)
[2021-06-15] MEDS: MAGNESIUM OXIDE 400MG TAB (MAG-OX) PO SCH (08:04)
[2021-06-15] MEDS: CYANOCOBALAMIN 500 MCG TAB PO SCH (08:04)
[2021-06-15] MEDS: REMEDY PHYTOPLEX Z-GUARD PASTE 113GM TUBE (FROM STOREROOM PRODUCT) TOP SCH ×3 (08:05→20:15)
[2021-06-15 08:08] LABS: BASO % 0.7 % (0.0-1.0); EOS # 0.2 10^3/uL (0.0-0.5); EOS % 3.1 % (0.0-3.0); HEMATOCRIT 36.9 % (36.0-47.0); HEMOGLOBIN 11.5 g/dl (12.0-15.5); LYMPH # 2.2 10^3/uL (1.5-5.0); LYMPH % 36.4 % (24.0-44.0); MEAN CORPUSCULAR HEMOGLOBIN 26.8 pg (27.0-33.0); MEAN CORPUSCULAR HGB CONC 31.2 g/dl (32.0-36.5); MONO # 0.5 10^3/uL (0.0-0.8); NEUTROPHILS # 3.2 10^3/uL (1.5-8.5); NEUTROPHILS % 51.3 % (36.0-66.0); PLATELET COUNT, AUTOMATED 288 10^3/uL (150-450); RED BLOOD COUNT 4.29 10^6/uL (4.00-5.40); WHITE BLOOD COUNT 6.1 10^3/uL (4.0-10.0)
[2021-06-15 08:28] LABS: CALCIUM LEVEL 9.7 MG/DL (8.8-10.2); CREATININE FOR GFR 1.24 MG/DL (0.55-1.30); GLOMERULAR FILTRATION RATE 44.2 (>32); POTASSIUM SERUM 4.4 MEQ/L (3.5-5.1)
[2021-06-15 14:00] VITALS: BP 151/72
[2021-06-15] MEDS: ACETAMINOPHEN TAB 650MG DOSE (2X325MG) PO PRN (17:01)
[2021-06-15 20:00] VITALS: BP 124/62
[2021-06-15] MEDS: **NOTE PATIENT COMMENT** MISC XX SCH (20:15)
[2021-06-16 06:00] VITALS: BP 139/67
[2021-06-16] MEDS: LIDOCAINE 5% (LIDODERM) PATCH TD SCH (08:57)
[2021-06-16] MEDS: MAGNESIUM OXIDE 400MG TAB (MAG-OX) PO SCH (08:58)
[2021-06-16] MEDS: metFORMIN (GLUCOPHAGE) 500MG TAB PO SCH ×2 (08:58→17:20)
[2021-06-16] MEDS: HumaLOG INSULIN (NovoLOG) PER UNIT SC SCH ×4 (08:58→20:41)
[2021-06-16] MEDS: SERTRALINE 100 MG TAB PO SCH (08:58)
[2021-06-16] MEDS: ASPIRIN 81MG ENTERIC TABLET PO SCH (08:58)
[2021-06-16] MEDS: VITAMIN D 1,000 INTERNATIONAL UNITS TABLET PO SCH (08:58)
[2021-06-16] MEDS: LACTOBACILLUS ACIDOPHILUS CAP (BACID) PO SCH ×4 (08:58→20:41)
[2021-06-16] MEDS: PRAVASTATIN 20 MG TAB PO SCH (08:58)
[2021-06-16] MEDS: CYANOCOBALAMIN 500 MCG TAB PO SCH (08:59)
[2021-06-16] MEDS: METOPROLOL SUCC (TopROL XL) 50MG **XL** TAB PO SCH (08:59)
[2021-06-16] MEDS: OMEPRAZOLE 20MG CAP PO SCH (08:59)
[2021-06-16] MEDS: ISOSORBIDE DIN. (ISORDIL) 20 MG TAB PO SCH (08:59)
[2021-06-16] MEDS: REMEDY PHYTOPLEX Z-GUARD PASTE 113GM TUBE (FROM STOREROOM PRODUCT) TOP SCH ×3 (09:00→20:42)
[2021-06-16] MEDS: ENOXAPARIN 40MG/0.4ML SYRINGE (J1650 PER 10MG) SC SCH (09:00)
[2021-06-16 14:00] VITALS: BP 138/67
[2021-06-16] MEDS: METAMUCIL (PSYLLIUM) PACKET PO SCH (14:35)
[2021-06-16 20:00] VITALS: BP 122/61
[2021-06-16] MEDS: **NOTE PATIENT COMMENT** MISC XX SCH (20:42)
[2021-06-17 06:00] VITALS: BP 133/68
[2021-06-17 08:40] LABS: BASO # 0.1 10^3/uL (0.0-0.2); BASO % 0.8 % (0.0-1.0); EOS # 0.2 10^3/uL (0.0-0.5); EOS % 3.2 % (0.0-3.0); HEMATOCRIT 34.3 % (36.0-47.0); HEMOGLOBIN 10.7 g/dl (12.0-15.5); LYMPH # 2.4 10^3/uL (1.5-5.0); LYMPH % 39.3 % (24.0-44.0); MEAN CORPUSCULAR HEMOGLOBIN 26.7 pg (27.0-33.0); MEAN CORPUSCULAR HGB CONC 31.2 g/dl (32.0-36.5); MEAN CORPUSCULAR VOLUME 85.5 fl (80.0-96.0); MONO # 0.5 10^3/uL (0.0-0.8); MONO % 8.4 % (2.0-8.0); NEUTROPHILS % 48.1 % (36.0-66.0); PLATELET COUNT, AUTOMATED 290 10^3/uL (150-450); RED BLOOD COUNT 4.01 10^6/uL (4.00-5.40); WHITE BLOOD COUNT 6.2 10^3/uL (4.0-10.0)
[2021-06-17] MEDS: HumaLOG INSULIN (NovoLOG) PER UNIT SC SCH ×4 (08:54→21:00)
[2021-06-17 08:55] LABS: CALCIUM LEVEL 9.8 MG/DL (8.8-10.2); CREATININE FOR GFR 1.2 MG/DL (0.55-1.30); GLOMERULAR FILTRATION RATE 45.9 (>32)
[2021-06-17] MEDS: metFORMIN (GLUCOPHAGE) 500MG TAB PO SCH ×2 (08:55→17:31)
[2021-06-17] MEDS: OMEPRAZOLE 20MG CAP PO SCH (08:55)
[2021-06-17] MEDS: SERTRALINE 100 MG TAB PO SCH (08:55)
[2021-06-17] MEDS: ENOXAPARIN 40MG/0.4ML SYRINGE (J1650 PER 10MG) SC SCH (08:55)
[2021-06-17] MEDS: CYANOCOBALAMIN 500 MCG TAB PO SCH (08:56)
[2021-06-17] MEDS: PRAVASTATIN 20 MG TAB PO SCH (08:56)
[2021-06-17] MEDS: LACTOBACILLUS ACIDOPHILUS CAP (BACID) PO SCH ×4 (08:56→21:16)
[2021-06-17] MEDS: VITAMIN D 1,000 INTERNATIONAL UNITS TABLET PO SCH (08:56)
[2021-06-17] MEDS: LIDOCAINE 5% (LIDODERM) PATCH TD SCH (08:57)
[2021-06-17] MEDS: ISOSORBIDE DIN. (ISORDIL) 20 MG TAB PO SCH (08:59)
[2021-06-17] MEDS: METOPROLOL SUCC (TopROL XL) 50MG **XL** TAB PO SCH (09:00)
[2021-06-17] MEDS: METAMUCIL (PSYLLIUM) PACKET PO SCH (09:00)
[2021-06-17] MEDS: REMEDY PHYTOPLEX Z-GUARD PASTE 113GM TUBE (FROM STOREROOM PRODUCT) TOP SCH ×3 (09:01→21:17)
[2021-06-17] MEDS: ASPIRIN 81MG ENTERIC TABLET PO SCH (12:31)
[2021-06-17 14:00] VITALS: BP 133/65
[2021-06-17] MEDS: ACETAMINOPHEN TAB 650MG DOSE (2X325MG) PO PRN (21:16)
[2021-06-17] MEDS: **NOTE PATIENT COMMENT** MISC XX SCH (21:17)
[2021-06-18] MEDS: ISOSORBIDE DIN. (ISORDIL) 20 MG TAB PO SCH (07:56)
[2021-06-18] MEDS: HumaLOG INSULIN (NovoLOG) PER UNIT SC SCH ×4 (07:56→21:00)
[2021-06-18] MEDS: OMEPRAZOLE 20MG CAP PO SCH (07:57)
[2021-06-18] MEDS: LACTOBACILLUS ACIDOPHILUS CAP (BACID) PO SCH ×4 (07:57→21:16)
[2021-06-18] MEDS: METOPROLOL SUCC (TopROL XL) 50MG **XL** TAB PO SCH (07:57)
[2021-06-18] MEDS: ENOXAPARIN 40MG/0.4ML SYRINGE (J1650 PER 10MG) SC SCH (07:58)
[2021-06-18] MEDS: ASPIRIN 81MG ENTERIC TABLET PO SCH (07:58)
[2021-06-18] MEDS: metFORMIN (GLUCOPHAGE) 500MG TAB PO SCH ×2 (07:58→17:17)
[2021-06-18] MEDS: PRAVASTATIN 20 MG TAB PO SCH (07:58)
[2021-06-18] MEDS: VITAMIN D 1,000 INTERNATIONAL UNITS TABLET PO SCH (07:58)
[2021-06-18] MEDS: CYANOCOBALAMIN 500 MCG TAB PO SCH (07:58)
[2021-06-18] MEDS: SERTRALINE 100 MG TAB PO SCH (07:58)
[2021-06-18] MEDS: LIDOCAINE 5% (LIDODERM) PATCH TD SCH (07:59)
[2021-06-18] MEDS: REMEDY PHYTOPLEX Z-GUARD PASTE 113GM TUBE (FROM STOREROOM PRODUCT) TOP SCH ×3 (07:59→21:00)
[2021-06-18] MEDS: METAMUCIL (PSYLLIUM) PACKET PO SCH (07:59)
[2021-06-18] MEDS: FUROSEMIDE 20 MG TAB PO SCH (12:23)
[2021-06-18 20:00] VITALS: BP 162/74
[2021-06-18] MEDS: **NOTE PATIENT COMMENT** MISC XX SCH (21:17)
[2021-06-19 06:00] VITALS: BP 164/77
[2021-06-19] MEDS: HumaLOG INSULIN (NovoLOG) PER UNIT SC SCH ×4 (08:33→21:35)
[2021-06-19] MEDS: VITAMIN D 1,000 INTERNATIONAL UNITS TABLET PO SCH (08:33)
[2021-06-19] MEDS: METAMUCIL (PSYLLIUM) PACKET PO SCH (08:33)
[2021-06-19] MEDS: PRAVASTATIN 20 MG TAB PO SCH (08:33)
[2021-06-19] MEDS: metFORMIN (GLUCOPHAGE) 500MG TAB PO SCH ×2 (08:34→18:15)
[2021-06-19] MEDS: LACTOBACILLUS ACIDOPHILUS CAP (BACID) PO SCH ×4 (08:34→21:34)
[2021-06-19] MEDS: ASPIRIN 81MG ENTERIC TABLET PO SCH (08:34)
[2021-06-19] MEDS: ISOSORBIDE DIN. (ISORDIL) 20 MG TAB PO SCH (08:34)
[2021-06-19] MEDS: OMEPRAZOLE 20MG CAP PO SCH (08:34)
[2021-06-19] MEDS: FUROSEMIDE 20 MG TAB PO SCH (08:34)
[2021-06-19] MEDS: CYANOCOBALAMIN 500 MCG TAB PO SCH (08:34)
[2021-06-19] MEDS: SERTRALINE 100 MG TAB PO SCH (08:34)
[2021-06-19] MEDS: METOPROLOL SUCC (TopROL XL) 50MG **XL** TAB PO SCH (08:34)
[2021-06-19] MEDS: ENOXAPARIN 40MG/0.4ML SYRINGE (J1650 PER 10MG) SC SCH (08:35)
[2021-06-19] MEDS: LIDOCAINE 5% (LIDODERM) PATCH TD SCH (08:35)
[2021-06-19] MEDS: REMEDY PHYTOPLEX Z-GUARD PASTE 113GM TUBE (FROM STOREROOM PRODUCT) TOP SCH ×3 (08:35→21:00)
[2021-06-19 09:24] LABS: HEMATOCRIT 36.1 % (36.0-47.0); HEMOGLOBIN 11.2 g/dl (12.0-15.5); MEAN CORPUSCULAR HEMOGLOBIN 26.1 pg (27.0-33.0); MEAN CORPUSCULAR VOLUME 84.1 fl (80.0-96.0); PLATELET COUNT, AUTOMATED 309 10^3/uL (150-450); RED BLOOD COUNT 4.29 10^6/uL (4.00-5.40); WHITE BLOOD COUNT 7.2 10^3/uL (4.0-10.0)
[2021-06-19 09:55] LABS: CALCIUM LEVEL 9.6 MG/DL (8.8-10.2); CREATININE FOR GFR 1.12 MG/DL (0.55-1.30); GLOMERULAR FILTRATION RATE 49.7 (>32); MAGNESIUM LEVEL 1.6 MG/DL (1.8-2.4); POTASSIUM SERUM 3.9 MEQ/L (3.5-5.1)
[2021-06-19 14:00] VITALS: BP 122/58
[2021-06-19 20:00] VITALS: BP 132/65
[2021-06-19] MEDS: **NOTE PATIENT COMMENT** MISC XX SCH (21:44)
[2021-06-20 06:00] VITALS: BP 129/63
[2021-06-20] MEDS: PRAVASTATIN 20 MG TAB PO SCH (09:58)
[2021-06-20] MEDS: LACTOBACILLUS ACIDOPHILUS CAP (BACID) PO SCH ×2 (09:58→12:19)
[2021-06-20] MEDS: metFORMIN (GLUCOPHAGE) 500MG TAB PO SCH (09:58)
[2021-06-20] MEDS: ENOXAPARIN 40MG/0.4ML SYRINGE (J1650 PER 10MG) SC SCH (09:58)
[2021-06-20] MEDS: ASPIRIN 81MG ENTERIC TABLET PO SCH (09:58)
[2021-06-20] MEDS: HumaLOG INSULIN (NovoLOG) PER UNIT SC SCH ×2 (09:58→12:19)
[2021-06-20] MEDS: OMEPRAZOLE 20MG CAP PO SCH (09:58)
[2021-06-20 09:59] VITALS: BP 129/63
[2021-06-20] MEDS: METOPROLOL SUCC (TopROL XL) 50MG **XL** TAB PO SCH (09:59)
[2021-06-20] MEDS: CYANOCOBALAMIN 500 MCG TAB PO SCH (09:59)
[2021-06-20] MEDS: SERTRALINE 100 MG TAB PO SCH (09:59)
[2021-06-20] MEDS: FUROSEMIDE 20 MG TAB PO SCH (09:59)
[2021-06-20] MEDS: METAMUCIL (PSYLLIUM) PACKET PO SCH (10:00)
[2021-06-20] MEDS: VITAMIN D 1,000 INTERNATIONAL UNITS TABLET PO SCH (10:00)
[2021-06-20] MEDS: ISOSORBIDE DIN. (ISORDIL) 20 MG TAB PO SCH (10:00)
[2021-06-20] MEDS: LIDOCAINE 5% (LIDODERM) PATCH TD SCH (10:01)
[2021-06-20] MEDS: REMEDY PHYTOPLEX Z-GUARD PASTE 113GM TUBE (FROM STOREROOM PRODUCT) TOP SCH (10:01)
[2021-06-20] MEDS ORDERED: METF500T13 PO (10:14)
[2021-06-20] MEDS ORDERED: METO1TAB7 PO (10:14)
[2021-06-20] MEDS ORDERED: AMLO1TAB25 PO (10:14)
[2021-06-20] MEDS ORDERED: FURO20TA2 PO (10:14)
[2021-06-20] MEDS ORDERED: META1POW PO (10:14)
[2021-06-20] MEDS ORDERED: OMEP-173 PO (10:14)
[2021-06-20] MEDS ORDERED: ASPI-551 PO (10:14)
[2021-06-20] MEDS ORDERED: PRAV40TA2 PO (10:14)
[2021-06-20] MEDS ORDERED: ZOLO100T PO (10:14)
[2021-06-20] MEDS ORDERED: RISATAB3 PO (10:14)
[2021-06-20] MEDS ORDERED: ISOS20TA4 PO (10:14)
== END 2021-06-20 14:00 | disposition home health service (06) | DRG 949 ==
LOC: M PM&R 13:56
PROVIDERS: ADMIT Physical Medicine & Rehabilitation; ATTEND Physical Medicine & Rehabilitation
DX: S06.9X1D Unspecified intracranial injury with loss of consciousness of 30 minutes or less, subsequent encounter (principal); I50.32 Chronic diastolic (congestive) heart failure; I11.0 Hypertensive heart disease with heart failure; E11.9 Type 2 diabetes mellitus without complications; E78.5 Hyperlipidemia, unspecified; F32.A Depression, unspecified; R29.6 Repeated falls; Z86.73 Personal history of transient ischemic attack (TIA), and cerebral infarction without residual deficits; S62.617D Displaced fracture of proximal phalanx of left little finger, subsequent encounter for fracture with routine healing; R53.83 Other fatigue; Z74.09 Other reduced mobility; Z74.1 Need for assistance with personal care; Z79.82 Long term (current) use of aspirin; Z79.84 Long term (current) use of oral hypoglycemic drugs; Z79.899 Other long term (current) drug therapy; Z88.8 Allergy status to other drugs, medicaments and biological substances; Z66 Do not resuscitate; W18.30XD Fall on same level, unspecified, subsequent encounter

== ENCOUNTER → 2021-07-05 | Outpatient (CLI) | payer MEDICARE, BC, OTHER ==
[~2021-07-05] MED LIST changes: +FURO20TA2 PO; +META1POW PO; +METF500T13 PO; +RISATAB3 PO
== END ==
LOC: M SOG 14:35
PROVIDERS: ATTEND Physician Assistant
DX: M79.645 Pain in left finger(s) (principal)

== ENCOUNTER 2021-07-31 19:31 | Emergency (ER) | payer MEDICARE, BC, OTHER ==
[~2021-07-31] VITALS: Ht 160 cm; Wt 66.0 kg
[2021-07-31 19:55] VITALS: BP 153/74
[2021-07-31] MEDS ORDERED: MORPHINE 2 MG/ML 1ML VIAL IV ONE (20:50)
[2021-07-31 21:10] LABS: BASO % 0.3 % (0.0-1.0); EOS # 0.1 10^3/uL (0.0-0.5); EOS % 0.7 % (0.0-3.0); HEMATOCRIT 33.9 % (36.0-47.0); HEMOGLOBIN 10.7 g/dl (12.0-15.5); LYMPH # 1.8 10^3/uL (1.5-5.0); MEAN CORPUSCULAR HEMOGLOBIN 26.2 pg (27.0-33.0); MEAN CORPUSCULAR HGB CONC 31.6 g/dl (32.0-36.5); MEAN CORPUSCULAR VOLUME 82.9 fl (80.0-96.0); MONO # 0.4 10^3/uL (0.0-0.8); NEUTROPHILS # 4.5 10^3/uL (1.5-8.5); NEUTROPHILS % 66.7 % (36.0-66.0); PLATELET COUNT, AUTOMATED 266 10^3/uL (150-450); RED BLOOD COUNT 4.09 10^6/uL (4.00-5.40); WHITE BLOOD COUNT 6.7 10^3/uL (4.0-10.0)
[2021-07-31 21:27] LABS: INR 0.92; PROTHROMBIN TIME 12.8 SECONDS (12.7-14.5)
[2021-07-31 21:28] LABS: PARTIAL THROMBOPLASTIN TIME 23.8 SECONDS (25.9-37.0)
== END 2021-07-31 22:36 | disposition home or self-care (01) ==
LOC: EDBD 19:31 → M ED 19:31
DX: S52.122A Displaced fracture of head of left radius, initial encounter for closed fracture (principal); S42.352A Displaced comminuted fracture of shaft of humerus, left arm, initial encounter for closed fracture; W18.30XA Fall on same level, unspecified, initial encounter; Z88.8 Allergy status to other drugs, medicaments and biological substances; Y92.009 Unspecified place in unspecified non-institutional (private) residence as the place of occurrence of the external cause; Y93.9 Activity, unspecified; Y99.9 Unspecified external cause status; Z79.899 Other long term (current) drug therapy

== ENCOUNTER → 2021-08-01 | Outpatient (CLI) | payer MEDICARE, BC, OTHER | LOC: M SOG 14:27 | PROVIDERS: ATTEND Orthopaedic Surgery Hand Surgery | DX: M79.642 Pain in left hand (principal) ==

== ENCOUNTER → 2021-08-15 | Outpatient (CLI) | payer MEDICARE, BC, OTHER | LOC: M SOG 09:06 | PROVIDERS: ATTEND Orthopaedic Surgery Hand Surgery | DX: S42.292A Other displaced fracture of upper end of left humerus, initial encounter for closed fracture (principal) ==

== ENCOUNTER → 2021-09-16 | Outpatient (CLI) | payer MEDICARE, BC, OTHER | LOC: M SOG 07:53 | PROVIDERS: ATTEND Orthopaedic Surgery Hand Surgery | DX: S42.292A Other displaced fracture of upper end of left humerus, initial encounter for closed fracture (principal); X58.XXXA Exposure to other specified factors, initial encounter; Y92.9 Unspecified place or not applicable ==

== ENCOUNTER → 2021-10-12 | Outpatient (REF) | payer MEDICARE, OTHER ==
[2021-10-12 17:50] LABS: HEMATOCRIT 36.5 % (36.0-47.0); MEAN CORPUSCULAR HEMOGLOBIN 24.5 pg (27.0-33.0); MEAN CORPUSCULAR HGB CONC 30.1 g/dl (32.0-36.5); MEAN CORPUSCULAR VOLUME 81.3 fl (80.0-96.0); PLATELET COUNT, AUTOMATED 327 10^3/uL (150-450); RED BLOOD COUNT 4.49 10^6/uL (4.00-5.40)
[2021-10-12 19:07] LABS: HEMOGLOBIN A1c 8.9 %
[2021-10-12 20:25] LABS: ALBUMIN 3.2 GM/DL (3.2-5.2); BILIRUBIN,TOTAL 0.3 MG/DL (0.2-1.0); CALCIUM LEVEL 9.1 MG/DL (8.8-10.2); CHOLESTEROL RISK RATIO 3.795 (<5); CREATININE FOR GFR 1.34 MG/DL (0.55-1.30); FREE T4 0.91 NG/DL (0.76-1.46); GLOMERULAR FILTRATION RATE 40.3 (>32); PERCENT SATURATION 7.6 % (13.2-45.0); THYROID STIMULATING HORMONE 3.96 uIU/ML (0.358-3.740); TOTAL PROTEIN 7.3 GM/DL (6.4-8.2)
[2021-10-12 21:02] LABS: POTASSIUM SERUM 2.5 MEQ/L (3.5-5.1)
== END ==
LOC: M SFHCADAM 13:30
PROVIDERS: ATTEND Family Medicine
DX: E11.9 Type 2 diabetes mellitus without complications (principal); Z86.73 Personal history of transient ischemic attack (TIA), and cerebral infarction without residual deficits; D64.9 Anemia, unspecified; R26.81 Unsteadiness on feet

== ENCOUNTER → 2022-06-27 | Outpatient (REF) | payer MEDICARE, OTHER ==
[2022-06-27 17:04] LABS: HEMATOCRIT 35.7 % (36.0-47.0); HEMOGLOBIN 10.6 g/dl (12.0-15.5); MEAN CORPUSCULAR HEMOGLOBIN 23.5 pg (27.0-33.0); MEAN CORPUSCULAR HGB CONC 29.7 g/dl (32.0-36.5); MEAN CORPUSCULAR VOLUME 79.2 fl (80.0-96.0); PLATELET COUNT, AUTOMATED 358 10^3/uL (150-450); RED BLOOD COUNT 4.51 10^6/uL (4.00-5.40); WHITE BLOOD COUNT 9.4 10^3/uL (4.0-10.0)
[2022-06-27 17:19] LABS: HEMOGLOBIN A1c 8.1 % (4.0-6.0)
[2022-06-27 17:32] LABS: PERCENT SATURATION 8.2 % (13.2-45.0)
[2022-06-27 17:33] LABS: THYROID STIMULATING HORMONE 3.459 uIU/ML (0.55-4.78)
[2022-06-27 17:34] LABS: FERRITIN 6.5 NG/ML (7.3-270.7)
[2022-06-27 17:35] LABS: FREE T4 1.04 NG/DL (0.89-1.76)
[2022-06-27 18:06] LABS: ALBUMIN 3.1 G/DL (3.2-5.2); BILIRUBIN,TOTAL 0.6 MG/DL (0.3-1.2); CALCIUM LEVEL 8.5 MG/DL (8.3-10.6); CHOLESTEROL RISK RATIO 4.82 (<5); CREATININE FOR GFR 1.1 MG/DL (0.55-1.30); GLOMERULAR FILTRATION RATE 50.6 (>32); HDL CHOLESTEROL 44.6 MG/DL (>40); NON-HDL-C 170.4 MG/DL; TOTAL PROTEIN 6.8 G/DL (5.7-8.2)
[2022-06-27 20:07] LABS: POTASSIUM SERUM 2.8 MMOL/L (3.5-5.1)
== END ==
LOC: M SFHCADAM 14:51
PROVIDERS: ATTEND Family Medicine
DX: D64.9 Anemia, unspecified (principal); E11.9 Type 2 diabetes mellitus without complications; E78.2 Mixed hyperlipidemia; I11.9 Hypertensive heart disease without heart failure

== ENCOUNTER 2022-08-01 20:10 | Observation (INO) | payer MEDICARE, BC, OTHER ==
[~2022-08-01] VITALS: Ht 162.6 cm; Wt 74.8 kg
[2022-08-01 20:53] LABS: BASO % 0.3 % (0.0-1.0); EOS % 0.1 % (0.0-3.0); HEMATOCRIT 37.3 % (36.0-47.0); HEMOGLOBIN 11.4 g/dl (12.0-15.5); LYMPH # 1.2 10^3/uL (1.5-5.0); LYMPH % 18.4 % (24.0-44.0); MEAN CORPUSCULAR HEMOGLOBIN 24.1 pg (27.0-33.0); MEAN CORPUSCULAR HGB CONC 30.6 g/dl (32.0-36.5); MEAN CORPUSCULAR VOLUME 78.9 fl (80.0-96.0); MONO # 0.4 10^3/uL (0.0-0.8); NEUTROPHILS % 74.8 % (36.0-66.0); PLATELET COUNT, AUTOMATED 315 10^3/uL (150-450); RED BLOOD COUNT 4.73 10^6/uL (4.00-5.40); WHITE BLOOD COUNT 6.7 10^3/uL (4.0-10.0)
[2022-08-01 21:05] LABS: CPK CREATINE PHOSPHOKINASE 547 U/L (34-145)
[2022-08-01 21:44] LABS: CK-MB VALUE MASS 2.5 NG/ML (<3.6); MB/CK RELATIVE INDEX 0.45 (< OR =4)
[2022-08-01 21:46] LABS: ALBUMIN 3.3 G/DL (3.2-5.2); ALKALINE PHOSPHATASE 65 U/L (46-116); ALT/SGPT 12 U/L (7.0-40); AST/SGOT 35 U/L (<34); BILIRUBIN,DIRECT 0.2 MG/DL (<0.4); BILIRUBIN,TOTAL 0.6 MG/DL (0.3-1.2); BLOOD UREA NITROGEN 11 MG/DL (9-23); CALCIUM LEVEL 8.5 MG/DL (8.3-10.6); CARBON DIOXIDE LEVEL 29 MMOL/L (20-31); CHLORIDE LEVEL 104 MMOL/L (98-107); CREATININE FOR GFR 0.86 MG/DL (0.55-1.30); GLOMERULAR FILTRATION RATE > 60.0 (>32); GLUCOSE, FASTING 67 MG/DL (74-106); POTASSIUM SERUM 2.9 MMOL/L (3.5-5.1); SODIUM LEVEL 140 MMOL/L (136-145); TOTAL PROTEIN 6.8 G/DL (5.7-8.2)
[2022-08-01 21:48] LABS: FREE T4 0.81 NG/DL (0.89-1.76); THYROID STIMULATING HORMONE 0.941 uIU/ML (0.55-4.78)
[2022-08-01] MEDS ORDERED: KCL 10MEQ/100ML SWI (KRUN) 10 MEQ in IV 1 EA IV ONE (21:50)
[2022-08-01] MEDS ORDERED: POTASSIUM CHLORIDE 10MEQ SR TABLET PO ONE (21:50)
[2022-08-01 22:27] LABS: CK-MB VALUE MASS 2.5 NG/ML (<3.6)
[2022-08-01 22:29] LABS: MB/CK RELATIVE INDEX 0.46 (< OR =4)
[2022-08-01] MEDS ORDERED: DEXTROSE 50% 50ML SYRINGE IV STA (23:19)
[2022-08-01] MEDS ORDERED: ACETAMINOPHEN TAB 650MG DOSE (2X325MG) PO PRN (23:20)
[2022-08-01] MEDS ORDERED: DEXTROSE 50% 50ML SYRINGE IV PRN (23:20)
[2022-08-01] MEDS ORDERED: GLUCOSE 4GM CHEW TABLET PO PRN (23:20)
[2022-08-01] MEDS ORDERED: GLUCAGON INJ 1MG VIAL SC PRN (23:20)
[2022-08-02 00:21] LABS: RSV AMPLIFICATION NEGATIVE (NEGATIVE)
[2022-08-02 01:25] VITALS: BP 144/68; TEMP 97.7; O2SAT 97
[2022-08-02] MEDS ORDERED: FURO20TA2 PO (01:45)
[2022-08-02] MEDS ORDERED: GLIM4TAB5 PO (01:45)
[2022-08-02] MEDS ORDERED: SPIR-10 PO (01:45)
[2022-08-02] MEDS ORDERED: ISOS20TA4 PO (01:45)
[2022-08-02] MEDS ORDERED: OMEP-173 PO (01:45)
[2022-08-02] MEDS ORDERED: AMLO1TAB25 PO (01:45)
[2022-08-02] MEDS ORDERED: METF10004 PO (01:45)
[2022-08-02] MEDS ORDERED: ZOLO100T PO (01:45)
[2022-08-02] MEDS ORDERED: ASPI-161 PO (01:45)
[2022-08-02] MEDS ORDERED: HOME MED LIST COMPLETE! XX SCH (01:45)
[2022-08-02] MEDS ORDERED: D5W/0.45% SODIUM CHLORIDE 1,000 ML IV SCH (04:35)
[2022-08-02 04:48] VITALS: BP 143/68; TEMP 98.1; O2SAT 97
[2022-08-02] MEDS ORDERED: POTASSIUM CHLORIDE 10% LIQ 20MEQ/15ML UDC PO ONE (05:00)
[2022-08-02 06:08] LABS: APPEARANCE, URINE CLOUDY (CLEAR); BACTERIA, URINE AUTO 1+ (NEGATIVE); BILIRUBIN, URINE AUTO NEGATIVE (NEGATIVE); BLOOD, URINE BLOOD 1+ (NEGATIVE); COLOR, URINE AMBER (YELLOW); GLUCOSE, URINE (UA) AUTO NEGATIVE (NEGATIVE); KETONE, URINE AUTO NEGATIVE (NEGATIVE); LEUKOCYTE ESTERASE, URINE AUTO 1+ (NEGATIVE); MUCUS, URINE SMALL (NEGATIVE); NITRITE, URINE AUTO POSITIVE (NEGATIVE); PROTEIN, URINE AUTO 1+ mg/dL (NEGATIVE); RBC, URINE AUTO 1 /HPF (0-3); SPECIFIC GRAVITY URINE AUTO 1.018 (1.002-1.035); SQUAMOUS EPITHELIAL CELL UR AU 6 /HPF (0-6); UROBILINOGEN, URINE AUTO 0.2 mg/dL (0.0-2.0); WBC, URINE AUTO 16 /HPF (0-3)
[2022-08-02 06:20] VITALS: BP 146/68; TEMP 97.3; O2SAT 97
[2022-08-02 06:40] LABS: CALCIUM LEVEL 9.4 MG/DL (8.3-10.6); CREATININE FOR GFR 1.02 MG/DL (0.55-1.30); GLOMERULAR FILTRATION RATE 55.2 (>32); MAGNESIUM LEVEL 1.6 MG/DL (1.8-2.4); POTASSIUM SERUM 3.4 MMOL/L (3.5-5.1)
[2022-08-02 07:35] LABS: ALBUMIN 2.9 G/DL (3.2-5.2); BILIRUBIN,DIRECT 0.1 MG/DL (<0.4); BILIRUBIN,TOTAL 0.6 MG/DL (0.3-1.2); TOTAL PROTEIN 6.5 G/DL (5.7-8.2)
[2022-08-02] MEDS ORDERED: OMEPRAZOLE 20MG CAP PO SCH (09:00)
[2022-08-02] MEDS ORDERED: HEPARIN SOD (PORCINE) 5000UNITS/ML 1ML VIAL/SYRINGE SC SCH (09:00)
[2022-08-02] MEDS ORDERED: ASPIRIN 81MG ENTERIC TABLET PO SCH (09:00)
[2022-08-02] MEDS ORDERED: SERTRALINE 100 MG TAB PO SCH (09:00)
[2022-08-02] MEDS ORDERED: ISOSORBIDE DIN. (ISORDIL) 20 MG TAB PO SCH (09:00)
[2022-08-02] MEDS ORDERED: SPIRONOLACTONE 25 MG TAB PO SCH (09:00)
[2022-08-02] MEDS: MAG SULF 1GM/100ML (MAG RUN) 1 GM in IV 1 EA IV SCH ×2 (09:51→10:40)
[2022-08-02 09:59] VITALS: BP 129/60
[2022-08-02] MEDS ORDERED: INSULIN LISPRO (NovoLOG) PER UNIT SC SCH ×2 (12:00→21:00)
[2022-08-02 14:00] VITALS: BP 115/52; TEMP 98.1; O2SAT 91
[2022-08-02] MEDS ORDERED: INSULIN LISPRO (NovoLOG) PER UNIT SC ONE (14:30)
== END 2022-08-02 17:17 | disposition home or self-care (01) ==
LOC: EDBD 20:10 → M ED 20:10 → M ED INP 20:11 → M MSPAV 08-02 01:30
PROVIDERS: ADMIT Internal Medicine; ATTEND Internal Medicine
DX: R53.1 Weakness (principal); E87.6 Hypokalemia; E83.42 Hypomagnesemia; E16.2 Hypoglycemia, unspecified; I11.9 Hypertensive heart disease without heart failure; I50.32 Chronic diastolic (congestive) heart failure; K21.9 Gastro-esophageal reflux disease without esophagitis; F32.A Depression, unspecified; E11.9 Type 2 diabetes mellitus without complications; Z86.73 Personal history of transient ischemic attack (TIA), and cerebral infarction without residual deficits; I25.10 Atherosclerotic heart disease of native coronary artery without angina pectoris; Z88.8 Allergy status to other drugs, medicaments and biological substances; Z79.82 Long term (current) use of aspirin; Z79.84 Long term (current) use of oral hypoglycemic drugs; Z79.899 Other long term (current) drug therapy
CPT/HCPCS: 36415; 70450; 71045; 80048; 80076; 81001; 82550; 82553; 83735; 84439; 84443; 84484; 85025; 87631; 93005; 93041; 94760; 96361; 96365; 96372; 96375; 97161; 97165; 97530; 99285; G0378; J1100; J1815; J3475

== ENCOUNTER 2022-11-07 13:53 | Inpatient (IN) | payer MEDICARE, BC, OTHER ==
[~2022-11-07] VITALS: Ht 160 cm; Wt 59.8 kg
[~2022-11-07 13:53] MED LIST changes: +ASPI-161 PO; +MECL-209 PO; -MECL1TAB31 PO; +SPIR-10 PO
[2022-11-07 14:41] LABS: VENOUS BASE EXCESS 1.6 (-2.0-2.0); VENOUS HCO3 25.9 MMOL/L (23.0-27.0); VENOUS O2 SATURATION 90.2 % (60.0-80.0); VENOUS PARTIAL PRESSURE CO2 39.9 mmHg (38.0-50.0); VENOUS PARTIAL PRESSURE O2 57.7 mmHg (30.0-50.0); VENOUS PH 7.431 UNITS (7.330-7.430); VENOUS STANDARD HCO3 25.7 MMOL/L; VENOUS TOTAL CO2 27.2 MMOL/L (24.0-28.0)
[2022-11-07 14:52] LABS: BASO % 0.3 % (0.0-1.0); EOS # 0.1 10^3/uL (0.0-0.5); EOS % 0.6 % (0.0-3.0); HEMATOCRIT 30.7 % (36.0-47.0); HEMOGLOBIN 9.7 g/dl (12.0-15.5); LYMPH # 1.4 10^3/uL (1.5-5.0); LYMPH % 13.4 % (24.0-44.0); MEAN CORPUSCULAR HEMOGLOBIN 25.3 pg (27.0-33.0); MEAN CORPUSCULAR HGB CONC 31.6 g/dl (32.0-36.5); MEAN CORPUSCULAR VOLUME 80.2 fl (80.0-96.0); MONO # 0.7 10^3/uL (0.0-0.8); MONO % 6.6 % (2.0-8.0); NEUTROPHILS % 78.7 % (36.0-66.0); PLATELET COUNT, AUTOMATED 256 10^3/uL (150-450); RED BLOOD COUNT 3.83 10^6/uL (4.00-5.40); WHITE BLOOD COUNT 10.1 10^3/uL (4.0-10.0)
[2022-11-07 15:19] LABS: ALBUMIN 2.9 G/DL (3.2-5.2); ALKALINE PHOSPHATASE 68 U/L (46-116); ALT/SGPT 16 U/L (7.0-40); AST/SGOT 12 U/L (<34); BILIRUBIN,DIRECT 0.3 MG/DL (<0.4); BILIRUBIN,TOTAL 0.9 MG/DL (0.3-1.2); BLOOD UREA NITROGEN 14 MG/DL (9-23); CALCIUM LEVEL 8.4 MG/DL (8.3-10.6); CARBON DIOXIDE LEVEL 25 MMOL/L (20-31); CHLORIDE LEVEL 105 MMOL/L (98-107); CREATININE FOR GFR 0.88 MG/DL (0.55-1.30); GLOMERULAR FILTRATION RATE > 60.0 (>32); GLUCOSE, FASTING 389 MG/DL (74-106); POTASSIUM SERUM 3.8 MMOL/L (3.5-5.1); SODIUM LEVEL 138 MMOL/L (136-145); TOTAL PROTEIN 6.5 G/DL (5.7-8.2)
[2022-11-07 15:21] LABS: THYROID STIMULATING HORMONE 1.814 uIU/ML (0.55-4.78)
[2022-11-07 15:29] LABS: OSMOLALITY SERUM 300 MOSM/KG (280-301)
[2022-11-07] MEDS ORDERED: HumuLIN R (REGULAR) INSULIN (NovoLIN R) **100U/ML** PER UNIT IV ONE (15:45)
[2022-11-07] MEDS ORDERED: ISOVUE-370 76% 100ML VIAL As Ordered ONE (17:30)
[2022-11-07] MEDS ORDERED: cefTRIAXone SOD 2 GM in D5W MINI-BAG PLUS 50 ML IV ONE (18:50)
[2022-11-07] MEDS ORDERED: HOME MED LIST COMPLETE! XX SCH (19:20)
[2022-11-08 00:30] VITALS: BP 135/68; TEMP 98.6; O2SAT 94
[2022-11-08] MEDS ORDERED: DEXTROSE 50% 50ML SYRINGE IV PRN (00:45)
[2022-11-08] MEDS ORDERED: GLUCOSE 4GM CHEW TABLET PO PRN (00:45)
[2022-11-08] MEDS ORDERED: GLUCAGON INJ 1MG VIAL SC PRN (00:45)
[2022-11-08] MEDS ORDERED: ACETAMINOPHEN TAB 650MG DOSE (2X325MG) PO PRN (01:05)
[2022-11-08 05:49] VITALS: BP 134/68; TEMP 97.7; O2SAT 94
[2022-11-08] MEDS ORDERED: ISOSORBIDE DIN. (ISORDIL) 20 MG TAB PO SCH (08:00)
[2022-11-08] MEDS: SERTRALINE 100 MG TAB PO SCH (08:32)
[2022-11-08] MEDS: ASPIRIN 81MG ENTERIC TABLET PO SCH (08:32)
[2022-11-08] MEDS: OMEPRAZOLE 20MG CAP PO SCH (08:32)
[2022-11-08] MEDS: INSULIN LISPRO (NovoLOG) PER UNIT SC SCH ×4 (08:34→21:00)
[2022-11-08] MEDS: ENOXAPARIN 40MG/0.4ML SYRINGE (J1650 PER 10MG) SC SCH (08:34)
[2022-11-08] MEDS: SPIRONOLACTONE 25 MG TAB PO SCH (08:35)
[2022-11-08 09:43] LABS: BASO % 0.4 % (0.0-1.0); EOS # 0.3 10^3/uL (0.0-0.5); EOS % 3.6 % (0.0-3.0); HEMATOCRIT 30.1 % (36.0-47.0); HEMOGLOBIN 9.2 g/dl (12.0-15.5); LYMPH # 1.7 10^3/uL (1.5-5.0); LYMPH % 21.6 % (24.0-44.0); MEAN CORPUSCULAR HEMOGLOBIN 25.1 pg (27.0-33.0); MEAN CORPUSCULAR HGB CONC 30.6 g/dl (32.0-36.5); MEAN CORPUSCULAR VOLUME 82.2 fl (80.0-96.0); MONO # 0.6 10^3/uL (0.0-0.8); MONO % 7.8 % (2.0-8.0); NEUTROPHILS # 5.1 10^3/uL (1.5-8.5); NEUTROPHILS % 66.1 % (36.0-66.0); PLATELET COUNT, AUTOMATED 264 10^3/uL (150-450); RED BLOOD COUNT 3.66 10^6/uL (4.00-5.40); WHITE BLOOD COUNT 7.7 10^3/uL (4.0-10.0)
[2022-11-08 10:17] LABS: PERCENT SATURATION 9.7 % (13.2-45.0)
[2022-11-08 10:20] LABS: FERRITIN 13.4 NG/ML (7.3-270.7); FOLATE 8.33 NG/ML (>5.4)
[2022-11-08 10:22] LABS: BLOOD UREA NITROGEN 8 MG/DL (9-23); CALCIUM LEVEL 8.3 MG/DL (8.3-10.6); CARBON DIOXIDE LEVEL 27 MMOL/L (20-31); CHLORIDE LEVEL 105 MMOL/L (98-107); CREATININE FOR GFR 0.91 MG/DL (0.55-1.30); GLOMERULAR FILTRATION RATE > 60.0 (>32); GLUCOSE, FASTING 259 MG/DL (74-106); SODIUM LEVEL 139 MMOL/L (136-145)
[2022-11-08 12:20] VITALS: O2SAT 92
[2022-11-08 14:00] VITALS: BP 120/68; TEMP 97; O2SAT 93
[2022-11-08] MEDS ORDERED: POTASSIUM CHLORIDE 10MEQ SR TABLET PO ONE (15:00)
[2022-11-08] MEDS ORDERED: FUROSEMIDE 40MG/4ML VIAL IV ONE (15:00)
[2022-11-08 19:00] VITALS: O2SAT 91
[2022-11-08 19:52] VITALS: BP 127/67; TEMP 97; O2SAT 90
[2022-11-08] MEDS: cefTRIAXone SOD 1 GM in D5W MINI-BAG PLUS 50 ML IV SCH (20:10)
[2022-11-09 04:48] VITALS: BP 127/70; TEMP 97.7; O2SAT 95
[2022-11-09 07:07] LABS: BASO % 0.5 % (0.0-1.0); EOS # 0.2 10^3/uL (0.0-0.5); EOS % 3.1 % (0.0-3.0); HEMATOCRIT 30.8 % (36.0-47.0); HEMOGLOBIN 9.5 g/dl (12.0-15.5); LYMPH # 2.3 10^3/uL (1.5-5.0); LYMPH % 30.9 % (24.0-44.0); MEAN CORPUSCULAR HEMOGLOBIN 25.3 pg (27.0-33.0); MEAN CORPUSCULAR HGB CONC 30.8 g/dl (32.0-36.5); MEAN CORPUSCULAR VOLUME 81.9 fl (80.0-96.0); MONO # 0.7 10^3/uL (0.0-0.8); MONO % 9.1 % (2.0-8.0); NEUTROPHILS # 4.1 10^3/uL (1.5-8.5); NEUTROPHILS % 55.6 % (36.0-66.0); PLATELET COUNT, AUTOMATED 253 10^3/uL (150-450); RED BLOOD COUNT 3.76 10^6/uL (4.00-5.40); WHITE BLOOD COUNT 7.4 10^3/uL (4.0-10.0)
[2022-11-09 07:28] LABS: CALCIUM LEVEL 8.2 MG/DL (8.3-10.6); CREATININE FOR GFR 1.03 MG/DL (0.55-1.30); GLOMERULAR FILTRATION RATE 54.5 (>32); POTASSIUM SERUM 3.5 MMOL/L (3.5-5.1)
[2022-11-09 08:07] VITALS: BP 118/60; TEMP 98.1; O2SAT 91
[2022-11-09] MEDS ORDERED: LEVEMIR (INSULIN DETEMIR) 1 UNITS/0.01ML SC SCH (09:00)
[2022-11-09] MEDS: amLODIPine 5 MG TAB PO SCH (09:00)
[2022-11-09] MEDS: INSULIN LISPRO (NovoLOG) PER UNIT SC SCH ×6 (09:37→20:38)
[2022-11-09] MEDS: ENOXAPARIN 40MG/0.4ML SYRINGE (J1650 PER 10MG) SC SCH (09:37)
[2022-11-09] MEDS: SERTRALINE 100 MG TAB PO SCH (09:38)
[2022-11-09] MEDS: ASPIRIN 81MG ENTERIC TABLET PO SCH (09:38)
[2022-11-09] MEDS: ISOSORBIDE DIN. (ISORDIL) 20 MG TAB PO SCH (09:38)
[2022-11-09] MEDS: OMEPRAZOLE 20MG CAP PO SCH (09:39)
[2022-11-09] MEDS: SPIRONOLACTONE 25 MG TAB PO SCH (09:39)
[2022-11-09] MEDS: FUROSEMIDE 40MG/4ML VIAL IV SCH ×2 (09:55→17:28)
[2022-11-09 12:32] VITALS: BP 110/66
[2022-11-09 13:57] VITALS: BP 112/66; TEMP 97.5; O2SAT 93
[2022-11-09 16:46] VITALS: BP 110/49
[2022-11-09 20:30] VITALS: BP 126/72; TEMP 97.7; O2SAT 97
[2022-11-09] MEDS: cefTRIAXone SOD 1 GM in D5W MINI-BAG PLUS 50 ML IV SCH (21:37)
[2022-11-10] VITALS (7 sets, daily range): BP systolic 117–141; BP diastolic 63–82; TEMP 97.3–98.4; O2SAT 89–97
[2022-11-10 06:52] LABS: BASO % 0.4 % (0.0-1.0); EOS # 0.2 10^3/uL (0.0-0.5); EOS % 2.7 % (0.0-3.0); HEMATOCRIT 31.6 % (36.0-47.0); HEMOGLOBIN 9.7 g/dl (12.0-15.5); LYMPH # 1.8 10^3/uL (1.5-5.0); LYMPH % 26.1 % (24.0-44.0); MEAN CORPUSCULAR HEMOGLOBIN 24.9 pg (27.0-33.0); MEAN CORPUSCULAR HGB CONC 30.7 g/dl (32.0-36.5); MEAN CORPUSCULAR VOLUME 81.2 fl (80.0-96.0); MONO # 0.7 10^3/uL (0.0-0.8); NEUTROPHILS # 4.1 10^3/uL (1.5-8.5); NEUTROPHILS % 60.2 % (36.0-66.0); PLATELET COUNT, AUTOMATED 280 10^3/uL (150-450); RED BLOOD COUNT 3.89 10^6/uL (4.00-5.40); WHITE BLOOD COUNT 6.8 10^3/uL (4.0-10.0)
[2022-11-10 07:09] LABS: CALCIUM LEVEL 8.3 MG/DL (8.3-10.6); CREATININE FOR GFR 0.99 MG/DL (0.55-1.30); POTASSIUM SERUM 3.5 MMOL/L (3.5-5.1)
[2022-11-10] MEDS: INSULIN LISPRO (NovoLOG) PER UNIT SC SCH ×7 (07:44→20:29)
[2022-11-10] MEDS: SPIRONOLACTONE 25 MG TAB PO SCH (08:27)
[2022-11-10] MEDS: OMEPRAZOLE 20MG CAP PO SCH (08:27)
[2022-11-10] MEDS: ASPIRIN 81MG ENTERIC TABLET PO SCH (08:27)
[2022-11-10] MEDS: amLODIPine 5 MG TAB PO SCH (08:28)
[2022-11-10] MEDS: SERTRALINE 100 MG TAB PO SCH (08:28)
[2022-11-10] MEDS: ENOXAPARIN 40MG/0.4ML SYRINGE (J1650 PER 10MG) SC SCH (08:29)
[2022-11-10] MEDS: FUROSEMIDE 40MG/4ML VIAL IV SCH ×2 (08:29→16:17)
[2022-11-10] MEDS: LEVEMIR (INSULIN DETEMIR) 1 UNITS/0.01ML SC SCH (08:29)
[2022-11-10] MEDS: ISOSORBIDE DIN. (ISORDIL) 20 MG TAB PO SCH (08:33)
[2022-11-10] MEDS: cefTRIAXone SOD 1 GM in D5W MINI-BAG PLUS 50 ML IV SCH (20:28)
[2022-11-11 06:00] VITALS: BP 110/65; TEMP 97.9; O2SAT 98
[2022-11-11 06:28] LABS: BASO % 0.6 % (0.0-1.0); EOS # 0.2 10^3/uL (0.0-0.5); EOS % 2.4 % (0.0-3.0); HEMATOCRIT 32.6 % (36.0-47.0); HEMOGLOBIN 10.1 g/dl (12.0-15.5); LYMPH # 1.9 10^3/uL (1.5-5.0); LYMPH % 27.7 % (24.0-44.0); MEAN CORPUSCULAR HEMOGLOBIN 25.2 pg (27.0-33.0); MEAN CORPUSCULAR VOLUME 81.3 fl (80.0-96.0); MONO # 0.6 10^3/uL (0.0-0.8); MONO % 8.1 % (2.0-8.0); NEUTROPHILS # 4.1 10^3/uL (1.5-8.5); NEUTROPHILS % 60.8 % (36.0-66.0); PLATELET COUNT, AUTOMATED 283 10^3/uL (150-450); RED BLOOD COUNT 4.01 10^6/uL (4.00-5.40); WHITE BLOOD COUNT 6.8 10^3/uL (4.0-10.0)
[2022-11-11 06:57] LABS: CALCIUM LEVEL 8.8 MG/DL (8.3-10.6); CREATININE FOR GFR 1.02 MG/DL (0.55-1.30); GLOMERULAR FILTRATION RATE 55.1 (>32); POTASSIUM SERUM 3.6 MMOL/L (3.5-5.1)
[2022-11-11 08:00] VITALS: BP 131/84; TEMP 97.7; O2SAT 96
[2022-11-11] MEDS: ENOXAPARIN 40MG/0.4ML SYRINGE (J1650 PER 10MG) SC SCH (08:25)
[2022-11-11] MEDS: LEVEMIR (INSULIN DETEMIR) 1 UNITS/0.01ML SC SCH (08:26)
[2022-11-11] MEDS: INSULIN LISPRO (NovoLOG) PER UNIT SC SCH ×7 (08:27→20:36)
[2022-11-11] MEDS: OMEPRAZOLE 20MG CAP PO SCH (08:28)
[2022-11-11] MEDS: SERTRALINE 100 MG TAB PO SCH (08:28)
[2022-11-11] MEDS: ASPIRIN 81MG ENTERIC TABLET PO SCH (08:28)
[2022-11-11] MEDS: amLODIPine 5 MG TAB PO SCH (08:30)
[2022-11-11] MEDS: ISOSORBIDE DIN. (ISORDIL) 20 MG TAB PO SCH (08:30)
[2022-11-11] MEDS: SPIRONOLACTONE 25 MG TAB PO SCH (08:31)
[2022-11-11] MEDS: FUROSEMIDE 40MG/4ML VIAL IV SCH (08:31)
[2022-11-11 14:00] VITALS: BP 124/69; TEMP 97.9
[2022-11-11 20:00] VITALS: BP 134/78; TEMP 98.4; O2SAT 92
[2022-11-11] MEDS: cefTRIAXone SOD 1 GM in D5W MINI-BAG PLUS 50 ML IV SCH (20:36)
[2022-11-12 06:00] VITALS: BP 130/72; TEMP 98.1; O2SAT 97
[2022-11-12] MEDS: ENOXAPARIN 40MG/0.4ML SYRINGE (J1650 PER 10MG) SC SCH (08:29)
[2022-11-12] MEDS: ASPIRIN 81MG ENTERIC TABLET PO SCH (08:30)
[2022-11-12] MEDS: SERTRALINE 100 MG TAB PO SCH (08:30)
[2022-11-12] MEDS: LEVEMIR (INSULIN DETEMIR) 1 UNITS/0.01ML SC SCH (08:30)
[2022-11-12] MEDS: SPIRONOLACTONE 25 MG TAB PO SCH (08:30)
[2022-11-12] MEDS: INSULIN LISPRO (NovoLOG) PER UNIT SC SCH ×7 (08:30→21:00)
[2022-11-12] MEDS: CEFDINIR 300 MG CAP (OMNICEF) PO SCH ×2 (08:31→20:10)
[2022-11-12] MEDS: OMEPRAZOLE 20MG CAP PO SCH (08:31)
[2022-11-12] MEDS: amLODIPine 5 MG TAB PO SCH (08:31)
[2022-11-12] MEDS: FUROSEMIDE 40 MG TAB PO SCH (08:31)
[2022-11-12] MEDS: ISOSORBIDE DIN. (ISORDIL) 20 MG TAB PO SCH (08:39)
[2022-11-12 14:00] VITALS: BP 120/71; TEMP 97.5; O2SAT 94
[2022-11-12 20:20] VITALS: BP 121/69; TEMP 97.9; O2SAT 98
[2022-11-13 05:30] VITALS: BP 121/70; TEMP 97.5; O2SAT 93
[2022-11-13] MEDS: ASPIRIN 81MG ENTERIC TABLET PO SCH (08:42)
[2022-11-13] MEDS: CEFDINIR 300 MG CAP (OMNICEF) PO SCH ×2 (08:43→21:12)
[2022-11-13] MEDS: SERTRALINE 100 MG TAB PO SCH (08:43)
[2022-11-13] MEDS: FUROSEMIDE 40 MG TAB PO SCH (08:44)
[2022-11-13] MEDS: OMEPRAZOLE 20MG CAP PO SCH (08:44)
[2022-11-13] MEDS: ISOSORBIDE DIN. (ISORDIL) 20 MG TAB PO SCH (08:44)
[2022-11-13] MEDS: LEVEMIR (INSULIN DETEMIR) 1 UNITS/0.01ML SC SCH (08:44)
[2022-11-13] MEDS: CYANOCOBALAMIN 500 MCG TAB PO SCH (08:44)
[2022-11-13] MEDS: SPIRONOLACTONE 25 MG TAB PO SCH (08:44)
[2022-11-13] MEDS: ENOXAPARIN 40MG/0.4ML SYRINGE (J1650 PER 10MG) SC SCH (08:44)
[2022-11-13] MEDS: INSULIN LISPRO (NovoLOG) PER UNIT SC SCH ×7 (08:45→21:00)
[2022-11-13] MEDS: amLODIPine 5 MG TAB PO SCH (09:00)
[2022-11-13 14:00] VITALS: BP 120/65; TEMP 97.5; O2SAT 90
[2022-11-13 20:50] VITALS: BP 136/74; TEMP 97.7; O2SAT 99
[2022-11-14 05:10] VITALS: BP 115/70; TEMP 97.5; O2SAT 91
[2022-11-14] MEDS: FUROSEMIDE 40 MG TAB PO SCH (08:26)
[2022-11-14] MEDS: OMEPRAZOLE 20MG CAP PO SCH (08:26)
[2022-11-14] MEDS: CYANOCOBALAMIN 500 MCG TAB PO SCH (08:26)
[2022-11-14] MEDS: ASPIRIN 81MG ENTERIC TABLET PO SCH (08:27)
[2022-11-14] MEDS: SERTRALINE 100 MG TAB PO SCH (08:27)
[2022-11-14] MEDS: SPIRONOLACTONE 25 MG TAB PO SCH (08:27)
[2022-11-14] MEDS: CEFDINIR 300 MG CAP (OMNICEF) PO SCH ×2 (08:27→20:55)
[2022-11-14] MEDS: amLODIPine 5 MG TAB PO SCH (08:28)
[2022-11-14] MEDS: ISOSORBIDE DIN. (ISORDIL) 20 MG TAB PO SCH (08:28)
[2022-11-14] MEDS: INSULIN LISPRO (NovoLOG) PER UNIT SC SCH ×7 (08:28→20:55)
[2022-11-14] MEDS: ENOXAPARIN 40MG/0.4ML SYRINGE (J1650 PER 10MG) SC SCH (08:29)
[2022-11-14] MEDS ORDERED: LEVEMIR (INSULIN DETEMIR) 1 UNITS/0.01ML SC SCH (09:00)
[2022-11-14] MEDS: metFORMIN (GLUCOPHAGE) 500MG TAB PO SCH (18:15)
[2022-11-15 05:46] VITALS: BP 135/65; TEMP 97.5; O2SAT 93
[2022-11-15] MEDS: ENOXAPARIN 40MG/0.4ML SYRINGE (J1650 PER 10MG) SC SCH (08:34)
[2022-11-15] MEDS: metFORMIN (GLUCOPHAGE) 500MG TAB PO SCH (08:34)
[2022-11-15] MEDS: OMEPRAZOLE 20MG CAP PO SCH (08:34)
[2022-11-15] MEDS: CYANOCOBALAMIN 500 MCG TAB PO SCH (08:34)
[2022-11-15] MEDS: SERTRALINE 100 MG TAB PO SCH (08:34)
[2022-11-15] MEDS: ASPIRIN 81MG ENTERIC TABLET PO SCH (08:34)
[2022-11-15] MEDS: INSULIN LISPRO (NovoLOG) PER UNIT SC SCH ×4 (08:35→13:14)
[2022-11-15] MEDS: SPIRONOLACTONE 25 MG TAB PO SCH (08:35)
[2022-11-15 08:37] VITALS: BP 128/78
[2022-11-15] MEDS: amLODIPine 5 MG TAB PO SCH (08:37)
[2022-11-15] MEDS: ISOSORBIDE DIN. (ISORDIL) 20 MG TAB PO SCH (08:37)
[2022-11-15] MEDS ORDERED: LEVEMIR (INSULIN DETEMIR) 1 UNITS/0.01ML SC SCH (09:00)
[2022-11-15] MEDS ORDERED: METF500T13 PO (11:50)
[2022-11-15] MEDS ORDERED: INSUHUMDS SC ×2 (11:50)
[2022-11-15] MEDS ORDERED: VITA500T40 PO (11:50)
[2022-11-15] MEDS ORDERED: AMLO1TAB25 PO (11:50)
[2022-11-15] MEDS ORDERED: INSUDET SC (11:50)
[2022-11-15] MEDS ORDERED: FERR324T21 PO (11:52)
== END 2022-11-15 13:40 | DRG 689 ==
LOC: EDBD 13:53 → M ED 13:53 → M ED INP 23:54 → ENRESERV 11-08 00:11 → M MSPAV 11-08 00:34
PROVIDERS: ADMIT Family Medicine; ATTEND Internal Medicine Nephrology
DX: N39.0 Urinary tract infection, site not specified (principal); G93.41 Metabolic encephalopathy; I50.33 Acute on chronic diastolic (congestive) heart failure; G95.20 Unspecified cord compression; J98.11 Atelectasis; S22.080A Wedge compression fracture of T11-T12 vertebra, initial encounter for closed fracture; K21.9 Gastro-esophageal reflux disease without esophagitis; I25.10 Atherosclerotic heart disease of native coronary artery without angina pectoris; I11.0 Hypertensive heart disease with heart failure; B96.20 Unspecified Escherichia coli [E. coli] as the cause of diseases classified elsewhere; F03.90 Unspecified dementia, unspecified severity, without behavioral disturbance, psychotic disturbance, mood disturbance, and anxiety; E11.65 Type 2 diabetes mellitus with hyperglycemia; Z86.73 Personal history of transient ischemic attack (TIA), and cerebral infarction without residual deficits; F32.A Depression, unspecified; R29.6 Repeated falls; R26.89 Other abnormalities of gait and mobility; M50.20 Other cervical disc displacement, unspecified cervical region; Z88.8 Allergy status to other drugs, medicaments and biological substances; Z79.899 Other long term (current) drug therapy; Z79.82 Long term (current) use of aspirin; Z79.4 Long term (current) use of insulin; W18.30XA Fall on same level, unspecified, initial encounter; Z66 Do not resuscitate; Y92.009 Unspecified place in unspecified non-institutional (private) residence as the place of occurrence of the external cause

== ENCOUNTER → 2022-11-16 | Outpatient (REF) | payer MEDICARE, BC, OTHER ==
[~2022-11-16] MED LIST changes: +FERR324T21 PO; +INSUDET SC; +INSUHUMDS SC; +VITA500T40 PO
[2022-11-16 09:34] LABS: HEMOGLOBIN A1c 9.8 % (4.0-6.0)
[2022-11-16 09:49] LABS: CALCIUM LEVEL 9.3 MG/DL (8.3-10.6); CREATININE FOR GFR 1.21 MG/DL (0.55-1.30); GLOMERULAR FILTRATION RATE 45.2 (>32); POTASSIUM SERUM 4.8 MMOL/L (3.5-5.1)
== END ==
LOC: SKLAB3 08:19
PROVIDERS: ATTEND Internal Medicine
DX: E11.9 Type 2 diabetes mellitus without complications (principal)

== ENCOUNTER 2023-02-23 13:48 | Inpatient (IN) | payer MEDICARE, BC, OTHER ==
[~2023-02-23] VITALS: Ht 162.6 cm; Wt 55.0 kg
[2023-02-23] MEDS ORDERED: PRAV40TA2 PO (14:56)
[2023-02-23] MEDS ORDERED: FERR325T3 PO (14:56)
[2023-02-23] MEDS ORDERED: MOLN200C PO (14:56)
[2023-02-23] MEDS ORDERED: JANU100T PO (14:56)
[2023-02-23] MEDS ORDERED: NS 1,000 ML IV SCH (15:40)
[2023-02-23] MEDS ORDERED: ONDANSETRON 4MG 2ML VIAL IV ONE (15:40)
[2023-02-23] MEDS ORDERED: PANTOPRAZOLE 40MG VIAL IV ONE (15:40)
[2023-02-23] MEDS: NS 1,000 ML IV SCH ×2 (16:19→19:49)
[2023-02-23 16:33] LABS: BASO % 0.3 % (0.0-1.0); EOS % 0.3 % (0.0-3.0); HEMATOCRIT 38.9 % (36.0-47.0); LYMPH # 1.6 10^3/uL (1.5-5.0); LYMPH % 24.1 % (24.0-44.0); MEAN CORPUSCULAR HEMOGLOBIN 23.9 pg (27.0-33.0); MEAN CORPUSCULAR HGB CONC 30.8 g/dl (32.0-36.5); MEAN CORPUSCULAR VOLUME 77.5 fl (80.0-96.0); MONO # 0.7 10^3/uL (0.0-0.8); MONO % 10.8 % (2.0-8.0); NEUTROPHILS # 4.2 10^3/uL (1.5-8.5); NEUTROPHILS % 64.2 % (36.0-66.0); PLATELET COUNT, AUTOMATED 257 10^3/uL (150-450); RED BLOOD COUNT 5.02 10^6/uL (4.00-5.40); WHITE BLOOD COUNT 6.5 10^3/uL (4.0-10.0)
[2023-02-23 16:59] LABS: LIPASE 44 U/L (12-53)
[2023-02-23 17:01] LABS: ALBUMIN 3.2 G/DL (3.2-5.2); ALKALINE PHOSPHATASE 56 U/L (46-116); ALT/SGPT 14 U/L (7.0-40); AST/SGOT 19 U/L (<34); BILIRUBIN,DIRECT < 0.1 MG/DL (<0.4); BILIRUBIN,TOTAL 0.3 MG/DL (0.3-1.2); BLOOD UREA NITROGEN 20 MG/DL (9-23); CALCIUM LEVEL 8.6 MG/DL (8.3-10.6); CARBON DIOXIDE LEVEL 25 MMOL/L (20-31); CHLORIDE LEVEL 103 MMOL/L (98-107); CREATININE FOR GFR 0.98 MG/DL (0.55-1.30); GLOMERULAR FILTRATION RATE 57.7 (>32); GLUCOSE, FASTING 150 MG/DL (74-106); POTASSIUM SERUM 3.7 MMOL/L (3.5-5.1); SODIUM LEVEL 135 MMOL/L (136-145); TOTAL PROTEIN 7.3 G/DL (5.7-8.2)
[2023-02-23 17:09] LABS: RSV AMPLIFICATION NEGATIVE (NEGATIVE)
[2023-02-23] MEDS ORDERED: ISOVUE-370 76% 100ML VIAL As Ordered ONE (22:08)
[2023-02-23] MEDS ORDERED: B-121TAB3 PO (22:31)
[2023-02-23] MEDS ORDERED: AMLO1TAB25 PO (22:31)
[2023-02-23] MEDS ORDERED: ZINC50TA34 PO (22:31)
[2023-02-23] MEDS ORDERED: POTA-151 PO (22:31)
[2023-02-23] MEDS ORDERED: METF500T13 PO (22:31)
[2023-02-23] MEDS ORDERED: HOME MED LIST COMPLETE! XX SCH (22:35)
[2023-02-23] MEDS ORDERED: ALBUTEROL SULFATE 2.5MG/0.5ML INH NEB SOLN NEB PRN (23:15)
[2023-02-23] MEDS ORDERED: ACETAMINOPHEN TAB 650MG DOSE (2X325MG) PO PRN (23:15)
[2023-02-24] MEDS: DOXYCYCLINE HYCLATE 100 MG in D5W MINI-BAG PLUS 100 ML IV SCH ×2 (00:45→10:58)
[2023-02-24] MEDS: dexAMETHasone 20MG/5ML VIAL IV SCH ×2 (00:45→10:01)
[2023-02-24] MEDS: NS 1,000 ML IV SCH ×3 (00:46→07:40)
[2023-02-24 01:18] LABS: LDH LACTATE DEHYDROGENASE 147 U/L (120-246); MAGNESIUM LEVEL 1.6 MG/DL (1.8-2.4)
[2023-02-24 01:26] LABS: PROCALCITONIN 0.08 ng/ml
[2023-02-24] MEDS: IPRATROPIUM 0.5MG/ALBUTEROL 2.5MG INH SOL UD 3ML (DUONEB) NEB SCH ×4 (02:00→20:00)
[2023-02-24] MEDS ORDERED: REMDESIVIR 200 MG in NS 250 ML IV ONE (04:00)
[2023-02-24 04:42] LABS: BASO % 0.4 % (0.0-1.0); EOS # 0.1 10^3/uL (0.0-0.5); EOS % 1.2 % (0.0-3.0); HEMATOCRIT 37.1 % (36.0-47.0); HEMOGLOBIN 11.4 g/dl (12.0-15.5); LYMPH # 2.4 10^3/uL (1.5-5.0); LYMPH % 46.8 % (24.0-44.0); MEAN CORPUSCULAR HEMOGLOBIN 24.3 pg (27.0-33.0); MEAN CORPUSCULAR HGB CONC 30.7 g/dl (32.0-36.5); MEAN CORPUSCULAR VOLUME 78.9 fl (80.0-96.0); MONO # 0.5 10^3/uL (0.0-0.8); MONO % 8.8 % (2.0-8.0); NEUTROPHILS # 2.2 10^3/uL (1.5-8.5); NEUTROPHILS % 42.6 % (36.0-66.0); PLATELET COUNT, AUTOMATED 248 10^3/uL (150-450); WHITE BLOOD COUNT 5.1 10^3/uL (4.0-10.0)
[2023-02-24 04:57] LABS: INR 1.11
[2023-02-24 04:58] LABS: PARTIAL THROMBOPLASTIN TIME 27.1 SECONDS (24.8-34.2)
[2023-02-24 05:06] LABS: CREATININE FOR GFR 0.96 MG/DL (0.55-1.30); GLOMERULAR FILTRATION RATE 59.1 (>32); POTASSIUM SERUM 3.5 MMOL/L (3.5-5.1)
[2023-02-24] MEDS: SERTRALINE 100 MG TAB PO SCH (09:00)
[2023-02-24] MEDS: SITagliptin 50 MG TAB (JANUVIA) PO SCH (10:01)
[2023-02-24] MEDS: SPIRONOLACTONE 25 MG TAB PO SCH (10:01)
[2023-02-24] MEDS: ISOSORBIDE DIN. (ISORDIL) 20 MG TAB PO SCH ×3 (10:02→20:48)
[2023-02-24] MEDS: OMEPRAZOLE 20MG CAP PO SCH (10:02)
[2023-02-24] MEDS: HEPARIN SOD (PORCINE) 5000UNITS/ML 1ML VIAL/SYRINGE SC SCH ×2 (10:03→20:51)
[2023-02-24] MEDS: FERROUS SULFATE 325MG TAB PO SCH (12:21)
[2023-02-24] MEDS: PRAVASTATIN 20 MG TAB PO SCH (20:49)
[2023-02-24] MEDS: CYANOCOBALAMIN 500 MCG TAB PO SCH (20:49)
[2023-02-25] VITALS: BP 100/66; TEMP 98.1; O2SAT 91
[2023-02-25] MEDS: DOXYCYCLINE HYCLATE 100 MG in D5W MINI-BAG PLUS 100 ML IV SCH ×3 (00:49→23:09)
[2023-02-25] MEDS: IPRATROPIUM 0.5MG/ALBUTEROL 2.5MG INH SOL UD 3ML (DUONEB) NEB SCH ×4 (02:00→20:00)
[2023-02-25] MEDS: REMDESIVIR 100 MG in NS 250 ML IV SCH (04:59)
[2023-02-25] MEDS ORDERED: GLUCAGON INJ 1MG VIAL SC PRN (05:00)
[2023-02-25] MEDS ORDERED: DEXTROSE 50% 50ML SYRINGE IV PRN (05:00)
[2023-02-25] MEDS ORDERED: GLUCOSE 4GM CHEW TABLET PO PRN (05:00)
[2023-02-25 05:07] VITALS: BP 129/69; TEMP 97.9; O2SAT 89
[2023-02-25 05:47] LABS: HEMATOCRIT 31.1 % (36.0-47.0); HEMOGLOBIN 9.6 g/dl (12.0-15.5); LYMPH # 1.4 10^3/uL (1.5-5.0); LYMPH % 33.3 % (24.0-44.0); MEAN CORPUSCULAR HGB CONC 30.9 g/dl (32.0-36.5); MEAN CORPUSCULAR VOLUME 77.8 fl (80.0-96.0); MONO # 0.4 10^3/uL (0.0-0.8); MONO % 8.7 % (2.0-8.0); NEUTROPHILS # 2.5 10^3/uL (1.5-8.5); NEUTROPHILS % 57.8 % (36.0-66.0); PLATELET COUNT, AUTOMATED 247 10^3/uL (150-450); WHITE BLOOD COUNT 4.3 10^3/uL (4.0-10.0)
[2023-02-25 06:17] LABS: ALBUMIN 2.6 G/DL (3.2-5.2); ALKALINE PHOSPHATASE 44 U/L (46-116); ALT/SGPT 13 U/L (7.0-40); AST/SGOT 15 U/L (<34); BILIRUBIN,TOTAL 0.2 MG/DL (0.3-1.2); BLOOD UREA NITROGEN 21 MG/DL (9-23); CALCIUM LEVEL 7.9 MG/DL (8.3-10.6); CARBON DIOXIDE LEVEL 24 MMOL/L (20-31); CHLORIDE LEVEL 108 MMOL/L (98-107); CREATININE FOR GFR 0.89 MG/DL (0.55-1.30); GLOMERULAR FILTRATION RATE > 60.0 (>32); GLUCOSE, FASTING 180 MG/DL (74-106); POTASSIUM SERUM 3.9 MMOL/L (3.5-5.1); SODIUM LEVEL 140 MMOL/L (136-145); TOTAL PROTEIN 6.1 G/DL (5.7-8.2)
[2023-02-25] MEDS: dexAMETHasone 20MG/5ML VIAL IV SCH (08:25)
[2023-02-25] MEDS: INSULIN LISPRO (NovoLOG) PER UNIT SC SCH ×3 (08:26→18:13)
[2023-02-25] MEDS: SPIRONOLACTONE 25 MG TAB PO SCH (08:27)
[2023-02-25] MEDS: OMEPRAZOLE 20MG CAP PO SCH (08:27)
[2023-02-25] MEDS: SITagliptin 50 MG TAB (JANUVIA) PO SCH (08:27)
[2023-02-25] MEDS: ISOSORBIDE DIN. (ISORDIL) 20 MG TAB PO SCH ×3 (08:27→22:08)
[2023-02-25] MEDS: SERTRALINE 100 MG TAB PO SCH (08:27)
[2023-02-25] MEDS: HEPARIN SOD (PORCINE) 5000UNITS/ML 1ML VIAL/SYRINGE SC SCH ×2 (08:27→22:07)
[2023-02-25] MEDS: FERROUS SULFATE 325MG TAB PO SCH (11:57)
[2023-02-25 14:00] VITALS: TEMP 98.4; O2SAT 94
[2023-02-25] MEDS ORDERED: INSULIN LISPRO (NovoLOG) PER UNIT SC SCH (21:00)
[2023-02-25 21:50] VITALS: BP 120/66; TEMP 98.1; O2SAT 93
[2023-02-25] MEDS: CYANOCOBALAMIN 500 MCG TAB PO SCH (22:08)
[2023-02-25] MEDS: PRAVASTATIN 20 MG TAB PO SCH (22:08)
[2023-02-26] MEDS: IPRATROPIUM 0.5MG/ALBUTEROL 2.5MG INH SOL UD 3ML (DUONEB) NEB SCH ×3 (01:58→13:13)
[2023-02-26] MEDS: REMDESIVIR 100 MG in NS 250 ML IV SCH (05:02)
[2023-02-26 05:32] VITALS: BP 132/64; TEMP 98.4; O2SAT 92
[2023-02-26 05:52] LABS: BASO % 0.2 % (0.0-1.0); HEMATOCRIT 31.8 % (36.0-47.0); HEMOGLOBIN 9.8 g/dl (12.0-15.5); LYMPH # 1.4 10^3/uL (1.5-5.0); LYMPH % 25.7 % (24.0-44.0); MEAN CORPUSCULAR HEMOGLOBIN 23.9 pg (27.0-33.0); MEAN CORPUSCULAR HGB CONC 30.8 g/dl (32.0-36.5); MEAN CORPUSCULAR VOLUME 77.6 fl (80.0-96.0); MONO # 0.5 10^3/uL (0.0-0.8); MONO % 9.7 % (2.0-8.0); NEUTROPHILS # 3.4 10^3/uL (1.5-8.5); NEUTROPHILS % 63.8 % (36.0-66.0); PLATELET COUNT, AUTOMATED 239 10^3/uL (150-450); WHITE BLOOD COUNT 5.4 10^3/uL (4.0-10.0)
[2023-02-26 06:33] LABS: ALBUMIN 2.8 G/DL (3.2-5.2); ALKALINE PHOSPHATASE 45 U/L (46-116); ALT/SGPT 10 U/L (7.0-40); AST/SGOT 12 U/L (<34); BILIRUBIN,TOTAL 0.2 MG/DL (0.3-1.2); BLOOD UREA NITROGEN 23 MG/DL (9-23); CALCIUM LEVEL 8.7 MG/DL (8.3-10.6); CARBON DIOXIDE LEVEL 24 MMOL/L (20-31); CHLORIDE LEVEL 105 MMOL/L (98-107); CREATININE FOR GFR 0.86 MG/DL (0.55-1.30); GLOMERULAR FILTRATION RATE > 60.0 (>32); GLUCOSE, FASTING 210 MG/DL (74-106); POTASSIUM SERUM 3.6 MMOL/L (3.5-5.1); SODIUM LEVEL 137 MMOL/L (136-145); TOTAL PROTEIN 6.7 G/DL (5.7-8.2)
[2023-02-26] MEDS: HEPARIN SOD (PORCINE) 5000UNITS/ML 1ML VIAL/SYRINGE SC SCH (08:23)
[2023-02-26] MEDS: dexAMETHasone 20MG/5ML VIAL IV SCH (08:23)
[2023-02-26] MEDS: INSULIN LISPRO (NovoLOG) PER UNIT SC SCH ×3 (08:23→17:06)
[2023-02-26] MEDS: SITagliptin 50 MG TAB (JANUVIA) PO SCH (08:24)
[2023-02-26] MEDS: SPIRONOLACTONE 25 MG TAB PO SCH (08:24)
[2023-02-26] MEDS: SERTRALINE 100 MG TAB PO SCH (08:24)
[2023-02-26] MEDS: OMEPRAZOLE 20MG CAP PO SCH (08:24)
[2023-02-26] MEDS: ISOSORBIDE DIN. (ISORDIL) 20 MG TAB PO SCH ×2 (08:26→17:14)
[2023-02-26 08:51] LABS: HEMOGLOBIN A1c 9.3 % (4.0-6.0)
[2023-02-26] MEDS ORDERED: DOXYCYCLINE HYCLATE 100MG TABLET PO SCH (09:00)
[2023-02-26] MEDS ORDERED: LEVEMIR (INSULIN DETEMIR) 1 UNITS/0.01ML SC SCH (09:00)
[2023-02-26] MEDS: FERROUS SULFATE 325MG TAB PO SCH (12:14)
[2023-02-26] MEDS ORDERED: ALB2.5NEB NEB (13:09)
[2023-02-26] MEDS ORDERED: IPRA0.00 NEB (13:09)
[2023-02-26] MEDS ORDERED: dexameTHASONE IV (13:09)
[2023-02-26] MEDS ORDERED: INSUDET SC (13:09)
[2023-02-26] MEDS ORDERED: [UNRECOGNIZED DRUG - CODE] INJ (13:09)
[2023-02-26] MEDS ORDERED: DOXY100T PO (13:09)
[2023-02-26 14:00] VITALS: BP 125/57; TEMP 97; O2SAT 99
[2023-02-26 17:14] VITALS: BP 107/55
== END 2023-02-26 20:17 | DRG 177 ==
LOC: M ED 13:48 → M ED INP 23:08 → M MSPAV 02-25 00:01
PROVIDERS: ADMIT Internal Medicine; ATTEND Internal Medicine
DX: U07.1 COVID-19 (principal); J96.01 Acute respiratory failure with hypoxia; J12.82 Pneumonia due to coronavirus disease 2019; I10 Essential (primary) hypertension; K21.9 Gastro-esophageal reflux disease without esophagitis; E78.00 Pure hypercholesterolemia, unspecified; R19.7 Diarrhea, unspecified; F32.A Depression, unspecified; E11.9 Type 2 diabetes mellitus without complications; E78.5 Hyperlipidemia, unspecified; F39 Unspecified mood [affective] disorder; Z88.8 Allergy status to other drugs, medicaments and biological substances; Z79.899 Other long term (current) drug therapy; Z79.4 Long term (current) use of insulin; Z66 Do not resuscitate; G40.909 Epilepsy, unspecified, not intractable, without status epilepticus; I16.0 Hypertensive urgency; E87.5 Hyperkalemia

== ENCOUNTER 2023-02-26 14:35 | Inpatient (IN) | payer BC, MEDICARE, OTHER ==
[~2023-02-26] VITALS: Ht 162.6 cm; Wt 57.0 kg
[~2023-02-26 14:35] MED LIST changes: +ALB2.5NEB NEB; +B-121TAB3 PO; +DOXY100T PO; +FERR325T3 PO; +IPRA0.00 NEB; +JANU100T PO; +MOLN200C PO; +POTA-151 PO; +ZINC50TA34 PO; +[UNRECOGNIZED DRUG - CODE] INJ; +dexameTHASONE IV
[2023-02-26] MEDS ORDERED: ONDANSETRON 4MG TAB PO PRN (15:40)
[2023-02-26] MEDS ORDERED: MIRALAX *UNIT DOSE* 17GM PACKET PO PRN (15:40)
[2023-02-26] MEDS ORDERED: DEXTROSE 50% 50ML SYRINGE IV PRN (15:45)
[2023-02-26] MEDS ORDERED: GLUCAGON INJ 1MG VIAL SC PRN (15:45)
[2023-02-26] MEDS ORDERED: GLUCOSE 4GM CHEW TABLET PO PRN (15:45)
[2023-02-26] MEDS ORDERED: ALBUTEROL SULFATE 2.5MG/0.5ML INH NEB SOLN NEB PRN (15:50)
[2023-02-26 20:27] VITALS: BP 143/63; TEMP 97.4; O2SAT 96
[2023-02-26] MEDS: INSULIN LISPRO (NovoLOG) PER UNIT SC SCH (21:00)
[2023-02-26] MEDS: ACETAMINOPHEN 500 MG TAB PO PRN (21:23)
[2023-02-26] MEDS: CYANOCOBALAMIN 500 MCG TAB PO SCH (21:24)
[2023-02-26] MEDS: PRAVASTATIN 20 MG TAB PO SCH (21:24)
[2023-02-26] MEDS: DOXYCYCLINE HYCLATE 100MG TABLET PO SCH (21:24)
[2023-02-26] MEDS: LEVEMIR (INSULIN DETEMIR) 1 UNITS/0.01ML SC SCH (21:24)
[2023-02-26] MEDS: HEPARIN SOD (PORCINE) 5000UNITS/ML 1ML VIAL/SYRINGE SC SCH (21:24)
[2023-02-26] MEDS: ISOSORBIDE DIN. (ISORDIL) 20 MG TAB PO SCH (22:33)
[2023-02-27] MEDS: IPRATROPIUM 0.5MG/ALBUTEROL 2.5MG INH SOL UD 3ML (DUONEB) NEB SCH ×4 (01:12→19:19)
[2023-02-27] MEDS: REMDESIVIR 100 MG in NS 250 ML IV SCH (04:55)
[2023-02-27 06:00] VITALS: BP 98/52; TEMP 98.2; O2SAT 92
[2023-02-27] MEDS: ISOSORBIDE DIN. (ISORDIL) 20 MG TAB PO SCH ×3 (09:00→21:36)
[2023-02-27] MEDS ORDERED: REMDESIVIR 100 MG INJ SCH (09:00)
[2023-02-27] MEDS: LEVEMIR (INSULIN DETEMIR) 1 UNITS/0.01ML SC SCH ×2 (09:23→21:37)
[2023-02-27] MEDS: INSULIN LISPRO (NovoLOG) PER UNIT SC SCH ×4 (09:23→21:00)
[2023-02-27] MEDS: HEPARIN SOD (PORCINE) 5000UNITS/ML 1ML VIAL/SYRINGE SC SCH ×2 (09:26→21:37)
[2023-02-27] MEDS: OMEPRAZOLE 20MG CAP PO SCH (09:26)
[2023-02-27] MEDS: DOXYCYCLINE HYCLATE 100MG TABLET PO SCH ×2 (09:26→21:36)
[2023-02-27] MEDS: SITagliptin 50 MG TAB (JANUVIA) PO SCH (09:26)
[2023-02-27] MEDS: SPIRONOLACTONE 25 MG TAB PO SCH (09:26)
[2023-02-27] MEDS: SERTRALINE 100 MG TAB PO SCH (09:26)
[2023-02-27] MEDS: FERROUS SULFATE 325MG TAB PO SCH (13:00)
[2023-02-27 15:51] VITALS: BP 135/64; TEMP 99; O2SAT 95
[2023-02-27 20:00] VITALS: BP 134/74; TEMP 98; O2SAT 95
[2023-02-27] MEDS: PRAVASTATIN 20 MG TAB PO SCH (21:36)
[2023-02-27] MEDS: CYANOCOBALAMIN 500 MCG TAB PO SCH (21:36)
[2023-02-27] MEDS: ACETAMINOPHEN 500 MG TAB PO PRN (21:37)
[2023-02-28] MEDS: IPRATROPIUM 0.5MG/ALBUTEROL 2.5MG INH SOL UD 3ML (DUONEB) NEB SCH ×2 (02:00→08:00)
[2023-02-28] MEDS: REMDESIVIR 100 MG in NS 250 ML IV SCH (04:57)
[2023-02-28 06:00] VITALS: BP 102/49; TEMP 98.5; O2SAT 94
[2023-02-28] MEDS: INSULIN LISPRO (NovoLOG) PER UNIT SC SCH ×4 (07:30→20:37)
[2023-02-28] MEDS: LEVEMIR (INSULIN DETEMIR) 1 UNITS/0.01ML SC SCH ×2 (08:56→20:38)
[2023-02-28] MEDS: OMEPRAZOLE 20MG CAP PO SCH (08:57)
[2023-02-28] MEDS: HEPARIN SOD (PORCINE) 5000UNITS/ML 1ML VIAL/SYRINGE SC SCH ×2 (08:57→20:38)
[2023-02-28] MEDS: DOXYCYCLINE HYCLATE 100MG TABLET PO SCH ×2 (08:57→20:36)
[2023-02-28] MEDS: SITagliptin 50 MG TAB (JANUVIA) PO SCH (08:57)
[2023-02-28] MEDS: SERTRALINE 100 MG TAB PO SCH (08:57)
[2023-02-28] MEDS: SPIRONOLACTONE 25 MG TAB PO SCH (08:58)
[2023-02-28] MEDS: ACETAMINOPHEN 500 MG TAB PO PRN (08:59)
[2023-02-28] MEDS: ISOSORBIDE DIN. (ISORDIL) 20 MG TAB PO SCH ×3 (09:00→20:36)
[2023-02-28] MEDS: FERROUS SULFATE 325MG TAB PO SCH (13:02)
[2023-02-28 14:00] VITALS: BP 108/60; TEMP 98.3; O2SAT 95
[2023-02-28] MEDS: COMBIVENT RESPIMAT 100-20MCG INHALER 4GM INH SCH ×2 (14:00→20:01)
[2023-02-28] MEDS: metFORMIN (GLUCOPHAGE) 500MG TAB PO SCH (17:27)
[2023-02-28 20:00] VITALS: BP 115/63; TEMP 97.3; O2SAT 94
[2023-02-28] MEDS: PRAVASTATIN 20 MG TAB PO SCH (20:36)
[2023-02-28] MEDS: CYANOCOBALAMIN 500 MCG TAB PO SCH (20:36)
[2023-03-01] MEDS: COMBIVENT RESPIMAT 100-20MCG INHALER 4GM INH SCH ×4 (02:00→19:30)
[2023-03-01 06:00] VITALS: BP 132/61; TEMP 96.5; O2SAT 94
[2023-03-01] MEDS: INSULIN LISPRO (NovoLOG) PER UNIT SC SCH ×4 (07:22→21:02)
[2023-03-01] MEDS: LEVEMIR (INSULIN DETEMIR) 1 UNITS/0.01ML SC SCH (09:00)
[2023-03-01] MEDS: SITagliptin 50 MG TAB (JANUVIA) PO SCH (09:13)
[2023-03-01] MEDS: SPIRONOLACTONE 25 MG TAB PO SCH (09:13)
[2023-03-01] MEDS: ISOSORBIDE DIN. (ISORDIL) 20 MG TAB PO SCH ×3 (09:13→21:01)
[2023-03-01] MEDS: SERTRALINE 100 MG TAB PO SCH (09:13)
[2023-03-01] MEDS: metFORMIN (GLUCOPHAGE) 500MG TAB PO SCH ×2 (09:13→17:52)
[2023-03-01] MEDS: OMEPRAZOLE 20MG CAP PO SCH (09:14)
[2023-03-01] MEDS: HEPARIN SOD (PORCINE) 5000UNITS/ML 1ML VIAL/SYRINGE SC SCH ×2 (09:14→21:02)
[2023-03-01] MEDS: FERROUS SULFATE 325MG TAB PO SCH (12:51)
[2023-03-01 14:00] VITALS: BP 120/60; TEMP 98; O2SAT 96
[2023-03-01 20:00] VITALS: BP 122/60; TEMP 97.8; O2SAT 98
[2023-03-01] MEDS: PRAVASTATIN 20 MG TAB PO SCH (21:01)
[2023-03-01] MEDS: CYANOCOBALAMIN 500 MCG TAB PO SCH (21:01)
[2023-03-02] MEDS: COMBIVENT RESPIMAT 100-20MCG INHALER 4GM INH SCH ×4 (01:35→19:49)
[2023-03-02 06:00] VITALS: BP 136/73; TEMP 97.5; O2SAT 94
[2023-03-02] MEDS: HEPARIN SOD (PORCINE) 5000UNITS/ML 1ML VIAL/SYRINGE SC SCH ×2 (09:42→20:47)
[2023-03-02] MEDS: INSULIN LISPRO (NovoLOG) PER UNIT SC SCH ×4 (09:42→20:40)
[2023-03-02] MEDS: LEVEMIR (INSULIN DETEMIR) 1 UNITS/0.01ML SC SCH (09:42)
[2023-03-02] MEDS: metFORMIN (GLUCOPHAGE) 500MG TAB PO SCH ×2 (09:45→16:42)
[2023-03-02] MEDS: SITagliptin 50 MG TAB (JANUVIA) PO SCH (09:45)
[2023-03-02] MEDS: SPIRONOLACTONE 25 MG TAB PO SCH (09:46)
[2023-03-02] MEDS: SERTRALINE 100 MG TAB PO SCH (09:46)
[2023-03-02] MEDS: OMEPRAZOLE 20MG CAP PO SCH (09:46)
[2023-03-02] MEDS: ISOSORBIDE DIN. (ISORDIL) 20 MG TAB PO SCH ×3 (09:47→20:46)
[2023-03-02] MEDS: FERROUS SULFATE 325MG TAB PO SCH (13:39)
[2023-03-02 14:00] VITALS: BP 106/57; TEMP 97.9; O2SAT 96
[2023-03-02 20:10] VITALS: BP 121/58; TEMP 97.1; O2SAT 97
[2023-03-02] MEDS: PRAVASTATIN 20 MG TAB PO SCH (20:46)
[2023-03-02] MEDS: CYANOCOBALAMIN 500 MCG TAB PO SCH (20:46)
[2023-03-03] MEDS: COMBIVENT RESPIMAT 100-20MCG INHALER 4GM INH SCH ×4 (01:35→19:47)
[2023-03-03 06:07] VITALS: BP 137/76; TEMP 96.2; O2SAT 97
[2023-03-03] MEDS: INSULIN LISPRO (NovoLOG) PER UNIT SC SCH ×4 (08:50→20:04)
[2023-03-03] MEDS: ISOSORBIDE DIN. (ISORDIL) 20 MG TAB PO SCH ×3 (08:51→20:11)
[2023-03-03] MEDS: SPIRONOLACTONE 25 MG TAB PO SCH (08:51)
[2023-03-03] MEDS: SITagliptin 50 MG TAB (JANUVIA) PO SCH (08:51)
[2023-03-03] MEDS: HEPARIN SOD (PORCINE) 5000UNITS/ML 1ML VIAL/SYRINGE SC SCH ×2 (08:51→20:11)
[2023-03-03] MEDS: LEVEMIR (INSULIN DETEMIR) 1 UNITS/0.01ML SC SCH (08:52)
[2023-03-03] MEDS: SERTRALINE 100 MG TAB PO SCH (08:52)
[2023-03-03] MEDS: OMEPRAZOLE 20MG CAP PO SCH (08:52)
[2023-03-03] MEDS: metFORMIN (GLUCOPHAGE) 500MG TAB PO SCH ×2 (08:52→17:21)
[2023-03-03] MEDS: FERROUS SULFATE 325MG TAB PO SCH (11:54)
[2023-03-03 15:00] VITALS: BP 114/55; TEMP 97.3; O2SAT 96
[2023-03-03 20:00] VITALS: BP 131/64; TEMP 97.8; O2SAT 95
[2023-03-03] MEDS: CYANOCOBALAMIN 500 MCG TAB PO SCH (20:11)
[2023-03-03] MEDS: PRAVASTATIN 20 MG TAB PO SCH (20:11)
[2023-03-04] MEDS: COMBIVENT RESPIMAT 100-20MCG INHALER 4GM INH SCH ×4 (01:14→19:20)
[2023-03-04 06:00] VITALS: BP 148/72; TEMP 97.4; O2SAT 96
[2023-03-04] MEDS: INSULIN LISPRO (NovoLOG) PER UNIT SC SCH ×4 (08:14→20:16)
[2023-03-04] MEDS: HEPARIN SOD (PORCINE) 5000UNITS/ML 1ML VIAL/SYRINGE SC SCH ×2 (08:14→20:40)
[2023-03-04] MEDS: SITagliptin 50 MG TAB (JANUVIA) PO SCH (08:15)
[2023-03-04] MEDS: SERTRALINE 100 MG TAB PO SCH (08:15)
[2023-03-04] MEDS: SPIRONOLACTONE 25 MG TAB PO SCH (08:15)
[2023-03-04] MEDS: OMEPRAZOLE 20MG CAP PO SCH (08:15)
[2023-03-04] MEDS: ISOSORBIDE DIN. (ISORDIL) 20 MG TAB PO SCH ×3 (08:15→20:40)
[2023-03-04] MEDS: LEVEMIR (INSULIN DETEMIR) 1 UNITS/0.01ML SC SCH (08:15)
[2023-03-04] MEDS: metFORMIN (GLUCOPHAGE) 500MG TAB PO SCH ×2 (08:15→16:51)
[2023-03-04] MEDS: FERROUS SULFATE 325MG TAB PO SCH (12:04)
[2023-03-04 14:00] VITALS: BP 111/56; TEMP 97; O2SAT 97
[2023-03-04 20:00] VITALS: BP 127/69; TEMP 97.6; O2SAT 97
[2023-03-04] MEDS: CYANOCOBALAMIN 500 MCG TAB PO SCH (20:40)
[2023-03-04] MEDS: PRAVASTATIN 20 MG TAB PO SCH (20:41)
[2023-03-05] MEDS: COMBIVENT RESPIMAT 100-20MCG INHALER 4GM INH SCH ×4 (03:11→19:34)
[2023-03-05 06:00] VITALS: BP 144/68; TEMP 97.4; O2SAT 95
[2023-03-05] MEDS: SITagliptin 50 MG TAB (JANUVIA) PO SCH (07:42)
[2023-03-05] MEDS: SPIRONOLACTONE 25 MG TAB PO SCH (07:42)
[2023-03-05] MEDS: SERTRALINE 100 MG TAB PO SCH (07:42)
[2023-03-05] MEDS: ISOSORBIDE DIN. (ISORDIL) 20 MG TAB PO SCH ×3 (07:43→20:47)
[2023-03-05] MEDS: OMEPRAZOLE 20MG CAP PO SCH (07:43)
[2023-03-05] MEDS: metFORMIN (GLUCOPHAGE) 500MG TAB PO SCH ×2 (07:43→17:44)
[2023-03-05] MEDS: INSULIN LISPRO (NovoLOG) PER UNIT SC SCH ×4 (07:43→20:47)
[2023-03-05] MEDS: LEVEMIR (INSULIN DETEMIR) 1 UNITS/0.01ML SC SCH (07:44)
[2023-03-05] MEDS: HEPARIN SOD (PORCINE) 5000UNITS/ML 1ML VIAL/SYRINGE SC SCH ×2 (07:44→20:47)
[2023-03-05] MEDS: FERROUS SULFATE 325MG TAB PO SCH (12:16)
[2023-03-05 13:08] LABS: BASO % 0.2 % (0.0-1.0); EOS # 0.1 10^3/uL (0.0-0.5); EOS % 0.6 % (0.0-3.0); HEMATOCRIT 39.8 % (36.0-47.0); HEMOGLOBIN 12.2 g/dl (12.0-15.5); LYMPH # 1.5 10^3/uL (1.5-5.0); LYMPH % 14.8 % (24.0-44.0); MEAN CORPUSCULAR HEMOGLOBIN 24.1 pg (27.0-33.0); MEAN CORPUSCULAR HGB CONC 30.7 g/dl (32.0-36.5); MEAN CORPUSCULAR VOLUME 78.7 fl (80.0-96.0); MONO # 0.8 10^3/uL (0.0-0.8); MONO % 7.7 % (2.0-8.0); NEUTROPHILS # 7.5 10^3/uL (1.5-8.5); NEUTROPHILS % 73.3 % (36.0-66.0); PLATELET COUNT, AUTOMATED 276 10^3/uL (150-450); RED BLOOD COUNT 5.06 10^6/uL (4.00-5.40); WHITE BLOOD COUNT 10.2 10^3/uL (4.0-10.0)
[2023-03-05 13:34] LABS: CALCIUM LEVEL 9.1 MG/DL (8.3-10.6); CREATININE FOR GFR 1.19 MG/DL (0.55-1.30); GLOMERULAR FILTRATION RATE 46.1 (>32); POTASSIUM SERUM 4.9 MMOL/L (3.5-5.1)
[2023-03-05 14:00] VITALS: BP 128/60; TEMP 97.7; O2SAT 94
[2023-03-05 20:00] VITALS: BP 106/56; TEMP 97.5; O2SAT 94
[2023-03-05] MEDS: CYANOCOBALAMIN 500 MCG TAB PO SCH (20:47)
[2023-03-05] MEDS: PRAVASTATIN 20 MG TAB PO SCH (20:47)
[2023-03-05 22:20] LABS: APPEARANCE, URINE HAZY (CLEAR); BACTERIA, URINE AUTO 1+ (NEGATIVE); BILIRUBIN, URINE AUTO NEGATIVE (NEGATIVE); BLOOD, URINE BLOOD NEGATIVE (NEGATIVE); COLOR, URINE YELLOW (YELLOW); GLUCOSE, URINE (UA) AUTO NEGATIVE (NEGATIVE); KETONE, URINE AUTO NEGATIVE (NEGATIVE); LEUKOCYTE ESTERASE, URINE AUTO 3+ (NEGATIVE); MUCUS, URINE SMALL (NEGATIVE); NITRITE, URINE AUTO POSITIVE (NEGATIVE); PROTEIN, URINE AUTO NEGATIVE (NEGATIVE); RBC, URINE AUTO 1 /HPF (0-3); SPECIFIC GRAVITY URINE AUTO 1.015 (1.002-1.035); SQUAMOUS EPITHELIAL CELL UR AU 5 /HPF (0-6); UROBILINOGEN, URINE AUTO 0.2 mg/dL (0.0-2.0); WBC, URINE AUTO 155 /HPF (0-3)
[2023-03-06] MEDS: COMBIVENT RESPIMAT 100-20MCG INHALER 4GM INH SCH ×2 (01:48→07:51)
[2023-03-06 06:00] VITALS: BP 117/69; TEMP 97.4; O2SAT 95
[2023-03-06] MEDS ORDERED: INSUDET SC (08:15)
[2023-03-06] MEDS ORDERED: COMBAER6 INH (08:15)
[2023-03-06] MEDS ORDERED: CEFD300CAP PO (08:15)
[2023-03-06] MEDS ORDERED: CEFDINIR 300 MG CAP (OMNICEF) PO SCH (09:00)
[2023-03-06] MEDS: INSULIN LISPRO (NovoLOG) PER UNIT SC SCH (10:05)
[2023-03-06] MEDS: HEPARIN SOD (PORCINE) 5000UNITS/ML 1ML VIAL/SYRINGE SC SCH (10:05)
[2023-03-06] MEDS: LEVEMIR (INSULIN DETEMIR) 1 UNITS/0.01ML SC SCH (10:05)
[2023-03-06 10:06] VITALS: BP 117/69
[2023-03-06] MEDS: SITagliptin 50 MG TAB (JANUVIA) PO SCH (10:06)
[2023-03-06] MEDS: OMEPRAZOLE 20MG CAP PO SCH (10:06)
[2023-03-06] MEDS: SPIRONOLACTONE 25 MG TAB PO SCH (10:06)
[2023-03-06] MEDS: SERTRALINE 100 MG TAB PO SCH (10:06)
[2023-03-06] MEDS: metFORMIN (GLUCOPHAGE) 500MG TAB PO SCH (10:06)
[2023-03-06] MEDS: ISOSORBIDE DIN. (ISORDIL) 20 MG TAB PO SCH (10:07)
== END 2023-03-06 12:10 | disposition home or self-care (01) | DRG 177 ==
LOC: M PM&R 20:21
PROVIDERS: ADMIT Student in an Organized Health Care Education/Training Program; ATTEND Physical Medicine & Rehabilitation
DX: U07.1 COVID-19 (principal); J12.82 Pneumonia due to coronavirus disease 2019; J96.01 Acute respiratory failure with hypoxia; N39.0 Urinary tract infection, site not specified; M80.08XA Age-related osteoporosis with current pathological fracture, vertebra(e), initial encounter for fracture; I12.9 Hypertensive chronic kidney disease with stage 1 through stage 4 chronic kidney disease, or unspecified chronic kidney disease; E11.65 Type 2 diabetes mellitus with hyperglycemia; R29.6 Repeated falls; E78.5 Hyperlipidemia, unspecified; K21.9 Gastro-esophageal reflux disease without esophagitis; R19.7 Diarrhea, unspecified; D50.9 Iron deficiency anemia, unspecified; Z88.8 Allergy status to other drugs, medicaments and biological substances; Z79.899 Other long term (current) drug therapy; Z79.4 Long term (current) use of insulin; N18.30 Chronic kidney disease, stage 3 unspecified; I25.10 Atherosclerotic heart disease of native coronary artery without angina pectoris; Z86.73 Personal history of transient ischemic attack (TIA), and cerebral infarction without residual deficits; F03.90 Unspecified dementia, unspecified severity, without behavioral disturbance, psychotic disturbance, mood disturbance, and anxiety; R26.89 Other abnormalities of gait and mobility; Z98.41 Cataract extraction status, right eye; Z98.42 Cataract extraction status, left eye; Z66 Do not resuscitate

== ENCOUNTER → 2023-06-28 | Outpatient (REF) | payer MEDICARE, BC ==
[~2023-06-28] MED LIST changes: -ASPI-161 PO; +ASPI-615 PO; +CEFD300CAP PO; +COMBAER6 INH
[2023-06-28 14:53] LABS: HEMATOCRIT 36.6 % (36.0-47.0); HEMOGLOBIN 11.1 g/dl (12.0-15.5); MEAN CORPUSCULAR HEMOGLOBIN 24.8 pg (27.0-33.0); MEAN CORPUSCULAR HGB CONC 30.3 g/dl (32.0-36.5); MEAN CORPUSCULAR VOLUME 81.7 fl (80.0-96.0); PLATELET COUNT, AUTOMATED 325 10^3/uL (150-450); RED BLOOD COUNT 4.48 10^6/uL (4.00-5.40); WHITE BLOOD COUNT 10.1 10^3/uL (4.0-10.0)
[2023-06-28 14:57] LABS: ALBUMIN 3.6 G/DL (3.2-5.2); ALKALINE PHOSPHATASE 65 U/L (46-116); ALT/SGPT 13 U/L (7.0-40); AST/SGOT < 8 U/L (<34); BILIRUBIN,TOTAL 0.4 MG/DL (0.3-1.2); BLOOD UREA NITROGEN 25 MG/DL (9-23); CALCIUM LEVEL 9.7 MG/DL (8.3-10.6); CARBON DIOXIDE LEVEL 25 MMOL/L (20-31); CHLORIDE LEVEL 102 MMOL/L (98-107); CHOLESTEROL LEVEL 173 MG/DL (<200); CHOLESTEROL RISK RATIO 3.95 (<5); CREATININE FOR GFR 1.27 MG/DL (0.55-1.30); GLOMERULAR FILTRATION RATE 42.8 (>32); GLUCOSE, FASTING 188 MG/DL (74-106); HDL CHOLESTEROL 43.7 MG/DL (>40); LDL CHOLESTEROL 73.5 MG/DL (<100); MAGNESIUM LEVEL 1.9 MG/DL (1.8-2.4); NON-HDL-C 129.3 MG/DL; POTASSIUM SERUM 4.5 MMOL/L (3.5-5.1); SODIUM LEVEL 137 MMOL/L (136-145); THYROID STIMULATING HORMONE 2.899 uIU/ML (0.55-4.78); TOTAL PROTEIN 7.5 G/DL (5.7-8.2); TRIGLYCERIDES LEVEL 279 MG/DL (<150)
[2023-06-28 14:58] LABS: FREE T4 0.96 NG/DL (0.89-1.76)
[2023-06-28 15:01] LABS: HEMOGLOBIN A1c 9.4 % (4.0-6.0)
== END ==
LOC: M SFHCADAM 09:38
PROVIDERS: ATTEND Family Medicine
DX: E11.9 Type 2 diabetes mellitus without complications (principal); N39.0 Urinary tract infection, site not specified; I50.32 Chronic diastolic (congestive) heart failure; R60.0 Localized edema; E83.42 Hypomagnesemia

== ENCOUNTER → 2023-10-19 | Outpatient (REF) | payer MEDICARE, BC ==
[2023-10-19 18:48] LABS: BASO # 0.1 10^3/uL (0.0-0.2); BASO % 0.6 % (0.0-1.0); EOS # 0.1 10^3/uL (0.0-0.5); HEMOGLOBIN 10.7 g/dl (12.0-15.5); LYMPH # 2.7 10^3/uL (1.5-5.0); LYMPH % 34.5 % (24.0-44.0); MEAN CORPUSCULAR HEMOGLOBIN 24.8 pg (27.0-33.0); MEAN CORPUSCULAR HGB CONC 30.6 g/dl (32.0-36.5); MONO # 0.6 10^3/uL (0.0-0.8); MONO % 7.3 % (2.0-8.0); NEUTROPHILS # 4.3 10^3/uL (1.5-8.5); NEUTROPHILS % 56.1 % (36.0-66.0); PLATELET COUNT, AUTOMATED 313 10^3/uL (150-450); RED BLOOD COUNT 4.32 10^6/uL (4.00-5.40); WHITE BLOOD COUNT 7.7 10^3/uL (4.0-10.0)
[2023-10-19 18:51] LABS: ALBUMIN 3.6 G/DL (3.2-5.2); BILIRUBIN,TOTAL 0.3 MG/DL (0.3-1.2); CALCIUM LEVEL 9.7 MG/DL (8.3-10.6); CREATININE FOR GFR 1.31 MG/DL (0.55-1.30); GLOMERULAR FILTRATION RATE 41.2 (>32); POTASSIUM SERUM 4.4 MMOL/L (3.5-5.1); TOTAL PROTEIN 7.5 G/DL (5.7-8.2)
== END ==
LOC: M SFHCADAM 14:47
PROVIDERS: ATTEND Physician Assistant
DX: R19.4 Change in bowel habit (principal); R53.1 Weakness

== ENCOUNTER → 2023-10-22 | Outpatient (REF) | payer MEDICARE, BC ==
[~2023-10-22] MED LIST changes: +INDA1.253
== END ==
LOC: M SFHCADAM 17:35
PROVIDERS: ATTEND Physician Assistant
DX: R19.4 Change in bowel habit (principal)

== ENCOUNTER → 2023-10-25 | Outpatient (REF) | payer MEDICARE, BC ==
[2023-10-25 18:46] LABS: HEMATOCRIT 37.2 % (36.0-47.0); HEMOGLOBIN 11.1 g/dl (12.0-15.5); MEAN CORPUSCULAR HEMOGLOBIN 24.8 pg (27.0-33.0); MEAN CORPUSCULAR HGB CONC 29.8 g/dl (32.0-36.5); PLATELET COUNT, AUTOMATED 307 10^3/uL (150-450); RED BLOOD COUNT 4.48 10^6/uL (4.00-5.40); WHITE BLOOD COUNT 8.2 10^3/uL (4.0-10.0)
[2023-10-25 19:03] LABS: HEMOGLOBIN A1c 8.8 % (4.0-6.0)
[2023-10-25 19:10] LABS: ALBUMIN 3.8 G/DL (3.2-5.2); ALKALINE PHOSPHATASE 61 U/L (46-116); ALT/SGPT 10 U/L (7.0-40); AST/SGOT 9 U/L (<34); BILIRUBIN,TOTAL 0.4 MG/DL (0.3-1.2); BLOOD UREA NITROGEN 25 MG/DL (9-23); CALCIUM LEVEL 10.3 MG/DL (8.3-10.6); CARBON DIOXIDE LEVEL 27 MMOL/L (20-31); CHLORIDE LEVEL 102 MMOL/L (98-107); CREATININE FOR GFR 1.21 MG/DL (0.55-1.30); GLOMERULAR FILTRATION RATE 45.1 (>32); GLUCOSE, FASTING 154 MG/DL (74-106); POTASSIUM SERUM 4.7 MMOL/L (3.5-5.1); SODIUM LEVEL 135 MMOL/L (136-145); TOTAL PROTEIN 7.8 G/DL (5.7-8.2)
[2023-10-25 19:11] LABS: PERCENT SATURATION 9.7 % (13.2-45.0)
[2023-10-25 19:15] LABS: FOLATE > 24.00 NG/ML (>5.4)
[2023-10-25 19:16] LABS: THYROID STIMULATING HORMONE 2.707 uIU/ML (0.55-4.78)
[2023-10-25 19:17] LABS: FERRITIN 8.4 NG/ML (7.3-270.7); FREE T4 1.01 NG/DL (0.89-1.76)
[2023-10-25 19:18] LABS: VITAMIN B12 LEVEL 552 PG/ML (211-911)
== END ==
LOC: M SFHCADAM 14:19
PROVIDERS: ATTEND Family Medicine
DX: R41.3 Other amnesia (principal); F05 Delirium due to known physiological condition; K52.9 Noninfective gastroenteritis and colitis, unspecified; E11.22 Type 2 diabetes mellitus with diabetic chronic kidney disease

== ENCOUNTER 2023-10-26 19:35 | Emergency (ER) | payer MEDICARE, OTHER ==
[~2023-10-26] VITALS: Ht 160 cm; Wt 56.8 kg
[~2023-10-26 19:35] MED LIST changes: -INDA1.253
[2023-10-26] MEDS ORDERED: INDA1.253 (19:51)
[2023-10-26] MEDS ORDERED: INSUDET SC (19:51)
[2023-10-27] MEDS: ACETAMINOPHEN TAB 650MG DOSE (2X325MG) PO ONE (00:10)
[2023-10-27 00:21] VITALS: BP 148/71; TEMP 97.7; O2SAT 95
== END 2023-10-27 00:23 | disposition home or self-care (01) ==
LOC: M ED 19:35
DX: S70.01XA Contusion of right hip, initial encounter (principal); S40.011A Contusion of right shoulder, initial encounter; W19.XXXA Unspecified fall, initial encounter; I10 Essential (primary) hypertension; E78.5 Hyperlipidemia, unspecified; N18.30 Chronic kidney disease, stage 3 unspecified; F32.9 Major depressive disorder, single episode, unspecified; Z86.79 Personal history of other diseases of the circulatory system; Z86.73 Personal history of transient ischemic attack (TIA), and cerebral infarction without residual deficits; Z88.8 Allergy status to other drugs, medicaments and biological substances; Y92.009 Unspecified place in unspecified non-institutional (private) residence as the place of occurrence of the external cause; Y93.89 Activity, other specified; Y99.9 Unspecified external cause status; Z79.899 Other long term (current) drug therapy

== ENCOUNTER 2023-11-30 07:36 | Inpatient (IN) | payer MEDICARE, BC ==
[~2023-11-30] VITALS: Ht 160 cm; Wt 60.5 kg
[~2023-11-30 07:36] MED LIST changes: +INDA1.253 PO
[2023-11-30 08:37] LABS: BASO % 0.3 % (0.0-1.0); EOS # 0.1 10^3/uL (0.0-0.5); EOS % 1.1 % (0.0-3.0); HEMATOCRIT 34.9 % (36.0-47.0); HEMOGLOBIN 11.3 g/dl (12.0-15.5); LYMPH # 1.4 10^3/uL (1.5-5.0); LYMPH % 14.9 % (24.0-44.0); MEAN CORPUSCULAR HEMOGLOBIN 25.8 pg (27.0-33.0); MEAN CORPUSCULAR HGB CONC 32.4 g/dl (32.0-36.5); MEAN CORPUSCULAR VOLUME 79.7 fl (80.0-96.0); MONO # 0.6 10^3/uL (0.0-0.8); NEUTROPHILS # 7.3 10^3/uL (1.5-8.5); NEUTROPHILS % 77.2 % (36.0-66.0); PLATELET COUNT, AUTOMATED 250 10^3/uL (150-450); RED BLOOD COUNT 4.38 10^6/uL (4.00-5.40); WHITE BLOOD COUNT 9.5 10^3/uL (4.0-10.0)
[2023-11-30 09:06] LABS: CALCIUM LEVEL 9.2 MG/DL (8.3-10.6); CREATININE FOR GFR 1.18 MG/DL (0.55-1.30); GLOMERULAR FILTRATION RATE 46.5 (>32); POTASSIUM SERUM 4.6 MMOL/L (3.5-5.1)
[2023-11-30] MEDS: NS 500 ML IV ONE (09:23)
[2023-11-30] MEDS: cefTRIAXone SOD 1 GM in DEXTROSE 5% (D5W) ADV/MINI-BAG 50 ML IV ONE ×2 (09:24→12:35)
[2023-11-30 09:50] LABS: VENOUS HCO3 24.4 MMOL/L (23.0-27.0); VENOUS O2 SATURATION 94.4 % (60.0-80.0); VENOUS PARTIAL PRESSURE CO2 38.6 mmHg (38.0-50.0); VENOUS PARTIAL PRESSURE O2 79.3 mmHg (30.0-50.0); VENOUS PH 7.418 UNITS (7.330-7.430); VENOUS STANDARD HCO3 24.4 MMOL/L; VENOUS TOTAL CO2 25.5 MMOL/L (24.0-28.0)
[2023-11-30] MEDS ORDERED: ACETAMINOPHEN 325 MG TAB PO PRN (11:10)
[2023-11-30] MEDS: HumuLIN R (REGULAR) INSULIN (NovoLIN R) **100U/ML** PER UNIT IV ONE (11:18)
[2023-11-30] MEDS ORDERED: GLUCOSE 4 GM CHEW PO PRN (11:20)
[2023-11-30] MEDS ORDERED: DEXTROSE 50% 50ML SYRINGE IV PRN (11:20)
[2023-11-30] MEDS ORDERED: GLUCAGON INJ 1MG VIAL SC PRN (11:20)
[2023-11-30] MEDS ORDERED: ISOVUE-370 76% 100ML VIAL As Ordered ONE (11:43)
[2023-11-30] MEDS ORDERED: MAGN400T2 PO (11:48)
[2023-11-30] MEDS ORDERED: INSULANT SC (11:48)
[2023-11-30] MEDS ORDERED: HOME MED LIST COMPLETE! XX SCH (11:50)
[2023-11-30] MEDS: INSULIN LISPRO (NovoLOG) PER UNIT SC SCH ×2 (12:00→21:00)
[2023-11-30 12:29] LABS: PROCALCITONIN 0.12 ng/ml
[2023-11-30] MEDS: DOCUSATE SODIUM 100MG CAPSULE PO SCH (12:34)
[2023-11-30] MEDS: LEVEMIR (INSULIN DETEMIR) 1 UNITS/0.01ML SC ONE (12:35)
[2023-11-30] MEDS: NS 1,000 ML IV ONE (12:36)
[2023-11-30 13:01] LABS: HEMOGLOBIN A1c 10.5 % (4.0-6.0)
[2023-11-30 13:41] VITALS: BP 138/65; TEMP 98.8; O2SAT 93
[2023-11-30] MEDS: NS 1,000 ML IV SCH (13:59)
[2023-11-30] MEDS: CYANOCOBALAMIN 500 MCG TAB PO SCH (15:48)
[2023-11-30] MEDS: OMEPRAZOLE 20MG CAP PO SCH (15:48)
[2023-11-30] MEDS: ISOSORBIDE DIN. (ISORDIL) 20 MG TAB PO SCH (15:52)
[2023-11-30 16:00] VITALS: BP 128/79; TEMP 97.8; O2SAT 93
[2023-11-30 20:20] VITALS: BP 111/57; TEMP 98.3; O2SAT 94
[2023-11-30] MEDS: PRAVASTATIN 20 MG TAB PO SCH (21:07)
[2023-11-30] MEDS: HEPARIN SOD (PORCINE) 5000UNITS/ML 1ML VIAL/SYRINGE SC SCH (21:08)
[2023-11-30 23:43] VITALS: BP 107/57; TEMP 97.8; O2SAT 94
[2023-12-01] VITALS (8 sets, daily range): BP systolic 112–146; BP diastolic 58–72; TEMP 97.5–98.4; O2SAT 88–93
[2023-12-01 05:50] LABS: BASO % 0.5 % (0.0-1.0); EOS # 0.2 10^3/uL (0.0-0.5); EOS % 2.5 % (0.0-3.0); HEMATOCRIT 31.7 % (36.0-47.0); HEMOGLOBIN 9.6 g/dl (12.0-15.5); LYMPH # 2.2 10^3/uL (1.5-5.0); LYMPH % 30.1 % (24.0-44.0); MEAN CORPUSCULAR HEMOGLOBIN 25.1 pg (27.0-33.0); MEAN CORPUSCULAR HGB CONC 30.3 g/dl (32.0-36.5); MEAN CORPUSCULAR VOLUME 82.8 fl (80.0-96.0); MONO # 0.6 10^3/uL (0.0-0.8); MONO % 8.5 % (2.0-8.0); NEUTROPHILS # 4.2 10^3/uL (1.5-8.5); NEUTROPHILS % 57.7 % (36.0-66.0); PLATELET COUNT, AUTOMATED 211 10^3/uL (150-450); RED BLOOD COUNT 3.83 10^6/uL (4.00-5.40); WHITE BLOOD COUNT 7.3 10^3/uL (4.0-10.0)
[2023-12-01 06:25] LABS: CALCIUM LEVEL 8.5 MG/DL (8.3-10.6); CREATININE FOR GFR 1.1 MG/DL (0.55-1.30); GLOMERULAR FILTRATION RATE 50.4 (>32); MAGNESIUM LEVEL 1.6 MG/DL (1.8-2.4); POTASSIUM SERUM 3.9 MMOL/L (3.5-5.1)
[2023-12-01] MEDS: cefTRIAXone SOD 2 GM in DEXTROSE 5% (D5W) ADV/MINI-BAG 50 ML IV SCH (09:21)
[2023-12-01] MEDS: LEVEMIR (INSULIN DETEMIR) 1 UNITS/0.01ML SC SCH (09:25)
[2023-12-01] MEDS: SERTRALINE 100 MG TAB PO SCH (09:26)
[2023-12-01] MEDS: MAG SULF 1GM/100ML (MAG RUN) 1 GM in IV 1 EA IV SCH (10:15)
[2023-12-02 03:29] VITALS: BP 150/72; TEMP 97.4; O2SAT 90
[2023-12-02 05:58] LABS: BASO % 0.4 % (0.0-1.0); EOS # 0.2 10^3/uL (0.0-0.5); HEMATOCRIT 30.4 % (36.0-47.0); HEMOGLOBIN 9.3 g/dl (12.0-15.5); LYMPH # 2.3 10^3/uL (1.5-5.0); LYMPH % 29.8 % (24.0-44.0); MEAN CORPUSCULAR HEMOGLOBIN 25.5 pg (27.0-33.0); MEAN CORPUSCULAR HGB CONC 30.6 g/dl (32.0-36.5); MEAN CORPUSCULAR VOLUME 83.3 fl (80.0-96.0); MONO # 0.5 10^3/uL (0.0-0.8); MONO % 6.3 % (2.0-8.0); NEUTROPHILS # 4.7 10^3/uL (1.5-8.5); PLATELET COUNT, AUTOMATED 227 10^3/uL (150-450); RED BLOOD COUNT 3.65 10^6/uL (4.00-5.40); WHITE BLOOD COUNT 7.6 10^3/uL (4.0-10.0)
[2023-12-02 06:21] LABS: CALCIUM LEVEL 8.7 MG/DL (8.3-10.6); CREATININE FOR GFR 1.3 MG/DL (0.55-1.30); GLOMERULAR FILTRATION RATE 41.5 (>32); POTASSIUM SERUM 3.8 MMOL/L (3.5-5.1)
[2023-12-02 08:00] VITALS: BP 155/79; TEMP 97.6; O2SAT 92
[2023-12-02] MEDS: CEFDINIR 300 MG CAP (OMNICEF) PO SCH (12:44)
[2023-12-02 16:14] VITALS: BP 116/59; TEMP 98.1; O2SAT 94
[2023-12-02 19:57] VITALS: BP 118/62; TEMP 98.4; O2SAT 95
[2023-12-03 03:34] VITALS: BP 156/74; TEMP 98.1; O2SAT 95
[2023-12-03 06:07] LABS: BASO % 0.4 % (0.0-1.0); EOS # 0.2 10^3/uL (0.0-0.5); EOS % 2.6 % (0.0-3.0); HEMATOCRIT 29.7 % (36.0-47.0); HEMOGLOBIN 9.2 g/dl (12.0-15.5); LYMPH # 2.4 10^3/uL (1.5-5.0); LYMPH % 31.4 % (24.0-44.0); MEAN CORPUSCULAR HEMOGLOBIN 25.4 pg (27.0-33.0); MONO # 0.6 10^3/uL (0.0-0.8); MONO % 7.4 % (2.0-8.0); NEUTROPHILS # 4.4 10^3/uL (1.5-8.5); NEUTROPHILS % 57.8 % (36.0-66.0); PLATELET COUNT, AUTOMATED 223 10^3/uL (150-450); RED BLOOD COUNT 3.62 10^6/uL (4.00-5.40); WHITE BLOOD COUNT 7.6 10^3/uL (4.0-10.0)
[2023-12-03 06:33] LABS: CALCIUM LEVEL 8.9 MG/DL (8.3-10.6); CREATININE FOR GFR 1.05 MG/DL (0.55-1.30); GLOMERULAR FILTRATION RATE 53.2 (>32); MAGNESIUM LEVEL 1.6 MG/DL (1.8-2.4); POTASSIUM SERUM 3.7 MMOL/L (3.5-5.1)
[2023-12-03 07:50] VITALS: BP 123/71; TEMP 97.4; O2SAT 91
[2023-12-03] MEDS: MAG SULF 1GM/100ML (MAG RUN) 1 GM in IV 1 EA IV SCH (08:08)
[2023-12-04 04:00] VITALS: BP 140/77; TEMP 98.6; O2SAT 94
[2023-12-04 06:35] LABS: BASO % 0.4 % (0.0-1.0); EOS # 0.2 10^3/uL (0.0-0.5); EOS % 2.8 % (0.0-3.0); HEMATOCRIT 31.9 % (36.0-47.0); HEMOGLOBIN 9.8 g/dl (12.0-15.5); LYMPH # 2.3 10^3/uL (1.5-5.0); LYMPH % 31.7 % (24.0-44.0); MEAN CORPUSCULAR HEMOGLOBIN 24.8 pg (27.0-33.0); MEAN CORPUSCULAR HGB CONC 30.7 g/dl (32.0-36.5); MEAN CORPUSCULAR VOLUME 80.8 fl (80.0-96.0); MONO # 0.5 10^3/uL (0.0-0.8); MONO % 6.6 % (2.0-8.0); NEUTROPHILS # 4.1 10^3/uL (1.5-8.5); NEUTROPHILS % 57.9 % (36.0-66.0); PLATELET COUNT, AUTOMATED 254 10^3/uL (150-450); RED BLOOD COUNT 3.95 10^6/uL (4.00-5.40); WHITE BLOOD COUNT 7.1 10^3/uL (4.0-10.0)
[2023-12-04 07:00] LABS: CALCIUM LEVEL 8.9 MG/DL (8.3-10.6); CREATININE FOR GFR 1.07 MG/DL (0.55-1.30); MAGNESIUM LEVEL 1.8 MG/DL (1.8-2.4); POTASSIUM SERUM 4.1 MMOL/L (3.5-5.1)
[2023-12-05 04:04] VITALS: BP 129/77; TEMP 97.7; O2SAT 96
[2023-12-05 06:28] LABS: BASO % 0.6 % (0.0-1.0); EOS # 0.2 10^3/uL (0.0-0.5); EOS % 2.4 % (0.0-3.0); HEMATOCRIT 29.7 % (36.0-47.0); HEMOGLOBIN 9.3 g/dl (12.0-15.5); LYMPH # 2.7 10^3/uL (1.5-5.0); LYMPH % 38.2 % (24.0-44.0); MEAN CORPUSCULAR HEMOGLOBIN 25.8 pg (27.0-33.0); MEAN CORPUSCULAR HGB CONC 31.3 g/dl (32.0-36.5); MEAN CORPUSCULAR VOLUME 82.3 fl (80.0-96.0); MONO # 0.6 10^3/uL (0.0-0.8); MONO % 8.6 % (2.0-8.0); NEUTROPHILS # 3.5 10^3/uL (1.5-8.5); NEUTROPHILS % 49.5 % (36.0-66.0); PLATELET COUNT, AUTOMATED 266 10^3/uL (150-450); RED BLOOD COUNT 3.61 10^6/uL (4.00-5.40); WHITE BLOOD COUNT 7.1 10^3/uL (4.0-10.0)
[2023-12-05 07:00] LABS: CALCIUM LEVEL 8.9 MG/DL (8.3-10.6); CREATININE FOR GFR 1.22 MG/DL (0.55-1.30); GLOMERULAR FILTRATION RATE 44.7 (>32); MAGNESIUM LEVEL 1.8 MG/DL (1.8-2.4); POTASSIUM SERUM 4.3 MMOL/L (3.5-5.1)
[2023-12-05 08:00] VITALS: BP 126/74; TEMP 97.7; O2SAT 93
[2023-12-06 04:00] VITALS: BP 138/69; TEMP 97.9; O2SAT 94
[2023-12-06 06:03] LABS: BASO % 0.4 % (0.0-1.0); EOS # 0.2 10^3/uL (0.0-0.5); EOS % 2.4 % (0.0-3.0); HEMATOCRIT 29.8 % (36.0-47.0); HEMOGLOBIN 9.4 g/dl (12.0-15.5); LYMPH # 2.8 10^3/uL (1.5-5.0); LYMPH % 37.3 % (24.0-44.0); MEAN CORPUSCULAR HEMOGLOBIN 25.8 pg (27.0-33.0); MEAN CORPUSCULAR HGB CONC 31.5 g/dl (32.0-36.5); MEAN CORPUSCULAR VOLUME 81.9 fl (80.0-96.0); MONO # 0.6 10^3/uL (0.0-0.8); MONO % 7.4 % (2.0-8.0); NEUTROPHILS # 3.9 10^3/uL (1.5-8.5); NEUTROPHILS % 51.7 % (36.0-66.0); PLATELET COUNT, AUTOMATED 286 10^3/uL (150-450); RED BLOOD COUNT 3.64 10^6/uL (4.00-5.40); WHITE BLOOD COUNT 7.5 10^3/uL (4.0-10.0)
[2023-12-06 06:27] LABS: CALCIUM LEVEL 9.1 MG/DL (8.3-10.6); CREATININE FOR GFR 1.09 MG/DL (0.55-1.30); GLOMERULAR FILTRATION RATE 50.9 (>32); MAGNESIUM LEVEL 1.7 MG/DL (1.8-2.4); POTASSIUM SERUM 4.1 MMOL/L (3.5-5.1)
[2023-12-06 08:37] VITALS: BP 138/69
[2023-12-06] MEDS ORDERED: INSUHUMDS SC (11:06)
[2023-12-06] MEDS: MAGNESIUM OXIDE 400MG TAB (MAG-OX) PO ONE (11:47)
[2023-12-06 12:00] VITALS: BP 108/67; TEMP 97.7; O2SAT 91
== END 2023-12-06 16:20 | DRG 690 ==
LOC: M ED 07:36 → EDBD 07:36 → M ED INP 11:29 → M PCU 13:15 → M MSPAV 12-03 16:47
PROVIDERS: ADMIT Internal Medicine; ATTEND Internal Medicine
DX: N39.0 Urinary tract infection, site not specified (principal); I13.0 Hypertensive heart and chronic kidney disease with heart failure and stage 1 through stage 4 chronic kidney disease, or unspecified chronic kidney disease; I50.32 Chronic diastolic (congestive) heart failure; E87.20 Acidosis, unspecified; F03.90 Unspecified dementia, unspecified severity, without behavioral disturbance, psychotic disturbance, mood disturbance, and anxiety; E11.22 Type 2 diabetes mellitus with diabetic chronic kidney disease; I25.10 Atherosclerotic heart disease of native coronary artery without angina pectoris; N18.30 Chronic kidney disease, stage 3 unspecified; K21.9 Gastro-esophageal reflux disease without esophagitis; B34.8 Other viral infections of unspecified site; E11.65 Type 2 diabetes mellitus with hyperglycemia; B96.20 Unspecified Escherichia coli [E. coli] as the cause of diseases classified elsewhere; Z86.73 Personal history of transient ischemic attack (TIA), and cerebral infarction without residual deficits; M81.0 Age-related osteoporosis without current pathological fracture; E83.42 Hypomagnesemia; R29.6 Repeated falls; Z79.899 Other long term (current) drug therapy; Z79.4 Long term (current) use of insulin; Z88.8 Allergy status to other drugs, medicaments and biological substances; F32.A Depression, unspecified; Z66 Do not resuscitate

== ENCOUNTER 2024-03-05 15:53 | Emergency (ER) | payer MEDICARE, BC ==
[~2024-03-05] VITALS: Ht 160 cm; Wt 61.4 kg
[~2024-03-05 15:53] MED LIST changes: +INSULANT SC; +MAGN400T2 PO
[2024-03-05 16:13] VITALS: TEMP 96.4
[2024-03-05] MEDS: ACETAMINOPHEN 325 MG TAB PO ONE (16:15)
[2024-03-05 17:32] VITALS: BP 134/70; O2SAT 97
== END 2024-03-05 18:42 | disposition home or self-care (01) ==
LOC: EDBD 15:53 → M ED 15:53 → EDSEX 15:53 → M ED 18:42
DX: S50.01XA Contusion of right elbow, initial encounter (principal); S60.211A Contusion of right wrist, initial encounter; W19.XXXA Unspecified fall, initial encounter; J84.10 Pulmonary fibrosis, unspecified; F03.90 Unspecified dementia, unspecified severity, without behavioral disturbance, psychotic disturbance, mood disturbance, and anxiety; N18.30 Chronic kidney disease, stage 3 unspecified; E78.5 Hyperlipidemia, unspecified; I10 Essential (primary) hypertension; E11.9 Type 2 diabetes mellitus without complications; Y92.009 Unspecified place in unspecified non-institutional (private) residence as the place of occurrence of the external cause; Y93.89 Activity, other specified; Y99.9 Unspecified external cause status; Z79.4 Long term (current) use of insulin; Z79.899 Other long term (current) drug therapy

== ENCOUNTER 2024-04-25 20:48 | Emergency (ER) | payer MEDICARE, BC ==
[~2024-04-25] VITALS: Ht 162.6 cm; Wt 59.1 kg
[2024-04-25 21:01] VITALS: TEMP 97.7
[2024-04-25 21:23] LABS: BASO # 0.1 10^3/uL (0.0-0.2); BASO % 0.6 % (0.0-1.0); EOS # 0.1 10^3/uL (0.0-0.5); EOS % 1.2 % (0.0-3.0); HEMATOCRIT 37.1 % (36.0-47.0); HEMOGLOBIN 11.6 g/dl (12.0-15.5); LYMPH # 1.6 10^3/uL (1.5-5.0); LYMPH % 19.1 % (24.0-44.0); MEAN CORPUSCULAR HEMOGLOBIN 24.9 pg (27.0-33.0); MEAN CORPUSCULAR HGB CONC 31.3 g/dl (32.0-36.5); MEAN CORPUSCULAR VOLUME 79.8 fl (80.0-96.0); MONO # 0.6 10^3/uL (0.0-0.8); MONO % 7.4 % (2.0-8.0); NEUTROPHILS # 5.8 10^3/uL (1.5-8.5); NEUTROPHILS % 71.1 % (36.0-66.0); PLATELET COUNT, AUTOMATED 277 10^3/uL (150-450); RED BLOOD COUNT 4.65 10^6/uL (4.00-5.40); WHITE BLOOD COUNT 8.2 10^3/uL (4.0-10.0)
[2024-04-25 21:39] LABS: KETONE, URINE AUTO RFX NEGATIVE (NEGATIVE); LEUKOCYTE ESTERASE UR AUTO RFX NEGATIVE (NEGATIVE); MUCUS, URINE RFX LARGE (NEGATIVE); NITRITE, URINE AUTO RFX NEGATIVE (NEGATIVE); RBC, URINE AUTO RFX 1 /HPF (0-3); SQUAM EPITHELIAL CELL UR AURFX 1 /HPF (0-6); WBC, URINE AUTO RFX 1 /HPF (0-3)
[2024-04-25 21:56] LABS: CK-MB VALUE MASS < 1.0 NG/ML (<3.6)
[2024-04-25 21:58] LABS: ALKALINE PHOSPHATASE 68 U/L (35-104); ALT/SGPT 12 U/L (7.0-40); AST/SGOT 18 U/L (<34); BILIRUBIN,DIRECT < 0.1 MG/DL (<0.4); BILIRUBIN,TOTAL 0.3 MG/DL (0.3-1.2); BLOOD UREA NITROGEN 24 MG/DL (9-23); CALCIUM LEVEL 9.6 MG/DL (8.3-10.6); CARBON DIOXIDE LEVEL 26 MMOL/L (20-31); CHLORIDE LEVEL 100 MMOL/L (98-107); CREATININE FOR GFR 1.32 MG/DL (0.55-1.30); GLOMERULAR FILTRATION RATE 40.8 (>32); GLUCOSE, FASTING 237 MG/DL (74-106); POTASSIUM SERUM 4.4 MMOL/L (3.5-5.1); SODIUM LEVEL 139 MMOL/L (136-145)
[2024-04-25 21:59] LABS: CPK CREATINE PHOSPHOKINASE 43 U/L (34-145); MB/CK RELATIVE INDEX 2.32 (< OR =4)
[2024-04-25 23:33] LABS: CK-MB VALUE MASS < 1.0 NG/ML (<3.6)
[2024-04-25 23:36] LABS: CPK CREATINE PHOSPHOKINASE 29 U/L (34-145); MB/CK RELATIVE INDEX 3.44 (< OR =4)
[2024-04-26] MEDS: NS 500 ML IV ONE ×2 (00:45→02:50)
[2024-04-26] MEDS: HumuLIN R (REGULAR) INSULIN (NovoLIN R) **100U/ML** PER UNIT IV ONE (00:57)
[2024-04-26 02:08] LABS: VENOUS BASE EXCESS -1.1 (-2.0-2.0); VENOUS HCO3 23.9 MMOL/L (23.0-27.0); VENOUS O2 SATURATION 95.9 % (60.0-80.0); VENOUS PARTIAL PRESSURE CO2 41.1 mmHg (38.0-50.0); VENOUS PARTIAL PRESSURE O2 84.9 mmHg (30.0-50.0); VENOUS PH 7.382 UNITS (7.330-7.430); VENOUS STANDARD HCO3 23.5 MMOL/L; VENOUS TOTAL CO2 25.1 MMOL/L (24.0-28.0)
[2024-04-26 05:48] VITALS: BP 121/60; O2SAT 97
== END 2024-04-26 07:20 | disposition home or self-care (01) ==
LOC: EDBD 20:48 → M ED 20:48
DX: M62.81 Muscle weakness (generalized) (principal); E86.0 Dehydration; E78.5 Hyperlipidemia, unspecified; E11.9 Type 2 diabetes mellitus without complications; F32.A Depression, unspecified; Z88.8 Allergy status to other drugs, medicaments and biological substances; Z79.899 Other long term (current) drug therapy; Z79.4 Long term (current) use of insulin
CPT/HCPCS: 51701; 70450; 71045; 80048; 80076; 81001; 82010; 82550; 82553; 82803; 83605; 84484; 85025; 87486; 87581; 87633; 87798; 93005; 93041; 94760; 96374; 99285; J1815

== ENCOUNTER 2024-05-12 13:21 | Inpatient (IN) | payer MEDICARE, BC ==
[~2024-05-12] VITALS: Ht 162.6 cm; Wt 59.5 kg
[~2024-05-12 13:21] MED LIST changes: +AMLO-751 PO; -AMLO10TA PO
[2024-05-12 14:58] LABS: BASO % 0.5 % (0.0-1.0); EOS % 0.5 % (0.0-3.0); HEMATOCRIT 37.3 % (36.0-47.0); HEMOGLOBIN 11.7 g/dl (12.0-15.5); LYMPH # 1.3 10^3/uL (1.5-5.0); LYMPH % 14.6 % (24.0-44.0); MEAN CORPUSCULAR HEMOGLOBIN 24.9 pg (27.0-33.0); MEAN CORPUSCULAR HGB CONC 31.4 g/dl (32.0-36.5); MEAN CORPUSCULAR VOLUME 79.5 fl (80.0-96.0); MONO # 0.6 10^3/uL (0.0-0.8); MONO % 7.2 % (2.0-8.0); NEUTROPHILS # 6.6 10^3/uL (1.5-8.5); NEUTROPHILS % 76.5 % (36.0-66.0); PLATELET COUNT, AUTOMATED 280 10^3/uL (150-450); RED BLOOD COUNT 4.69 10^6/uL (4.00-5.40); WHITE BLOOD COUNT 8.6 10^3/uL (4.0-10.0)
[2024-05-12 15:10] LABS: KETONE, URINE AUTO RFX NEGATIVE (NEGATIVE); LEUKOCYTE ESTERASE UR AUTO RFX NEGATIVE (NEGATIVE); MUCUS, URINE RFX SMALL (NEGATIVE); NITRITE, URINE AUTO RFX NEGATIVE (NEGATIVE); RBC, URINE AUTO RFX 0 /HPF (0-3); SQUAM EPITHELIAL CELL UR AURFX 0 /HPF (0-6); WBC, URINE AUTO RFX 0 /HPF (0-3)
[2024-05-12 15:32] LABS: ALKALINE PHOSPHATASE 77 U/L (35-104); ALT/SGPT 11 U/L (7.0-40); AST/SGOT 11 U/L (<34); BILIRUBIN,DIRECT < 0.1 MG/DL (<0.4); BILIRUBIN,TOTAL 0.4 MG/DL (0.3-1.2); BLOOD UREA NITROGEN 33 MG/DL (9-23); CALCIUM LEVEL 9.4 MG/DL (8.3-10.6); CARBON DIOXIDE LEVEL 26 MMOL/L (20-31); CHLORIDE LEVEL 102 MMOL/L (98-107); CREATININE FOR GFR 1.61 MG/DL (0.55-1.30); GLOMERULAR FILTRATION RATE 31.4 (>32); GLUCOSE, FASTING 276 MG/DL (74-106); POTASSIUM SERUM 4.2 MMOL/L (3.5-5.1); SODIUM LEVEL 136 MMOL/L (136-145); TOTAL PROTEIN 7.8 G/DL (5.7-8.2)
[2024-05-12 15:34] LABS: THYROID STIMULATING HORMONE 2.067 uIU/ML (0.55-4.78)
[2024-05-12 15:41] LABS: AMPHETAMINES LEVEL URINE NEGATIVE (NEGATIVE); BARBITURATES URINE NEGATIVE (NEGATIVE); BENZODIAZEPINES URINE NEGATIVE (NEGATIVE); CANNABINOIDS URINE NEGATIVE (NEGATIVE); COCAINE METABOLITE URINE NEGATIVE (NEGATIVE); METHADONE URINE NEGATIVE (NEGATIVE); OPIATES URINE NEGATIVE (NEGATIVE); PHENCYCLIDINE URINE NEGATIVE (NEGATIVE)
[2024-05-12] MEDS: NS (Normal Saline) 0.9% 1,000 ML IV SCH (16:30)
[2024-05-12] MEDS ORDERED: GLUCOSE 4 GM CHEW PO PRN (16:40)
[2024-05-12] MEDS ORDERED: DEXTROSE 50% 50ML SYRINGE IV PRN (16:40)
[2024-05-12] MEDS ORDERED: GLUCAGON INJ 1MG VIAL SC PRN (16:40)
[2024-05-12] MEDS ORDERED: SITA50TAB PO (17:54)
[2024-05-12] MEDS ORDERED: HOME MED LIST COMPLETE! XX SCH (17:55)
[2024-05-12] MEDS: INSULIN LISPRO (NovoLOG) PER UNIT SC SCH ×2 (19:09→21:50)
[2024-05-12] MEDS: HEPARIN SOD (PORCINE) 5000UNITS/ML 1ML VIAL/SYRINGE SC SCH (22:37)
[2024-05-13 06:28] LABS: HEMATOCRIT 35.1 % (36.0-47.0); HEMOGLOBIN 10.8 g/dl (12.0-15.5); MEAN CORPUSCULAR HEMOGLOBIN 24.3 pg (27.0-33.0); MEAN CORPUSCULAR HGB CONC 30.8 g/dl (32.0-36.5); MEAN CORPUSCULAR VOLUME 78.9 fl (80.0-96.0); PLATELET COUNT, AUTOMATED 264 10^3/uL (150-450); RED BLOOD COUNT 4.45 10^6/uL (4.00-5.40); WHITE BLOOD COUNT 7.1 10^3/uL (4.0-10.0)
[2024-05-13 06:56] LABS: CALCIUM LEVEL 8.8 MG/DL (8.3-10.6); CREATININE FOR GFR 1.26 MG/DL (0.55-1.30); GLOMERULAR FILTRATION RATE 42.1 (>32); POTASSIUM SERUM 3.7 MMOL/L (3.5-5.1)
[2024-05-13] MEDS: CYANOCOBALAMIN 500 MCG TAB PO SCH (08:42)
[2024-05-13] MEDS: OMEPRAZOLE 20MG CAP PO SCH (08:42)
[2024-05-13] MEDS: SITagliptin 50 MG TAB (JANUVIA) PO SCH (08:42)
[2024-05-13] MEDS: MAGNESIUM OXIDE 400MG TAB (MAG-OX) PO SCH (08:42)
[2024-05-13] MEDS: SERTRALINE 100 MG TAB PO SCH (08:42)
[2024-05-13] MEDS: ISOSORBIDE DIN. (ISORDIL) 20 MG TAB PO SCH (08:43)
[2024-05-14 07:03] LABS: BASO % 0.5 % (0.0-1.0); EOS # 0.1 10^3/uL (0.0-0.5); EOS % 1.9 % (0.0-3.0); HEMATOCRIT 33.7 % (36.0-47.0); HEMOGLOBIN 10.4 g/dl (12.0-15.5); LYMPH # 1.6 10^3/uL (1.5-5.0); LYMPH % 22.1 % (24.0-44.0); MEAN CORPUSCULAR HEMOGLOBIN 24.6 pg (27.0-33.0); MEAN CORPUSCULAR HGB CONC 30.9 g/dl (32.0-36.5); MEAN CORPUSCULAR VOLUME 79.9 fl (80.0-96.0); MONO # 0.6 10^3/uL (0.0-0.8); MONO % 7.7 % (2.0-8.0); NEUTROPHILS # 4.9 10^3/uL (1.5-8.5); PLATELET COUNT, AUTOMATED 254 10^3/uL (150-450); RED BLOOD COUNT 4.22 10^6/uL (4.00-5.40); WHITE BLOOD COUNT 7.4 10^3/uL (4.0-10.0)
[2024-05-14 07:24] LABS: CALCIUM LEVEL 8.4 MG/DL (8.3-10.6); CREATININE FOR GFR 1.25 MG/DL (0.55-1.30); GLOMERULAR FILTRATION RATE 42.5 (>32)
[2024-05-14] MEDS: INDAPAMIDE 1.25MG TABLET PO SCH (09:00)
[2024-05-14 17:20] VITALS: BP 121/73; TEMP 97.3; O2SAT 93
[2024-05-15 05:37] VITALS: BP 118/62; TEMP 97.7; O2SAT 94
[2024-05-16 05:16] VITALS: BP 128/72; TEMP 97.3; O2SAT 92
[2024-05-17 04:05] VITALS: BP 128/83; TEMP 97.5; O2SAT 90
[2024-05-17 08:44] VITALS: BP 108/62
[2024-05-18 05:28] VITALS: BP 132/77; TEMP 97.8; O2SAT 93
[2024-05-18 12:34] VITALS: BP 125/92
[2024-05-19] VITALS (9 sets, daily range): BP systolic 96–130; BP diastolic 58–94; TEMP 97.5–97.9; O2SAT 74–94
[2024-05-19 16:49] LABS: ABG BASE EXCESS -13.3 (-2.0-2.0); ABG HCO3 12.9 MMOL/L (22.0-26.0); ABG O2 SATURATION 96.6 % (95.0-99.0); ABG PARTIAL PRESSURE CO2 31.1 mmHg (35.0-45.0); ABG STANDARD HCO3 14.1 MMOL/L. (22.0-26.0); ABG TOTAL CO2 13.9 MMOL/L (23.0-31.0)
[2024-05-19 16:51] LABS: ABG pH (ARTERIAL) 7.236 UNITS (7.350-7.450)
[2024-05-19 16:55] LABS: BASO # 0.1 10^3/uL (0.0-0.2); BASO % 0.6 % (0.0-1.0); EOS # 0.2 10^3/uL (0.0-0.5); LYMPH # 8.7 10^3/uL (1.5-5.0); LYMPH % 52.8 % (24.0-44.0); MEAN CORPUSCULAR HEMOGLOBIN 24.8 pg (27.0-33.0); MEAN CORPUSCULAR HGB CONC 29.7 g/dl (32.0-36.5); MEAN CORPUSCULAR VOLUME 83.3 fl (80.0-96.0); MONO % 6.2 % (2.0-8.0); NEUTROPHILS # 6.1 10^3/uL (1.5-8.5); PLATELET COUNT, AUTOMATED 323 10^3/uL (150-450); RED BLOOD COUNT 4.44 10^6/uL (4.00-5.40); WHITE BLOOD COUNT 16.4 10^3/uL (4.0-10.0)
[2024-05-19] MEDS ORDERED: LEVALBUTEROL 1.25 MG 0.5ML CONCENTRATE NEB INH PRN (16:55)
[2024-05-19 17:12] LABS: ALBUMIN 2.9 G/DL (3.2-5.2); ALKALINE PHOSPHATASE 69 U/L (35-104); ALT/SGPT 16 U/L (7.0-40); AST/SGOT 20 U/L (<34); BILIRUBIN,DIRECT < 0.1 MG/DL (<0.4); BILIRUBIN,TOTAL 0.4 MG/DL (0.3-1.2); BLOOD UREA NITROGEN 36 MG/DL (9-23); C REACTIVE PROTEIN QUANTITATIV 5.88 MG/DL (<1.0); CALCIUM LEVEL 8.9 MG/DL (8.3-10.6); CARBON DIOXIDE LEVEL 18 MMOL/L (20-31); CHLORIDE LEVEL 98 MMOL/L (98-107); CREATININE FOR GFR 1.54 MG/DL (0.55-1.30); GLOMERULAR FILTRATION RATE 33.1 (>32); GLUCOSE, FASTING 352 MG/DL (74-106); MAGNESIUM LEVEL 2.2 MG/DL (1.8-2.4); POTASSIUM SERUM 3.7 MMOL/L (3.5-5.1); SODIUM LEVEL 133 MMOL/L (136-145); TOTAL PROTEIN 7.8 G/DL (5.7-8.2)
[2024-05-19 17:24] LABS: PROCALCITONIN 0.14 ng/ml
[2024-05-19] MEDS: INSULIN LISPRO (NovoLOG) PER UNIT SC ONE (17:44)
[2024-05-19] MEDS ORDERED: LR 1,000 ML IV ONE (18:00)
[2024-05-19] MEDS ORDERED: PIPERACILLIN/TAZOBACTAM SOD 3.375 GM in DEXTROSE 5% (D5W) ADV/MINI-BAG 50 ML IV SCH (18:00)
[2024-05-19] MEDS ORDERED: INSULIN LISPRO (NovoLOG) PER UNIT SC SCH (18:00)
[2024-05-19] MEDS ORDERED: SODIUM BICARBONATE 75 MEQ in NS 0.45% 1,000 ML IV SCH (19:00)
== END 2024-05-19 20:35 | disposition expired | DRG 947 ==
LOC: M ED 13:21 → EDBD 13:21 → M ED INP 16:37 → M MSPAV 05-14 17:21
PROVIDERS: ADMIT Internal Medicine; ATTEND Internal Medicine
DX: R53.1 Weakness (principal); J96.01 Acute respiratory failure with hypoxia; J69.0 Pneumonitis due to inhalation of food and vomit; E11.10 Type 2 diabetes mellitus with ketoacidosis without coma; G93.41 Metabolic encephalopathy; E87.20 Acidosis, unspecified; N17.9 Acute kidney failure, unspecified; N18.9 Chronic kidney disease, unspecified; E78.5 Hyperlipidemia, unspecified; K21.9 Gastro-esophageal reflux disease without esophagitis; F03.90 Unspecified dementia, unspecified severity, without behavioral disturbance, psychotic disturbance, mood disturbance, and anxiety; E11.22 Type 2 diabetes mellitus with diabetic chronic kidney disease; I12.9 Hypertensive chronic kidney disease with stage 1 through stage 4 chronic kidney disease, or unspecified chronic kidney disease; Z88.8 Allergy status to other drugs, medicaments and biological substances; Z79.4 Long term (current) use of insulin; Z79.899 Other long term (current) drug therapy; E53.8 Deficiency of other specified B group vitamins; Z66 Do not resuscitate; Z86.73 Personal history of transient ischemic attack (TIA), and cerebral infarction without residual deficits; R29.6 Repeated falls; R26.89 Other abnormalities of gait and mobility